=== PATIENT | female | born 1955 | race Caucasian/White ===

== ENCOUNTER → 2021-03-15 | Outpatient (CLI) | payer MEDICARE ==
--- NOTE | 2021-03-15 16:17 | US ---
EXAMINATION TYPE: US venous doppler duplex LE LT DATE OF EXAM: 03/15/2021 2:52 PM COMPARISON: NONE CLINICAL HISTORY: 65-year-old female [id number], [id number],. Left posterior to knee pain for the past day w ith prior foot surgery on 03/11/2021 SIDE PERFORMED: Left TECHNIQUE: The lower extremity deep venous system is examined utilizing real time linear array sonog les with graded compression, doppler sonography and color-flow sonography. FINDINGS: VESSELS IMAGED: Common Femoral Vein Deep Femoral Vein Greater Saphenous Vein * Femoral Vein Popliteal Vein Small Saphenous Vein * Proximal Calf Veins (* superficial vessels) Left Leg: Negative for DVT Complex area medial/posterior to left knee measuring 4.6 x 3.6 x 1.3 cm. Fluid collections seen ante rior/superior to left knee measuring 6.1 x 4.5 x 1.5cm IMPRESSION: 1. No evidence for DVT within the left lower extremity. 2. Suspect a moderate-sized, 4.6 cm Mccauley's cyst. 3. Additional 6.1 cm fluid collection along the anterior suprapatellar region. On the sagittal stitch ed image, this may represent knee joint effusion distending the suprapatellar pouch. Recommend knee r adiograph to further evaluate and/or MRI.
== END | disposition home or self-care (01) ==
LOC: RADUSWWP 13:51
PROVIDERS: ATTEND Podiatrist
DX: S92.355D Nondisplaced fracture of fifth metatarsal bone, left foot, subsequent encounter for fracture with routine healing (principal); X58.XXXD Exposure to other specified factors, subsequent encounter

== ENCOUNTER → 2021-05-20 | Outpatient (CLI) | payer MEDICARE ==
--- NOTE | 2021-05-20 12:59 | XR ---
EXAMINATION TYPE: XR abdomen 2V DATE OF EXAM: 05/20/2021 COMPARISON: NONE HISTORY: Pain TECHNIQUE: Two view abdominal series FINDINGS: The osseous structures are intact. The bowel gas pattern is nonspecific. Lung bases are clear. Scol iosis with multilevel severe degenerative and hypertrophic change. Retained fecal debris throughout t he colon. Calcifications pelvis likely vascular IMPRESSION: 1. Nonspecific abdomen. Correlate for constipation.
== END | disposition home or self-care (01) ==
LOC: RADXRMAIN 12:33
PROVIDERS: ATTEND Nurse Practitioner Family
DX: K59.09 Other constipation (principal)
CPT/HCPCS: 74019

== ENCOUNTER → 2021-09-15 | Outpatient (CLI) | payer MEDICARE, OTHER ==
--- NOTE | 2021-09-16 08:11 | CT ---
EXAMINATION TYPE: CT abdomen pelvis w con CT DLP: 944.9 mGycm, Automated exposure control for dose reduction was used. DATE OF EXAM: 09/15/2021 6:45 PM COMPARISON: None. CLINICAL INDICATION:Female, 65 years old with history of K57.32 DVTRCLI OF LG INT W/O PERFORATION; bl oating and dry heaving, pain x 7 months TECHNIQUE: Standard CT of the abdomen and pelvis following the administration of 100 cc of Isovue 3 00 IV contrast material and oral contrast. Coronal and sagittal reformats were performed. FINDINGS: LOWER CHEST: Left fat containing Bochdalek hernia. ABDOMEN LIVER: Diffusely hypoattenuating parenchyma. Small to characterize probable left hepatic cyst. Fatty infiltration of segment 4A. GALLBLADDER AND BILE DUCTS: Unremarkable. PANCREAS: Unremarkable. SPLEEN: Unremarkable. ADRENAL GLANDS: Unremarkable. KIDNEYS AND URETERS: No evidence of hydronephrosis or renal calculus. Right renal cyst, probable subc entimeter left renal cyst. PELVIS BLADDER: Unremarkable REPRODUCTIVE: Unremarkable. ABDOMEN & PELVIS STOMACH AND BOWEL: Stomach and duodenum are unremarkable. Scattered diverticula are noted throughout the colon. No evidence of bowel obstruction. Appendix is normal. PERITONEUM: No evidence of pneumoperitoneum or free fluid. VASCULATURE: Mild atherosclerotic calcifications are present throughout the abdominal aorta and its b ranches. No evidence of aortic aneurysm. MUSCULOSKELETAL: No acute osseous abnormalities. Mild disc degeneration changes are present throughou t the thoracolumbar spine. Levoscoliosis apex L3/L4. There is degeneration changes of the bilateral h ips LYMPH NODES: No gross evidence for lymphadenopathy. SOFT TISSUE/ABDOMINAL WALL: Unremarkable IMPRESSION: 1. No evidence for colonic diverticulitis or acute abdominal process. 2. Colonic diverticulosis. 3. Hepatic steatosis.
== END | disposition home or self-care (01) ==
LOC: RADCTMAIN 16:41
PROVIDERS: ATTEND Surgery Plastic and Reconstructive Surgery
DX: K76.0 Fatty (change of) liver, not elsewhere classified (principal); K57.30 Diverticulosis of large intestine without perforation or abscess without bleeding
CPT/HCPCS: 82565; 84520; 74177; 36415; Q9967

== ENCOUNTER → 2021-09-26 | Outpatient (CLI) | payer MEDICARE, OTHER ==
--- NOTE | 2021-09-26 11:45 | US ---
EXAMINATION TYPE: US thyroid st tissue head/neck DATE OF EXAM: 09/26/2021 COMPARISON: NONE CLINICAL HISTORY: R13.10 DYSPHAGIA,. GLAND SIZE: Right Lobe: 3.3 x 1.6 x 1.9 cm Overall Parenchyma: homogenous Left Lobe: 2.9 x 1.4 x 1.9 cm Overall Parenchyma: homogeneous Isthmus Thickness: 0.3 cm NODULES RIGHT: # of nodules measured on right: 1 1. 0.6 X 0.5 x 0.6 cm, upper mid, mixed cystic and solid, isoechoic nodule, which is taller than wi de, with ill-defined margins, without echogenic foci. TR4 Prior size: no prior LEFT: # of nodules measured on left: 0 ISTHMUS: # of nodules measured in the isthmus: 0 Bilateral neck scanned, no evidence of lymphadenopathy. IMPRESSION: 1. Moderately suspicious nodule within the right lobe thyroid. Consider follow-up exam in one year 2017 ACR TI-RADS LEVEL: *Highest TI-RADS level nodule reported
--- NOTE | 2021-09-26 16:14 | FL ---
EXAMINATION TYPE: FL barium swallow DATE OF EXAM: 09/26/2021 COMPARISON: None HISTORY: Dysphagia diverticulitis TECHNIQUE: A double air contrast esophagram study is performed. FINDINGS: Fluoroscopy time: 17 seconds. Images: 106 Esophagus dilates to a normal caliber and has normal contour to the gastroesophageal junction. Gastro esophageal junction opens to normal caliber. Tertiary contractions are evident within the distal half of the esophagus during the exam. In the horizontal drinking position there is incomplete stripping of the esophageal bolus. A secondary contraction was evident. This spontaneously resolved with additi onal swallowing. Gastroesophageal junction opens to normal caliber. No suspicious intraluminal or ext ramural defects are evident. IMPRESSIONS: 1. Presbyesophagus.
== END | disposition home or self-care (01) ==
LOC: RADUSWWP 07:44
PROVIDERS: ATTEND Surgery Plastic and Reconstructive Surgery
DX: R13.10 Dysphagia, unspecified (principal); E04.1 Nontoxic single thyroid nodule; K22.9 Disease of esophagus, unspecified
CPT/HCPCS: 74220; 76536

== ENCOUNTER 2021-11-23 08:49 | Day surgery (SDC) | payer MEDICARE, OTHER ==
[2021-11-21 13:31] VITALS: BMI 25.8
[~2021-11-23 08:49] MED LIST: LACTATED RINGERS 1,000 ML IV SCH
--- NOTE | 2021-11-23 08:51 | P.GSHP ---
History of Present Illness H&P Date: 11/23/21 CHIEF COMPLAINT: GERD HISTORY OF PRESENT ILLNESS: The patient is a 65-year-old female who presents reports gastroesophageal reflux disease. Upper endoscopy was offered for further evaluation and management. PAST MEDICAL HISTORY: Please see list. PAST SURGICAL HISTORY: Please see list. MEDICATIONS: Please see list. ALLERGIES: Please see list. SOCIAL HISTORY: No illicit drug use FAMILY HISTORY: No reports of Crohn disease or ulcerative colitis. REVIEW OF ORGAN SYSTEMS: CONSTITUTIONAL: No reports of fevers or chills. GI: Denies any blood in stools or constipation. PHYSICAL EXAM: VITAL SIGNS: Stable GENERAL: Well-developed and pleasant in no acute distress. HEENT: No scleral icterus. Extraocular movements grossly intact. Moist buccal mucosa. NECK: Supple without lymphadenopathy. CHEST: Unlabored respirations. Equal bilateral excursions. CARDIOVASCULAR: Regular rate and rhythm. Distal 2+ pulses. ABDOMEN: Soft, nondistended. MUSCULOSKELETAL: No clubbing, cyanosis, or edema. ASSESSMENT: 1. Gastroesophageal reflux disease PLAN: 1. Recommend proceeding with an upper endoscopy Past Medical History Past Medical History: Eye Disorder, Hyperlipidemia, Hypertension, Osteoarthritis (OA) Additional Past Medical History / Comment(s): Cataracts, Glaucoma and Macular Degeneration. History of Any Multi-Drug Resistant Organisms: None Reported Past Surgical History: Back Surgery, Section, Hernia Repair, Orthopedic Surgery Additional Past Surgical History / Comment(s): Surgery for scoliosis, left foot surgery with pin placed. Past Anesthesia/Blood Transfusion Reactions: Postoperative Nausea & Vomiting (PONV) Additional Past Anesthesia/Blood Transfusion Reaction / Comment(s): Hx Migraines post-op yrs ago. Past Psychological History: No Psychological Hx Reported Smoking Status: Never smoker Past Alcohol Use History: Occasional Past Drug Use History: None Reported - Past Family History Mother Family Medical History: Cancer, CVA/TIA Father Family Medical History: CVA/TIA Medications and Allergies Home Medications Medication Instructions Recorded Confirmed Type Alendronate Sodium 70 mg PO WEEKLY 03/08/21 11/21/21 History Simvastatin [Zocor] 20 mg PO DAILY 03/08/21 11/21/21 History Dorzolamide-Timol 2.23%/0.68% 1 drop BOTH EYES DAILY 03/11/21 11/21/21 History [Cosopt] Latanoprost/Pf [Latanoprost 0.005% 1 drop BOTH EYES BID 03/11/21 11/21/21 History Eye Drop] Multivitamins, Thera [Multivitamin 1 tab PO DAILY 03/11/21 11/21/21 History (formulary)] amLODIPine BESYLATE/BENAZEPRIL 1 cap PO QAM 03/11/21 11/21/21 History [Lotrel 5-10 MG] Allergies Allergy/AdvReac Type Severity Reaction Status Date / Time codeine Allergy Rash/Hives Verified 11/21/21 13:17 Penicillins Allergy Rash/Hives Verified 11/21/21 13:17
[2021-11-23 09:10] VITALS: TEMP 97.1
[2021-11-23] MEDS ORDERED: PROPOFOL 10 MG/ML 20 ML VIAL IV ONE (10:01)
[2021-11-23 10:24] VITALS: RESP 16
--- NOTE | 2021-11-23 10:29 | P.PCN ---
Date of Procedure: 11/23/21 Description of Procedure: PREOPERATIVE DIAGNOSIS: Gastroesophageal reflux disease Epigastric abdominal pain Dysphagia POSTOPERATIVE DIAGNOSIS: Gastroesophageal reflux disease Epigastric abdominal pain Dysphagia Presbyesophagus Diaphragmatic hiatal hernia OPERATION: Esophagogastroduodenoscopy with rigid dilator over the guidewire 54 Fr with dilation Esophagogastroduodenoscopy with cold forceps biopsies stomach/antrum and duodenum SURGEON: Yarely Bernal MD ANESTHESIA: MAC. INDICATIONS: The patient is a 65-year-old female who presents with a history of gastroesophageal reflux disease with abdominal pain. Benefits and risks of the procedure were described. Informed consent was obtained. DESCRIPTION: The patient was brought into the endoscopy suite and laid in the left lateral decubitus position. After a timeout was confirmed, the procedure was initiated. An Olympus gastroscope was passed into the posterior oropharynx. The scope was passed down to the distal esophagus into the stomach and duodenum. To address the upper esophageal stenosis and presbyesophagus, rigid dilator over guidewire was selected. Next using an Gabonese rigid dilator, a guidewire was placed through the gastroscope. Next the scope was withdrawn. A 54-Gibraltarian rigid Gabonese dilator was passed carefully along the posterior oropharynx to 45 cm and left in place for 2 minutes stretch. The dilator was withdrawn including the guidewire. The scope was reentered along the posterior oropharynx with no findings of full- thickness tear of the upper esophageal sphincter. Additional findings below. Within the stomach, cold forceps biopsies obtained. The large esophageal valve was evaluated with Hill grade 4 lower esophageal valve. LA grade A erosive esophagitis was identified. The squamocolumnar junction was at 35 cm and diaphragmatic hiatus at 40 cm. No full-thickness injury was encountered. The GI tract was desufflated. The patient tolerated the procedure well. FINDINGS: Upper esophageal stenosis dilated 54-Gibraltarian rigid dilator Diaphragmatic hiatus at 40 cm from the incisors Squamocolumnar junction 35 cm from the incisors. Diaphragmatic hiatal hernia, 5 cm Chronic gastritis with cold forceps biopsies obtained Duodenum with cold biopsies obtained for celiac disease LA grade A erosive esophagitis Hill grade 4 lower esophageal valve. RECOMMENDATIONS: May benefit from hiatal hernia repair due to symptomatic reflux Plan - Discharge Summary Discharge Rx Participant: No New Discharge Prescriptions: Continue Alendronate Sodium 70 mg PO WEEKLY Simvastatin [Zocor] 20 mg PO DAILY amLODIPine BESYLATE/BENAZEPRIL [Lotrel 5-10 MG] 1 cap PO QAM Dorzolamide-Timol 2.23%/0.68% [Cosopt] 1 drop BOTH EYES DAILY Omeprazole 20 mg PO BID Latanoprost/Pf [Latanoprost 0.005% Eye Drop] 1 drop BOTH EYES BID Multivitamins, Thera [Multivitamin (formulary)] 1 tab PO DAILY Discharge Medication List Alendronate Sodium 70 mg PO WEEKLY 03/08/21 [History] Simvastatin [Zocor] 20 mg PO DAILY 03/08/21 [History] Dorzolamide-Timol 2.23%/0.68% [Cosopt] 1 drop BOTH EYES DAILY 03/11/21 [History] Latanoprost/Pf [Latanoprost 0.005% Eye Drop] 1 drop BOTH EYES BID 03/11/21 [History] Multivitamins, Thera [Multivitamin (formulary)] 1 tab PO DAILY 03/11/21 [History] amLODIPine BESYLATE/BENAZEPRIL [Lotrel 5-10 MG] 1 cap PO QAM 03/11/21 [History] Omeprazole 20 mg PO BID 11/23/21 [History] Follow up Appointment(s)/Referral(s): Yarely Bernal MD [STAFF PHYSICIAN] - 12/06/21 Patient Instructions/Handouts: Hiatal Hernia (DC), Esophageal Dilation (GEN) Discharge Disposition: HOME SELF-CARE
[2021-11-23 10:57] VITALS: BP 142/72; PULSE 66
[2021-11-23 11:20] LABS: Basophils % (A) 0 %; Eosinophils # (A) 0.1 k/uL (0-0.7); Eosinophils % (A) 1 %; HGB 11.8 gm/dL (11.4-16.0); Lymphocytes # (A) 0.7 k/uL (1.0-4.8); Lymphocytes % (A) 16 %; MCH 32.4 pg (25.0-35.0); MCHC 31.1 g/dL (31.0-37.0); MCV 104.4 fL (80.0-100.0); Macrocytosis Slight; Monocytes # (A) 0.4 k/uL (0-1.0); Monocytes % (A) 9 %; Neutrophils % (A) 72 %; Platelet Count 215 k/uL (150-450); RBC 3.64 m/uL (3.80-5.40); RDW 12.9 % (11.5-15.5); WBC 4.2 k/uL (3.8-10.6)
== END 2021-11-23 11:40 | disposition home or self-care (01) ==
LOC: ORWHC2ENDO 08:49
PROVIDERS: ATTEND Surgery Plastic and Reconstructive Surgery
DX: K29.50 Unspecified chronic gastritis without bleeding (principal); K22.89 Other specified disease of esophagus; K44.9 Diaphragmatic hernia without obstruction or gangrene; K21.00 Gastro-esophageal reflux disease with esophagitis, without bleeding; E78.5 Hyperlipidemia, unspecified; I10 Essential (primary) hypertension; M19.90 Unspecified osteoarthritis, unspecified site; K91.0 Vomiting following gastrointestinal surgery; H26.9 Unspecified cataract; H40.9 Unspecified glaucoma; F10.99 Alcohol use, unspecified with unspecified alcohol-induced disorder; H35.30 Unspecified macular degeneration; Z98.891 History of uterine scar from previous surgery; Z98.890 Other specified postprocedural states; Z86.69 Personal history of other diseases of the nervous system and sense organs; Z80.9 Family history of malignant neoplasm, unspecified; Z82.3 Family history of stroke; Z88.5 Allergy status to narcotic agent; Z88.0 Allergy status to penicillin; Z79.899 Other long term (current) drug therapy
CPT/HCPCS: 88305; 85025; 43239; 43249; J2704

== ENCOUNTER → 2021-12-07 | Outpatient (CLI) | payer MEDICARE, OTHER | END | disposition home or self-care (01) | LOC: LABWHC1 11:26 | PROVIDERS: ATTEND Surgery Plastic and Reconstructive Surgery | DX: I11.9 Hypertensive heart disease without heart failure (principal) | CPT/HCPCS: 93005 ==

== ENCOUNTER 2021-12-23 12:49 | Day surgery (SDC) | payer MEDICARE, OTHER ==
--- NOTE | 2021-12-23 11:03 | P.GSHP ---
History of Present Illness H&P Date: 12/23/21 CHIEF COMPLAINT: Paraesophageal hiatal hernia with gastroesophageal reflux disease. HISTORY OF PRESENT ILLNESS: The patient is a 66-year-old female who presents with paraesophageal hiatal hernia. She has completed an upper endoscopy workup. Now she presents for surgical intervention. PAST MEDICAL HISTORY: Please see list. PAST SURGICAL HISTORY: Please see list. MEDICATIONS: Please see list. ALLERGIES: Please see list. SOCIAL HISTORY: No illicit drug use FAMILY HISTORY: No reports of Crohn disease or ulcerative colitis. REVIEW OF ORGAN SYSTEMS: CONSTITUTIONAL: No reports of fevers or chills. GI: Denies any blood in stools or constipation. PHYSICAL EXAM: VITAL SIGNS: Stable GENERAL: Well-developed pleasant and in no acute distress. HEENT: No scleral icterus. Extraocular movements grossly intact. Moist buccal mucosa. NECK: Supple without lymphadenopathy. CHEST: Unlabored respirations. Equal bilateral excursions. CARDIOVASCULAR: Regular rate and rhythm. Distal 2+ pulses. ABDOMEN: Soft, nondistended. No peritoneal signs. MUSCULOSKELETAL: No clubbing, cyanosis, or edema. SKIN: Well-perfused. Good skin turgor. ASSESSMENT: 1. Diaphragmatic paraesophageal hiatal hernia with severe gastroesophageal reflux disease. PLAN: 1. Recommend proceeding with a robotic paraesophageal hiatal hernia with possible mesh. 2. Benefits and risks of surgical intervention was discussed including possibility of open technique. 3. Inpatient hospitalization recommended of 2 nights 4. DVT prophylaxis. 5. Antibiotic prophylaxis. 6. She has also completed a very low caloric high-protein diet to address underlying hepatomegaly. 7. Non narcotic pain management including abdominal wall block described 8. Blood sugar glucose described. 9. Weight loss management described. Past Medical History Past Medical History: Eye Disorder, GERD/Reflux, Hyperlipidemia, Hypertension, Osteoarthritis (OA) Additional Past Medical History / Comment(s): Cataracts, Glaucoma and Macular Degeneration., scoliosis with surgery, pt states spot of fungus on her foot. , lumps on her thyroid., hx of left foot fx with surgery feb 2021 & some difficulty walking at times and uses motor w/c at store., hiatal hernia History of Any Multi-Drug Resistant Organisms: None Reported Past Surgical History: Back Surgery, Section, Hernia Repair, Orthopedic Surgery Additional Past Surgical History / Comment(s): Surgery for scoliosis with rods that broke and were removed. , left foot surgery with pin placed (feb 2021), EGD WITH DILATION (11/23/21)., HYSTEROSCOPY Past Anesthesia/Blood Transfusion Reactions: Postoperative Nausea & Vomiting (PONV) Additional Past Anesthesia/Blood Transfusion Reaction / Comment(s): post-op headache Past Psychological History: No Psychological Hx Reported Smoking Status: Never smoker Past Alcohol Use History: Occasional Past Drug Use History: None Reported - Past Family History Mother Family Medical History: Cancer, CVA/TIA Father Family Medical History: CVA/TIA Medications and Allergies Home Medications Medication Instructions Recorded Confirmed Type Alendronate Sodium 70 mg PO WEEKLY 03/08/21 12/22/21 History Simvastatin [Zocor] 20 mg PO HS 03/08/21 12/22/21 History Dorzolamide-Timol 2.23%/0.68% 1 drop BOTH EYES BID 03/11/21 12/22/21 History [Cosopt] amLODIPine BESYLATE/BENAZEPRIL 1 cap PO QAM 03/11/21 12/22/21 History [Lotrel 5-10 MG] Omeprazole 20 mg PO BID 11/23/21 12/22/21 History Acetaminophen Tab [Tylenol] 650 mg PO DIRECTED PRN 12/22/21 12/22/21 History L.acidoph,Paracasei, B.lactis 1 each PO DAILY 12/22/21 12/22/21 History [Probiotic] Latanoprostene Bunod [Vyzulta] 1 drop BOTH EYES HS 12/22/21 12/22/21 History Multivit with Calcium,Iron,Min 1 each PO DAILY 12/22/21 12/22/21 History [Women's Multivitamin] Allergies Allergy/AdvReac Type Severity Reaction Status Date / Time codeine Allergy Rash/Hives/ Verified 12/22/21 13:27 Migraines Penicillins Allergy Rash/Hives Verified 12/22/21 13:02
[~2021-12-23 12:49] MED LIST changes: +CHLORHEXIDINE GLUCONATE 15 ML CUP MUCOUS MEM PRN; +DEXAMETHASONE SOD PHOSPHATE 4 MG/ML 1 ML VIAL IV ONE; +HEPARIN SODIUM,PORCINE/PF 5,000 UNIT/0.5 ML SYRINGE SQ PRN; -LACTATED RINGERS 1,000 ML IV SCH; +MIDAZOLAM 2 MG/2 ML VIAL IV PRN; +ONDANSETRON 4 MG/2 ML VIAL IVP ONE; +PANTOPRAZOLE 40 MG/10 ML VIAL IVP PRN; +SCOPOLAMINE 1 MG/72 HR PATCH TRANSDERM STA; +fentaNYL (PF) 50 MCG/ML 2 ML AMP IV PRN
[2021-12-23] MEDS: LACTATED RINGERS 1,000 ML IV SCH (13:46)
[2021-12-23 14:03] LABS: Basophils % (A) 1 %; Eosinophils % (A) 0 %; HCT 37.9 % (34.0-46.0); HGB 12.7 gm/dL (11.4-16.0); Lymphocytes % (A) 15 %; MCH 34.1 pg (25.0-35.0); MCHC 33.6 g/dL (31.0-37.0); MCV 101.5 fL (80.0-100.0); Mean Platelet Volume 7.6; Monocytes # (A) 0.5 k/uL (0-1.0); Monocytes % (A) 8 %; Neutrophils # (A) 4.4 k/uL (1.3-7.7); Neutrophils % (A) 72 %; Platelet Count 317 k/uL (150-450); RBC 3.73 m/uL (3.80-5.40); RDW 12.1 % (11.5-15.5); WBC 6.1 k/uL (3.8-10.6)
[2021-12-23 14:12] LABS: Albumin 4.7 g/dL (3.5-5.0); Calcium 9.7 mg/dL (8.4-10.2); Potassium 4.6 mmol/L (3.5-5.1); Total Bilirubin 0.5 mg/dL (0.2-1.3); Total Protein 7.2 g/dL (6.3-8.2)
[2021-12-23] MEDS ORDERED: SUCCINYLCHOLINE CHLORIDE 200 MG/10 ML VIAL IV ONE (14:55)
[2021-12-23] MEDS ORDERED: LIDOCAINE 2% INJ 20 MG/ML (2 ML VIAL) ONE (14:55)
[2021-12-23] MEDS ORDERED: MIDAZOLAM 2 MG/2 ML VIAL ONE (14:55)
[2021-12-23] MEDS ORDERED: PHENYLEPHRINE-0.9% NACL SYG 1,000 MCG/10 ML SYRINGE ONE (14:55)
[2021-12-23] MEDS ORDERED: GLYCOPYRROLATE 0.2 MG/ML 2 ML VIAL ONE (14:55)
[2021-12-23] MEDS ORDERED: ROCURONIUM 10 MG/ML (5 ML VIAL) IV ONE (14:55)
[2021-12-23] MEDS ORDERED: NEOSTIGMINE 1 MG/ML 10 ML VIAL ONE (14:55)
[2021-12-23] MEDS ORDERED: PROPOFOL 10 MG/ML 20 ML VIAL IV ONE (14:55)
[2021-12-23] MEDS ORDERED: fentaNYL (PF) 50 MCG/ML 2 ML AMP ONE (14:55)
[2021-12-23] MEDS ORDERED: LIDOCAINE 1%-EPI 1:100,000 20 ML VIAL SQ ONE (15:16)
[2021-12-23] MEDS ORDERED: LACTATED RINGERS 1,000 ML IV ONE (16:32)
[2021-12-23] MEDS ORDERED: ONDANSETRON 4 MG/2 ML VIAL IVP PRN (16:54)
--- NOTE | 2021-12-23 17:03 | P.OP ---
Date of Procedure: 12/23/21 Description of Procedure: SURGEON: NEISHA FRITZ MD PREOPERATIVE DIAGNOSES: 1. Symptomatic paraesophageal diaphragmatic hiatal hernia. 2. Gastroesophageal reflux disease. 3. Elevated liver enzymes 4. Hyperlipidemia 5. Hypertensive heart disease 6. Esophageal dysmotility 7. Glaucoma 8. Thyroid nodule 9. Scoliosis 10. Foot fungus POSTOPERATIVE DIAGNOSES: 1. Symptomatic paraesophageal diaphragmatic hiatal hernia. 2. Gastroesophageal reflux disease. 3. Elevated liver enzymes 4. Hyperlipidemia 5. Hypertensive heart disease 6. Esophageal dysmotility 7. Glaucoma 8. Thyroid nodule 9. Scoliosis 10. Foot fungus 11. Fatty liver OPERATION: 1. Robotic-assisted da Yoli Xi laparoscopic repair of incarcerated paraesophageal hiatal hernia, 4 x 3 cm, with [place] Biopatch A 8 x 8 cm. 2. Intraoperative esophagogastroduodenoscopy 3. Placement of 54-Tristanian bougie to address esophageal dysmotility ANESTHESIA: General with local anesthetic. ESTIMATED BLOOD LOSS: 5 mL SPECIMENS REMOVED: None COMPLICATIONS: None. Condition: stable Disposition: floor FINDINGS: 1. Midline incarcerated paraesophageal hiatal hernia 4 x 3 cm 2. Intraoperative upper endoscopy confirms complete closure of hiatal hernia from Hill grade 4 to Hill grade 1 3. Intraesophageal length over 2 cm 4. Fatty liver with thickened gallbladder wall suspicious for chronic cholecystitis INDICATIONS: The patient is a 66 year-old female who presents with gastroesophageal reflux disease poorly controlled despite medications, and a symptomatic diaphragmatic hiatal hernia. Preoperative workup including upper endoscopy demonstrated a sliding hiatal hernia. Given the severity of symptoms, the patient had elected for surgical intervention. Benefits and risks including bleeding, infection, recurrence, dysphagia, injury to the lung, need for further surgery was described at length. Informed consent was obtained. DESCRIPTION: The patient was brought into the operating room and placed in supine position. Preoperatively the patient had received heparin subcutaneously for DVT prophylaxis. After general induction, the abdomen was prepped and draped in standard sterile fashion. The patient had previously voided prior to coming to the operating room. Ioban draping was placed along the abdomen. A timeout protocol was confirmed with the surgical team, for which the patient's name, procedure to be performed including DVT prophylaxis with bilateral SCDs, and preoperative antibiotics were also confirmed. A robotic da Yoli Xi system was prepped and primed. At 12 cm from the xiphoid to just below the umbilicus, proposed port sites were marked with indelible marker along the left axillary line, left mid-clavicular line with each ports were marked 10 cm from each other. A 5 mm 0 degrees laparoscopic trocar entry was performed along the left upper quadrant. The abdomen was insufflated to 15 mmHg pressure was tolerated well. Diagnostic laparoscopy demonstrated no injury to bowel, viscera, or mesentery. No injury had occurred to the small bowel or viscera. The liver was then fatty liver disease with mild hepatomegaly. Next, one 8 mm robotic port was placed along the right upper abdomen. An 8-mm port was were placed along the right lateral lateral abdominal wall. The camera 8-mm port was maintained along the epigastrium. Another 12 mm port was placed along the left upper abdominal wall after exchanging the 5 mm port. Please note that the ports were placed at least 20 cm away from the target anatomy. Care was taken to check that each robotic arm were safely away from collision with the bed or the patient. At the epigastrium, a medium sized Nilesh liver retractor was placed under direct visualization with the Iron Wardrobe Supervisor placed under the right shoulder of the patient. All robotic arms were used. The patient was repositioned in reverse Trendelenburg position at 21-degrees after lowering the bed. The robot was docked above the right side of the patient. Using a grasper for arm 3, a grasper for arm 1, including vessel sealer for arm 2, the robotic system was docked and primed as described. Instruments were interchanged by the field assistant. I had sat at the console. The gastrohepatic ligament was cleaved using a vessel sealer. Next, the phrenoesophageal ligament was mobilized and the distal esophagus was mobilized circumferentially. The left and right crura was identified. Circumferentially, the hernia sac was excised and brought into the peritoneal cavity. Moderate dissection into the mediastinum was performed to release the esophagus into the abdominal cavity. The paraesophageal hiatal hernia sac was also incised and di vided from the esophagus. Care was taken to avoid any gastrotomy. The measured defect was consistent with 4 cm axial length and 3 cm in width. After dissection, the distal esophagus of 2+ cm was brought into the abdominal cavity. Once the hiatus and crura was dissected, 2-0 VLOC nonabsorbable suture was placed to reapproximate the diaphragmatic hiatus posteriorly. To buttress the repair, a [place] Biopatch A was prepared along the back table and cut in half of a moore-hole fashion as to reinforce the repair as an underlay. The mesh was placed along the crural repair and tagged using horizontal mattress sutures using 2-0 VLOC. I performed an intraoperative esophagogastroduodenoscopy and bougie placement. A 54-Tristanian bougie was placed to address esophageal dysmotility left for 2 minutes. The bougie was withdrawn. An Olympus gastroscope was passed through posterior oropharynx. Retroflexion of the scope confirmed a Hill grade 1 lower esophageal valve. The stomach had been desufflated. No evidence of leaks were found of the esophagus or stomach. The GI tract with desufflated This concluded the endoscopic portion of the case. The robot was undocked from the patient. I re-scrubbed into the case. All instruments and pneumoperitoneum and specimens were evacuated from the abdominal cavity. Incisions were reapproximated using 4-0 Monocryl in an interrupted subcuticular fashion. Liquid glue was applied to the skin. Local anesthetic was infiltrated in all wounds for postop analgesia. At the end of the procedure, needle, sponge, and instrument count was verified correct by the surgical rn. The patient had tolerated the procedure well and was taken to the postanesthesia unit in stable condition. Plan - Discharge Summary Discharge Rx Participant: No New Discharge Prescriptions: No Action Alendronate Sodium 70 mg PO WEEKLY Simvastatin [Zocor] 20 mg PO HS amLODIPine BESYLATE/BENAZEPRIL [Lotrel 5-10 MG] 1 cap PO QAM Dorzolamide-Timol 2.23%/0.68% [Cosopt] 1 drop BOTH EYES BID Omeprazole 20 mg PO BID Latanoprostene Bunod [Vyzulta] 1 drop BOTH EYES HS Acetaminophen Tab [Tylenol] 650 mg PO DIRECTED PRN PRN Reason: Pain Multivit with Calcium,Iron,Min [Women's Multivitamin] 1 each PO DAILY L.acidoph,Paracasei, B.lactis [Probiotic] 1 each PO DAILY Discharge Medication List Alendronate Sodium 70 mg PO WEEKLY 03/08/21 [History] Simvastatin [Zocor] 20 mg PO HS 03/08/21 [History] Dorzolamide-Timol 2.23%/0.68% [Cosopt] 1 drop BOTH EYES BID 03/11/21 [History] amLODIPine BESYLATE/BENAZEPRIL [Lotrel 5-10 MG] 1 cap PO QAM 03/11/21 [History] Omeprazole 20 mg PO BID 11/23/21 [History] Acetaminophen Tab [Tylenol] 650 mg PO DIRECTED PRN 12/22/21 [History] L.acidoph,Paracasei, B.lactis [Probiotic] 1 each PO DAILY 12/22/21 [History] Latanoprostene Bunod [Vyzulta] 1 drop BOTH EYES HS 12/22/21 [History] Multivit with Calcium,Iron,Min [Women's Multivitamin] 1 each PO DAILY 12/22/21 [History]
[2021-12-23] MEDS ORDERED: HYDROmorphone 0.5 MG/0.5 ML SYRINGE IVP ONE (17:11)
[2021-12-23] MEDS: METOCLOPRAMIDE 5 MG/ML 2 ML VIAL IVP SCH ×2 (18:12→23:39)
[2021-12-23] MEDS: DEXAMETHASONE SOD PHOSPHATE 4 MG/ML 1 ML VIAL IVP SCH ×2 (18:12→23:40)
[2021-12-23] MEDS: D5-0.45% NACL WITH KCL 20MEQ/L 1,000 ML IV SCH (20:55)
[2021-12-23] MEDS ORDERED: LATANOPROSTENE BUNOD BOTH EYES SCH (21:00)
[2021-12-23] MEDS: DORZOLAMIDE-TIMOLOL 2.23%/0.68 10ML BTL BOTH EYES SCH (21:12)
[2021-12-24] MEDS: D5-0.45% NACL WITH KCL 20MEQ/L 1,000 ML IV SCH ×2 (04:14→11:58)
[2021-12-24] MEDS: DEXAMETHASONE SOD PHOSPHATE 4 MG/ML 1 ML VIAL IVP SCH ×2 (05:30→11:54)
[2021-12-24] MEDS: METOCLOPRAMIDE 5 MG/ML 2 ML VIAL IVP SCH ×2 (05:30→11:54)
[2021-12-24] MEDS: LACTATED RINGERS 1,000 ML IV SCH (06:20)
--- NOTE | 2021-12-24 08:48 | US ---
EXAMINATION TYPE: US gallbladder DATE OF EXAM: 12/24/2021 COMPARISON: CT abdomen and pelvis September 15, 2021 CLINICAL HISTORY: Elevated liver enzymes. TECHNIQUE: Multiple sonographic images of the right upper quadrant are obtained. 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 Extensive overlying bowel gas, study very limited . Pancreas: wnl as seen, partially obscured by overlying bowel gas Liver: limited visualization, attenuating Gallbladder: very limited visualization, partially obscured, wnl as seen Evidence for sonographic Langley's sign: No CBD: wnl Right Kidney: wnl as seen, limited views Visualized portion of pancreas unremarkable. Visualized liver heterogeneously hyperechoic consistent with fatty infiltrative hepatocellular disease. No suspicious masses on images obtained. No right-peyton ed hydronephrosis. No shadowing mobile gallstones. No biliary dilatation. IMPRESSION: Suboptimal study. Fatty infiltrated hepatocellular disease demonstrated no new biliary di latation noted.
[2021-12-24] MEDS ORDERED: ENOXAPARIN 30 MG/0.3 ML SYRINGE SQ SCH (09:00)
[2021-12-24] MEDS ORDERED: amLODIPine 5 MG TAB PO SCH (09:00)
[2021-12-24] MEDS ORDERED: lisinopriL 10 MG TAB PO SCH (09:00)
[2021-12-24] MEDS ORDERED: NON FORMULARY DRUG (Amlodipine Besylate/Benazepril [Lotrel 5-10 Mg] 1 EACH Capsule) PO SCH (09:00)
[2021-12-24] MEDS: DORZOLAMIDE-TIMOLOL 2.23%/0.68 10ML BTL BOTH EYES SCH (09:08)
--- NOTE | 2021-12-24 09:24 | FL ---
EXAMINATION TYPE: FL esophagus cervic/pharynx DATE OF EXAM: 12/24/2021 LIMITED UGI-ESOPHAGRAM: CLINICAL HISTORY: GERD, Constantin Fundoplication surgery yesterday. TECHNIQUE: Limited esophagram is performed utilizing 20 oz of Omnipaque 350. A total of 16 seconds o f fluoroscopic time was utilized during procedure and 28 images obtained. Comparison: Prior esophagram September 26, 2021 FINDINGS: The patient swallowed contrast without difficulty or delay. Esophageal peristalsis and mo tility are within normal limits. There is good flow of contrast along the diaphragmatic hiatus into t he stomach, there is no evidence of contrast extravasation to suggest leak. No hiatal hernia is seen . Patient remains asymptomatic. IMPRESSION: No evidence of leak or significant obstruction status post Johnson fundoplication surgery yesterday.
[2021-12-24] MEDS ORDERED: ACETAMINOPHEN IV (For NPO) 1,000 MG in EMPTY BAG 1 BAG IVPB SCH (10:00)
[2021-12-24] MEDS: SIMETHICONE 40 MG/0.6 ML DROPS 2,000 MG/30 ML BOTTLE PO SCH ×2 (10:46→11:58)
[2021-12-24 11:26] VITALS: BP 152/64; PULSE 72; RESP 17; TEMP 98.4
[2021-12-24 12:38] VITALS: BMI 29.3
--- NOTE | 2021-12-24 14:03 | P.PN ---
Subjective Progress Note Date: 12/24/21 CHIEF COMPLAINT: Status post hiatal hernia repair HISTORY OF PRESENT ILLNESS: The patient is a 66-year-old female status post hiatal hernia repair. She is tolerating liquids. No dysphagia. No reports of reflux disease. She reports improvement since surgery. is at bedside. ROS: No reports of nausea and vomiting. No bowel movements. No fevers or chills. No new chest pain. No productive sputum PHYSICAL EXAM: VITAL SIGNS: Reviewed CONSTITUTIONAL: Well developed and in no acute distress. EYES: Conjuctivae without sclera icterus. Extraocular movements grossly intact. HEAD, EARS, NOSE, THROAT: Moist buccal mucosa. Head is atraumatic, normocephalic. Hears conversational speech. No nasal drainage. RESPIRATORY: Non-labored respirations and equal bilateral excursions. CARDIOVASCULAR: Palpable 2+ radial pulses. ABDOMEN: No peritonitis. Incisions intact. MUSCULOSKELETAL: No gross deformity of the lower extremities noted. No clubbing. No cyanosis. SKIN: Good skin turgor. Well perfused. NEUROLOGIC: Cranial nerves II through XII grossly intact. No focal or lateralizing signs. PSYCH: Appropriate affect. Alert and oriented to person, place and time. CLINICAL LABS: Reviewed. LFTs elevated. STUDIES: Ultrasound of gallbladder review demonstrates no gallstones. Presence of fatty liver disease. This is my independent interpretation. Barium swallow review demonstrates no obstruction. No leak. This is my independent interpretation. ASSESSMENT: 1. Hiatal hernia 2. Elevated liver enzymes with fatty liver disease PLAN: 1. Clinically doing well with discharge diet reviewed. 2. Stable for discharge. 3. Follow-up telehealth in 5 days. Objective - Vital Signs Vital signs: Vital Signs Temp 98.4 F 12/24/21 11:18 Pulse 72 12/24/21 11:18 Resp 17 12/24/21 11:18 BP 152/64 12/24/21 11:18 Pulse Ox 95 12/24/21 11:18 FiO2 Intake & Output 12/23/21 12/24/21 12/24/21 18:59 06:59 18:59 Intake Total 1450 Output Total 5 Balance 1445 Weight 80 kg 80 kg Intake: IV 1450 Output: Estimated Blood Loss 5 Other: Voiding Method Toilet Toilet # Voids 3 - Labs CBC & Chem 7: 12/23/21 13:46 12/23/21 13:46 Labs: Abnormal Lab Results - Last 24 Hours (Table) 12/23/21 12/23/21 Range/Units 13:46 13:46 RBC 3.73 L (3.80-5.40) m/uL MCV 101.5 H (80.0-100.0) fL Carbon Dioxide 21 L (22-30) mmol/L BUN 25 H (7-17) mg/dL AST 68 H (14-36) U/L ALT 57 H (4-34) U/L
--- NOTE | 2021-12-24 14:05 | P.DS ---
Providers Date of admission: 12/23/21 Expected date of discharge: 12/24/21 Attending physician: Yarely Bernal Primary care physician: Arvind [facility] Course: POSTOPERATIVE DIAGNOSES: 1. Symptomatic paraesophageal diaphragmatic hiatal hernia. 2. Gastroesophageal reflux disease. 3. Elevated liver enzymes 4. Hyperlipidemia 5. Hypertensive heart disease 6. Esophageal dysmotility 7. Glaucoma 8. Thyroid nodule 9. Scoliosis 10. Foot fungus 11. Fatty liver CHIEF COMPLAINT: Status post hiatal hernia repair HISTORY OF PRESENT ILLNESS: The patient is a 66-year-old female status post hiatal hernia repair. She is tolerating liquids. No dysphagia. No reports of reflux disease. She reports improvement since surgery. is at bedside. ROS: No reports of nausea and vomiting. No bowel movements. No fevers or chills. No new chest pain. No productive sputum PHYSICAL EXAM: VITAL SIGNS: Reviewed CONSTITUTIONAL: Well developed and in no acute distress. EYES: Conjuctivae without sclera icterus. Extraocular movements grossly intact. HEAD, EARS, NOSE, THROAT: Moist buccal mucosa. Head is atraumatic, normocephalic. Hears conversational speech. No nasal drainage. RESPIRATORY: Non-labored respirations and equal bilateral excursions. CARDIOVASCULAR: Palpable 2+ radial pulses. ABDOMEN: No peritonitis. Incisions intact. MUSCULOSKELETAL: No gross deformity of the lower extremities noted. No clubb ing. No cyanosis. SKIN: Good skin turgor. Well perfused. NEUROLOGIC: Cranial nerves II through XII grossly intact. No focal or lateralizing signs. PSYCH: Appropriate affect. Alert and oriented to person, place and time. CLINICAL LABS: Reviewed. LFTs elevated. STUDIES: Ultrasound of gallbladder review demonstrates no gallstones. Presence of fatty liver disease. This is my independent interpretation. Barium swallow review demonstrates no obstruction. No leak. This is my independent interpretation. ASSESSMENT: 1. Hiatal hernia 2. Elevated liver enzymes with fatty liver disease PLAN: 1. Clinically doing well with discharge diet reviewed. 2. Stable for discharge. 3. Follow-up telehealth in 5 days. Procedures: OPERATION: 1. Robotic-assisted da Yoli Xi laparoscopic repair of incarcerated paraesophageal hiatal hernia, 4 x 3 cm, with [place] Biopatch A 8 x 8 cm. 2. Intraoperative esophagogastroduodenoscopy 3. Placement of 54-[place] bougie to address esophageal dysmotility ANESTHESIA: General with local anesthetic. ESTIMATED BLOOD LOSS: 5 mL SPECIMENS REMOVED: None COMPLICATIONS: None. Condition: stable Disposition: floor FINDINGS: 1. Midline incarcerated paraesophageal hiatal hernia 4 x 3 cm 2. Intraoperative upper endoscopy confirms complete closure of hiatal hernia from Hill grade 4 to Hill grade 1 3. Intraesophageal length over 2 cm 4. Fatty liver with thickened gallbladder wall suspicious for chronic cholecystitis Patient Condition at Discharge: Good Plan - Discharge Summary Discharge Rx Participant: No New Discharge Prescriptions: New Simethicone 40 mg/0.6 ml Drops [Mylicon Drops] 80 mg PO Q6HR PRN #30 ml PRN Reason: Abdominal Distention Ibuprofen [Motrin] 600 mg PO Q8HR PRN #30 tab PRN Reason: Pain Acetaminophen Tab [Tylenol Tab] 1,000 mg PO Q6HR PRN #30 tablet PRN Reason: Pain Continue Alendronate Sodium 70 mg PO WEEKLY Simvastatin [Zocor] 20 mg PO HS amLODIPine BESYLATE/BENAZEPRIL [Lotrel 5-10 MG] 1 cap PO QAM Dorzolamide-Timol 2.23%/0.68% [Cosopt] 1 drop BOTH EYES BID Latanoprostene Bunod [Vyzulta] 1 drop BOTH EYES HS Multivit with Calcium,Iron,Min [Women's Multivitamin] 1 each PO DAILY L.acidoph,Paracasei, B.lactis [Probiotic] 1 each PO DAILY Discontinued Omeprazole 20 mg PO BID Acetaminophen Tab [Tylenol] 650 mg PO DIRECTED PRN PRN Reason: Pain Discharge Medication List Alendronate Sodium 70 mg PO WEEKLY 03/08/21 [History] Simvastatin [Zocor] 20 mg PO HS 03/08/21 [History] Dorzolamide-Timol 2.23%/0.68% [Cosopt] 1 drop BOTH EYES BID 03/11/21 [History] amLODIPine BESYLATE/BENAZEPRIL [Lotrel 5-10 MG] 1 cap PO QAM 03/11/21 [History] L.acidoph,Paracasei, B.lactis [Probiotic] 1 each PO DAILY 12/22/21 [History] Latanoprostene Bunod [Vyzulta] 1 drop BOTH EYES HS 12/22/21 [History] Multivit with Calcium,Iron,Min [Women's Multivitamin] 1 each PO DAILY 12/22/21 [History] Acetaminophen Tab [Tylenol Tab] 1,000 mg PO Q6HR PRN #30 tablet 12/24/21 [Rx] Ibuprofen [Motrin] 600 mg PO Q8HR PRN #30 tab 12/24/21 [Rx] Simethicone 40 mg/0.6 ml Drops [Mylicon Drops] 80 mg PO Q6HR PRN #30 ml 12/24/21 [Rx] Follow up Appointment(s)/Referral(s): Yarely Bernal MD [STAFF PHYSICIAN] - 12/27/21 (TELEHEALTH - DR WILL CALL YOU AT HOME) Patient Instructions/Handouts: *Surgery [facility] - Managing Your Pain After Surgery Without Opioids, Hiatal Hernia (DC), Laparoscopic Hiatal Hernia Repair (DC) Activity/Diet/Wound Care/Special Instructions: Liquid diet only for 2 weeks until January 06 No lifting over 4 pounds in 4 weeks, January 14July shower No soaking in bath tubs for 2 weeks, January 06 Please notify your surgeon if you develop nausea and vomiting including new onset of abdominal pain. Please ambulate at all times. Use Simethicone, Gas-X, Tylenol and ibuprofen or Aleve scheduled for the next 24-48 hours for best pain relief. Use ice along incisions for the today to prevent swelling. Please open, cut, crush pills larger than the size of a tic tack No carbonated beverages. No straws. Do not remove scopolamine patch for 3 days, if present Avoiding Gas Avoid drinking through a straw. Do not chew gum or tobacco. These actions cause you to swallow air, which produces excess gas in your stomach. Chew with your mouth closed. Avoid any foods that cause stomach gas and distention. These foods include corn, dried beans, peas, lentils, onions, broccoli, cauliflower and any food from the cabbage family. Avoid carbonated drinks, alcohol, citrus and tomato products. Carbonated drinks (sodas) are not allowed for the first six to eight weeks after surgery. After this time you can try them again in small amounts Clear Liquid Diet The first diet after surgery is the clear liquid diet. It includes the following liquids: Apple juice Cranberry juice Grape juice Chicken broth Beef broth Flavored gelatin (Jell-O) Decaf tea and coffee Caffeinated beverages are permitted based on tolerance Popsicles [place] ice Full Liquid Diet The full liquid diet contains anything on the clear liquid diet, plus: Milk, soy, rice and almond (no chocolate) Cream of wheat, cream of rice, grits Strained creamed soups (no tomato or broccoli) Vanilla and strawberry-flavored ice cream Sherbet Blended, custard styled or whipped yogurt (plain or vanilla only) Vanilla and butterscotch pudding (no chocolate or coconut) Nutritional drinks including Ensure, Boost, [place] Instant Breakfast (no chocolate-flavored) Note: Dairy products, such as milk, ice cream and pudding, may cause diarrhea in some people just after surgery. You may need to avoid milk products. If so, substitute them with lactose-free beverages, such as soy, rice, Lactaid or almond milks. Discharge Disposition: HOME SELF-CARE
== END 2021-12-24 15:30 | disposition home or self-care (01) ==
LOC: OR 12:49 → 5NMEDONC 16:37 → OR 12-24 15:30
PROVIDERS: ATTEND Surgery Plastic and Reconstructive Surgery
DX: K44.9 Diaphragmatic hernia without obstruction or gangrene (principal); K76.0 Fatty (change of) liver, not elsewhere classified; K21.9 Gastro-esophageal reflux disease without esophagitis; E78.5 Hyperlipidemia, unspecified; I11.9 Hypertensive heart disease without heart failure; K22.4 Dyskinesia of esophagus; H40.9 Unspecified glaucoma; E04.1 Nontoxic single thyroid nodule; M41.9 Scoliosis, unspecified; B35.3 Tinea pedis; K91.0 Vomiting following gastrointestinal surgery; H35.30 Unspecified macular degeneration; Z98.890 Other specified postprocedural states; Z98.891 History of uterine scar from previous surgery; Z90.89 Acquired absence of other organs; F10.10 Alcohol abuse, uncomplicated; Z82.3 Family history of stroke; Z80.9 Family history of malignant neoplasm, unspecified; Z79.899 Other long term (current) drug therapy; Z79.1 Long term (current) use of non-steroidal anti-inflammatories (NSAID); Z88.5 Allergy status to narcotic agent; Z88.0 Allergy status to penicillin
CPT/HCPCS: 43282; 80053; 85025; 74210; 76705; C1781; J2250; J0330; J1100 ×2; J2710; J2765 ×2; J0690 ×2; J2405; J3010; J0131; J2370; J2704; J1170; Q9967; J1644; J2001; 43235

== ENCOUNTER 2022-04-01 23:09 | Emergency (ER) | payer MEDICARE, OTHER ==
[2022-04-01 23:42] VITALS: BP 123/64; PULSE 78; RESP 16; TEMP 98.7
[2022-04-02] MEDS ORDERED: BACITRACIN OINT 1 EACH PACKET TOPICAL ONE (00:39)
[2022-04-02] MEDS ORDERED: DIPH,PERTUS(ACELL)TETVAC-LF 0.5 ML VIAL IM ONE (00:39)
--- NOTE | 2022-04-02 00:51 | ED ---
Upper Extremity HPI - General Chief Complaint: Extremity Injury, Upper Stated Complaint: Fall, arm laceration Time Seen by Provider: 04/02/22 00:14 Source: patient, family Mode of arrival: ambulatory Limitations: no limitations - History of Present Illness Initial Comments: This is a pleasant 66-year-old female presents ambulatory with her . Kim stephens was trying to help her get to the hospital and tripped and fell landing on her right arm hitting a container. She sustained an abrasion. Full range of motion of the elbow wrist and hand. Tetanus shot is not up-to-date. No other injuries. MD Complaint: Injury to:: right, forearm -: hour(s) (2) Severity scale (1-10): 4 Associated Symptoms: denies other symptoms Treatments Prior to Arrival: other (bandage) - Related Data Home Medications Medication Instructions Recorded Confirmed Alendronate Sodium 70 mg PO WEEKLY 03/08/21 12/23/21 Simvastatin [Zocor] 20 mg PO HS 03/08/21 12/23/21 Dorzolamide-Timol 2.23%/0.68% 1 drop BOTH EYES BID 03/11/21 12/23/21 [Cosopt] amLODIPine BESYLATE/BENAZEPRIL 1 cap PO QAM 03/11/21 12/23/21 [Lotrel 5-10 MG] L.acidoph,Paracasei, B.lactis 1 each PO DAILY 12/22/21 12/23/21 [Probiotic] Latanoprostene Bunod [Vyzulta] 1 drop BOTH EYES HS 12/22/21 12/23/21 Multivit with Calcium,Iron,Min 1 each PO DAILY 12/22/21 12/23/21 [Women's Multivitamin] Previous Rx's Medication Instructions Recorded Acetaminophen Tab [Tylenol Tab] 1,000 mg PO Q6HR PRN #30 tablet 12/24/21 Ibuprofen [Motrin] 600 mg PO Q8HR PRN #30 tab 12/24/21 Simethicone 40 mg/0.6 ml Drops 80 mg PO Q6HR PRN #30 ml 12/24/21 [Mylicon Drops] Allergies Allergy/AdvReac Type Severity Reaction Status Date / Time codeine Allergy Rash/Hives/ Verified 04/01/22 23:42 Migraines latanoprost [From [facility]] Allergy Swelling Verified 04/01/22 23:42 [email or web address] [From [facility]] Allergy Swelling Verified 04/01/22 23:42 Penicillins Allergy Rash/Hives Verified 04/01/22 23:42 Review of Systems ROS Statement: Those systems with pertinent positive or pertinent negative responses have been documented in the HPI. ROS Other: All systems not noted in ROS Statement are negative. Past Medical History Past Medical History: Eye Disorder, GERD/Reflux, Hyperlipidemia, Hypertension, Osteoarthritis (OA) Additional Past Medical History / Comment(s): Cataracts, Glaucoma and Macular Degeneration., scoliosis with surgery, pt states spot of fungus on her foot. , lumps on her thyroid., hx of left foot fx with surgery feb 2021 & some difficulty walking at times and uses motor w/c at store., hiatal hernia History of Any Multi-Drug Resistant Organisms: None Reported Past Surgical History: Back Surgery, Section, Hernia Repair, Orthopedic Surgery Additional Past Surgical History / Comment(s): Surgery for scoliosis with rods that broke and were removed. , left foot surgery with pin placed (feb 2021), EGD WITH DILATION (11/23/21)., HYSTEROSCOPY, tubal ligation with c section Past Anesthesia/Blood Transfusion Reactions: Postoperative Nausea & Vomiting (PONV) Additional Past Anesthesia/Blood Transfusion Reaction / Comment(s): post-op headache Past Psychological History: No Psychological Hx Reported Smoking Status: Never smoker Past Alcohol Use History: Occasional Past Drug Use History: None Reported - Past Family History Mother Family Medical History: Cancer, CVA/TIA Father Family Medical History: CVA/TIA General Exam Limitations: no limitations General appearance: alert, in no apparent distress Respiratory exam: Absent: respiratory distress, accessory muscle use Cardiovascular Exam: Present: regular rate Right Elbow exam: Present: full ROM. Absent: tenderness Forearm Wrist exam: Present: full ROM, tenderness, swelling, abrasion (7cm abrasion), ecchymosis. Absent: laceration, deformity, crepitus, dislocation, erythema, tenderness over anatomical snuff box, pain with axial thumb loading Hand Wrist exam: Present: full ROM. Absent: tenderness, swelling Vascular: Present: normal capillary refill. Absent: vascular compromise Neurological exam: Present: alert, oriented X3, normal gait Psychiatric exam: Present: normal affect, normal mood Skin exam: Present: warm, dry, normal color. Absent: cyanosis, diaphoretic, petechiae, pallor Course Vital Signs 04/01/22 23:37 Temperature 98.7 F Pulse Rate 78 Respiratory 16 Rate Blood Pressure 123/64 O2 Sat by Pulse 96 Oximetry Medical Decision Making - Medical Decision Making Patient has full range of motion of the right forearm and elbow. No wrist or hand pain. The wound was cleansed and dressed with bacitracin dressing. Tetanus shot was updated at this visit. She was offered an x-ray and declined. She was offered Tylenol and/or Motrin and declined. She was provided an ice pack for pain and swelling. Directed to follow up with her primary care doctor as needed and return to the emergency room with a new or concerning symptoms. Attending Dr. Harry Was pt. sent in by a medical professional or institution? @ -no Did you speak to anyone other than the patient for history? @ -family Did you review nursing and triage notes? @ -yes i agree Were old charts reviewed? @ -no Differential Diagnosis? @ -Fracture, laceration, abrasion, contusion, hematoma What testing was considered but not performed? (CT, X-rays, U/S, labs)? Why? @ xr offered and patient declined What meds were considered but not given? Why? @ -Tylenol Motrin offered and patient declined Did you discuss the management of the patient with other professionals? @ -no Did you reconcile home meds? @ -no Was smoking cessation discussed for >3mins.? @ -[none] Was critical care preformed (if so, how long)? @ -no Were there social determinants of health that impacted care today? How? (Homelessness, low income, unemployed, alcoholism, drug addiction, transportation, low edu. Level, literacy, decrease access to med. care, fpc, rehab)? @ -none Was there de-escalation of care discussed even if they declined? (Discuss DNR or withdrawal of care, Hospice)? @ -no What co-morbidities impacted this encounter? (DM, HTN, Smoking, COPD, CAD, Cancer, CVA, Hep., AIDS, mental health diagnosis, sleep apnea, morbid obesity)? @ -GERD, hyperlipidemia, hypertension, osteoarthritis Was patient admitted / discharged? @ -Discharged Undiagnosed new problem with uncertain prognosis? @ -no Drug Therapy requiring intensive monitoring for toxicity (Heparin, Nitro, Insulin, Cardizem)? @ -no Were any procedures done? @ -no Diagnosis/symptom? @ -Right arm contusion with abrasion Acute, or Chronic, or Acute on Chronic? @ -acute Uncomplicated (without systemic symptoms) or Complicated (systemic symptoms)? @ -uncomplicated Side effects of treatment? @ -[none] Exacerbation, Progression, or Severe Exacerbation] @ -[no] Poses a threat to life or bodily function? @ -[no] Disposition Clinical Impression: Abrasion forearm, Hematoma of arm Disposition: HOME SELF-CARE Condition: Good Instructions (If sedation given, give patient instructions): Abrasion (ED), Arm Pain (ED) Additional Instructions: Rest, ice and elevate arm to decrease swelling. Tylenol and Motrin as needed for any pain or discomfort. Bacitracin or Neosporin dressings once a day. W atch for signs of infection and return to the emergency room with any new or concerning symptoms. Is patient prescribed a controlled substance at d/c from ED?: No Referrals: Arvind Hughes DO [Primary Care Provider] - 1-2 days Time of Disposition: 00:44
== END 2022-04-02 01:36 | disposition home or self-care (01) ==
LOC: EC 23:09
DX: S50.11XA Contusion of right forearm, initial encounter (principal); I10 Essential (primary) hypertension; E78.5 Hyperlipidemia, unspecified; K21.9 Gastro-esophageal reflux disease without esophagitis; M19.90 Unspecified osteoarthritis, unspecified site; Z79.1 Long term (current) use of non-steroidal anti-inflammatories (NSAID); Z79.899 Other long term (current) drug therapy; Z88.0 Allergy status to penicillin; Z88.8 Allergy status to other drugs, medicaments and biological substances; Z23 Encounter for immunization; W01.0XXA Fall on same level from slipping, tripping and stumbling without subsequent striking against object, initial encounter
CPT/HCPCS: 90471; 90715; 99283

== ENCOUNTER 2022-07-14 16:20 | Emergency (ER) | payer MEDICARE, OTHER ==
[2022-07-14 16:57] VITALS: TEMP 98.4
[2022-07-14] MEDS ORDERED: KETOROLAC 15 MG/ML 1 ML VIAL IM STA (18:39)
[2022-07-14 18:54] VITALS: RESP 18
[2022-07-14 18:58] LABS: Appearance,Urine Clear (Clear); Bilirubin,Urine Negative (Negative); Blood,Urine Negative (Negative); Color,Urine Yellow; Glucose,Urine (UA) Negative (Negative); Hyaline Casts,Urine 23 /lpf (0-2); Ketones,Urine Negative (Negative); Leukocyte Esterase,Urine Trace (Negative); Mucus,Urine Rare /hpf; Nitrite,Urine Negative (Negative); PH, Urine 6.5 (5.0-8.0); Protein,Urine Trace (Negative); Specific Gravity,Urine 1.021 (1.001-1.035); Squamous Epithelial Cell,Urine 2 /hpf (0-4); Urobilinogen,Urine <2.0 mg/dL (<2.0); WBC,Urine 5 /hpf (0-5)
--- NOTE | 2022-07-14 19:49 | XR ---
EXAMINATION TYPE: XR pelvis AP view DATE OF EXAM: 07/14/2022 7:09 PM INDICATION: Patient age:Female; 66 years old; Reason for study: pain; COMPARISON: None TECHNIQUE: The pelvis was examined in a single projection. FINDINGS: There is no evidence of fracture or dislocation. There is no soft tissue abnormality. No a bnormal calcifications are present. Multilevel degenerative changes of the lower spine. Osteophyte formation acetabulum bilaterally. IMPRESSION: 1. No acute osseous pathology. 2. Moderate bilateral hip osteoarthrosis. 3. Disc degeneration changes.
--- NOTE | 2022-07-14 19:50 | XR ---
EXAMINATION TYPE: XR lumbosacral spine min 4V DATE OF EXAM: 07/14/2022 7:09 PM INDICATION: Patient age:Female; 66 years old; Reason for study: pain; [facility]. COMPARISON: None TECHNIQUE: Frontal, lateral , bilateral oblique and coned in L5-S1 lateral views of the spine. FINDINGS: No evidence of any acute osseous pathology. No evidence of loss of vertebral body height i s seen. There is scoliosis alignment of the lumbar vertebral bodies. Mild scattered disc space narrow ing. Multilevel marginal osteophyte formation throughout the visualized spine. There is facet joint a rthropathy throughout the spine. Scattered at least mild neural foraminal stenosis. IMPRESSION: 1. No acute fracture. 2. Moderate multilevel disc degeneration.
--- NOTE | 2022-07-14 20:19 | ED ---
Abdominal Pain HPI - General Chief Complaint: Abdominal Pain Stated Complaint: back pain Time Seen by Provider: 07/14/22 17:30 Source: patient Mode of arrival: ambulatory Limitations: no limitations - History of Present Illness Initial Comments: 66-year-old female with past medical history of scoliosis surgery who presents to the emergency department reporting left flank pain. States that the pain started yesterday afternoon. Denies any provocative factors. States that the pain is worse with movement and better with rest. She took some Tylenol without any improvement in her symptoms. She did attempt to call her primary care doctor however they had no appointments and therefore she is coming in today for evaluation. She denies any changes in her urination to include dysuria, hematuria or difficulty voiding. No black or bloody stools. No vaginal bleeding or discharge. No report of any previous similar symptoms. She denies any fevers. Does have a history of scoliosis surgery with removal of her rods. No other alleviating, precipitating or modifying factors - Related Data Home Medications Medication Instructions Recorded Confirmed Alendronate Sodium 70 mg PO WEEKLY 03/08/21 12/23/21 Simvastatin [Zocor] 20 mg PO HS 03/08/21 12/23/21 Dorzolamide-Timol 2.23%/0.68% 1 drop BOTH EYES BID 03/11/21 12/23/21 [Cosopt] amLODIPine BESYLATE/BENAZEPRIL 1 cap PO QAM 03/11/21 12/23/21 [Lotrel 5-10 MG] L.acidoph,Paracasei, B.lactis 1 each PO DAILY 12/22/21 12/23/21 [Probiotic] Latanoprostene Bunod [Vyzulta] 1 drop BOTH EYES HS 12/22/21 12/23/21 Multivit with Calcium,Iron,Min 1 each PO DAILY 12/22/21 12/23/21 [Women's Multivitamin] Previous Rx's Medication Instructions Recorded Acetaminophen Tab [Tylenol Tab] 1,000 mg PO Q6HR PRN #30 tablet 12/24/21 Ibuprofen [Motrin] 600 mg PO Q8HR PRN #30 tab 12/24/21 Simethicone 40 mg/0.6 ml Drops 80 mg PO Q6HR PRN #30 ml 12/24/21 [Mylicon Drops] Ketorolac [Toradol] 10 mg PO Q8HR #15 tab 07/14/22 methocarbamoL [Robaxin-750] 750 mg PO QID PRN #20 tab 07/14/22 Cyclobenzaprine [Flexeril] 10 mg PO TID PRN #15 tab 07/16/22 methylPREDNISolone Dose Pack 4 mg PO DIRECTED #1 packet 07/16/22 [Medrol Dose Pack] Allergies Allergy/AdvReac Type Severity Reaction Status Date / Time codeine Allergy Rash/Hives/ Verified 07/14/22 16:54 Migraines latanoprost [From Rocklatan] Allergy Swelling Verified 07/14/22 16:54 [email or web address] [From Rocklatan] Allergy Swelling Verified 07/14/22 16:54 Penicillins Allergy Rash/Hives Verified 07/14/22 16:54 Review of Systems ROS Statement: Those systems with pertinent positive or pertinent negative responses have been documented in the HPI. ROS Other: All systems not noted in ROS Statement are negative. Past Medical History Past Medical History: Eye Disorder, GERD/Reflux, Hyperlipidemia, Hypertension, Osteoarthritis (OA) Additional Past Medical History / Comment(s): Cataracts, Glaucoma and Macular Degeneration., scoliosis with surgery, pt states spot of fungus on her foot. , lumps on her thyroid., hx of left foot fx with surgery feb 2021 & some difficulty walking at times and uses motor w/c at store., hiatal hernia History of Any Multi-Drug Resistant Organisms: None Reported Past Surgical History: Back Surgery, Section, Hernia Repair, Orthopedic Surgery Additional Past Surgical History / Comment(s): Surgery for scoliosis with rods that broke and were removed. , left foot surgery with pin placed (feb 2021), EGD WITH DILATION (11/23/21)., HYSTEROSCOPY, tubal ligation with c section Past Anesthesia/Blood Transfusion Reactions: Postoperative Nausea & Vomiting (PONV) Additional Past Anesthesia/Blood Transfusion Reaction / Comment(s): post-op headache Past Psychological History: No Psychological Hx Reported Smoking Status: Never smoker Past Alcohol Use History: Occasional Past Drug Use History: None Reported - Past Family History Mother Family Medical History: Cancer, CVA/TIA Father Family Medical History: CVA/TIA General Exam Limitations: no limitations General appearance: alert, in no apparent distress Head exam: Present: atraumatic, normocephalic, normal inspection Eye exam: Present: normal appearance, PERRL, EOMI. Absent: scleral icterus, conjunctival injection, periorbital swelling ENT exam: Present: normal exam, mucous membranes moist Neck exam: Present: normal inspection. Absent: tenderness, meningismus, lymphadenopathy Respiratory exam: Present: normal lung sounds bilaterally. Absent: respiratory distress, wheezes, rales, rhonchi, stridor Cardiovascular Exam: Present: regular rate, normal rhythm, normal heart sounds. Absent: systolic murmur, diastolic murmur, rubs, gallop, clicks GI/Abdominal exam: Present: soft, normal bowel sounds. Absent: distended, ten derness, guarding, rebound, rigid Extremities exam: Present: normal inspection, full ROM, normal capillary refill. Absent: tenderness, pedal edema, joint swelling, calf tenderness Back exam: Present: paraspinal tenderness (right. tender to the touch) Neurological exam: Present: alert, oriented X3, CN II-XII intact Psychiatric exam: Present: normal affect, normal mood Skin exam: Present: warm, dry, intact, normal color. Absent: rash Course Vital Signs 07/14/22 07/14/22 07/14/22 16:54 18:50 20:30 Temperature 98.4 F Pulse Rate 70 61 69 Respiratory 16 18 18 Rate Blood Pressure 131/64 141/78 149/67 O2 Sat by Pulse 97 98 98 Oximetry Medical Decision Making - Medical Decision Making Was pt. sent in by a medical professional or institution (, PA, AGENCY SERVICE REPRESENTATIVE, urgent care, hospital, or intermediate...) When possible be specific @ -No Did you speak to anyone other than the patient for history (EMS, parent, family, police, friend...)? What history was obtained from this source @ -No Did you review nursing and triage notes (agree or disagree)? Why? @ -I reviewed and agree with nursing and triage notes Were old charts reviewed (outside hosp., previous admission, EMS record, old EKG, old radiological studies, urgent care reports/EKG's, intermediate records)? Report findings @ -No old charts were reviewed Differential Diagnosis (chest pain, altered mental status, abdominal pain women, abdominal pain men, vaginal bleeding, weakness, fever, dyspnea, syncope, headache, dizziness, GI bleed, back pain, seizure, CVA, palpatations, mental health, musculoskeletal)? @ -kidney stone, pyelonephritis, hydronephrosis, renal ca, EKG interpreted by me (3pts min.). @ -not done X-rays interpreted by me (1pt min.). @ -yes - interpreted by me CT interpreted by me (1pt min.). @ -not done U/S interpreted by me (1pt. min.). @ -None done What testing was considered but not performed or refused? (CT, X-rays, U/S, labs)? Why? @ -None What meds were considered but not given or refused? Why? @ -None Did you discuss the management of the patient with other professionals (professionals i.e. , PA, AGENCY SERVICE REPRESENTATIVE, lab, RT, psych nurse, social work faculty member, line installer trolley, teacher, chief risk officer, insurance case manager)? Give summary @ - No Was smoking cessation discussed for >3mins.? @ -No Was critical care preformed (if so, how long)? @ -No Were there social determinants of health that impacted care today? How? (Homelessness, low income, unemployed, alcoholism, drug addiction, transportation, low edu. Level, literacy, decrease access to med. care, prison, rehab)? @ -No Was there de-escalation of care discussed even if they declined (Discuss DNR or withdrawal of care, Hospice)? DNR status @ -No What co-morbidities impacted this encounter? (DM, HTN, Smoking, COPD, CAD, Cancer, CVA, ARF, Chemo, Hep., AIDS, mental health diagnosis, sleep apnea, morbid obesity)? @ -None Was patient admitted / discharged? Hospital course, mention meds given and route, prescriptions, significant lab abnormalities, going to OR and other pertinent info. @ -Upon arrival patient is placed into room 23. A thorough history and physical exam was performed. Patient does provide a urine sample. X-rays performed of the patient's lumbar spine and pelvis due to her previous significant back surgery. Patient was given a dose of Toradol. She is reevaluated and reports that she has had improvement in her pain. I did discuss the results of the urinalysis and x-ray. Patient feels comfortable being discharged home at this time. She will be given a prescription for Toradol and a muscle relaxer. She is to take these medications as directed. Rest and place warm compresses to the site. Follow-up with her doctor for repeat evaluation and return for any new or worsening symptoms. If her pain persists she may need further workup. Patient understood this. She was given written and verbal discharge instructions and discharged home in stable condition Undiagnosed new problem with uncertain prognosis? @ -Yes Drug Therapy requiring intensive monitoring for toxicity (Heparin, Nitro, Insulin, Cardizem)? @ -No Were any procedures done? @ -No Diagnosis/symptom? @ -acute left flank pain, suspected msk strain Acute, or Chronic, or Acute on Chronic? @ -acute Uncomplicated (without systemic symptoms) or Complicated (systemic symptoms)? @ -uncomplicated Side effects of treatment? @ -No Exacerbation, Progression, or Severe Exacerbation? @ -No Poses a threat to life or bodily function? How? (Chest pain, [place], [place], pneumonia, PE, COPD, DKA, ARF, appy, cholecystitis, CVA, Diverticulitis, Homicidal, Suicidal, threat to staff... and all critical care pts) @ -no - Lab Data Lab Results 07/14/22 Range/Units 18:09 Urine Color Yellow Urine Appearance Clear (Clear) Urine pH 6.5 (5.0-8.0) Ur Specific [place] 1.021 (1.001-1.035) Urine Protein Trace H (Negative) Urine Glucose (UA) Negative (Negative) Urine Ketones Negative (Negative) Urine Blood Negative (Negative) Urine Nitrite Negative (Negative) Urine Bilirubin Negative (Negative) Urine Urobilinogen <2.0 (<2.0) mg/dL Ur Leukocyte Esterase Trace H (Negative) Urine WBC 5 (0-5) /hpf Ur Squamous Epith Cells 2 (0-4) /hpf Hyaline Casts 23 H (0-2) /lpf Urine Mucus Rare H (None) /hpf Disposition Clinical Impression: Left flank pain Disposition: HOME SELF-CARE Condition: Stable Instructions (If sedation given, give patient instructions): Flank Pain (ED) Additional Instructions: Take the muscle relaxer and anti-inflammatories as directed. No heavy lifting or bending. Follow-up with your doctor. You may need repeat imaging of her pain persists Prescriptions: methocarbamoL [Robaxin-750] 750 mg PO QID PRN #20 tab PRN Reason: Muscle Pain Ketorolac [Toradol] 10 mg PO Q8HR #15 tab Is patient prescribed a controlled substance at d/c from ED?: No Referrals: Arvind Hughes DO [Primary Care Provider] - 1-2 days Time of Disposition: 20:19
[2022-07-14 20:31] VITALS: BP 149/67; PULSE 69
== END 2022-07-14 20:31 | disposition home or self-care (01) ==
LOC: EC 16:20
DX: R10.9 Unspecified abdominal pain (principal); I10 Essential (primary) hypertension; E78.5 Hyperlipidemia, unspecified; Z79.899 Other long term (current) drug therapy; Z88.0 Allergy status to penicillin; Z88.8 Allergy status to other drugs, medicaments and biological substances
CPT/HCPCS: 81001; 72110; 72170; 99284; 96372; J1885

== ENCOUNTER 2022-07-16 14:57 | Emergency (ER) | payer MEDICARE, OTHER ==
[2022-07-16 15:03] VITALS: TEMP 97.8
[2022-07-16] MEDS ORDERED: ORPHENADRINE 30 MG/ML 2 ML VIAL IM STA (15:45)
[2022-07-16] MEDS ORDERED: DEXAMETHASONE SOD PHOSPHATE 10 MG/ML 1 ML VIAL IM STA (15:45)
--- NOTE | 2022-07-16 16:03 | ED ---
General Adult HPI - General Chief complaint: Extremity Injury, Lower Stated complaint: LT HIP PAIN Time Seen by Provider: 07/16/22 15:28 Source: patient Mode of arrival: wheelchair Limitations: no limitations - History of Present Illness Initial comments: Patient is a 66-year-old female presenting with chief complaint of left-sided flank pain. Patient was here 2 days ago with the same complaints, negative x- rays and urine. She was sent home with Toradol and a muscle relaxer. She states that it feels as though her back is spasming when she tries to walk. No new injury or trauma. No loss of bowel or bladder control or saddle paresthesia. No abdominal pain, chest pain, difficulty breathing. No dysuria or hematuria. No fevers or chills. No nausea or vomiting. - Related Data Home Medications Medication Instructions Recorded Confirmed Alendronate Sodium 70 mg PO WEEKLY 03/08/21 12/23/21 Simvastatin [Zocor] 20 mg PO HS 03/08/21 12/23/21 Dorzolamide-Timol 2.23%/0.68% 1 drop BOTH EYES BID 03/11/21 12/23/21 [Cosopt] amLODIPine BESYLATE/BENAZEPRIL 1 cap PO QAM 03/11/21 12/23/21 [Lotrel 5-10 MG] L.acidoph,Paracasei, B.lactis 1 each PO DAILY 12/22/21 12/23/21 [Probiotic] Latanoprostene Bunod [Vyzulta] 1 drop BOTH EYES HS 12/22/21 12/23/21 Multivit with Calcium,Iron,Min 1 each PO DAILY 12/22/21 12/23/21 [Women's Multivitamin] Previous Rx's Medication Instructions Recorded Acetaminophen Tab [Tylenol Tab] 1,000 mg PO Q6HR PRN #30 tablet 12/24/21 Ibuprofen [Motrin] 600 mg PO Q8HR PRN #30 tab 12/24/21 Simethicone 40 mg/0.6 ml Drops 80 mg PO Q6HR PRN #30 ml 12/24/21 [Mylicon Drops] Ketorolac [Toradol] 10 mg PO Q8HR #15 tab 07/14/22 methocarbamoL [Robaxin-750] 750 mg PO QID PRN #20 tab 07/14/22 Cyclobenzaprine [Flexeril] 10 mg PO TID PRN #15 tab 07/16/22 methylPREDNISolone Dose Pack 4 mg PO DIRECTED #1 packet 07/16/22 [Medrol Dose Pack] Allergies Allergy/AdvReac Type Severity Reaction Status Date / Time codeine Allergy Rash/Hives/ Verified 07/14/22 16:54 Migraines latanoprost [From Rocklatan] Allergy Swelling Verified 07/14/22 16:54 [email or web address] [From Rocklatan] Allergy Swelling Verified 07/14/22 16:54 Penicillins Allergy Rash/Hives Verified 07/14/22 16:54 Review of Systems ROS Statement: Those systems with pertinent positive or pertinent negative responses have been documented in the HPI. ROS Other: All systems not noted in ROS Statement are negative. Past Medical History Past Medical History: Eye Disorder, GERD/Reflux, Hyperlipidemia, Hypertension, Osteoarthritis (OA) Additional Past Medical History / Comment(s): Cataracts, Glaucoma and Macular Degeneration., scoliosis with surgery, pt states spot of fungus on her foot. , lumps on her thyroid., hx of left foot fx with surgery feb 2021 & some difficulty walking at times and uses motor w/c at store., hiatal hernia History of Any Multi-Drug Resistant Organisms: None Reported Past Surgical History: Back Surgery, Section, Hernia Repair, Orthopedic Surgery Additional Past Surgical History / Comment(s): Surgery for scoliosis with rods that broke and were removed. , left foot surgery with pin placed (feb 2021), EGD WITH DILATION (11/23/21)., HYSTEROSCOPY, tubal ligation with c section Past Anesthesia/Blood Transfusion Reactions: Postoperative Nausea & Vomiting (PONV) Additional Past Anesthesia/Blood Transfusion Reaction / Comment(s): post-op headache Past Psychological History: No Psychological Hx Reported Smoking Status: Never smoker Past Alcohol Use History: Occasional Past Drug Use History: None Reported - Past Family History Mother Family Medical History: Cancer, CVA/TIA Father Family Medical History: CVA/TIA General Exam Limitations: no limitations General appearance: alert, in no apparent distress Head exam: Present: atraumatic, normocephalic, normal inspection Eye exam: Present: normal appearance, EOMI. Absent: scleral icterus, periorbital swelling Neck exam: Present: normal inspection, full ROM Respiratory exam: Present: normal lung sounds bilaterally. Absent: respiratory distress, wheezes, rales, rhonchi, stridor Cardiovascular Exam: Present: regular rate, normal rhythm, normal heart sounds. Absent: systolic murmur, diastolic murmur, rubs, gallop, clicks Back exam: Present: normal inspection Neurological exam: Present: alert, oriented X3, CN II-XII intact Psychiatric exam: Present: normal affect, normal mood Skin exam: Present: warm, dry, intact, normal color. Absent: rash Course Vital Signs 07/16/22 07/16/22 15:00 17:00 Temperature 97.8 F Pulse Rate 66 78 Respiratory 16 18 Rate Blood Pressure 163/90 130/74 O2 Sat by Pulse 100 99 Oximetry Medical Decision Making - Medical Decision Making Was pt. sent in by a medical professional or institution (JULIA Tamayo, PROPERTY COORDINATOR, urgent care, hospital, or detention...) When possible be specific @ -No Did you speak to anyone other than the patient for history (EMS, parent, family, police, friend...)? What history was obtained from this source @ -No Did you review nursing and triage notes (agree or disagree)? Why? @ -I reviewed and agree with nursing and triage notes Were old charts reviewed (outside hosp., previous admission, EMS record, old EKG, old radiological studies, urgent care reports/EKG's, detention records)? Report findings @ -Most recent x-rays were reviewed, showed no acute process Differential Diagnosis (chest pain, altered mental status, abdominal pain women, abdominal pain men, vaginal bleeding, weakness, fever, dyspnea, syncope, headache, dizziness, GI bleed, back pain, seizure, CVA, palpatations, mental health, musculoskeletal)? MDM Differential Back Pain: Strain, zoster, cauda equina syndrome, epidural abscess, vertebral osteomyelitis, discitis, fracture, subluxation, disc herniation, DJD, spinal stenosis, dissection, AAA, pancreatitis, peptic ulcer disease, pyelonephritis, kidney stone this is not meant to be an all-inclusive list. EKG interpreted by me (3pts min.). @ -As above X-rays interpreted by me (1pt min.). @ -None done CT interpreted by me (1pt min.). @ -None done U/S interpreted by me (1pt. min.). @ -None done What testing was considered but not performed or refused? (CT, X-rays, U/S, labs)? Why? @ -None What meds were considered but not given or refused? Why? @ -None Did you discuss the management of the patient with other professionals (professionals i.e. , PA, PROPERTY COORDINATOR, lab, RT, psych nurse, social service director, orthotics assistant, teacher, agricultural loan officer, classification case manager)? Give summary @ -No Was smoking cessation discussed for >3mins.? @ -No Was critical care preformed (if so, how long)? @ -No Were there social determinants of health that impacted care today? How? (Homelessness, low income, unemployed, alcoholism, drug addiction, transportation, low edu. Level, literacy, decrease access to med. care, residential, rehab)? @ -No Was there de-escalation of care discussed even if they declined (Discuss DNR or withdrawal of care, Hospice)? DNR status @ -No What co-morbidities impacted this encounter? (DM, HTN, Smoking, COPD, CAD, Cancer, CVA, ARF, Chemo, Hep., AIDS, mental health diagnosis, sleep apnea, morbid obesity)? @ -None Was patient admitted / discharged? Hospital course, mention meds given and route, prescriptions, significant lab abnormalities, going to OR and other pertinent info. @ -Patient is a 66-year-old female presenting with chief complaint of left- sided flank pain. She was seen here 2 days ago for same complaints, negative x- rays and urine, she was sent home with Toradol and muscle relaxer. She reports today that when she tries to walk she feels spasming in her back. No new injury or trauma. Given patient's recent x-rays with no new injury repeat x-rays are unnecessary today. Urine shows no infectious process or bleeding. She reports improvement after Norflex and Decadron. Patient also relaxer will switch to cyclobenzaprine and Medrol Dosepak that her pharmacy. Educated on supportive management at home. Follow-up with PCP. Report back to ER with any new or worsening symptoms. Discussed return parameters and answered all questions. Patient conveyed verbal understanding and agreed to the plan. I discussed this case in detail with my attending Dr. Araiza Undiagnosed new problem with uncertain prognosis? @ -No Drug Therapy requiring intensive monitoring for toxicity (Heparin, Nitro, Insulin, Cardizem)? @ -No Were any procedures done? @ -No Diagnosis/symptom? @ -Flank pain Acute, or Chronic, or Acute on Chronic? @ -Acute Uncomplicated (without systemic symptoms) or Complicated (systemic symptoms)? @ -Uncomplicated Side effects of treatment? @ -No Exacerbation, Progression, or Severe Exacerbation? @ -No Poses a threat to life or bodily function? How? (Chest pain, [place], [place], pneumonia, PE, COPD, DKA, ARF, appy, cholecystitis, CVA, Diverticulitis, Homicidal, Suicidal, threat to staff... and all critical care pts) @ -No - Lab Data Lab Results 07/16/22 Range/Units 16:06 Urine Color Yellow Urine Appearance Clear (Clear) Urine pH 5.0 (5.0-8.0) Ur Specific [place] 1.022 (1.001-1.035) Urine Protein Trace H (Negative) Urine Glucose (UA) Negative (Negative) Urine Ketones 1+ H (Negative) Urine Blood Negative (Negative) Urine Nitrite Negative (Negative) Urine Bilirubin Negative (Negative) Urine Urobilinogen <2.0 (<2.0) mg/dL Ur Leukocyte Esterase Negative (Negative) Disposition Clinical Impression: Left flank pain Disposition: HOME SELF-CARE Condition: Good Instructions (If sedation given, give patient instructions): Flank Pain (ED) Additional Instructions: Follow-up with PCP. Report back to ER with any new or worsening symptoms. Take medications as prescribed. If needed, switch methocarbamol for cyclobenzaprine, do NOT combine these medications. Prescriptions: Cyclobenzaprine [Flexeril] 10 mg PO TID PRN #15 tab PRN Reason: Spasms methylPREDNISolone Dose Pack [Medrol Dose Pack] 4 mg PO DIRECTED #1 packet Is patient prescribed a controlled substance at d/c from ED?: No Referrals: Arvind Hughes DO [Primary Care Provider] - 1-2 days Time of Disposition: 17:26
[2022-07-16 17:00] LABS: Appearance,Urine Clear (Clear); Bilirubin,Urine Negative (Negative); Blood,Urine Negative (Negative); Color,Urine Yellow; Glucose,Urine (UA) Negative (Negative); Ketones,Urine 1+ (Negative); Leukocyte Esterase,Urine Negative (Negative); Nitrite,Urine Negative (Negative); Protein,Urine Trace (Negative); Specific Gravity,Urine 1.022 (1.001-1.035); Urobilinogen,Urine <2.0 mg/dL (<2.0)
[2022-07-16] MEDS ORDERED: LIDOCAINE 5% PATCH TOPICAL SCH (17:30)
[2022-07-16 18:16] VITALS: BP 130/74; PULSE 78; RESP 18
== END 2022-07-16 17:45 | disposition home or self-care (01) ==
LOC: EC 14:57
DX: M25.552 Pain in left hip (principal); E78.5 Hyperlipidemia, unspecified; I10 Essential (primary) hypertension; M19.90 Unspecified osteoarthritis, unspecified site; Z88.0 Allergy status to penicillin; Z88.5 Allergy status to narcotic agent; Z88.8 Allergy status to other drugs, medicaments and biological substances; Z79.899 Other long term (current) drug therapy
CPT/HCPCS: 81003; 99284; 96372 ×2; J1100; J2360

== ENCOUNTER → 2022-07-17 | Outpatient (CLI) | payer MEDICARE, OTHER ==
--- NOTE | 2022-07-17 16:12 | FL ---
EXAMINATION TYPE: FL barium swallow DATE OF EXAM: 07/17/2022 COMPARISON: 09/26/2021 HISTORY: Postop hiatal hernia surgery pain TECHNIQUE: Double air contrast technique was utilized to evaluate the esophagus. FINDINGS: Esophagus dilates to normal caliber has normal contour of the gastroesophageal junction. Ga stroesophageal junction opens to normal caliber. No intraluminal or extraluminal defects are evident. Hiatal hernia is not identified at this time. Postsurgical changes are clearly evident gastroesophag eal junction. Schatzki's ring is identified on overhead radiograph. There is complete stripping esoph ageal bolus in the horizontal drinking position. Fluoroscopy time: 37 seconds. DAP: 855.41 IMPRESSION: 1. No suspicious acute esophageal abnormality.
== END | disposition home or self-care (01) ==
LOC: RADUSWWP 09:51
PROVIDERS: ATTEND Surgery Plastic and Reconstructive Surgery
DX: R10.11 Right upper quadrant pain (principal); R13.10 Dysphagia, unspecified
CPT/HCPCS: 74220

== ENCOUNTER 2022-08-06 02:11 | Emergency (ER) | payer MEDICARE, OTHER ==
[2022-08-06 02:16] VITALS: TEMP 97.9
[2022-08-06] MEDS ORDERED: KETOROLAC 15 MG/ML 1 ML VIAL IVP STA (02:55)
[2022-08-06] MEDS ORDERED: SODIUM CHLORIDE 0.9% 1,000 ML IV STA (02:58)
[2022-08-06 02:59] LABS: Albumin 4.7 g/dL (3.5-5.0); Calcium 9.3 mg/dL (8.4-10.2); Potassium 4.3 mmol/L (3.5-5.1); Total Protein 7.8 g/dL (6.3-8.2)
[2022-08-06 03:10] LABS: Basophils % (A) 0 %; Eosinophils # (A) 0.1 k/uL (0-0.7); Eosinophils % (A) 1 %; HCT 40.5 % (34.0-46.0); HGB 13.2 gm/dL (11.4-16.0); Lymphocytes % (A) 21 %; MCH 33.6 pg (25.0-35.0); MCHC 32.7 g/dL (31.0-37.0); MCV 102.6 fL (80.0-100.0); Macrocytosis Slight; Mean Platelet Volume 7.1; Monocytes # (A) 0.4 k/uL (0-1.0); Monocytes % (A) 9 %; Neutrophils % (A) 65 %; Platelet Count 210 k/uL (150-450); RBC 3.94 m/uL (3.80-5.40); RDW 12.6 % (11.5-15.5); WBC 4.6 k/uL (3.8-10.6)
--- NOTE | 2022-08-06 03:29 | ED ---
Allergic Reaction HPI - General Chief complaint: Allergic Reaction Stated complaint: Face Swollen Time Seen by Provider: 08/06/22 02:40 Source: patient Mode of arrival: ambulatory Limitations: no limitations - History of Present Illness Initial Comments: Patient is a 66-year-old female presents to the emergency department for facial swelling. She woke up with the swelling this morning. She has swelling to her left cheek and left upper lip. She reports minimal pain. She denies fever. Patient has had nausea, vomiting, and diarrhea however this is a chronic issue that is being evaluated by Dr. Ugarte status post hiatal hernia repair. She has not had any vomiting today. She denies any blood in stool. Denies chest pain and shortness of breath. - Related Data Home Medications Medication Instructions Recorded Confirmed Alendronate Sodium 70 mg PO WEEKLY 03/08/21 12/23/21 Simvastatin [Zocor] 20 mg PO HS 03/08/21 12/23/21 Dorzolamide-Timol 2.23%/0.68% 1 drop BOTH EYES BID 03/11/21 12/23/21 [Cosopt] amLODIPine BESYLATE/BENAZEPRIL 1 cap PO QAM 03/11/21 12/23/21 [Lotrel 5-10 MG] L.acidoph,Paracasei, B.lactis 1 each PO DAILY 12/22/21 12/23/21 [Probiotic] Latanoprostene Bunod [Vyzulta] 1 drop BOTH EYES HS 12/22/21 12/23/21 Multivit with Calcium,Iron,Min 1 each PO DAILY 12/22/21 12/23/21 [Women's Multivitamin] Previous Rx's Medication Instructions Recorded Acetaminophen Tab [Tylenol Tab] 1,000 mg PO Q6HR PRN #30 tablet 12/24/21 Ibuprofen [Motrin] 600 mg PO Q8HR PRN #30 tab 12/24/21 Simethicone 40 mg/0.6 ml Drops 80 mg PO Q6HR PRN #30 ml 12/24/21 [Mylicon Drops] Ketorolac [Toradol] 10 mg PO Q8HR #15 tab 07/14/22 methocarbamoL [Robaxin-750] 750 mg PO QID PRN #20 tab 07/14/22 Cyclobenzaprine [Flexeril] 10 mg PO TID PRN #15 tab 07/16/22 methylPREDNISolone Dose Pack 4 mg PO DIRECTED #1 packet 07/16/22 [Medrol Dose Pack] amLODIPine [Norvasc] 5 mg PO DAILY #14 tab 08/06/22 Allergies Allergy/AdvReac Type Severity Reaction Status Date / Time codeine Allergy Rash/Hives/ Verified 08/06/22 02:16 Migraines latanoprost [From Rocklatan] Allergy Swelling Verified 08/06/22 02:16 [email or web address] [From Rocklatan] Allergy Swelling Verified 08/06/22 02:16 Penicillins Allergy Rash/Hives Verified 08/06/22 02:16 Review of Systems ROS Statement: Those systems with pertinent positive or pertinent negative responses have been documented in the HPI. ROS Other: All systems not noted in ROS Statement are negative. Past Medical History Past Medical History: Eye Disorder, GERD/Reflux, Hyperlipidemia, Hypertension, Osteoarthritis (OA) Additional Past Medical History / Comment(s): Cataracts, Glaucoma and Macular Degeneration., scoliosis with surgery, pt states spot of fungus on her foot. , lumps on her thyroid., hx of left foot fx with surgery feb 2021 & some difficulty walking at times and uses motor w/c at store., hiatal hernia History of Any Multi-Drug Resistant Organisms: None Reported Past Surgical History: Back Surgery, Section, Hernia Repair, Orthopedic Surgery Additional Past Surgical History / Comment(s): Surgery for scoliosis with rods that broke and were removed. , left foot surgery with pin placed (feb 2021), EGD WITH DILATION (11/23/21)., HYSTEROSCOPY, tubal ligation with c section Past Anesthesia/Blood Transfusion Reactions: Postoperative Nausea & Vomiting (PONV) Additional Past Anesthesia/Blood Transfusion Reaction / Comment(s): post-op headache Past Psychological History: No Psychological Hx Reported Smoking Status: Never smoker Past Alcohol Use History: Occasional Past Drug Use History: None Reported - Past Family History Mother Family Medical History: Cancer, CVA/TIA Father Family Medical History: CVA/TIA General Exam Limitations: no limitations General appearance: alert Head exam: Present: atraumatic, normocephalic, normal inspection Eye exam: Present: other (moderate swelling of left cheek with mild swelling of of left upper lip. No erythema, warmth, tenderness, fluctuance. No tongue or throat swelling. ) ENT exam: Present: normal oropharynx, TM's normal bilaterally Neck exam: Present: normal inspection, full ROM. Absent: lymphadenopathy Respiratory exam: Present: normal lung sounds bilaterally. Absent: respiratory distress, wheezes, rales, rhonchi, stridor Cardiovascular Exam: Present: regular rate, normal rhythm, normal heart sounds. Absent: systolic murmur, diastolic murmur, rubs, gallop, clicks Neurological exam: Present: alert, oriented X3, CN II-XII intact Psychiatric exam: Present: normal affect, normal mood Skin exam: Present: warm, dry, intact, normal color. Absent: rash Course Vital Signs 08/06/22 08/06/22 02:12 04:15 Temperature 97.9 F Pulse Rate 67 72 Respiratory 20 16 Rate Blood Pressure 183/81 145/68 O2 Sat by Pulse 98 99 Oximetry Medical Decision Making - Medical Decision Making Was pt. sent in by a medical professional or institution (, PA, DIRECTOR RADIO NEWS, urgent care, hospital, or longterm...) When possible be specific @ -No Did you speak to anyone other than the patient for history (EMS, parent, family, police, friend...)? What history was obtained from this source @ -No Did you review nursing and triage notes (agree or disagree)? Why? @ -I reviewed and agree with nursing and triage notes Were old charts reviewed (outside hosp., previous admission, EMS record, old EKG, old radiological studies, urgent care reports/EKG's, longterm records)? Report findings @ -No old charts were reviewed Differential Diagnosis (chest pain, altered mental status, abdominal pain women, abdominal pain men, vaginal bleeding, weakness, fever, dyspnea, syncope, headache, dizziness, GI bleed, back pain, seizure, CVA, palpatations, mental health)? @ -Dental infection, dental abscess, cellulitis, angioedema. This list is not meant to be all-inclusive EKG interpreted by me (3pts min.). @ -As above X-rays interpreted by me (1pt min.). @ -None done CT interpreted by me (1pt min.). @ -None done U/S interpreted by me (1pt. min.). @ -None done What testing was considered but not performed or refused? (CT, X-rays, U/S, labs)? Why? @ -None What meds were considered but not given or refused? Why? @ -None Did you discuss the management of the patient with other professionals (professionals i.e. , PA, DIRECTOR RADIO NEWS, lab, RT, psych nurse, adoption social worker, plastic surgery technician, teacher, chief digital media officer, case picker)? Give summary @ -No Was smoking cessation discussed for >3mins.? @ -No Was critical care preformed (if so, how long)? @ -No Were there social determinants of health that impacted care today? How? (Homelessness, low income, unemployed, alcoholism, drug addiction, transportation, low edu. Level, literacy, decrease access to med. care, fdc, rehab)? @ -No Was there de-escalation of care discussed even if they declined (Discuss DNR or withdrawal of care, Hospice)? DNR status @ -No What co-morbidities impacted this encounter? (DM, HTN, Smoking, COPD, CAD, Cancer, CVA, ARF, Chemo, Hep., AIDS, mental health diagnosis, sleep apnea, morbid obesity)? @ -None Was patient admitted / discharged? Hospital course, mention meds given and route, prescriptions, significant lab abnormalities, going to OR and other pertinent info. she presented for facial swelling. osed new problem with uncertain prognosis? @ -Patient presenting for facial swelling. There is moderate swelling of left cheek with mild swelling of the left upper lip. No erythema, warmth, tenderness, fluctuance. No tongue or throat swelling. Patient is nontoxic-appearing with minimal pain she does take Lotrel I suspect swelling is related to angioedema. She was observed closely in the emergency department she did not have any further swelling there is no evidence of respiratory distress. Patient instructed to stop taking Lotrel she is prescribed amlodipine until she can follow up with her primary care provider for further management of her blood pressure. Therapy requiring intensive monitoring for toxicity (Heparin, Nitro, Insulin, Cardizem)? @ -No Were any procedures done? @ -No Diagnosis/symptom? @ -angioedema Acute, or Chronic, or Acute on Chronic? @ -acute Uncomplicated (without systemic symptoms) or Complicated (systemic symptoms)? @ -uncomplicated Side effects of treatment? @ -No Exacerbation, Progression, or Severe Exacerbation? @ -[No] Poses a threat to life or bodily function? How? (Chest pain, USA, [place], pneumonia, PE, COPD, DKA, ARF, appy, cholecystitis, CVA, Diverticulitis, Homicidal, Suicidal, threat to staff... and all critical care pts) @ -[No] Dr. Allen is my attending - Lab Data Result diagrams: 08/06/22 02:35 08/06/22 02:35 Lab Results 08/06/22 08/06/22 08/06/22 Range/Units 02:35 02:35 02:35 WBC 4.6 (3.8-10.6) k/uL RBC 3.94 (3.80-5.40) m/uL Hgb 13.2 (11.4-16.0) gm/dL Hct 40.5 (34.0-46.0) % MCV 102.6 H (80.0-100.0) fL MCH 33.6 (25.0-35.0) pg MCHC 32.7 (31.0-37.0) g/dL RDW 12.6 (11.5-15.5) % Plt Count 210 (150-450) k/uL MPV 7.1 Neutrophils % 65 % Lymphocytes % 21 % Monocytes % 9 % Eosinophils % 1 % Basophils % 0 % Neutrophils # 3.0 (1.3-7.7) k/uL Lymphocytes # 1.0 (1.0-4.8) k/uL Monocytes # 0.4 (0-1.0) k/uL Eosinophils # 0.1 (0-0.7) k/uL Basophils # 0.0 (0-0.2) k/uL Macrocytosis Slight Sodium 140 (137-145) mmol/L Potassium 4.3 (3.5-5.1) mmol/L Chloride 100 (98-107) mmol/L Carbon Dioxide 28 (22-30) mmol/L Anion Gap 12 mmol/L BUN 20 H (7-17) mg/dL Creatinine 0.87 (0.52-1.04) mg/dL Est GFR (CKD-EPI)AfAm 80 (>60 ml/min/1.73 sqM) Est GFR (CKD-EPI)NonAf 69 (>60 ml/min/1.73 sqM) Glucose 125 H (74-99) mg/dL Plasma Lactic Acid Perez 0.8 (0.7-2.0) mmol/L Calcium 9.3 (8.4-10.2) mg/dL Total Bilirubin 1.0 (0.2-1.3) mg/dL AST 60 H (14-36) U/L ALT 41 H (4-34) U/L Alkaline Phosphatase 103 (38-126) U/L Total Protein 7.8 (6.3-8.2) g/dL Albumin 4.7 (3.5-5.0) g/dL Disposition Clinical Impression: Angioedema Disposition: HOME SELF-CARE Condition: Good Instructions (If sedation given, give patient instructions): Angioedema (ED) Additional Instructions: Stop taking Lotrel. Instead take medication provided. Follow up primary care provider on Sunday for further evaluation and management of blood pressure. Return to the emergency department if you experience new, concerning, or worsening symptoms Prescriptions: amLODIPine [Norvasc] 5 mg PO DAILY #14 tab Is patient prescribed a controlled substance at d/c from ED?: No Referrals: Arvind Hughes DO [Primary Care Provider] - 1-2 days
[2022-08-06] MEDS ORDERED: diphenhydrAMINE 50 MG/ML 1 ML VIAL IVP STA (04:01)
[2022-08-06] MEDS ORDERED: methylPREDNISolone SOD SUCCI 125 MG/2 ML VIAL IV STA (04:01)
[2022-08-06] MEDS ORDERED: FAMOTIDINE 20 MG/2 ML VIAL IV STA (04:01)
[2022-08-06 04:50] VITALS: BP 145/68; PULSE 72; RESP 16
== END 2022-08-06 04:15 | disposition home or self-care (01) ==
LOC: EC 02:11
DX: T78.3XXA Angioneurotic edema, initial encounter (principal); E78.5 Hyperlipidemia, unspecified; I10 Essential (primary) hypertension; M19.90 Unspecified osteoarthritis, unspecified site; Z79.899 Other long term (current) drug therapy; Z79.1 Long term (current) use of non-steroidal anti-inflammatories (NSAID); Z88.5 Allergy status to narcotic agent; Z88.0 Allergy status to penicillin; Z88.8 Allergy status to other drugs, medicaments and biological substances
CPT/HCPCS: 36415; 80053; 83605; 85025; 99283; 96374; 96375 ×3; J1200; J2930; J1885

== ENCOUNTER → 2022-08-10 | Outpatient (CLI) | payer MEDICARE, OTHER ==
--- NOTE | 2022-08-10 12:16 | US ---
EXAMINATION TYPE: US gallbladder DATE OF EXAM: 08/10/2022 COMPARISON: NONE CLINICAL INDICATION: Female, 66 years old with history of R10.11 RIGHT UPPER QUADRANT PAIN; pain ongo ing since hernia surgery TECHNIQUE: Multiple sonographic images of the right upper quadrant are obtained. FINDINGS: EXAM MEASUREMENTS: Liver Length: 15.3 cm Gallbladder Wall: 0.2 cm CBD: 0.7 cm Right Kidney: 10.9 x 4.9 x 5.4 cm Pancreas: wnl Liver: Mildly increased echogenicity. No focal lesion. Gallbladder: wnl Evidence for sonographic Langley's sign: no CBD: Mildly dilated. Right Kidney: wnl IMPRESSION: 1. Slight echogenic hepatic parenchyma may be seen with mild fatty infiltration. 2. Mildly dilated bile duct at 7 mm, acceptable given patient's age. Correlate with alkaline phosphat ase and bilirubin levels. 3. No gallstones.
== END | disposition home or self-care (01) ==
LOC: RADUSWWP 08:26
PROVIDERS: ATTEND Surgery Plastic and Reconstructive Surgery
DX: K83.8 Other specified diseases of biliary tract (principal); R10.11 Right upper quadrant pain
CPT/HCPCS: 76705

== ENCOUNTER 2022-10-02 08:54 | Emergency (ER) | payer MEDICARE, OTHER ==
[2022-10-02] MEDS ORDERED: KETOROLAC 15 MG/ML 1 ML VIAL IVP STA (09:01)
[2022-10-02 09:07] VITALS: TEMP 97.4
--- NOTE | 2022-10-02 09:12 | ED ---
General Adult HPI - General Chief complaint: Back Pain/Injury Stated complaint: Fall, Back Pain Time Seen by Provider: 10/02/22 08:57 Source: patient, EMS, RN notes reviewed, old records reviewed Mode of arrival: EMS Limitations: no limitations - History of Present Illness Initial comments: 66-year-old female presenting with back pain. Patient had been transported by paramedics after falling in her bathroom. She states she had one leg up on the sink and had fallen backward striking the wall. There is no head or neck trauma. No loss consciousness. Patient complains of low back pain. She has previous history of scoliosis status post straightening. Patient denies any chest pain or abdominal pain. - Related Data Home Medications Medication Instructions Recorded Confirmed Alendronate Sodium 70 mg PO MO 03/08/21 10/02/22 Simvastatin [Zocor] 20 mg PO HS 03/08/21 10/02/22 L.acidoph,Paracasei, B.lactis 1 cap PO DAILY 12/22/21 10/02/22 [Probiotic] Artificial Tears-Hypromellose 1 drops BOTH EYES TID PRN 10/02/22 10/02/22 [Artificial Tear Drops] Aspirin EC [Ecotrin Low Dose] 81 mg PO MOWEFR 10/02/22 10/02/22 Lutein 10 mg PO DAILY 10/02/22 10/02/22 Propranolol [Inderal] 20 mg PO DAILY PRN 10/02/22 10/02/22 Previous Rx's Medication Instructions Recorded amLODIPine [Norvasc] 5 mg PO DAILY #14 tab 08/06/22 Cyclobenzaprine [Flexeril] 5 mg PO HS PRN #6 tab 10/02/22 Ibuprofen [Motrin] 600 mg PO Q8HR PRN #24 tab 10/02/22 Allergies Allergy/AdvReac Type Severity Reaction Status Date / Time codeine Allergy Rash/Hives/ Verified 10/02/22 09:10 Migraines latanoprost [From Rocklatan] Allergy Swelling Verified 10/02/22 09:10 [email or web address] [From Rocklatan] Allergy Swelling Verified 10/02/22 09:10 Penicillins Allergy Rash/Hives Verified 10/02/22 09:10 Review of Systems ROS Statement: Those systems with pertinent positive or pertinent negative responses have been documented in the HPI. ROS Other: All systems not noted in ROS Statement are negative. Past Medical History Past Medical History: Eye Disorder, GERD/Reflux, Hyperlipidemia, Hypertension, Osteoarthritis (OA) Additional Past Medical History / Comment(s): Cataracts, Glaucoma and Macular Degeneration., scoliosis with surgery, pt states spot of fungus on her foot. , lumps on her thyroid., hx of left foot fx with surgery feb 2021 & some difficulty walking at times and uses motor w/c at store., hiatal hernia History of Any Multi-Drug Resistant Organisms: None Reported Past Surgical History: Back Surgery, Section, Hernia Repair, Orthopedic Surgery Additional Past Surgical History / Comment(s): Surgery for scoliosis with rods that broke and were removed. , left foot surgery with pin placed (feb 2021), EGD WITH DILATION (11/23/21)., HYSTEROSCOPY, tubal ligation with c section Past Anesthesia/Blood Transfusion Reactions: Postoperative Nausea & Vomiting (PONV) Additional Past Anesthesia/Blood Transfusion Reaction / Comment(s): post-op headache Past Psychological History: No Psychological Hx Reported Smoking Status: Never smoker Past Alcohol Use History: Occasional Past Drug Use History: None Reported - Past Family History Mother Family Medical History: Cancer, CVA/TIA Father Family Medical History: CVA/TIA General Exam Limitations: no limitations General appearance: alert, in no apparent distress Head exam: Present: atraumatic, normocephalic Eye exam: Present: normal appearance, PERRL ENT exam: Present: normal exam Neck exam: Present: normal inspection. Absent: tenderness, meningismus Respiratory exam: Present: normal lung sounds bilaterally. Absent: respiratory distress, wheezes Cardiovascular Exam: Present: regular rate, normal rhythm GI/Abdominal exam: Present: soft. Absent: distended, tenderness Extremities exam: Present: normal inspection, normal capillary refill. Absent: pedal edema Back exam: Present: paraspinal tenderness (Lumbar), vertebral tenderness (Lumba r) Neurological exam: Present: alert, oriented X3, CN II-XII intact. Absent: motor sensory deficit Psychiatric exam: Present: normal affect, normal mood Skin exam: Present: warm, dry, intact. Absent: cyanosis, diaphoretic Course Vital Signs 10/02/22 10/02/22 10/02/22 08:57 10:00 11:00 Temperature 97.4 F L Pulse Rate 82 84 86 Respiratory 18 Rate Blood Pressure 104/61 104/61 125/78 O2 Sat by Pulse 97 92 L 94 L Oximetry Medical Decision Making - Medical Decision Making Was pt. sent in by a medical professional or institution (, JULIA, PAPER BAG MACHINE OPERATOR, urgent care, hospital, or care home...) When possible be specific @ -No Did you speak to anyone other than the patient for history (EMS, parent, family, police, friend...)? What history was obtained from this source @ -[Paramedics transported the patient Did you review nursing and triage notes (agree or disagree)? Why? @ -I reviewed and agree with nursing and triage notes Were old charts reviewed (outside hosp., previous admission, EMS record, old EKG, old radiological studies, urgent care reports/EKG's, care home records)? Report findings @ -No old charts were reviewed Differential Diagnosis (chest pain, altered mental status, abdominal pain women, abdominal pain men, vaginal bleeding, weakness, fever, dyspnea, syncope, headache, dizziness, GI bleed, back pain, seizure, CVA, palpatations, mental health, musculoskeletal)? @ -[Differential Musculoskeletal Muscular strain, contusion, ligament sprain, fracture, arthritis, septic arthritis, bursitis, cellulitis, muscle spasm, nerve compression, DVT, arterial occlusion, herpes zoster, electrolyte abnormality, tumor.... This is not meant to be in all inclusive list EKG interpreted by me (3pts min.). @ -As above X-rays interpreted by me (1pt min.). @ -X-ray of the lumbar sacral spine negative for fracture, shows degenerative changes with scoliosis. CT interpreted by me (1pt min.). @ -None done U/S interpreted by me (1pt. min.). @ -None done What testing was considered but not performed or refused? (CT, X-rays, U/S, labs)? Why? @ -None What meds were considered but not given or refused? Why? @ -None Did you discuss the management of the patient with other professionals (professionals i.e. JULIA Tamayo, PAPER BAG MACHINE OPERATOR, lab, RT, psych nurse, social media assistant, carpet winder, teacher, armored vehicle officer, embedded case manager)? Give summary @ -No Was smoking cessation discussed for >3mins.? @ -No Was critical care preformed (if so, how long)? @ -No Were there social determinants of health that impacted care today? How? (Homelessness, low income, unemployed, alcoholism, drug addiction, transportation, low edu. Level, literacy, decrease access to med. care, group home, rehab)? @ -No Was there de-escalation of care discussed even if they declined (Discuss DNR or withdrawal of care, Hospice)? DNR status @ -No What co-morbidities impacted this encounter? (DM, HTN, Smoking, COPD, CAD, Cancer, CVA, ARF, Chemo, Hep., AIDS, mental health diagnosis, sleep apnea, morbid obesity)? @ -[Scoliosis Was patient admitted / discharged? Hospital course, mention meds given and route, prescriptions, significant lab abnormalities, going to OR and other pertinent info. @ -[66-year-old female status post mechanical fall with low back injury. No external signs of trauma. Patient given morphine by paramedics and Toradol in the emergency department. X-rays are negative for displaced fracture. Undiagnosed new problem with uncertain prognosis? @ -No Drug Therapy requiring intensive monitoring for toxicity (Heparin, Nitro, Insulin, Cardizem)? @ -No Were any procedures done? @ -No Diagnosis/symptom? @Lumbar contusion, lumbar strain Acute, or Chronic, or Acute on Chronic? @ -Acute Uncomplicated (without systemic symptoms) or Complicated (systemic symptoms)? @ -[Uncomplicated Side effects of treatment? @ -No Exacerbation, Progression, or Severe Exacerbation? @ -No Poses a threat to life or bodily function? How? (Chest pain, [place], [place], pneumonia, PE, COPD, DKA, ARF, appy, cholecystitis, CVA, Diverticulitis, Homicidal, Suicidal, threat to staff... and all critical care pts) @ -No Disposition Clinical Impression: Strain of lumbar region Disposition: HOME SELF-CARE Condition: Fair Instructions (If sedation given, give patient instructions): Acute Low Back Pain (ED) Prescriptions: Cyclobenzaprine [Flexeril] 5 mg PO HS PRN #6 tab PRN Reason: Muscle Pain Ibuprofen [Motrin] 600 mg PO Q8HR PRN #24 tab PRN Reason: Pain Is patient prescribed a controlled substance at d/c from ED?: No Referrals: Arvind Hughes DO [Primary Care Provider] - 1-2 days Time of Disposition: 12:47
--- NOTE | 2022-10-02 09:41 | XR ---
EXAM TYPE: LUMBAR SPINE X RAY SERIES COMPARISON: 07/14/2022 HISTORY: Pain TECHNIQUE: 4 views are submitted. FINDINGS: Alignment is anatomic. The pedicles are intact. The transverse processes are intact. There is scol iotic curvature of the spine with multilevel hypertrophic and degenerative changes. Multilevel facet arthropathy. Minimal anterior listhesis of L5 relative to S1. Radiopaque density overlying the left a bdomen\pelvis may be contained within the bowel IMPRESSION: 1. Scoliosis with moderate multilevel hypertrophic degenerative disc disease. Suspect multilevel fora charo encroachment. 2. No evidence of compression deformities.
[2022-10-02] MEDS ORDERED: HYDROcodone/APAP 5-325MG 1 EACH TAB PO STA (10:05)
[2022-10-02] MEDS ORDERED: CYCLOBENZAPRINE 10 MG TAB PO STA (11:13)
[2022-10-02] MEDS ORDERED: HYDROmorphone 0.5 MG/0.5 ML SYRINGE IVP STA (11:52)
[2022-10-02 13:52] VITALS: BP 125/73; PULSE 75; RESP 20
== END 2022-10-02 13:52 | disposition home or self-care (01) ==
LOC: EC 08:54
DX: S39.012A Strain of muscle, fascia and tendon of lower back, initial encounter (principal); K21.9 Gastro-esophageal reflux disease without esophagitis; E78.5 Hyperlipidemia, unspecified; I10 Essential (primary) hypertension; M19.90 Unspecified osteoarthritis, unspecified site; Z88.0 Allergy status to penicillin; Z88.5 Allergy status to narcotic agent; Z88.8 Allergy status to other drugs, medicaments and biological substances; Z79.82 Long term (current) use of aspirin; Z79.899 Other long term (current) drug therapy; W01.198A Fall on same level from slipping, tripping and stumbling with subsequent striking against other object, initial encounter; Y92.002 Bathroom of unspecified non-institutional (private) residence as the place of occurrence of the external cause
CPT/HCPCS: 72110; 99284; 96374; J1885

== ENCOUNTER 2022-10-02 19:25 | Emergency (ER) | payer MEDICARE, OTHER ==
[2022-10-02 19:32] VITALS: TEMP 98.1
[2022-10-02] MEDS ORDERED: HYDROmorphone 0.5 MG/0.5 ML SYRINGE IM STA (20:58)
[2022-10-02] MEDS ORDERED: LIDOCAINE 5% PATCH TOPICAL STA (20:59)
--- NOTE | 2022-10-02 22:45 | ED ---
Fall HPI - General Chief Complaint: Fall Stated Complaint: back pain Time Seen by Provider: 10/02/22 20:53 Source: patient Mode of arrival: wheelchair - History of Present Illness Initial Comments: Patient is a 66-year-old female who presents to the emergency department for back pain. This patient's second visit today for back pain. Patient fell recently striking her back. She did not hit her head or lose consciousness. She has pain in her lower back. There is no radiation. Denies numbness and tingling. No loss of bowel or bladder function. No weakness. Patient states her pain has been uncontrolled. States she has been in too much pain to eat therefore has not taken her pain medication because she has not wanted to take the medication on an empty stomach. - Related Data Home Medications Medication Instructions Recorded Confirmed Alendronate Sodium 70 mg PO MO 03/08/21 10/02/22 Simvastatin [Zocor] 20 mg PO HS 03/08/21 10/02/22 L.acidoph,Paracasei, B.lactis 1 cap PO DAILY 12/22/21 10/02/22 [Probiotic] Artificial Tears-Hypromellose 1 drops BOTH EYES TID PRN 10/02/22 10/02/22 [Artificial Tear Drops] Aspirin EC [Ecotrin Low Dose] 81 mg PO MOWEFR 10/02/22 10/02/22 Lutein 10 mg PO DAILY 10/02/22 10/02/22 Propranolol [Inderal] 20 mg PO DAILY PRN 10/02/22 10/02/22 Previous Rx's Medication Instructions Recorded amLODIPine [Norvasc] 5 mg PO DAILY #14 tab 08/06/22 Cyclobenzaprine [Flexeril] 5 mg PO HS PRN #6 tab 10/02/22 Ibuprofen [Motrin] 600 mg PO Q8HR PRN #24 tab 10/02/22 Lidocaine 5% Patch [Lidoderm 5% 1 patch TOPICAL DAILY PRN #7 patch 10/02/22 Patch] Allergies Allergy/AdvReac Type Severity Reaction Status Date / Time codeine Allergy Rash/Hives/ Verified 10/02/22 09:10 Migraines latanoprost [From [place]] Allergy Swelling Verified 10/02/22 09:10 [email or web address] [From [place]atan] Allergy Swelling Verified 10/02/22 09:10 Penicillins Allergy Rash/Hives Verified 10/02/22 09:10 Review of Systems ROS Statement: Those systems with pertinent positive or pertinent negative responses have been documented in the HPI. ROS Other: All systems not noted in ROS Statement are negative. Past Medical History Past Medical History: Eye Disorder, GERD/Reflux, Hyperlipidemia, Hypertension, Osteoarthritis (OA) Additional Past Medical History / Comment(s): Cataracts, Glaucoma and Macular Degeneration., scoliosis with surgery, pt states spot of fungus on her foot. , lumps on her thyroid., hx of left foot fx with surgery feb 2021 & some difficulty walking at times and uses motor w/c at store., hiatal hernia History of Any Multi-Drug Resistant Organisms: None Reported Past Surgical History: Back Surgery, Section, Hernia Repair, Orthopedic Surgery Additional Past Surgical History / Comment(s): Surgery for scoliosis with rods that broke and were removed. , left foot surgery with pin placed (feb 2021), EGD WITH DILATION (11/23/21)., HYSTEROSCOPY, tubal ligation with c section Past Anesthesia/Blood Transfusion Reactions: Postoperative Nausea & Vomiting (PONV) Additional Past Anesthesia/Blood Transfusion Reaction / Comment(s): post-op headache Past Psychological History: No Psychological Hx Reported Smoking Status: Never smoker Past Alcohol Use History: Occasional Past Drug Use History: None Reported - Past Family History Mother Family Medical History: Cancer, CVA/TIA Father Family Medical History: CVA/TIA General Exam Limitations: no limitations General appearance: alert, anxious Eye exam: Present: normal appearance, PERRL, EOMI. Absent: scleral icterus, conjunctival injection, periorbital swelling Respiratory exam: Present: normal lung sounds bilaterally. Absent: respiratory distress, wheezes, rales, rhonchi, stridor Cardiovascular Exam: Present: regular rate, normal rhythm, normal heart sounds. Absent: systolic murmur, diastolic murmur, rubs, gallop, clicks Extremities exam: Present: normal inspection, full ROM, normal capillary refill Back exam: Present: paraspinal tenderness (lumbar bilateral) Neurological exam: Present: alert Expanded Sensory exam: Upper Extremity Light Touch: Normal, Lower Extremity Light Touch: Normal Motor strength exam: RUE: 5, LUE: 5, RLE: 5, LLE: 5 Course Vital Signs 10/02/22 10/02/22 19:27 23:14 Temperature 98.1 F Pulse Rate 79 71 Respiratory 20 18 Rate Blood Pressure 157/76 155/81 O2 Sat by Pulse 98 94 L Oximetry Medical Decision Making - Medical Decision Making Was pt. sent in by a medical professional or institution (JULIA Tamayo, DYE RANGE OPERATOR, urgent care, hospital, or senior living...) When possible be specific @ -No Did you speak to anyone other than the patient for history (EMS, parent, family, police, friend...)? What history was obtained from this source @ -No Did you review nursing and triage notes (agree or disagree)? Why? @ -I reviewed and agree with nursing and triage notes Were old charts reviewed (outside hosp., previous admission, EMS record, old EKG, old radiological studies, urgent care reports/EKG's, senior living records)? Report findings @ -reviewed xray today no acute fracture or dislocation of the lumbar spine Differential Diagnosis (chest pain, altered mental status, abdominal pain women, abdominal pain men, vaginal bleeding, weakness, fever, dyspnea, syncope, headache, dizziness, GI bleed, back pain, seizure, CVA, palpatations, mental health)? @ -Differential Back Pain: Strain, zoster, cauda equina syndrome, epidural abscess, vertebral osteomyelitis, discitis, fracture, subluxation, disc herniation, DJD, spinal stenosis, dissection, AAA, pancreatitis, peptic ulcer disease, pyelonephritis, kidney stone, this is not meant to be an all-inclusive list. EKG interpreted by me (3pts min.). @ -As above X-rays interpreted by me (1pt min.). @ -None done CT interpreted by me (1pt min.). @ -None done U/S interpreted by me (1pt. min.). @ -None done What testing was considered but not performed or refused? (CT, X-rays, U/S, labs)? Why? @ -Consider x-ray imaging however patient does not midline tenderness. She had a negative x-ray today already. What meds were considered but not given or refused? Why? @ -None Did you discuss the management of the patient with other professionals (professionals i.e. JULIA Tamayo, DYE RANGE OPERATOR, lab, RT, psych nurse, social media community manager, supervisor feed mill, teacher, escrow officer, case management rn)? Give summary @ -No Was smoking cessation discussed for >3mins.? @ -No Was critical care preformed (if so, how long)? @ -No Were there social determinants of health that impacted care today? How? (Homelessness, low income, unemployed, alcoholism, drug addiction, transportation, low edu. Level, literacy, decrease access to med. care, long term, rehab)? @ -No Was there de-escalation of care discussed even if they declined (Discuss DNR or withdrawal of care, Hospice)? DNR status @ -No What co-morbidities impacted this encounter? (DM, HTN, Smoking, COPD, CAD, Cancer, CVA, ARF, Chemo, Hep., AIDS, mental health diagnosis, sleep apnea, morbid obesity)? @ -None Was patient admitted / discharged? Hospital course, mention meds given and route, prescriptions, significant lab abnormalities, going to OR and other pertinent info. @ -Discharged pain is controlled. No neurological deficits on exam. Patient highly encouraged to take pain medication and apply heat to injury home. Undiagnosed new problem with uncertain prognosis? @ -No Drug Therapy requiring intensive monitoring for toxicity (Heparin, Nitro, Insulin, Cardizem)? @ -No Were any procedures done? @ -No Diagnosis/symptom? @ -Lumbar strain Acute, or Chronic, or Acute on Chronic? @ - acute Uncomplicated (without systemic symptoms) or Complicated (systemic symptoms)? @Uncomplicated Side effects of treatment? @ -No Exacerbation, Progression, or Severe Exacerbation? @ -No Poses a threat to life or bodily function? How? (Chest pain, [place], [place], pneumonia, PE, COPD, DKA, ARF, appy, cholecystitis, CVA, Diverticulitis, Homicidal, Suicidal, threat to staff... and all critical care pts) @ -No Dr. Harry is my attending Disposition Clinical Impression: Strain of lumbar region Disposition: HOME SELF-CARE Condition: Good Instructions (If sedation given, give patient instructions): Low Back Strain (ED) Additional Instructions: Be sure to take her medications for pain. Apply heat to injury. Follow-up with primary care provider in one to 2 days. Return to the emergency department if you experience new, concerning, or worsening symptoms. Prescriptions: Lidocaine 5% Patch [Lidoderm 5% Patch] 1 patch TOPICAL DAILY PRN #7 patch PRN Reason: Pain Is patient prescribed a controlled substance at d/c from ED?: No Referrals: Arvind Hughes DO [Primary Care Provider] - 1-2 days
[2022-10-02 23:15] VITALS: BP 155/81; PULSE 71; RESP 18
== END 2022-10-02 23:23 | disposition home or self-care (01) ==
LOC: EC 19:25
DX: S39.012A Strain of muscle, fascia and tendon of lower back, initial encounter (principal); E78.5 Hyperlipidemia, unspecified; I10 Essential (primary) hypertension; M19.90 Unspecified osteoarthritis, unspecified site; Z79.1 Long term (current) use of non-steroidal anti-inflammatories (NSAID); Z79.899 Other long term (current) drug therapy; Z88.5 Allergy status to narcotic agent; Z88.0 Allergy status to penicillin; Z88.8 Allergy status to other drugs, medicaments and biological substances; W18.30XA Fall on same level, unspecified, initial encounter
CPT/HCPCS: 99284 ×3; 96372 ×2; 96374; 72110; J1885; J1170

== ENCOUNTER 2022-10-04 10:02 | Inpatient (IN) | payer MEDICARE, OTHER ==
--- NOTE | 2022-10-04 11:13 | XR ---
EXAM TYPE: LUMBAR SPINE X RAY SERIES COMPARISON: NONE HISTORY: Pain TECHNIQUE: 4 views are submitted. FINDINGS: Alignment is anatomic. The pedicles are intact. The transverse processes are intact. There is no s pondylolysis or spondylolisthesis. Multilevel hypertrophic and degenerative changes of the spine wit h facet arthropathy. Slight curvature of the spine. There is interval mild loss of vertebral body hei ght of L1. Radiopaque density seen in the pelvis likely contained within bowel. Possibly related to prior contra st. There is slight cortical irregularity at the sacrococcygeal junction. Recommend CT of the lumbar spine to include sacrococcygeal junction to assess L1 as well as the sacrococcygeal junction. IMPRESSION: 1. Interval mild loss of vertebral body height of L1. Mild compression fracture in the differential d iagnosis. Recommend CT scan with inclusion of the sacrococcygeal junction as discussed above.
[2022-10-04] MEDS ORDERED: HYDROmorphone 1 MG/ML 1 ML SYRINGE IVP STA (11:29)
--- NOTE | 2022-10-04 11:36 | ED ---
Back Pain HPI - General Chief Complaint: Back Pain/Injury Stated Complaint: Back Pain Time Seen by Provider: 10/04/22 10:44 Source: patient, EMS Limitations: no limitations - History of Present Illness Initial Comments: 66-year-old female presents to ED with a chief complaint of back pain. Patient previously here on 10/02/22 with the same chief complaint. Patient states at that time was trying to shave her legs and fell backwards landing on her back/buttocks on the tile. Denies head injury or any other injury at this time. Since then notes back pain. Lumbar x-ray that time showed no evidence of fracture however x-ray today concern for possible compression fracture. Since her time here, followed up with , who performed x-rays. States was scheduled for a "body scan" and was provided pain control. He is new injury however notes pain has been not improved with tramadol 50 mg. No other complaints. - Related Data Home Medications Medication Instructions Recorded Confirmed Alendronate Sodium 70 mg PO MO 03/08/21 10/04/22 Simvastatin [Zocor] 20 mg PO HS 03/08/21 10/04/22 L.acidoph,Paracasei, B.lactis 1 cap PO DAILY 12/22/21 10/04/22 [Probiotic] Artificial Tears-Hypromellose 1 drop BOTH EYES TID PRN 10/02/22 10/04/22 [Artificial Tear Drops] Aspirin EC [Ecotrin Low Dose] 81 mg PO MOWEFR 10/02/22 10/04/22 Lutein 10 mg PO DAILY 10/02/22 10/04/22 Propranolol [Inderal] 20 mg PO DAILY PRN 10/02/22 10/04/22 Lidocaine 5% Patch [Lidoderm 5% 1 patch TRANSDERM DAILY PRN 10/04/22 10/04/22 Patch] traMADol HCL 50 mg PO TID PRN 10/04/22 10/04/22 Previous Rx's Medication Instructions Recorded amLODIPine [Norvasc] 5 mg PO DAILY #14 tab 08/06/22 Cyclobenzaprine [Flexeril] 5 mg PO HS PRN #6 tab 10/02/22 Ibuprofen [Motrin] 600 mg PO Q8HR PRN #24 tab 10/02/22 Allergies Allergy/AdvReac Type Severity Reaction Status Date / Time codeine Allergy Rash/Hives/ Verified 10/04/22 12:50 Migraines latanoprost [From [place]] Allergy Swelling Verified 10/04/22 12:50 [email or web address] [From [place]] Allergy Swelling Verified 10/04/22 12:50 Penicillins Allergy Rash/Hives Verified 10/04/22 12:50 KAYLEIGH Inhibitors AdvReac Abdominal Verified 10/04/22 12:50 Pain Review of Systems ROS Statement: Those systems with pertinent positive or pertinent negative responses have been documented in the HPI. ROS Other: All systems not noted in ROS Statement are negative. Past Medical History Past Medical History: Eye Disorder, GERD/Reflux, Hyperlipidemia, Hypertension, Osteoarthritis (OA) Additional Past Medical History / Comment(s): Cataracts, Glaucoma and Macular Degeneration., scoliosis with surgery, pt states spot of fungus on her foot. , lumps on her thyroid., hx of left foot fx with surgery feb 2021 & some difficulty walking at times and uses motor w/c at store., hiatal hernia History of Any Multi-Drug Resistant Organisms: None Reported Past Surgical History: Back Surgery, Section, Hernia Repair, Orthopedic Surgery Additional Past Surgical History / Comment(s): Surgery for scoliosis with rods that broke and were removed. , left foot surgery with pin placed (feb 2021), EGD WITH DILATION (11/23/21)., HYSTEROSCOPY, tubal ligation with c section Past Anesthesia/Blood Transfusion Reactions: Postoperative Nausea & Vomiting (PONV) Additional Past Anesthesia/Blood Transfusion Reaction / Comment(s): post-op headache Past Psychological History: No Psychological Hx Reported Smoking Status: Never smoker Past Alcohol Use History: Occasional Past Drug Use History: None Reported - Past Family History Mother Family Medical History: Cancer, CVA/TIA Father Family Medical History: CVA/TIA General Exam Limitations: physical limitation (Lying flat, unable to turn to her side or sit up secondary to pain.) General appearance: alert, in distress (Appears to be in pain) Head exam: Present: atraumatic, normocephalic Neck exam: Present: normal inspection Respiratory exam: Present: normal lung sounds bilaterally Cardiovascular Exam: Present: regular rate, normal rhythm GI/Abdominal exam: Present: soft (Nontender to palpation. No rebound guarding or rigidity.) Extremities exam: Present: other (Strength and sensation of bilateral upper and lower extremities intact.) Neurological exam: Present: alert, oriented X3 Skin exam: Present: warm, dry Course Vital Signs 10/04/22 10/04/22 10/04/22 10:13 11:46 13:33 Temperature 99.2 F 98.8 F Pulse Rate 69 73 65 Respiratory 20 16 18 Rate Blood Pressure 154/87 165/90 166/91 O2 Sat by Pulse 98 100 95 Oximetry Medical Decision Making - Medical Decision Making Was pt. sent in by a medical professional or institution (, [place], MASCARA MOLDER, urgent care, hospital, or [facility]...) When possible be specific @ -No Did you speak to anyone other than the patient for history (EMS, parent, family, police, friend...)? What history was obtained from this source @ -No Did you review nursing and triage notes (agree or disagree)? Why? @ -I reviewed and agree with nursing and triage notes Were old charts reviewed (outside hosp., previous admission, EMS record, old EKG, old radiological studies, urgent care reports/EKG's, [facility] records)? Report findings @ -Charts reviewed showing a visit on 10/02/22. At that time notes that she fell backwards and landed on her buttock/back denies head injury at this time. X-ray at that time unremarkable for acute fracture. Differential Diagnosis (chest pain, altered mental status, abdominal pain women, abdominal pain men, vaginal bleeding, weakness, fever, dyspnea, syncope, headache, dizziness, GI bleed, back pain, seizure, CVA, palpatations, mental health, musculoskeletal)? @ -Differential Back Pain: Strain, zoster, cauda equina syndrome, epidural abscess, vertebral osteomyelitis, discitis, fracture, subluxation, disc herniation, DJD, spinal stenosis, dissection, AAA, pancreatitis, peptic ulcer disease, pyelonephritis, kidney stone, this is not meant to be an all-inclusive list. EKG interpreted by me (3pts min.). @ -None X-rays interpreted by me (1pt min.). @ -Lumbar x-ray show no acute findings. CT interpreted by me (1pt min.). @ -CT lumbar/sacral spine showed no acute findings. U/S interpreted by me (1pt. min.). @ -None done What testing was considered but not performed or refused? (CT, X-rays, U/S, labs)? Why? @ -None What meds were considered but not given or refused? Why? @ -None Did you discuss the management of the patient with other professionals (professionals i.e. , JULIA, MASCARA MOLDER, lab, RT, psych nurse, hospital social worker, patients transporter, teacher, correction officer, telephonic nurse case manager)? Give summary @ -Spoke with Dr. Ornelas, who would like the patient started on steroids and admitted for pain control. Was smoking cessation discussed for >3mins.? @ -No Was critical care preformed (if so, how long)? @ -No Were there social determinants of health that impacted care today? How? (Homelessness, low income, unemployed, alcoholism, drug addiction, transportation, low edu. Level, literacy, decrease access to med. care, [facility], rehab)? @ -No Was there de-escalation of care discussed even if they declined (Discuss DNR or withdrawal of care, Hospice)? DNR status @ -No What co-morbidities impacted this encounter? (DM, HTN, Smoking, COPD, CAD, Cancer, CVA, ARF, Chemo, Hep., AIDS, mental health diagnosis, sleep apnea, morbid obesity)? @ -None Was patient admitted / discharged? Hospital course, mention meds given and route, prescriptions, significant lab abnormalities, going to OR and other pertinent info. @ -Admission. X-ray and CT showed no acute findings. Patient will be admitted to pain control to orthopedics with consult to medicine. Plan of care discussed with patient who is in agreement. Undiagnosed new problem with uncertain prognosis? @ -No Drug Therapy requiring intensive monitoring for toxicity (Heparin, Nitro, Insulin, Cardizem)? @ -No Were any procedures done? @ -No Diagnosis/symptom? @ -Back pain Acute, or Chronic, or Acute on Chronic? @ -Acute Uncomplicated (without systemic symptoms) or Complicated (systemic symptoms)? @ -Uncomplicated Side effects of treatment? @ -No Exacerbation, Progression, or Severe Exacerbation? @ -No Poses a threat to life or bodily function? How? (Chest pain, [place], [place], pneumonia, PE, COPD, DKA, ARF, appy, cholecystitis, CVA, Diverticulitis, Homicidal, Suicidal, threat to staff... and all critical care pts) @ -No Disposition Clinical Impression: Back pain Disposition: ADMITTED IP TO THIS [facility] Condition: Good Referrals: Arvind Hughes DO [Primary Care Provider] - 1-2 days Time of Disposition: 14:00
--- NOTE | 2022-10-04 12:31 | CT ---
EXAMINATION TYPE: CT lumbar spine wo con DATE OF EXAM: 10/04/2022 COMPARISON: None HISTORY: pain, r/o compression fx, no priors CT DLP: 1616.7 mGycm CONTRAST: None TECHNIQUE: CT of the lumbar spine is performed on a spiral scan at 3 mm thick sections. Reconstructed images are performed in the coronal and sagittal planes. FINDINGS: T10-11, T11-12: No focal disc herniation or significant disc bulge is evident. No spinal canal stenos is or neural foraminal stenosis present. T12-L1: No focal disc herniation or significant disc bulge is evident. No spinal canal stenosis or neural foraminal stenosis is present. L1: There is a smooth bordered lobular hypodense area crossing through the mid L1 vertebral body. Thi s could be an old fracture with nonunion. A benign appearing lytic area could be considered. This stephens s appear somewhat more lytic in the axial plane. L1-L2: No focal disc herniation or significant disc bulge is evident. No spinal canal stenosis or n eural foraminal stenosis is present L2-L3: No focal disc herniation or significant disc bulge is evident. No spinal canal stenosis or n eural foraminal stenosis is present L3-L4: Disc bulging at L3-4 appears to be present with mild anterior thecal sac flattening. No AP spi nal canal stenosis is present. Mild left and severe right foraminal stenosis is present. L4-L5: Broad-based disc bulge has mild anterior thecal sac flattening. No AP spinal canal stenosis pr esent. Some facet hypertrophy is present. Mild foraminal narrowing is present on the left and moderat e to severe right foraminal stenosis is noted. L5-S1: Broad-based disc bulge has minimal anterior thecal sac contact. No AP spinal canal stenosis is present. Moderate left and right foraminal narrowing is present. There is a scoliosis within the lumbar spine. IMPRESSION: 1. Lucency through the L1 vertebral body appears to have sclerotic margins. A more benign process is favored differential. Prior fracture could be considered. No vertebral body height loss is evident ho wever. 2. Foraminal stenosis discussed above. This appears more severe on the right lower lumbar spine. 3. No acute changes identified.
--- NOTE | 2022-10-04 12:35 | CT ---
EXAMINATION TYPE: CT sacrum wo con DATE OF EXAM: 10/04/2022 COMPARISON: None HISTORY: pain, r/o compression fx, no priors CT DLP: 1616.7 mGycm Automated exposure control for dose reduction was used. Contrast: None Technique: Axial images 3 mm thick sections. Reconstructed images in the sagittal and coronal planes. FINDINGS: Sacroiliac joints are patent. The sacrum appears intact. Facet hypertrophy is present L5-S1. Mild diffuse disc uncovering is present with anterior thecal sac contact. No AP spinal canal stenosis is present. Inferior sacral canal is unremarkable. Presacral spa ce is unremarkable. No acute osseous abnormality is evident. IMPRESSION: 1. NO ACUTE OSSEOUS ABNORMALITY OF THE SACRUM
[2022-10-04] MEDS ORDERED: KETOROLAC 15 MG/ML 1 ML VIAL IVP STA (13:02)
[2022-10-04] MEDS ORDERED: ACETAMINOPHEN TAB 325 MG TAB PO PRN (14:12)
[2022-10-04] MEDS ORDERED: NALOXONE 0.4 MG/ML 1 ML VIAL IV PRN (14:12)
[2022-10-04] MEDS ORDERED: HYDROmorphone 0.5 MG/0.5 ML SYRINGE IVP PRN (14:12)
[2022-10-04] MEDS ORDERED: ONDANSETRON 4 MG/2 ML VIAL IVP PRN (14:12)
[2022-10-04] MEDS ORDERED: methylPREDNISolone SOD SUCCI 125 MG/2 ML VIAL IV STA (14:14)
[2022-10-04] MEDS ORDERED: PROPRANOLOL 20 MG TAB PO PRN (14:58)
[2022-10-04] MEDS ORDERED: traMADol 50 MG TAB PO PRN (14:58)
[2022-10-04] MEDS ORDERED: ARTIFICIAL TEARS-HYPROMELLOSE DROPS 15 ML BTL BOTH EYES PRN (14:58)
--- NOTE | 2022-10-04 15:15 | P.HPOR ---
History of Present Illness H&P Date: 10/04/22 Chief Complaint: Low back pain, intractable inability to ambulate The patient is seen and examined in the emergency room. She'll plan 66-year-old female who has been having seen him back pain over the past 3 weeks. Her pain has significant worsened over the past 3 days. The patient has had thoracolumbar spine surgery for scoliosis about 40 years ago in the 80s. She subsequently had her hardware removed more than 20 years ago. This was all done and trial. She had been doing well with terms of her back until about 3 weeks ago when she is walking her dog and her dog pulled her unexpectedly and she fell to the ground. Since then she is having pain at her drastic and lumbar spine. The pain is gradually worsening. A couple of days ago she fell again and had worsening pain and back where she was essentially unable to ambulate. She presented to the emergency room on Sunday twice and was sent home for her back pain. She presented to the office and saw Dr. Regalado who ordered further imaging as an outpatient. The patient however and heat have significant pain today and presented back to the emergency room. She says she is unable ambulate due to the pain in her back. She is okay when she is lying still but whenever she tries to move she has significant pain at her lower back particular toward the right side. She is not having specific numbness tingling in her legs. She denies any change in bowel bladder function. She denies any weakness in her lower extremities. She says she has pain when she coughs and sneezes. She denies any fevers chills or night sweats. She says she has not had pain like this in the past. She denies any neck pain. Denies any upper extremity pain. She says she was scheduled for a bone scan tomorrow as ordered by Dr. Regalado. Review of Systems As stated per HPI. Denies any chest pain or shortness of breath. Denies any changes about what function. Denies any weakness in her lower extremity. Denies any new changes in her neurologic function. Her main complaint is that of back pain. Past Medical History Past Medical History: Eye Disorder, GERD/Reflux, Hyperlipidemia, Hypertension, Osteoarthritis (OA) Additional Past Medical History / Comment(s): Cataracts, Glaucoma and Macular Degeneration., scoliosis with surgery, pt states spot of fungus on her foot. , lumps on her thyroid., hx of left foot fx with surgery feb 2021 & some difficulty walking at times and uses motor w/c at store., hiatal hernia. Scoliosis thoracolumbar surgery in with subsequent removal of hardware in [place] History of Any Multi-Drug Resistant Organisms: None Reported Past Surgical History: Back Surgery, Section, Hernia Repair, Orthopedic Surgery Additional Past Surgical History / Comment(s): Surgery for scoliosis with rods that broke and were removed. , left foot surgery with pin placed (feb 2021), EGD WITH DILATION (11/23/21)., HYSTEROSCOPY, tubal ligation with c section Past Anesthesia/Blood Transfusion Reactions: Postoperative Nausea & Vomiting (PONV) Additional Past Anesthesia/Blood Transfusion Reaction / Comment(s): post-op headache Past Psychological History: No Psychological Hx Reported Smoking Status: Never smoker Past Alcohol Use History: Occasional Past Drug Use History: None Reported - Past Family History Mother Family Medical History: Cancer, CVA/TIA Father Family Medical History: CVA/TIA Medications and Allergies Home Medications Medication Instructions Recorded Confirmed Type Alendronate Sodium 70 mg PO MO 03/08/21 10/04/22 History Simvastatin [Zocor] 20 mg PO HS 03/08/21 10/04/22 History L.acidoph,Paracasei, B.lactis 1 cap PO DAILY 12/22/21 10/04/22 History [Probiotic] amLODIPine [Norvasc] 5 mg PO DAILY #14 tab 08/06/22 10/04/22 Rx Artificial Tears-Hypromellose 1 drop BOTH EYES TID PRN 10/02/22 10/04/22 History [Artificial Tear Drops] Aspirin EC [Ecotrin Low Dose] 81 mg PO MOWEFR 10/02/22 10/04/22 History Cyclobenzaprine [Flexeril] 5 mg PO HS PRN #6 tab 10/02/22 10/04/22 Rx Ibuprofen [Motrin] 600 mg PO Q8HR PRN #24 tab 10/02/22 10/04/22 Rx Lutein 10 mg PO DAILY 10/02/22 10/04/22 History Propranolol [Inderal] 20 mg PO DAILY PRN 10/02/22 10/04/22 History Lidocaine 5% Patch [Lidoderm 5% 1 patch TRANSDERM DAILY PRN 10/04/22 10/04/22 History Patch] traMADol HCL 50 mg PO TID PRN 10/04/22 10/04/22 History Allergies Allergy/AdvReac Type Severity Reaction Status Date / Time codeine Allergy Rash/Hives/ Verified 10/04/22 12:50 Migraines latanoprost [From [place]] Allergy Swelling Verified 10/04/22 12:50 netarsudil [From [place]] Allergy Swelling Verified 10/04/22 12:50 Penicillins Allergy Rash/Hives Verified 10/04/22 12:50 KAYLEIGH Inhibitors AdvReac Abdominal Verified 10/04/22 12:50 Pain Physical Examination Osteopathic Statement: *. No significant issues noted on an osteopathic structural exam other than those noted in the History and Physical/Consult. - L Spine: dermatomal strength & reflexes bilateral Strength: hip flexion: 5/5 (Her back does not have point tenderness over the midline. She has some paravertebral spasm at the right lumbar and thoracic lumbar junction. Lower extremities she is pain at her back with movement but she seems to have 5 out of 5 strength with hip flexion and knee extension dorsal flexion plantar) Strength: hip extension: 5/5 (5 out of 5 strength with hip flexion and knee extension dorsal flexion plantarflexion and EHL. She had recent left foot s urgery and the stitches are intact. Her thighs soft nontender. No pain with internal or external rotation of her hips) Strength: knee flexion: 5/5 (Upper extremities have 55 strength. Neck is nontender to palpation range motion. Abdomen soft nontender. Chest is good excursion deep inspiration and expiration. HEENT normocephalic nontraumatic) Results - Diagnostic results Lumbar AP/lateral x-ray: report reviewed, image reviewed CT Scan - lumbar: report reviewed (At the level of L1, there is lucency at the [place] posterior fusion mass there is also lucency at the L1 vertebral body. It appears to be fracture line extending to the anterior aspect however the area is somewhat opened and may be erosive in nature. The lower lumbar spine has degenerative larson), image reviewed (Images are reviewed with x-rays and computed tomography scan lumbar spine. There is evidence of prior thoracic to lumbar fusion from her scoliosis surgery. The hardware has been removed. There appears to be posterolateral bone mass. At the level LI there is a lucency in the posterior fusion mass) Assessment and Plan Assessment: Acute thoracolumbar back pain status post fall 3 weeks ago and 3 days ago Inability to ambulate due to threat lumbar back pain L1 lucency at the posterior fusion mass as well as the vertebral body of uncertain etiology with possible unstable fracture History of threat lumbar fusion for scoliosis from the thoracic spine to appears to be L2 in the 80s with subsequent removal of hardware No evidence of neurologic compromise and lower extremities Status post fall 3 weeks ago and 3 days ago Left foot recent surgery appears to be healing appropriately Plan: Acute thoracolumbar back pain status post fall 3 weeks ago and 3 days ago Inability to ambulate due to threat lumbar back pain L1 lucency at the posterior fusion mass as well as the vertebral body of uncertain etiology with possible unstable fracture History of threat lumbar fusion for scoliosis from the thoracic spine to appears to be L2 in the 80s with subsequent removal of hardware No evidence of neurologic compromise and lower extremities Status post fall 3 weeks ago and 3 days ago Left foot recent surgery appears to be healing appropriately The patient has been having significant back pain over the past several days which has been building over the past few weeks. She had a fall 3 days ago and 3 weeks ago. She has had prior fusion from her thoracic spine down to L2 and has apparently lucency at L1 vertebral body and at the posterior fusion mass. This is very concerning for the possibility of instability at L1. There is no evidence of displacement currently. She does not have neurologic, a minus currently. With the patient's history and the possibility of new fracture along her prior fusion mass I think that further imaging is necessary. The CT wheezes possible lucency at the area versus the possibility of fracture and I think we need to delineate this more closely as the area in question is difficult to fully characterize on computed tomography scan. I have ordered an MRI with and without contrast of lumbar spine to better delineate this issue. When she was seen at her physician's office yesterday they ordered a bone scan to try to delineate the changes at L1, I think that the MRI will give better characterization and further information and I think we can discontinue the bone scan for now. With the possibility of instability of think she needs to be on bedrest. She is having great difficulty with any sort of mobilization and will have a Grace placed as well given her bedrest status. I will go ahead and make her nothing by mouth after midnight tonight if the MRI shows evidence of gross instability she could require surgical intervention for fusion fixation above and below the fracture. We will discuss this further based on her imaging findings. I discussed this at length with the patient and she understands the nature of her issues. We will try to keep her comfortable with pain control bedrest as well as Grace. We will await further imaging studies with MRI to better delineate the status of her lumbar spine and to plan for potential intervention if necessary. We will have her nothing by mouth after midnight. Time with Patient: Greater than 30
[2022-10-04] MEDS: SODIUM CHLORIDE 0.9% 1,000 ML IV SCH (15:26)
[2022-10-04 15:38] LABS: Basophils % (A) 0 %; Eosinophils % (A) 0 %; HCT 37.9 % (34.0-46.0); HGB 12.5 gm/dL (11.4-16.0); Lymphocytes # (A) 0.7 k/uL (1.0-4.8); Lymphocytes % (A) 7 %; MCH 34.3 pg (25.0-35.0); MCHC 32.9 g/dL (31.0-37.0); MCV 104.3 fL (80.0-100.0); Macrocytosis Slight; Mean Platelet Volume 7.3; Monocytes # (A) 0.5 k/uL (0-1.0); Monocytes % (A) 5 %; Neutrophils % (A) 87 %; Platelet Count 264 k/uL (150-450); RBC 3.63 m/uL (3.80-5.40); RDW 12.6 % (11.5-15.5); WBC 10.3 k/uL (3.8-10.6)
[2022-10-04 15:53] LABS: INR 0.9 (<1.2); Prothrombin Time 9.3 sec (9.0-12.0)
[2022-10-04 16:08] LABS: African American GFR (CKD) >90 (>60 ml/min/1.73 sqM); Anion Gap 6 mmol/L; Blood Urea Nitrogen 12 mg/dL (7-17); Calcium 8.5 mg/dL (8.4-10.2); Carbon Dioxide 29 mmol/L (22-30); Chloride 100 mmol/L (98-107); Glucose 112 mg/dL (74-99); Non-African American GFR(CKD) >90 (>60 ml/min/1.73 sqM); Potassium 3.6 mmol/L (3.5-5.1); Sodium 135 mmol/L (137-145)
[2022-10-04 19:09] LABS: Appearance,Urine Clear (Clear); Bilirubin,Urine Negative (Negative); Blood,Urine Negative (Negative); Color,Urine Yellow; Glucose,Urine (UA) 1+ (Negative); Ketones,Urine 1+ (Negative); Leukocyte Esterase,Urine Negative (Negative); Nitrite,Urine Negative (Negative); Protein,Urine 1+ (Negative); RBC,Urine 1 /hpf (0-5); Specific Gravity,Urine 1.014 (1.001-1.035); Urobilinogen,Urine <2.0 mg/dL (<2.0); WBC,Urine 1 /hpf (0-5)
[2022-10-04] MEDS: HYDROmorphone 1 MG/ML 1 ML SYRINGE IVP PRN ×2 (19:53→22:20)
[2022-10-04] MEDS: ATORVASTATIN 10 MG TAB PO SCH (22:21)
[2022-10-04] MEDS: CYCLOBENZAPRINE 5 MG TAB PO PRN (22:21)
[2022-10-05] MEDS: SODIUM CHLORIDE 0.9% 1,000 ML IV SCH ×3 (02:33→23:03)
[2022-10-05] MEDS: HYDROmorphone 1 MG/ML 1 ML SYRINGE IVP PRN ×4 (06:41→20:55)
[2022-10-05] MEDS: NON FORMULARY DRUG (Lutein [Lutein] 10 MG Tablet) PO SCH (08:26)
[2022-10-05] MEDS: amLODIPine 5 MG TAB PO SCH (09:01)
--- NOTE | 2022-10-05 09:50 | P.PN ---
Progress Note - Text Progress Note Date: 10/05/22 The patient is seen and examined at bedside. She has noted complaints. She feels fine and she is lying in bed but has been pain in her she tries to move. She is not having any lower extremity numbness tingling or pain. She denies any weakness in her lower extremities. Denies any change in bowel bladder function. She denies any chest pain and denies any headaches. Her vitals are stable She is afebrile Her chest has good excursion deep inspiration and expiration Her back has some spasm and some tenderness around her lumbar area particular to the left. There is no point tenderness. Lower extremities have sustained dorsal flexion and EHL intact she is able to bend and lift her legs up off the bed though she has some soreness at her back with this Her calves and thighs are soft nontender Assessment and plan Thoracic lumbar back pain with inability to ambulate Status post fall with possible fracture lucency at L1 along prior fusion mass History of cervical lumbar fusion for scoliosis 40 years ago No evidence of neurologic decline The patient has been having back pain over the past few weeks which increase the past several days at her thoracic lumbar spine. There is lucent lines on the computed tomography scan at L1 along her fusion mass. If there is acute fracture along the fusion mass this would represent an unstable segment given the long lever arms above and below the area. If the MRI confirms new fracture at that space at L1 and I think that she would need to undergo surgical stabilization for fixation. I discussed this with her and she is interested in pursuing further treatment as needed. If the MRI does not show acute fracture we could consider conservative treatment with bracing and mobilization. We will order a brace for her as she will need it whether we continue conservative care or surgical intervention. I have put an order in the chart. The MRI scheduled later today and it is not likely that we would be able to repair and arrange for surgical intervention today, so I think it is okay for her to eat today with nothing by mouth status after midnight for possible intervention tomorrow if necessary. I discussed this with her and she understands. We will order the TLSO for her She can have regular diet today and nothing by mouth after midnight She should remain on bedrest We will follow closely with the MRI findings, with further recommendations based on the results
[2022-10-05] MEDS: PANTOPRAZOLE 40 MG/10 ML VIAL IVP SCH (10:09)
--- NOTE | 2022-10-05 16:10 | MR ---
EXAMINATION TYPE: MR lumbar spine wo/w con DATE OF EXAM: 10/05/2022 3:55 PM COMPARISON: 10/04/2022 CT. CLINICAL INDICATION: Female, 66 years old with history of L1 fracture vs lucency, ankylosis; PHH, L1 fx vs lucency, ankylosis, fall TECHNIQUE: Multi planar, multi sequence imaging was performed utilizing: T1-weighted, T2-weighted, a nd turbo inversion recovery imaging of the lumbar spine. IV Contrast: 7 cc Gadavist. None. FINDINGS: Alignment: The lumbar vertebral bodies have preserved heights and alignment. Cord: The conus medullaris and the distal spinal cord appear unremarkable with regards to their signa l intensity and morphology. Bones/Discs: Multilevel degeneration changes of the spine with scoliosis apex left at L3-L4. There is some inversion recovery signal within the L1 vertebral body with curvilinear low T1 low T2 signal as sociated low T1 high T2 signal. Edema extends to the posterior elements. On CT imaging there is a fra cture line extending through the spinous process. T12-L1: No evidence of significant spinal canal stenosis or neural foraminal stenosis. L1-L2: Disc bulge and facet joint arthropathy result in mild spinal canal and mild bilateral neural f oraminal stenosis. L2-L3: No evidence of significant spinal canal stenosis or neural foraminal stenosis. L3-L4: Disc bulge and facet joint arthropathy result in mild spinal canal and mild bilateral neural f oraminal stenosis. L4-L5: Disc bulge and facet joint arthropathy result in mild spinal canal and moderate mild left neur al foraminal stenosis. L5-S1: The disc is rounded posterior morphology without significant spinal canal stenosis. Facet join t arthropathy with mild neural foraminal stenosis. No significant spinal canal or neural foraminal stenosis in the remainder of the visualized levels. Other findings: High T2 low T1 signal right renal cyst. IMPRESSION: 1. There is a fracture through the L1 vertebral body extending anterior to posterior, likely represe nting a chalkstick fracture given history of ankylosing spondylitis. Fracture line better appreciated on CT. Correlate with history of trauma. No evidence for significant spinal canal stenosis at this l evel. No evidence for significant spinal canal or neural foraminal stenosis. 1. A [place] level critical message alert has been initiated for Frank Ornelas DO via the [employer] Critical Results System on 10/05/2022 4:07 PM. This message alert has been sent to Frank Ornelas DO via the preferences provided by the clinician for the receipt of Radiology Critical Findings. [facility] – [place] [id number].
--- NOTE | 2022-10-05 16:32 | P.PN ---
Progress Note - Text Progress Note Date: 10/05/22 MRI of L spine is completed today. Positive findings of fracture at L1 acute traumatic. given history of prior t/l fusion and new fx within the fusion mass, we have significant spinal instability which correlates with the patients fall history and symptoms. I feel that the patient requires urgent spinal stabilization with ORIF of L1 and stabilization fusion T11 to L3. I discussed this wiht the patien at length and discussed the risks, complications, alternatives and benefits of the surgery as it relates to her injury and she wishes to proceed wiht surgery. we will plan for surgery tomorrow. continue bedrest. NPO after midnight medicine for clearance.
--- NOTE | 2022-10-05 17:04 | XR ---
EXAMINATION TYPE: XR chest 1V portable DATE OF EXAM: 10/05/2022 Comparison: Correlation CT 09/15/2021 Clinical History: 66-year-old female Pre operative evaluation Findings: There is a dextroconvex scoliosis centered at the thoracic lumbar junction. Heart upper limits of nor mal in size. There is some eventration of the posterior right hemidiaphragm. Focal opacity at the ape x of the heart likely prominent epicardial fat pad. Visualized upper to mid lungs appear clear. Mild hyperinflation. Impression: Dextroconvex scoliosis. Possible underlying COPD. Eventration posterior right hemidiaphragm and suspe cted prominent epicardial fat pad corresponding to the opacity at the cardiac apex. Correlate with sy mptoms to exclude the possibility of pneumonia here.
--- NOTE | 2022-10-05 17:54 | P.CONS ---
History of Present Illness - Reason for Consult Consult date: 10/05/22 Medical management gastroesophageal reflux disease, hypertension, macular d - Chief Complaint Back pain status post fall - History of Present Illness This is 66-year-old female with history of scoliosis, Hester rods with removal/fusion, gastroesophageal reflux disease, hypertension, hyperlipidemia, macular degeneration,PONV and multiple other medical issues, admitted with ongoing back pain status post fall. Patient had been shaving her legs and fell backwards landing on her back on the bathroom tile on Sunday. Denies head trauma. 3 weeks prior sustained a reported left wrist fracture/nose fracture, wearing left wrist brace-her dog, while on a leash, took off after a squirrel, causing the fall. Returned to the ER with uncontrollable pain. Radiology studies now currently suggestive of mild compression fracture around L1, lumbar spine CT reported lucency through the L1 vertebral body, foraminal stenosis, more severe on the right lower lumbar spine, MRI pending. Radiology studies reviewed by orthopedic spine, suspicious for L1 fracture. Reports comfortable at rest, significant pain with minimal movement. Denies chest pain, palpitations or shortness of breath. Maintaining O2 sats in the mid 90s on room air. Afebrile, normal WBC. Hemoglobin 12.5, platelets 264, INR 0.9. Sodium 135, potassium 3.6, bicarb 29, BUN 12, creatinine 0.63, glucose 112, UA negative. Review of Systems ROS Statement: Those systems with pertinent positive or pertinent negative responses have been documented in the HPI. ROS Other: All systems not noted in ROS Statement are negative. Past Medical History Past Medical History: Eye Disorder, GERD/Reflux, Hyperlipidemia, Hypertension, Osteoarthritis (OA) Additional Past Medical History / Comment(s): Cataracts, Glaucoma and Macular Degeneration., scoliosis with surgery, pt states spot of fungus on her foot. , lumps on her thyroid., hx of left foot fx with surgery feb 2021 & some difficulty walking at times and uses motor w/c at store., hiatal hernia. Scoliosis thoracolumbar surgery in with subsequent removal of hardware in [place] History of Any Multi-Drug Resistant Organisms: None Reported Past Surgical History: Back Surgery, Section, Hernia Repair, Orthopedic Surgery Additional Past Surgical History / Comment(s): Surgery for scoliosis with rods that broke and were removed. , left foot surgery with pin placed (feb 2021), EGD WITH DILATION (11/23/21)., HYSTEROSCOPY, tubal ligation with c section Past Anesthesia/Blood Transfusion Reactions: Postoperative Nausea & Vomiting (PONV) Additional Past Anesthesia/Blood Transfusion Reaction / Comm: post-op headache Past Psychological History: No Psychological Hx Reported Smoking Status: Never smoker Past Alcohol Use History: None Reported, Occasional Past Drug Use History: None Reported - Past Family History Mother Family Medical History: Cancer, CVA/TIA Father Family Medical History: CVA/TIA Medications and Allergies Home Medications Medication Instructions Recorded Confirmed Type Alendronate Sodium 70 mg PO MO 03/08/21 10/04/22 History Simvastatin [Zocor] 20 mg PO HS 03/08/21 10/04/22 History L.acidoph,[place], B.lactis 1 cap PO DAILY 12/22/21 10/04/22 History [Probiotic] amLODIPine [Norvasc] 5 mg PO DAILY #14 tab 08/06/22 10/04/22 Rx Artificial Tears-Hypromellose 1 drop BOTH EYES TID PRN 10/02/22 10/04/22 History [Artificial Tear Drops] Aspirin EC [Ecotrin Low Dose] 81 mg PO MOWEFR 10/02/22 10/04/22 History Cyclobenzaprine [Flexeril] 5 mg PO HS PRN #6 tab 10/02/22 10/04/22 Rx Ibuprofen [Motrin] 600 mg PO Q8HR PRN #24 tab 10/02/22 10/04/22 Rx Lutein 10 mg PO DAILY 10/02/22 10/04/22 History Propranolol [Inderal] 20 mg PO DAILY PRN 10/02/22 10/04/22 History Lidocaine 5% Patch [Lidoderm 5% 1 patch TRANSDERM DAILY PRN 10/04/22 10/04/22 History Patch] traMADol HCL 50 mg PO TID PRN 10/04/22 10/04/22 History Allergies Allergy/AdvReac Type Severity Reaction Status Date / Time codeine Allergy Rash/Hives/ Verified 10/04/22 12:50 Migraines latanoprost [From [place]] Allergy Swelling Verified 10/04/22 12:50 netarsudil [From [place]] Allergy Swelling Verified 10/04/22 12:50 Penicillins Allergy Rash/Hives Verified 10/04/22 12:50 KAYLEIGH Inhibitors AdvReac Abdominal Verified 10/04/22 12:50 Pain Physical Exam Vitals: Vital Signs Temp Pulse Pulse Pulse Resp BP BP 10/05/22 13:49 98.2 F 76 17 157/83 10/05/22 10:17 10/05/22 07:05 98.3 F 64 18 151/71 10/05/22 01:43 98.2 F 82 16 142/84 10/04/22 20:25 157/70 10/04/22 19:53 98.8 F 81 18 179/96 10/04/22 19:28 98.1 F 82 16 150/78 Pulse Ox 10/05/22 13:49 92 L 10/05/22 10:17 94 L 10/05/22 07:05 95 10/05/22 01:43 94 L 10/04/22 20:25 10/04/22 19:53 97 10/04/22 19:28 93 L Intake and Output 10/05/22 10/05/22 10/05/22 06:59 14:59 22:59 Intake Total 1440 Output Total 400 Balance 1040 Intake: Intake, IV Titration 1200 Amount Sodium Chloride 0.9% 1, 1200 000 ml @ 100 mls/hr IV . Q10H [facility] Rx#:[id number] Oral 240 Output: Urine 400 Other: Voiding Method Indwelling Catheter PHYSICAL EXAM: VITAL SIGNS: As above GENERAL: Lying flat in bed, no acute distress at rest HEENT: Normocephalic Conjunctivae normal. eyes normal. NECK: Supple, No JVD. No thyroid enlargement. No LNs CARDIOVASCULAR: S1, S2 regular.. No murmur RESPIRATION: Breath sounds diminished in the bases. No rhonchi or crackles. No bronchial breathing. ABDOMEN: Soft, nondistended, nontender . No guarding. no masses palpable. No ascites, No hepatosplenomegaly.Bowel sounds heard. LEGS: No edema. no swelling PSYCHIATRY: Alert and oriented X3, mood and affect normal. NERVOUS SYSTEM: Cranial N 2-12 grossly normal. Moves all 4 limbs. No focal deficits. Strength and sensation grossly intact. Skin: Warm and dry, no rash Results CBC & Chem 7: 10/04/22 15:23 10/04/22 15:23 Labs: Abnormal Lab Results - Last 24 Hours (Table) 10/04/22 Range/Units 18:48 Urine Protein 1+ H (Negative) Urine Glucose (UA) 1+ H (Negative) Urine Ketones 1+ H (Negative) Assessment and Plan Assessment: Acute thoracolumbar back pain status post fall 3 weeks ago and 3 days ago, with significant pain, unable to ambulate. Fall with possible L1 fracture reported per radiology studies, MRI pending Scoliosis, History of Hester rods with removal, lumbar fusion PONV Osteoarthritis Glaucoma, macular degeneration Hypertension Hyperlipidemia Plan: Continue on current medication regime ,monitoring and symptomatic treatment. Pain management/DVT prophylaxis as per primary. MRI pending- possible L1 fracture as per orthopedic spine surgeon. PPI for GI prophylaxis. Prognosis guarded given multiple complex medical issues. Thank you for the consult Dr. Ornelas. The impression and plan of care has been dictated as directed. : I performed a history and examination of this patient, discussed the same with the dictator. I agree with the dictator's note ,documented as a scribe. Any additional findings or plans will be noted.
[2022-10-05] MEDS: ATORVASTATIN 10 MG TAB PO SCH (20:55)
[2022-10-06] MEDS: HYDROmorphone 1 MG/ML 1 ML SYRINGE IVP PRN ×4 (02:39→16:32)
[2022-10-06] MEDS: NON FORMULARY DRUG (Lutein [Lutein] 10 MG Tablet) PO SCH (07:57)
[2022-10-06] MEDS: amLODIPine 5 MG TAB PO SCH (08:01)
[2022-10-06] MEDS: PANTOPRAZOLE 40 MG/10 ML VIAL IVP SCH (08:01)
[2022-10-06] MEDS: SODIUM CHLORIDE 0.9% 1,000 ML IV SCH ×2 (08:01→16:32)
--- NOTE | 2022-10-06 08:55 | P.PN ---
Progress Note - Text Progress Note Date: 10/06/22 Orthopedic spine: History of present illness: Patient is a very pleasant 66-year-old female who was seen examined at bedside with her family present for further evaluation of her thoracolumbar spine. She is known to have sustained an acute traumatic L1 fracture. She is currently scheduled to undergo a T11-L3 stabilization and fusion with ORIF of L1 today. She has a history of previous thoracolumbar fusion and her L1 fracture is within the fusion mass resulting in spinal instability. Patient feels she is ready to proceed for surgical intervention as scheduled later today. She denies any lower extremity weakness or radiculopathy bilaterally. She has good range of motion of her lower extremities. She continues significant low back pain but states it is controlled arrest. She is currently lying flat in bed. Grace catheter is intact. She has not been out of bed. She is nothing by mouth in anticipation for surgical intervention. She does admit to some constipation since Sunday following the fall but states she also has not been eating much food following her injury. She continues to be seen by medicine for her medical diagnoses. We did discuss she will need clearance by medicine today prior to surgical intervention. Patient will remain on bed rest. TLSO brace has been ordered. Physical exam: Patient is awake, alert, and oriented 3 Vital signs stable Good chest excursion with deep inspiration and expiration Abdomen soft nontender; no significant abdominal distention Patient is currently resting comfortably in bed lying flat on her back Dorsiflexion and plantarflexion positive sustained bilaterally Lower extremity strength 5/5 bilaterally Patient is able to perform good active range of motion of lower extremities independently without significant difficulty. No signs or symptoms of DVT; no calf pain Grace catheter intact Neurovascularly intact Pertinent studies: MRI of the lumbar spine taken on 10/05/2022: L1 vertebral body fracture anteriorly extending posteriorly without evidence of spinal stenosis; Scoliosis with the apex at L3-4; L3-4, L4-5, and L5-S1 facet spondylosis Assessment: Acute traumatic L1 fracture status post fall with spinal instability Acute traumatic thoracolumbar pain History thoracolumbar fusion Degenerative scoliosis L3-4, L4-5, and L5-S1 facet spondylosis Hypertension Hyperlipidemia Plan: 1. Patient has been seen and examined by Dr. Stanley Ornelas. CT and MRI imaging has been reviewed with the patient and her family. Patient has evidence of acute traumatic L1 fracture at the anterior vertebral body extending posteriorly with significant spinal instability as the fracture is within her fusion mass of her known previous thoracolumbar fusion. Due to her instability, patient requires stabilization of her fracture. Patient is currently scheduled to undergo ORIF of L1 with T11-L3 stabilization fusion. Currently patient is on bedrest and is nothing by mouth. She will remain on bedrest and nothing by mouth status. Patient would like to proceed forward with surgical intervention as scheduled as she feels surgical intervention does give her the best opportunity have some improvement of her symptoms. Her Grace catheter will remain intact. We will currently planned to proceed for surgical intervention as scheduled later today. 2. Patient will continue to be seen by medicine for her other medical diagnoses. Patient will need clearance prior to surgical intervention
[2022-10-06] MEDS ORDERED: ASPIRIN 81 MG PO SCH (09:00)
[2022-10-06 09:16] LABS: ALT 20 U/L (8-44); AST 20 U/L (13-35); Albumin 3.6 d/dL (3.8-4.9); Alkaline Phosphatase 60 U/L (41-126); Blood Urea Nitrogen 14.7 mg/dL (9.0-27.0); Calcium 8.6 mg/dL (8.7-10.3); Carbon Dioxide 25.8 mmol/L (21.6-31.8); Chloride 102 mmol/L (96-109); Globulin 2.4 d/dL (1.6-3.3); Glucose 92 mg/dL (70-110); Potassium 3.7 mmol/L (3.5-5.5); Sodium 138 mmol/L (135-145); Total Bilirubin 0.3 mg/dL (0.3-1.2)
[2022-10-06] MEDS ORDERED: amLODIPine 5 MG TAB PO STA (10:24)
[2022-10-06] MEDS ORDERED: polyethylene glycoL 3350 17 GM POWD.PACK PO STA (10:30)
--- NOTE | 2022-10-06 10:51 | P.PN ---
Subjective Progress Note Date: 10/06/22 - History of Present Illness This is 66-year-old female with history of scoliosis, Hester rods with removal/fusion, gastroesophageal reflux disease, hypertension, hyperlipidemia, macular degeneration,PONV and multiple other medical issues, admitted with ongoing back pain status post fall. Patient had been shaving her legs and fell backwards landing on her back on the bathroom tile on Sunday. Denies head trauma. 3 weeks prior sustained a reported left wrist fracture/nose fracture, wearing left wrist brace-her dog, while on a leash, took off after a squirrel, causing the fall. Returned to the ER with uncontrollable pain. Radiology studies now currently suggestive of mild compression fracture around L1, lumbar spine CT reported lucency through the L1 vertebral body, foraminal stenosis, more severe on the right lower lumbar spine, MRI pending. Radiology studies reviewed by orthopedic spine, suspicious for L1 fracture. Reports comfortable at rest, significant pain with minimal movement. Denies chest pain, palpitations or shortness of breath. Maintaining O2 sats in the mid 90s on room air. Afebrile, normal WBC. Hemoglobin 12.5, platelets 264, INR 0.9. Sodium 135, potassium 3.6, bicarb 29, BUN 12, creatinine 0.63, glucose 112, UA negative. 10/06/2022 lumbar spine MRI completed, reporting fracture at L1 acute traumatic. Patient is scheduled for OR today. Moves all extremities, denies bilateral lower extremity weakness, numbness or tingling.Pain controlled at rest. Maintained on IV fluids. Denies chest pain, palpitations or shortness of breath. Denies cough, congestion or sinus drainage. Afebrile. Reporting no bowel movement since Sunday, MiraLAX ordered. Denies chest pain, palpitations or shortness of breath. Maintaining O2 sats in the 90s on room air. Objective - Vital Signs Vital signs: Vital Signs Temp 98.2 F 10/06/22 07:21 Pulse 75 10/06/22 07:21 Resp 18 10/06/22 07:21 BP 168/80 10/06/22 07:21 Pulse Ox 93 L 10/06/22 07:21 FiO2 Intake & Output 10/05/22 10/06/22 10/06/22 18:59 06:59 18:59 Output Total 920 1950 Balance -920 -1950 Output: Urine 920 1950 Other: Voiding Method Indwelling Catheter Indwelling Catheter Indwelling Catheter - Exam PHYSICAL EXAM: VITAL SIGNS: As above GENERAL: Alert and oriented 3, Lying flat in bed, no acute distress at rest HEENT: Normocephalic Conjunctivae normal. eyes normal. NECK: Supple, No JVD. No thyroid enlargement. No LNs CARDIOVASCULAR: S1, S2 regular. No murmur RESPIRATION: Unlabored, Equal air entry. Breath sounds diminished in the bases. ABDOMEN: Soft, nondistended, nontender . No guarding. No rigidity .Bowel s ounds heard. LEGS: No edema. no swelling, no clubbing, no cyanosis, no calf pain. NERVOUS SYSTEM: Cranial N 2-12 grossly normal. Moves all 4 limbs. No focal deficits. Strength and sensation grossly intact. Skin: Warm and dry, no rash - Labs CBC & Chem 7: 10/04/22 15:23 10/06/22 05:55 Labs: Abnormal Lab Results - Last 24 Hours (Table) 10/06/22 Range/Units 05:55 BUN/Creatinine Ratio 24.50 H (12.00-20.00) Ratio Calcium 8.6 L (8.7-10.3) mg/dL Total Protein 6.0 L (6.2-8.2) d/dL Albumin 3.6 L (3.8-4.9) d/dL Albumin/Globulin Ratio 1.50 L (1.60-3.17) Ratio Assessment and Plan Assessment: Acute traumatic L1 fracture, status post fall. Scoliosis, History of Hester rods with removal, lumbar fusion PONV Osteoarthritis Glaucoma, macular degeneration Hypertension Hyperlipidemia Plan: Continue on current medication regime ,monitoring and symptomatic treatment. Patient has been medically cleared for necessary orthopedic spine surgery by PCP, Dr. Hughes. Pain management/DVT prophylaxis as per primary. Constipation, MiraLAX ordered .aggressive pulmonary toileting with incentive spirometer ordered .Prognosis guarded given multiple complex medical issues. The impression and plan of care has been dictated as directed. : I performed a history and examination of this patient, discussed the same with the dictator. I agree with the dictator's note ,documented as a scribe. Any additional findings or plans will be noted.
[2022-10-06] MEDS ORDERED: SODIUM CHLORIDE 0.9% 1,000 ML IV ONE (18:01)
[2022-10-06] MEDS ORDERED: ONDANSETRON 4 MG/2 ML VIAL IVP ONE (18:13)
[2022-10-06] MEDS ORDERED: MIDAZOLAM 2 MG/2 ML VIAL IVP ONE (18:36)
[2022-10-06] MEDS ORDERED: fentaNYL (PF) 50 MCG/ML 2 ML AMP ONE (19:38)
[2022-10-06] MEDS ORDERED: LIDOCAINE 2% INJ 20 MG/ML (2 ML VIAL) ONE (19:38)
[2022-10-06] MEDS ORDERED: ONDANSETRON 4 MG/2 ML VIAL ONE (19:38)
[2022-10-06] MEDS ORDERED: DEXAMETHASONE SOD PHOSPHATE 4 MG/ML 1 ML VIAL ONE (19:38)
[2022-10-06] MEDS ORDERED: PROPOFOL 10 MG/ML 20 ML VIAL IV ONE (19:38)
[2022-10-06] MEDS ORDERED: MIDAZOLAM 2 MG/2 ML VIAL ONE (19:38)
[2022-10-06] MEDS ORDERED: SUCCINYLCHOLINE CHLORIDE 200 MG/10 ML VIAL IV ONE (19:38)
[2022-10-06] MEDS ORDERED: HYDROmorphone (PF) 1 MG/ML ONE (19:38)
[2022-10-06] MEDS ORDERED: SODIUM CHLORIDE 0.9% 50 ML with ceFAZolin 2,000 MG IV ONE ×2 (19:41)
[2022-10-06] MEDS ORDERED: LACTATED RINGERS 1,000 ML IV ONE ×2 (20:10→22:00)
[2022-10-06] MEDS ORDERED: LIDOCAINE 1%-EPI 1:100,000 50 ML VIAL SQ ONE ×2 (20:15→20:45)
[2022-10-06] MEDS ORDERED: THROMBIN (BOVINE) 5,000 UNIT VIAL TOPICAL ONE (20:45)
[2022-10-06] MEDS ORDERED: GELATIN SPONGE,ABSORB (LARGE) 1 EACH SPONGE TOPICAL ONE (20:45)
[2022-10-06] MEDS ORDERED: ceFAZolin 1,000 MG in SODIUM CHLORIDE 0.9% 1,000 ML IRRIGATION ONE (20:47)
[2022-10-07] MEDS ORDERED: BENZOCAINE/MENTHOL LOZENG 1 EACH LOZENGE MUCOUS MEM PRN (00:14)
[2022-10-07] MEDS ORDERED: HYDROmorphone 1 MG/ML 1 ML SYRINGE IVP PRN (00:14)
[2022-10-07] MEDS ORDERED: diazePAM 5 MG TAB PO PRN (00:14)
[2022-10-07] MEDS ORDERED: bisacodyL 10 MG SUPP RECTAL PRN (00:15)
--- NOTE | 2022-10-07 00:31 | P.OP ---
Date of Procedure: 10/07/22 Preoperative Diagnosis: Unstable 3 column L1 traumatic fracture, history of prior fusion thoracolumbar spine to L2, degenerative scoliosis, scoliosis, thoracic or lumbar back pain, status post fall Postoperative Diagnosis: Same Anesthesia: GETA Pathology: none sent Condition: stable Disposition: PACU Description of Procedure: DESCRIPTION OF PROCEDURE(S): BRIEF OPERATIVE NOTE Preoperative Diagnosis: Unstable 3 column L1 traumatic fracture, history of prior fusion thoracolumbar spine to L2, degenerative scoliosis, scoliosis, thoracic or lumbar back pain, status post fall Postoperative Diagnosis: Unstable 3 column L1 traumatic fracture, history of prior fusion thoracolumbar spine to L2, degenerative scoliosis, scoliosis, thoracic or lumbar back pain, status post fall Procedure: Open reduction internal fixation of L1 unstable fracture with fusion T11 through L4 Computer CT navigation aided Minimally invasive Posterior l ateral fusion T11 12 T12-L1 L1-L2 L2-L3 L3-L4 Minimally invasive posterior lateral fusion fusion T11 through L4 Use of computer navigation for fusion Local autogenous bone grafting Use of bone graft extenders Surgeon: Dr. Ornelas Production Team Member: kindergarten assistant who is present throughout the entire the case persistence during positioning, dissection, exposure, visualization, and all crucial elements of the case as well as closure. Anesthesia: General anesthesia per Dr. Linder Estimated blood loss: Approximately 2150 mL Complications: None apparent Components implanted: K2M minimally invasive [place] pedicle screw system withscrews measuring 5.5 and 6.5 mm in diameter to rods and synthetic allograft bone graft substitute bone fibers to supplement the local autogenous bone graft Disposition: To recovery room in good stable condition. OPERATIVE INDICATIONS The patient has had severe issues at their and was having worsening pain at her thoracic lumbar spine. Should history of thoracic and lumbar spinal fusion for scoliosis about 40 years ago and did well with that. She subsequently had her hardware removed. She had a prior fusion extending down to L2. She had been having significant worsening issues and for the past 3 weeks after sustaining a fall onto her back. She was struggling and then had another fall a few days ago and had significant worsening of her symptoms. She presented to the emergency room on Sunday 2 and then again on Sunday. At that point she was found to have a fracture at L1 along her fusion mass. The fracture extended through the posterior fusion mass and through the vertebral body and chalk stick type pattern with significant instability due to the long lever arms above and below the fracture. The patient also had scoliotic curvature at her lumbar spine with the apex at L3 and severe disc degeneration at L2-3 and L3 4. She is not having neurologic decline. With the long lever arms of above and below the fracture at L1. That she was significantly unstable throughout her spine due to her injury and the acute fracture. She was not having neurologic compromise but we did not feel that she would be safer conservative treatment given the fracture pattern and the lever arms of fusion mass. I felt that her best course of treatment would be stabilization with surgical intervention above and below the fracture. With the significant degeneration and scoliosis below her fusion I felt that her best point for stopping the fixation would be at the L4 vertebral body and extending up to the T11 vertebral body. I felt this would give good stability above and below the fracture site. I discussed this at length patient We discussed various treatment options including surgery, and the patient wishes to proceed with surgery We discussed the risk, patient's alternatives and benefits of surgery including but not limited to, risk of bleeding risk of infection, risk of need for further surgery, risk of decreased, loss of motion, muscle function, malunion nonunion, hardware failure, nerve damage, paralysis, heart attack, blindness and . They understood issues with the current pandemic and the possibility of exposure. OPERATIVE SUMMARY After discussing all the risks, patient alternatives and benefits at length, the patient elected to proceed with surgical intervention, signed informed consent, and presented for their procedure. The patient was seen and examined in the preoperative holding area and the surgical site was marked. The patient was given antibiotics and brought to the operating room. The patient was sedated and intubated by anesthesia in standard fashion. The patient was positioned on to the operating room table in a prone position on the appropriate frame which was well-padded and well molded. We were careful to maintain neutral position at her spine and log roll are appropriately. We were careful to pad any bony prominences and pressure points. We were careful to maintain the patient's cervical spine and good neutral alignment and position throughout. The patient was prepped and draped in a normal standard fashion. An appropriate timeout and keystone protocol performed. We were able to proceed with the surgery. The local wound area was infiltrated with local anesthetic. I first exposed the L3 spinous process and extended to T12 at the midline. I was able to expose the fracture site at L1 posterior mass and maintain it in good alignment good position throughout. I was able to then place a clamp for bony fixation of the CT guidance navigation system at the spines process of L3. I was able to secure this appropriately. Once this was done I was unable to prepare for CT guidance been for the placement of the screws above and below the fracture site. I was able get good excellent reduction of the fracture at L1 and maintain the position throughout. We did the appropriate spin above and below to get excellent visualization and live real-time imaging for placement of the screws at T11-T12 L2-L3 and L4. This was done with CT guidance. Through small separate stab incisions I was able place screws 2 at T11, T12, L2, unilaterally on the left at L3, and bilaterally at L4. The screw fixation at L3 on the right did not feel to be solid and I decided to remove that screw and erika ve that right L3 pedicle open. At T11-T12 L2,L3 on the left and L4 I was able place the guidewire into the trocar and into the vertebral body appropriately under C-arm guidance. Dissection was taken down over the wire to the appropriate starting position for the screw placed. The appropriate length screw was chosen, threaded over the guidewire and screwed appropriately into the pedicle and vertebral body under C-arm guidance in excellent alignment and position with good bony purchase. This is done at each of the screw sites at the appropriate levels. The position of the screws was checked out of excellent alignment and excellent position throughout. The screws were checked and found to have no evidence of stimulation at 20 mA. The L3 and L4 screws on the left had no stimulation up to 17 mA. I felt that we had excellent position of the screws intact. With the screws intact was then able to place rods appropriately. The rods were measured contoured and bent appropriately. I was unable to extend the incision at T11 bilaterally and passed the rods submuscularly into the screw heads appropriately. With him intact I was unable to place Screws at each of the screw heads to secure the rods in place. This gave excellent fixation. There is excellent alignment and position of the fracture. The Screws were seated down and torqued appropriately for excellent alignment position and stability. The construct was checked and found to be stable. The fracture had excellent alignment and position. The wound was copiously irrigated and suctioned dry. There is no evidence of any dural tear or leak. Good hemostasis maintained. There is no evidence of any dural tear or leak. The wound was irrigated and suctioned dry. I revised again at the posterior fusion mass from T12 to L2 and I decorticated the area substantially I also decorticated the facet joints at L3 and L4 area I was unable to place bone graft over the decorticated area to help facilitate fusion across site. With the bone graft intact, a stable construct, we were able to proceed with closure. Good hemostasis was maintained. There is no evidence of dural tear or leak. The fascia was closed for a watertight closure. he subcuticular tissue was closed with absorbable suture. The wound was cleaned and dried and dressed with the appropriate dressing. The drapes were broken down. The patient was gently rolled back onto their hospital bed being careful to maintain their cervical spine and good neutral alignment and position. They were woken up by anesthesia, extubated, and brought to the recovery room in good stable condition. The patient will be admitted to the hospital for appropriate postoperative care, medical management and monitoring. We will continue to follow them closely about the postoperative course.
[2022-10-07] MEDS: ATORVASTATIN 10 MG TAB PO SCH ×2 (00:38→20:30)
[2022-10-07] MEDS: SENNOSIDES-DOCUSATE SODIUM 1 EACH TAB PO SCH ×4 (00:39→20:30)
[2022-10-07] MEDS: SODIUM CHLORIDE 0.9% 1,000 ML IV SCH ×5 (03:56→22:41)
[2022-10-07] MEDS: amLODIPine 5 MG TAB PO SCH (08:20)
[2022-10-07] MEDS: NON FORMULARY DRUG (Lutein [Lutein] 10 MG Tablet) PO SCH (08:20)
[2022-10-07] MEDS: PANTOPRAZOLE 40 MG/10 ML VIAL IVP SCH (08:25)
[2022-10-07] MEDS: HYDROcodone/APAP 5-325MG 1 EACH TAB PO PRN ×3 (08:25→18:43)
--- NOTE | 2022-10-07 12:39 | P.PN ---
Subjective Progress Note Date: 10/07/22 This patient is a 66- year old female who is status-post open reduction internal fixation of L1 unstable fracture with fusion T11 through L4 on 10/06/22. Today is post-operative day #1. Patient is examined bedside this morning. She states her pain is well-controlled, she states her pain has improved from ad mission. Patient tolerated her breakfast well. No complaints this morning. Vital signs stable. Objective - Vital Signs Vital signs: Vital Signs Temp 98.3 F 10/07/22 07:05 Pulse 90 10/07/22 07:05 Resp 14 10/07/22 07:05 BP 153/83 10/07/22 07:05 Pulse Ox 99 10/07/22 07:05 FiO2 Intake & Output 10/06/22 10/07/22 10/07/22 18:59 06:59 18:59 Intake Total 2050 Output Total 1999 1300 Balance -1999 751 Weight 73.482 kg Intake: IV 2050 Output: Urine 1999 1100 Estimated Blood Loss 200 Other: Voiding Method Indwelling Catheter Indwelling Catheter - Exam On examination, patient is resting in bed in no apparent distress. She is alert and orientated x3. She appears comfortable. Dorsiflexion and plantarflexion intact of of the bilateral ankles. Lower extremity strength 5/5. No difficultly with active ROM of the lower extremities. Bilateral calves are soft and nontender. Lower extremities are neurovascularly intact. - Labs CBC & Chem 7: 10/04/22 15:23 10/06/22 05:55 Assessment and Plan Assessment: Status-post open reduction internal fixation of L1 unstable fracture with fusion T11 through L4 on 10/06/22. Post-op day #1. Plan: - Continue routine post-op management including pain management, DVT prophylaxis, dressing care. Patient may begin to mobilize out of bed as tolera hero while wearing TLSO brace. - Physical therapy has been consulted to increase mobilization. - Medical management per internal medicine team. - Case management consulted for discharge planning. - We will follow patient closely. I reviewed the patient's case and agree with the above. She'll continue mobilize with her brace intact.
[2022-10-07] MEDS: HYDROmorphone 1 MG/ML 1 ML SYRINGE IVP PRN ×2 (13:47→20:30)
--- NOTE | 2022-10-07 14:28 | P.PN ---
Subjective Progress Note Date: 10/07/22 * 66-year-old female with history of scoliosis, Hester rods with removal/fusion, gastroesophageal reflux disease, hypertension, hyperlipidemia, macular degeneration,PONV and multiple other medical issues, admitted with ongoing back pain status post fall. Patient had been shaving her legs and fell backwards landing on her back on the bathroom tile on Sunday. Denies head trauma. 3 weeks prior sustained a reported left wrist fracture/nose fracture, wearing left wrist brace-her dog, while on a leash, took off after a squirrel, causing the fall. Returned to the ER with uncontrollable pain. Radiology studies now currently suggestive of mild compression fracture around L1, lumbar spine CT reported lucency through the L1 vertebral body, foraminal stenosis, more severe on the right lower lumbar spine, MRI pending. Radiology studies reviewed by orthopedic spine, suspicious for L1 fracture. Reports comfortable at rest, significant pain with minimal movement. Denies chest pain, palpitations or shortness of breath. Maintaining O2 sats in the mid 90s on room air. Afebrile, normal WBC. Hemoglobin 12.5, platelets 264, INR 0.9. Sodium 135, potassium 3.6, bicarb 29, BUN 12, creatinine 0.63, glucose 112, UA negative. * 10/06/2022 lumbar spine MRI completed, reporting fracture at L1 acute trau matic. Patient is scheduled for OR today. Moves all extremities, denies bilateral lower extremity weakness, numbness or tingling.Pain controlled at rest. Maintained on IV fluids. Denies chest pain, palpitations or shortness of breath. Denies cough, congestion or sinus drainage. Afebrile. Reporting no bowel movement since Sunday, MiraLAX ordered. Denies chest pain, palpitations or shortness of breath. Maintaining O2 sats in the 90s on room air. * 10/07/2022: Patient seen and evaluated at bedside, postoperative day 1, patient worked with physical therapy, does complain of back pain Objective - Vital Signs Vital signs: Vital Signs Temp 98.3 F 10/07/22 07:05 Pulse 90 10/07/22 07:05 Resp 14 10/07/22 07:05 BP 153/83 10/07/22 07:05 Pulse Ox 99 10/07/22 07:05 FiO2 Intake & Output 08/06/2510/07/22 10/07/22 18:59 06:59 18:59 Intake Total 2050 Output Total 1999 1300 Balance -1999 751 Weight 73.482 kg Intake: IV 2050 Output: Urine 1999 1100 Estimated Blood Loss 200 Other: Voiding Method Indwelling Catheter Indwelling Catheter - Exam PHYSICAL EXAMINATION: GENERAL: The patient is alert and oriented x3, not in any acute distress. Well developed, well nourished. HEENT: Pupils are round and equally reacting to light. EOMI. No scleral icterus. No conjunctival pallor. Normocephalic, atraumatic. No pharyngeal erythema. No thyromegaly. CARDIOVASCULAR: S1 and S2 present. No murmurs, rubs, or gallops. PULMONARY: Chest is clear to auscultation, no wheezing or crackles. ABDOMEN: Soft, nontender, nondistended, normoactive bowel sounds. No palpable organomegaly. NEUROLOGICAL: Gross neurological examination did not reveal any focal deficits. Motor strength is 4/5 bilateral lower extremities, 5 x 5 bilateral upper extremities no focal deficit SKIN: No rashes. - Labs CBC & Chem 7: 10/04/22 15:23 10/06/22 05:55 Assessment and Plan Assessment: Assessment and plan * Acute traumatic L1 fracture, status post fall POD 1 Open reduction internal fixation of L1 unstable fracture with fusion T11 through L4 * Scoliosis, History of Hester rods with removal, lumbar fusion * Osteoarthritis * Glaucoma, macular degeneration * Hypertension Hyperlipidemia * Continue with postoperative management with spine surgery, continue pain control with Tylenol, [place], Dilaudid, patient to work with physical therapy * Recommended initiation of DVT prophylaxis as soon as deemed safe by spine surgery team * In regards to history of hypertension continue patient on amlodipine * Continue patient on bowel regimen * SCDs bilateral follow extremity DVT prophylaxis
[2022-10-07] MEDS: CYCLOBENZAPRINE 5 MG TAB PO PRN (20:30)
--- NOTE | 2022-10-07 21:01 | XR ---
EXAMINATION TYPE: XR lumbar spine 2 or 3V, FL guidance operating room DATE OF EXAM: 10/06/2022 Comparison: 10/04/2022 Clinical History: 66-year-old female BACK PAIN, LUMBAR FUSION Findings: FLUOROSCOPY Fluoroscopy time of 1 minute 38 seconds was used during lumbar fusion. 9 image/s document/s the proc lorena. DAP 4400.09 [id number] Impression: Intraoperative fluoroscopy as above.
[2022-10-08] MEDS: HYDROmorphone 1 MG/ML 1 ML SYRINGE IVP PRN ×3 (01:09→18:51)
[2022-10-08] MEDS: HYDROcodone/APAP 5-325MG 1 EACH TAB PO PRN ×5 (03:47→22:33)
[2022-10-08] MEDS: SODIUM CHLORIDE 0.9% 1,000 ML IV SCH ×4 (03:49→21:54)
[2022-10-08] MEDS: amLODIPine 5 MG TAB PO SCH (08:08)
[2022-10-08] MEDS: PANTOPRAZOLE 40 MG/10 ML VIAL IVP SCH (08:08)
[2022-10-08] MEDS: SENNOSIDES-DOCUSATE SODIUM 1 EACH TAB PO SCH ×3 (08:10→22:33)
[2022-10-08] MEDS: NON FORMULARY DRUG (Lutein [Lutein] 10 MG Tablet) PO SCH (08:12)
[2022-10-08 09:00] LABS: Basophils # (A) 0.02 X 10*3/uL (0.00-0.10); Basophils % (A) 0.2 %; Eosinophils # (A) 0.08 X 10*3/uL (0.04-0.35); Eosinophils % (A) 0.8 %; HCT 28.3 % (37.2-46.3); HGB 9.4 d/dL (12.0-15.0); Lymphocytes # (A) 0.85 X 10*3/uL (0.90-5.00); Lymphocytes % (A) 8.8 %; MCH 33.8 pg (27.0-32.0); MCHC 33.2 d/dL (32.0-37.0); MCV 101.8 FL (80.0-97.0); Mean Platelet Volume 9.9 FL (9.5-12.2); Monocytes # (A) 1.01 X 10*3/uL (0.20-1.00); Monocytes % (A) 10.5 %; NRBC Per 100 WBC 0 X 10*3/uL (0.00-0.01); Neutrophils # (A) 7.62 X 10*3/uL (1.80-7.70); Neutrophils % (A) 79.2 %; Platelet Count 218 X 10*3/uL (140-440); RBC 2.78 X 10*6/uL (4.10-5.20); RDW 11.9 % (11.5-14.5); WBC 9.63 X 10*3/uL (4.50-10.00)
--- NOTE | 2022-10-08 09:09 | P.PN ---
Progress Note - Text Progress Note Date: 10/08/22 Postoperative day #1 Patient is seen and examined today at bedside. The patient has some pain around the surgical site as expected. Pain is being controlled with medication. Physical Exam Afebrile with stable vital signs Abdomen is soft nontender. Chest has good excursion deep and space expiration The incision site is clean dry and intact. There is some drainage on the dressing but is intact. Extremities have not had neurologic change from prior to surgery. She is able to lift her legs up off the bed. neurologic status is intact Calves and thighs were soft nontender without evidence of DVT. She still has her Grace catheter intact. Assessment/Plan Postoperative day #1 status post minimally invasive open reduction internal fixation of L1 fracture with fusion from T11 to L4 Patient is progressing as expected from the surgery. We will continue to increase the patient's mobilization with therapy. She sat up yesterday but was not able to ambulate. Hopefully we'll get her on her feet today. We'll discontinue her Grace catheter. She should wear her TLSO brace when she is doing her therapy and getting out of bed. She does not need to use the brace in bed. She may have the head of her bed elevated to comfort. She may position in bed to her comfort. We will continue pain control with oral or IV medications. We'll continue to follow patient closely.
[2022-10-08 09:15] LABS: BUN/Creat Ratio 19.83 Ratio (12.00-20.00); Blood Urea Nitrogen 11.9 mg/dL (9.0-27.0); Calcium 8.3 mg/dL (8.7-10.3); Carbon Dioxide 26.4 mmol/L (21.6-31.8); Chloride 104 mmol/L (96-109); Glucose 103 mg/dL (70-110); Potassium 3.5 mmol/L (3.5-5.5); Sodium 139 mmol/L (135-145)
--- NOTE | 2022-10-08 13:31 | P.PN ---
Subjective Progress Note Date: 10/08/22 * 66-year-old female with history of scoliosis, Hester rods with removal/fusion, gastroesophageal reflux disease, hypertension, hyperlipidemia, macular degeneration,PONV and multiple other medical issues, admitted with ongoing back pain status post fall. Patient had been shaving her legs and fell backwards landing on her back on the bathroom tile on Sunday. Denies head trauma. 3 weeks prior sustained a reported left wrist fracture/nose fracture, wearing left wrist brace-her dog, while on a leash, took off after a squirrel, causing the fall. Returned to the ER with uncontrollable pain. Radiology studies now currently suggestive of mild compression fracture around L1, lumbar spine CT reported lucency through the L1 vertebral body, foraminal stenosis, more severe on the right lower lumbar spine, MRI pending. Radiology studies reviewed by orthopedic spine, suspicious for L1 fracture. Reports comfortable at rest, significant pain with minimal movement. Denies chest pain, palpitations or shortness of breath. Maintaining O2 sats in the mid 90s on room air. Afebrile, normal WBC. Hemoglobin 12.5, platelets 264, INR 0.9. Sodium 135, potassium 3.6, bicarb 29, BUN 12, creatinine 0.63, glucose 112, UA negative. * 10/06/2022 lumbar spine MRI completed, reporting fracture at L1 acute trau matic. Patient is scheduled for OR today. Moves all extremities, denies bilateral lower extremity weakness, numbness or tingling.Pain controlled at rest. Maintained on IV fluids. Denies chest pain, palpitations or shortness of breath. Denies cough, congestion or sinus drainage. Afebrile. Reporting no bowel movement since Sunday, MiraLAX ordered. Denies chest pain, palpitations or shortness of breath. Maintaining O2 sats in the 90s on room air. * 10/07/2022: Patient seen and evaluated at bedside, postoperative day 1, patient worked with physical therapy, does complain of back pain * 10/08/2022: Patient seen and evaluated bedside, postoperative day 2. Patient does complain of hip pain and back pain. Patient did not want to move for me to evaluate her incision site. Blood work discussed including anemia. Ordered Gas-X or abdominal distention continue on bowel regimen Objective - Vital Signs Vital signs: Vital Signs Temp 98.5 F 10/08/22 08:01 Pulse 75 10/08/22 08:01 Resp 16 10/08/22 08:01 BP 164/82 10/08/22 08:01 Pulse Ox 97 10/08/22 08:16 FiO2 Intake & Output 10/07/22 10/08/22 10/08/22 18:59 06:59 18:59 Intake Total 1080 900 Output Total 875 1900 800 Balance 205 -1000 -800 Intake: Intake, IV Titration 900 Amount Sodium Chloride 0.9% 1, 900 000 ml @ 75 mls/hr IV . [id number] [facility] Rx#:[id number] Oral 1080 Output: Urine 875 1900 800 Other: Voiding Method Indwelling Catheter Indwelling Catheter Indwelling Catheter # Voids 1 - Exam PHYSICAL EXAMINATION: GENERAL: The patient is alert and oriented x3, not in any acute distress. Well developed, well nourished. HEENT: Pupils are round and equally reacting to light. EOMI. No scleral icterus. No conjunctival pallor. Normocephalic, atraumatic. No pharyngeal erythema. No thyromegaly. CARDIOVASCULAR: S1 and S2 present. No murmurs, rubs, or gallops. PULMONARY: Chest is clear to auscultation, no wheezing or crackles. ABDOMEN: Soft, nontender, distended, normoactive bowel sounds. No palpable organomegaly. NEUROLOGICAL: Gross neurological examination did not reveal any focal deficits. Motor strength is 4/5 bilateral lower extremities, 5 x 5 bilateral upper extremities no focal deficit SKIN: No rashes. - Labs CBC & Chem 7: 10/08/22 05:31 10/08/22 05:31 Labs: Abnormal Lab Results - Last 24 Hours (Table) 10/08/22 10/08/22 Range/Units 05:31 05:31 RBC 2.78 L (4.10-5.20) X 10*6/uL Hgb 9.4 L (12.0-15.0) d/dL Hct 28.3 L (37.2-46.3) % MCV 101.8 H (80.0-97.0) FL MCH 33.8 H (27.0-32.0) pg Lymphocytes # 0.85 L (0.90-5.00) X 10*3/uL Monocytes # 1.01 H (0.20-1.00) X 10*3/uL Calcium 8.3 L (8.7-10.3) mg/dL Assessment and Plan Assessment: Assessment and plan * Acute traumatic L1 fracture, status post fall POD 2 Open reduction internal fixation of L1 unstable fracture with fusion T11 through L4 * Scoliosis, History of Hester rods with removal, lumbar fusion * Postoperative anemia * Osteoarthritis * Glaucoma, macular degeneration * Hypertension Hyperlipidemia * Continue with postoperative management with spine surgery, continue pain control with Tylenol, [place], Dilaudid, patient to work with physical therapy * Recommended initiation of DVT prophylaxis as soon as deemed safe by spine surgery team, use SCDs while in bed * In regards to history of hypertension continue patient on amlodipine * In regards to anemia continue to monitor H&H, will hold aspirin at this time * Continue patient on bowel regimen * SCDs bilateral follow extremity DVT prophylaxis
[2022-10-08] MEDS: SIMETHICONE 40 MG/0.6 ML DROPS 2,000 MG/30 ML BOTTLE PO SCH ×3 (14:56→22:34)
[2022-10-08] MEDS: ATORVASTATIN 10 MG TAB PO SCH (22:33)
[2022-10-09] MEDS: CYCLOBENZAPRINE 5 MG TAB PO PRN (00:51)
[2022-10-09] MEDS: HYDROmorphone 1 MG/ML 1 ML SYRINGE IVP PRN ×3 (00:51→11:47)
[2022-10-09] MEDS: HYDROcodone/APAP 5-325MG 1 EACH TAB PO PRN ×5 (03:35→22:52)
[2022-10-09] MEDS: SODIUM CHLORIDE 0.9% 1,000 ML IV SCH ×4 (05:24→20:22)
--- NOTE | 2022-10-09 09:09 | P.PN ---
Progress Note - Text Progress Note Date: 10/09/22 Orthopedic Spine History of present illness: Patient is a very pleasant 66-year-old female who was seen examined at bedside with her family present for further evaluation of her thoracolumbar spine. She is known to have sustained an acute traumatic L1 fracture. She status post T11- L4 stabilization and fusion with ORIF of L1 performed on 10/06/2022. She has a history of previous thoracolumbar fusion and her L1 fracture is within the fusion mass resulting in spinal instability. Postoperatively, she does continue to have some pain at the surgical site at her lumbar spine and also some pain radiating towards her left lateral hip. Her pain is currently being controlled with oral and IV pain medications. She has had some progress over the weekend. Her Grace catheter has been discontinued and she has been able to pivot today bedside commode. She continues denies any lower extremity weakness bilaterally. She has good range of motion of her bilateral lower extremities. She denies any right lower extremity radiculopathy. There left lower extremity pain radiates only towards the left hip. She denies any groin pain bilaterally. She does have some improvement of her pain with applying pressure over her left lateral hip. She has good range of motion of her left lateral hip. She has made some progress but does have difficulty sitting upright with pressure towards her left buttock and hip. She does not feel she could manage this at home. She would be willing to discharge to a rehabilitation facility. We did discuss we'll plan for consult with case management for discharge planning. She does have TLSO bracing with her in the room. She has not been wearing this brace at rest. She has not used this race when pivoting to a bedside commode. Physical Exam Lumbar Fusion: Status post surgical day number 3 Patient is awake, alert, and oriented 3 Vital signs stable Good chest excursion with deep inspiration and expiration Dorsiflexion, plantarflexion, and extensor hallucis longus positive sustained bilaterally No signs or symptoms of DVT; no calf pain; pneumatic cuffs currently intact bilateral lower extremities Optifoam dressings are dry and intact with some dried blood over the radical lumbar spine; no erythema, purulence, or signs of infection Neurovascularly intact bilaterally lower extremities Pertinent studies: MRI of the lumbar spine taken on 10/05/2022: L1 vertebral body fracture anteriorly extending posteriorly without evidence of spinal stenosis; Scoliosis with the apex at L3-4; L3-4, L4-5, and L5-S1 facet spondylosis Assessment: Status post ORIF L1 unstable fracture with fusion T11-L4 Acute traumatic L1 fracture status post fall with spinal instability Acute traumatic thoracolumbar pain Left lateral hip pain History thoracolumbar fusion Degenerative scoliosis L3-4, L4-5, and L5-S1 facet spondylosis Hypertension Hyperlipidemia Plan: 1. Ambulate as tolerated; work with Physical Therapy to increase mobilization 2. Continue pain control with IV and oral medications; will plan to begin weaning the patient off of IV narcotic medication in anticipation for discharge to a rehabilitation facility in the next 1-2 days 3. Dressings to remain intact with Optifoam; patient may shower with dressings intact 4. Patient should continue to utilize TLSO brace during ambulation, increased activities, when sitting upright in bed, and while working with physical therapy. Brace does not have to be worn when transferring to bedside commode. 5. Medical management can continue to manage patient for patient's other medical diagnoses 6. We will continue to follow the patient closely; depending on the patient's progress, we may plan for discharge is a rehabilitation facility as early as to mireya, 10/10/2022. 7. Patient can follow-up with Merrill Ayala PA-C or Dr. Stanley Ornelas at [facility] in 2-3 weeks following discharge
[2022-10-09] MEDS: NON FORMULARY DRUG (Lutein [Lutein] 10 MG Tablet) PO SCH (10:07)
[2022-10-09] MEDS: SIMETHICONE 40 MG/0.6 ML DROPS 2,000 MG/30 ML BOTTLE PO SCH ×3 (10:09→17:31)
[2022-10-09] MEDS: SENNOSIDES-DOCUSATE SODIUM 1 EACH TAB PO SCH ×3 (10:09→20:20)
[2022-10-09] MEDS: amLODIPine 5 MG TAB PO SCH (10:09)
[2022-10-09 11:02] LABS: HCT 31.5 % (37.2-46.3); HGB 10.5 d/dL (12.0-15.0); MCH 33.7 pg (27.0-32.0); MCHC 33.3 d/dL (32.0-37.0); NRBC Per 100 WBC 0 X 10*3/uL (0.00-0.01); Platelet Count 250 X 10*3/uL (140-440); RBC 3.12 X 10*6/uL (4.10-5.20); RDW 12.2 % (11.5-14.5)
[2022-10-09 11:21] LABS: BUN/Creat Ratio 13.83 Ratio (12.00-20.00); Blood Urea Nitrogen 8.3 mg/dL (9.0-27.0); Calcium 8.8 mg/dL (8.7-10.3); Carbon Dioxide 27.7 mmol/L (21.6-31.8); Chloride 99 mmol/L (96-109); Glucose 103 mg/dL (70-110); Potassium 3.5 mmol/L (3.5-5.5); Sodium 138 mmol/L (135-145)
[2022-10-09] MEDS: PANTOPRAZOLE 40 MG/10 ML VIAL IVP SCH (11:57)
[2022-10-09] MEDS ORDERED: NON FORMULARY DRUG (Alendronate Sodium [Alendronate Sodium] 70 MG Tablet) PO SCH (14:58)
[2022-10-09] MEDS: ATORVASTATIN 10 MG TAB PO SCH (20:20)
[2022-10-10] MEDS: SIMETHICONE 40 MG/0.6 ML DROPS 2,000 MG/30 ML BOTTLE PO SCH ×4 (01:02→16:33)
[2022-10-10] MEDS: HYDROmorphone 1 MG/ML 1 ML SYRINGE IVP PRN (01:03)
[2022-10-10] MEDS: HYDROcodone/APAP 5-325MG 1 EACH TAB PO PRN ×3 (02:31→16:33)
[2022-10-10] MEDS: SODIUM CHLORIDE 0.9% 1,000 ML IV SCH ×2 (05:00→09:07)
--- NOTE | 2022-10-10 08:51 | P.PN ---
Progress Note - Text Progress Note Date: 10/10/22 Orthopedic Spine History of present illness: Patient is a very pleasant 66-year-old female who was seen examined at bedside with her family present for further evaluation of her thoracolumbar spine. She is known to have sustained an acute traumatic L1 fracture. She status post T11- L4 stabilization and fusion with ORIF of L1 performed on 10/06/2022. She has a history of previous thoracolumbar fusion and her L1 fracture is within the fusion mass resulting in spinal instability. She has not had significant change as compared to yesterday. Postoperatively, she does continue to have some pain at the surgical site at her lumbar spine and also some pain radiating towards her left lateral hip. Her pain is currently being controlled with oral and IV pain medications. She still requires IV pain medicine for pain control. Her Grace catheter has been discontinued and she has been able to pivot today bedside commode. She continues denies any lower extremity weakness bilaterally. She has good range of motion of her bilateral lower extremities. She denies any right lower extremity radiculopathy. There left lower extremity pain radiates only towards the left hip. She denies any groin pain bilaterally. She does have some improvement of her pain with applying pressure over her left lateral hip. She has good range of motion of her left lateral hip. She has made some progress but does have difficulty sitting upright with pressure towards her left buttock and hip. She does not feel she could manage this at home. She would be willing to discharge to a rehabilitation facility. We did discuss we'll plan for consult with case management for discharge planning. She does have TLSO bracing with her in the room. She states she has not been utilizing this brace. We discussed the importance of this brace. She has been able to ambulate to the restroom but has not been performing much other activities. We did discuss the brace could provide significant support for her thoracolumbar spine and that she should be wearing this brace when upright at greater than 45, during ambulation, and while working with physical therapy. We did discuss she does not need to use this brace when pivoting to a bedside commode but she should wear this brace when ambulating to the restroom. She continues to be seen by medicine for her other medical diagnoses. They're currently treating her constipation. Physical Exam Lumbar Fusion: Status post surgical day number 4 Patient is awake, alert, and oriented 3 Vital signs stable Good chest excursion with deep inspiration and expiration Dorsiflexion, plantarflexion, and extensor hallucis longus positive sustained bilaterally No signs or symptoms of DVT; no calf pain; pneumatic cuffs currently intact bilateral lower extremities Optifoam dressings are dry and intact with some dried blood over the radical lumbar spine; no erythema, purulence, or signs of infection Neurovascularly intact bilaterally lower extremities Pertinent studies: MRI of the lumbar spine taken on 10/05/2022: L1 vertebral body fracture anteriorly extending posteriorly without evidence of spinal stenosis; Scoliosis with the apex at L3-4; L3-4, L4-5, and L5-S1 facet spondylosis Assessment: Status post ORIF L1 unstable fracture with fusion T11-L4 Acute traumatic L1 fracture status post fall with spinal instability Acute traumatic thoracolumbar pain Left lateral hip pain History thoracolumbar fusion Degenerative scoliosis L3-4, L4-5, and L5-S1 facet spondylosis Hypertension Hyperlipidemia Constipation Plan: 1. Ambulate as tolerated; work with Physical Therapy to increase mobilization; patient should utilize Steele TLSO brace while working with physical therapy 2. Continue pain control with IV and oral medications; will plan to begin weaning the patient off of IV narcotic medication in anticipation for discharge to a rehabilitation facility in the next 1-2 days 3. Dressings to remain intact with Optifoam; patient may shower with dressings intact 4. Patient should continue to utilize TLSO brace during ambulation, increased activities, when sitting upright in bed, and while working with physical therapy. Brace does not have to be worn when transferring to bedside commode. She should wear the brace when ambulating to the restroom. We did discuss the importance of utilizing her TLSO brace and that the support of this brace could also help control her pain. 5. Medical management can continue to manage patient for patient's other medical diagnoses including constipate 6. We will continue to follow the patient closely; depending on the patient's progress, we may plan for discharge is a rehabilitation facility as early as tomorrow, 10/11/2022. 7. Patient can follow-up with Merrill Ayala PA-C or Dr. Stanley Ornelas at [facility] in 2-3 weeks following discharge
[2022-10-10] MEDS: NON FORMULARY DRUG (Lutein [Lutein] 10 MG Tablet) PO SCH (09:02)
[2022-10-10] MEDS: SENNOSIDES-DOCUSATE SODIUM 1 EACH TAB PO SCH ×2 (09:04→09:17)
[2022-10-10] MEDS: PANTOPRAZOLE 40 MG/10 ML VIAL IVP SCH (09:05)
[2022-10-10] MEDS ORDERED: bisacodyL 5 MG TABLET.DR PO PRN (09:08)
[2022-10-10] MEDS: amLODIPine 5 MG TAB PO SCH (09:17)
--- NOTE | 2022-10-10 10:52 | P.PN ---
Subjective Progress Note Date: 10/10/22 - History of Present Illness This is 66-year-old female with history of scoliosis, Hester rods with removal/fusion, gastroesophageal reflux disease, hypertension, hyperlipidemia, macular degeneration,PONV and multiple other medical issues, admitted with ongoing back pain status post fall. Patient had been shaving her legs and fell backwards landing on her back on the bathroom tile on Sunday. Denies head trauma. 3 weeks prior sustained a reported left wrist fracture/nose fracture, wearing left wrist brace-her dog, while on a leash, took off after a squirrel, causing the fall. Returned to the ER with uncontrollable pain. Radiology studies now currently suggestive of mild compression fracture around L1, lumbar spine CT reported lucency through the L1 vertebral body, foraminal stenosis, more severe on the right lower lumbar spine, MRI pending. Radiology studies reviewed by orthopedic spine, suspicious for L1 fracture. Reports comfortable at rest, significant pain with minimal movement. Denies chest pain, palpitations or shortness of breath. Maintaining O2 sats in the mid 90s on room air. Afebrile, normal WBC. Hemoglobin 12.5, platelets 264, INR 0.9. Sodium 135, potassium 3.6, bicarb 29, BUN 12, creatinine 0.63, glucose 112, UA negative. 10/06/2022 lumbar spine MRI completed, reporting fracture at L1 acute traumatic. Patient is scheduled for OR today. Moves all extremities, denies bilateral lower extremity weakness, numbness or tingling.Pain controlled at rest. Maintained on IV fluids. Denies chest pain, palpitations or shortness of breath. Denies cough, congestion or sinus drainage. Afebrile. Reporting no bowel movement since Sunday, MiraLAX ordered. Denies chest pain, palpitations or shortness of breath. Maintaining O2 sats in the 90s on room air. 10/10/2022 Status post ORIF L1 unstable fracture with fusion T11-L4,significant clinical improvement pain management improving, complains of diffuse pain across bilateral hips currently. TLSO Brace at bedside. Denies chest pain, palpitations or shortness of breath. Denies lightheadedness, dizziness or focal deficits. Complains of constipation. Afebrile. Objective - Vital Signs Vital signs: Vital Signs Temp 98.3 F 10/10/22 08:22 Pulse 91 10/10/22 08:22 Resp 16 10/10/22 08:22 BP 157/80 10/10/22 08:22 Pulse Ox 95 10/10/22 08:41 FiO2 Intake & Output 10/09/22 10/10/22 10/10/22 18:59 06:59 18:59 Other: Voiding Method Bedside Commode Bedside Commode # Voids 8 - Exam PHYSICAL EXAM: VITAL SIGNS: As above GENERAL: Alert and oriented 3, sitting up in bed, no acute distress at rest. HEENT: Normocephalic Conjunctivae normal. eyes normal. NECK: Supple, No JVD. CARDIOVASCULAR: S1, S2 regular. No murmur RESPIRATION: Unlabored, Equal air entry. Breath sounds diminished in the bases. ABDOMEN: Soft, nondistended, nontender . No guarding. No rigidity .Bowel sounds heard. LEGS: No edema. no swelling, no clubbing, no cyanosis, no calf pain. NERVOUS SYSTEM: Cranial N 2-12 grossly normal. Moves all 4 limbs. No focal deficits. Strength and sensation grossly intact. Skin: Warm and dry, no rash - Labs CBC & Chem 7: 10/09/22 07:58 10/09/22 07:58 Labs: Abnormal Lab Results - Last 24 Hours (Table) 10/09/22 10/09/22 Range/Units 07:58 07:58 RBC 3.12 L (4.10-5.20) X 10*6/uL Hgb 10.5 L (12.0-15.0) d/dL Hct 31.5 L (37.2-46.3) % MCV 101.0 H (80.0-97.0) FL MCH 33.7 H (27.0-32.0) pg BUN 8.3 L (9.0-27.0) mg/dL Assessment and Plan Assessment: Acute traumatic L1 fracture, status post fall. Status post ORIF L1 unstable fracture with fusion T11-L4 Scoliosis, History of Hester rods with removal, lumbar fusion PONV Osteoarthritis Glaucoma, macular degeneration Hypertension Hyperlipidemia Constipation Plan: Continue on current medication regime ,monitoring and symptomatic treatment. Pain management/DVT prophylaxis as per primary. Constipation, Kaley LAX ordered .aggressive pulmonary toileting with incentive spirometer ordered .discharge planning in progress for subacute rehab. as per primary. The impression and plan of care has been dictated as directed. : I performed a history and examination of this patient, discussed the same with the dictator. I agree with the dictator's note ,documented as a scribe. Any additional findings or plans will be noted.
[2022-10-10] MEDS: polyethylene glycoL 3350 17 GM POWD.PACK PO SCH (11:19)
[2022-10-11] MEDS: HYDROcodone/APAP 5-325MG 1 EACH TAB PO PRN ×3 (00:07→13:33)
[2022-10-11] MEDS: SENNOSIDES-DOCUSATE SODIUM 1 EACH TAB PO SCH ×3 (00:07→09:37)
[2022-10-11] MEDS: SIMETHICONE 40 MG/0.6 ML DROPS 2,000 MG/30 ML BOTTLE PO SCH ×3 (00:08→12:40)
[2022-10-11] MEDS: SODIUM CHLORIDE 0.9% 1,000 ML IV SCH ×2 (07:00→11:16)
[2022-10-11] MEDS: NON FORMULARY DRUG (Lutein [Lutein] 10 MG Tablet) PO SCH (07:01)
[2022-10-11 07:26] VITALS: BP 149/78; PULSE 75; RESP 16; TEMP 98.3
[2022-10-11] MEDS: PANTOPRAZOLE 40 MG/10 ML VIAL IVP SCH (09:36)
[2022-10-11] MEDS: amLODIPine 5 MG TAB PO SCH (09:36)
[2022-10-11] MEDS: polyethylene glycoL 3350 17 GM POWD.PACK PO SCH (09:37)
--- NOTE | 2022-10-11 12:08 | P.DS ---
Providers Date of admission: 10/04/22 12:24 Expected date of discharge: 10/11/22 Attending physician: Frank Ornelas Consults: 10/04/22 14:12 Consult Physician Urgent Consulting Provider: Arvind Hughes Consult Reason/Comments: intractable back pain Do you want consulting provider notified?: Yes Primary care physician: Arvind Hughes - Discharge Diagnosis(es) (1) Traumatic compression fracture of L1 vertebra Current Visit: Yes Status: Acute (2) Acute lumbar back pain Current Visit: Yes Status: Acute (3) Status post lumbar spinal fusion Current Visit: Yes Status: Acute (4) Hypertension Current Visit: Yes Status: Acute (5) Hyperlipidemia Current Visit: Yes Status: Acute (6) Scoliosis Current Visit: Yes Status: Acute (7) History of lumbar fusion Current Visit: Yes Status: Acute Hospital Course: This is a pleasant 66-year-old female who presented with acute traumatic L1 fr acture status post fall with spinal instability. She was admitted for further treatment and evaluation. She underwent surgical intervention in her thoracolumbar spine. She is status post ORIF L1 unstable fracture with fusion from T11-L4. She had been progressing slowly initially postoperatively but has had some improvement. She has not been able to ambulate with the assistance of a walker. She is voiding and eating without difficulty. She does not feel she could manage at home. She is 90 for discharge to a rehabilitation facility today. She has been approved for discharge to [facility]. She has been clear for discharge by medicine. Patient does feel she is ready for discharge. Condition on day of discharge stable. Patient was cleared preoperatively for surgery by medicine. Patient currently denies any nausea, vomiting, fever, or chills. Optifoam dressings have been removed over the thoracolumbar spine. I do not see active drainage. Patient can shower without dressing is intact over her surgical sites at the thoracic and lumbar spines. If she does have some drainage, nonstick Telfa and Tegaderm may be reapplied over the surgical incision sites. Patient should avoid excessive bending, lifting, and twisting; no lifting greater than 10 pounds. She is encouraged to continue using a walker to aid in ambulation. Patient should continue to utilize TLSO brace during ambulation, increased activities, when sitting upright in bed, and while working with physical therapy. Brace does not have to be worn when transferring to bedside commode. MAPS has been reviewed today, 10/11/2022, with an Overall Overdose Risk Score of . An "Opiod Start Talking" Form has been signed and placed in the patient's chart. A prescription has been written for hydrocodone 5 mg/325 mg, 1 tablet every or hours as needed for acute pain, dispense #42. She has been taking hydrocodone during her admission to the hospital without difficulty. She is also given a prescription for baclofen 10 mg, 1 tab 3 times a day, as needed for muscle spasm, dispensed #60. Patient's other medical diagnoses include hypertension and hyperlipidemia. Physical Exam on day of discharge: Status post surgical day number 4 Patient is awake, alert, and oriented 3 Vital signs stable Good chest excursion with deep inspiration and expiration Dorsiflexion, plantarflexion, and extensor hallucis longus positive sustained bilaterally No signs or symptoms of DVT; no calf pain; pneumatic cuffs currently intact bilateral lower extremities Optifoam dressings are dry and intact with some dried blood over the radical lumbar spine; no erythema, purulence, or signs of infection Optifoam dressings are removed; I do not see active drainage from her thoracic and lumbar surgical sites Evidence of significant bruising over the thoracic and lumbar spine around her surgical incisions Neurovascularly intact bilaterally lower extremities Procedures: ORIF L1 unstable fracture with fusion from T11-L4 Patient Condition at Discharge: Stable Plan - Discharge Summary Discharge Rx Participant: No New Discharge Prescriptions: New Baclofen 10 mg PO TID PRN #60 tab PRN Reason: Spasms HYDROcodone/APAP 5-325MG [[place] 5] 1 each PO Q4HR PRN #42 tab PRN Reason: Pain Sennosides-Docusate Sodium [Senokot-S] 2 each PO BID tab polyethylene glycoL 3350 [Miralax] 17 gm PO DAILY packet Continue Simvastatin [Zocor] 20 mg PO HS L.acidoph,Paracasei, B.lactis [Probiotic] 1 cap PO DAILY amLODIPine [Norvasc] 5 mg PO DAILY #14 tab Artificial Tears-Hypromellose [Artificial Tear Drops] 1 drop BOTH EYES TID PRN PRN Reason: Dry Eye(S) Lutein 10 mg PO DAILY Propranolol [Inderal] 20 mg PO DAILY PRN PRN Reason: Anxiety Discontinued Cyclobenzaprine [Flexeril] 5 mg PO HS PRN #6 tab PRN Reason: Muscle Pain traMADol HCL 50 mg PO TID PRN PRN Reason: Pain No Action Alendronate Sodium 70 mg PO MO Lidocaine 5% Patch [Lidoderm 5% Patch] 1 patch TRANSDERM DAILY PRN PRN Reason: Pain Aspirin EC [Ecotrin Low Dose] 81 mg PO MOWEFR Ibuprofen [Motrin] 600 mg PO Q8HR PRN #24 tab PRN Reason: Pain Discharge Medication List Alendronate Sodium 70 mg PO MO 03/08/21 [History] Simvastatin [Zocor] 20 mg PO HS 03/08/21 [History] L.acidoph,Paracasei, B.lactis [Probiotic] 1 cap PO DAILY 12/22/21 [History] amLODIPine [Norvasc] 5 mg PO DAILY #14 tab 08/06/22 [Rx] Artificial Tears-Hypromellose [Artificial Tear Drops] 1 drop BOTH EYES TID PRN 10/02/22 [History] Aspirin EC [Ecotrin Low Dose] 81 mg PO MOWEFR 10/02/22 [History] Ibuprofen [Motrin] 600 mg PO Q8HR PRN #24 tab 10/02/22 [Rx] Lutein 10 mg PO DAILY 10/02/22 [History] Propranolol [Inderal] 20 mg PO DAILY PRN 10/02/22 [History] Lidocaine 5% Patch [Lidoderm 5% Patch] 1 patch TRANSDERM DAILY PRN 10/04/22 [History] Sennosides-Docusate Sodium [Senokot-S] 2 each PO BID tab 10/10/22 [Rx] polyethylene glycoL 3350 [Miralax] 17 gm PO DAILY packet 10/10/22 [Rx] Baclofen 10 mg PO TID PRN #60 tab 10/11/22 [Rx] HYDROcodone/APAP 5-325MG [[place] 5] 1 each PO Q4HR PRN #42 tab 10/11/22 [Rx] Follow up Appointment(s)/Referral(s): Arvind Hughes DO [Primary Care Provider] - 1 Week (After DC from subacute rehab) Merrill Ayala PAC [PHYSICIAN SERVICE TECHNICIAN COPIER] - 2 Weeks (Patient may follow-up with Merrill Ayala PA-C or Dr. Stanley Ornelas at [facility] in 2-3 weeks following discharge. ) [facility], [NON-STAFF] - As Needed Rob Ma [NON-STAFF] - As Needed ([place] TLSO brace) Patient Instructions/Handouts: *Surgery [facility] - ([facility]) Lumbar Surgery Discharge Instructions Activity/Diet/Wound Care/Special Instructions: 1. Patient may shower without Optifoam dressings intact. 2. If the patient does have some drainage from her surgical sites at the thoracic and lumbar spines, dressings may be reapplied with nonstick Telfa and Tegaderm as needed 3. Patient should refrain from driving until at least after their first follow- up appointment in the office. 4. Patient should continue to utilize TLSO brace during ambulation, increased activities, when sitting upright in bed, and while working with physical therapy. Brace does not have to be worn when transferring to bedside commode. 5. Patient should avoid excessive bending, twisting, lifting; avoid overhead lifting; no lifting greater than 10 pounds 6. Take medications as prescribed 7. Patient should avoid anti-inflammatory medications over the next 6 weeks postoperatively 8. Do not soak in tub CBC, BMP in 3 days IS every hour while awake 10 Discharge Disposition: TRANSFER TO SNF/ECF
[2022-10-11 13:57] VITALS: BMI 26.1
[2022-10-16] MEDS ORDERED: NON FORMULARY DRUG (Alendronate Sodium [Alendronate Sodium] 70 MG Tablet) PO SCH (09:00)
== END 2022-10-11 14:11 | DRG 454 ==
LOC: EC 10:02 → 4SSUR 12:24
PROVIDERS: ADMIT Orthopaedic Surgery Orthopaedic Surgery of the Spine; ATTEND Orthopaedic Surgery Orthopaedic Surgery of the Spine
PROC: 0RG60AJ Fusion of Thoracic Vertebral Joint with Interbody Fusion Device, Posterior Approach, Anterior Column, Open Approach (ICD-10-PCS; principal; 2022-10-07)
PROC: 0SG1071 Fusion of 2 or more Lumbar Vertebral Joints with Autologous Tissue Substitute, Posterior Approach, Posterior Column, Open Approach (ICD-10-PCS; 2022-10-07)
PROC: 0RGA0AJ Fusion of Thoracolumbar Vertebral Joint with Interbody Fusion Device, Posterior Approach, Anterior Column, Open Approach (ICD-10-PCS; 2022-10-07)
PROC: XRGC0R7 Fusion of 2 or more Lumbar Vertebral Joints using Custom-Made Anatomically Designed Interbody Fusion Device, Open Approach, New Technology Group 7 (ICD-10-PCS; 2022-10-07)
PROC: 0QS004Z Reposition Lumbar Vertebra with Internal Fixation Device, Open Approach (ICD-10-PCS; 2022-10-07)
PROC: 8E0WXBG Computer Assisted Procedure of Trunk Region, With Computerized Tomography (ICD-10-PCS; 2022-10-07)
DX: S32.019A Unspecified fracture of first lumbar vertebra, initial encounter for closed fracture (principal); D62 Acute posthemorrhagic anemia; M41.56 Other secondary scoliosis, lumbar region; I10 Essential (primary) hypertension; M51.36 Other intervertebral disc degeneration, lumbar region; K21.9 Gastro-esophageal reflux disease without esophagitis; E78.5 Hyperlipidemia, unspecified; H35.30 Unspecified macular degeneration; H40.9 Unspecified glaucoma; M48.061 Spinal stenosis, lumbar region without neurogenic claudication; M19.90 Unspecified osteoarthritis, unspecified site; K59.00 Constipation, unspecified; M53.2X6 Spinal instabilities, lumbar region; R26.2 Difficulty in walking, not elsewhere classified; W01.0XXA Fall on same level from slipping, tripping and stumbling without subsequent striking against object, initial encounter; Y92.002 Bathroom of unspecified non-institutional (private) residence as the place of occurrence of the external cause; S02.2XXD Fracture of nasal bones, subsequent encounter for fracture with routine healing; W18.39XD Other fall on same level, subsequent encounter; S62.102D Fracture of unspecified carpal bone, left wrist, subsequent encounter for fracture with routine healing; Z98.1 Arthrodesis status; Z79.82 Long term (current) use of aspirin; Z88.5 Allergy status to narcotic agent; Z88.0 Allergy status to penicillin; Z88.8 Allergy status to other drugs, medicaments and biological substances; Z79.899 Other long term (current) drug therapy
CPT/HCPCS: 71045; 72100; 72131; 72158; 72192; 80048; 80053; 81001; 85025; 85027; 85610; 85730; 86850; 86900; 86901; 93005; 94760; 96361; 96374; 96375; 99285

== ENCOUNTER 2023-01-13 17:12 | Emergency (ER) | payer MEDICARE, OTHER ==
[2023-01-13] MEDS ORDERED: diphenhydrAMINE 50 MG/ML 1 ML VIAL IVP STA (17:50)
[2023-01-13] MEDS ORDERED: SODIUM CHLORIDE 0.9% 1,000 ML IV STA (17:50)
[2023-01-13] MEDS ORDERED: ONDANSETRON 4 MG/2 ML VIAL IVP STA (17:50)
[2023-01-13] MEDS ORDERED: KETOROLAC 15 MG/ML 1 ML VIAL IVP STA (17:50)
[2023-01-13 18:16] LABS: Basophils % (A) 0 %; Eosinophils % (A) 1 %; HCT 38.2 % (34.0-46.0); HGB 12.9 gm/dL (11.4-16.0); Lymphocytes # (A) 1.3 k/uL (1.0-4.8); Lymphocytes % (A) 21 %; MCH 33.2 pg (25.0-35.0); MCHC 33.7 g/dL (31.0-37.0); MCV 98.7 fL (80.0-100.0); Mean Platelet Volume 6.9; Monocytes # (A) 0.3 k/uL (0-1.0); Monocytes % (A) 5 %; Neutrophils # (A) 4.6 k/uL (1.3-7.7); Neutrophils % (A) 72 %; Platelet Count 287 k/uL (150-450); RBC 3.87 m/uL (3.80-5.40); WBC 6.3 k/uL (3.8-10.6)
[2023-01-13 18:24] LABS: ALT 24 U/L (4-34); AST 53 U/L (14-36); African American GFR (CKD) 63 (>60 ml/min/1.73 sqM); Albumin 4.6 g/dL (3.5-5.0); Alkaline Phosphatase 112 U/L (38-126); Anion Gap 16 mmol/L; Blood Urea Nitrogen 25 mg/dL (7-17); Calcium 9.1 mg/dL (8.4-10.2); Carbon Dioxide 23 mmol/L (22-30); Chloride 98 mmol/L (98-107); Glucose 101 mg/dL (74-99); Lipase 159 U/L (23-300); Magnesium 1.9 mg/dL (1.6-2.3); Non-African American GFR(CKD) 55 (>60 ml/min/1.73 sqM); Potassium 3.9 mmol/L (3.5-5.1); Sodium 137 mmol/L (137-145); Total Bilirubin 0.4 mg/dL (0.2-1.3); Total Protein 7.6 g/dL (6.3-8.2)
[2023-01-13 18:33] LABS: INR 0.9 (<1.2); Partial Thromboplastin Time 23.7 sec (22.0-30.0); Prothrombin Time 9.8 sec (10.0-12.5)
[2023-01-13] MEDS ORDERED: HYDROcodone/APAP 5-325MG 1 EACH TAB PO STA (18:42)
--- NOTE | 2023-01-13 18:57 | ED ---
General Adult HPI - General Chief complaint: Arrhythmia/Palpitations Stated complaint: elevated bp; nauseous, shaky Time Seen by Provider: 01/13/23 17:20 Source: patient Mode of arrival: ambulatory Limitations: no limitations - History of Present Illness Initial comments: Dictation was produced using [employer] dictation software. please excuse any gra mmatical, word or spelling errors. Chief Complaint: 67-year-old female presents emergency department for headache, generalized weakness and feeling unwell History of Present Illness: Patient is a 67-year-old female she presents to the emergency department for headache, generalized weakness and feeling unwell. States that it started acutely today around late morning, early afternoon. She thought that it was secondary to her feeling hungry so she tried to eat and take a nap like she normally does on a daily basis. She states that didn't really help propping her to come to the emergency department. Patient states she has a headache that surrounding in nature. Denies any numbness and paresthesias to the arms or legs. Patient denies any chest pain. She did have few minutes of right upper quadrant abdominal pain that resolved on its own. Has a history abdominal surgery she has history of chronic pain secondary to traumatic back injury dating to back surgery.Patient reports that her headache started at 1:00 PM. The ROS documented in this emergency department record has been reviewed and confirmed by me. Those systems with pertinent positive or negative responses have been documented in the HPI. All other systems are other negative and/or noncontributory. - Related Data Home Medications Medication Instructions Recorded Confirmed Alendronate Sodium 70 mg PO TH 03/08/21 01/13/23 Simvastatin [Zocor] 20 mg PO HS 03/08/21 01/13/23 Clotrimazole/Betameth Cream 1 applic TOPICAL BID PRN 01/13/23 01/13/23 [Lotrisone] Ferrous Sulfate [Feosol] 325 mg PO DAILY 01/13/23 01/13/23 Fortify Probiotic 1 cap PO DAILY 01/13/23 01/13/23 Lutein 20 mg PO DAILY 01/13/23 01/13/23 hydroCHLOROthiazide 12.5 mg PO DAILY 01/13/23 01/13/23 Previous Rx's Medication Instructions Recorded amLODIPine [Norvasc] 5 mg PO DAILY #14 tab 08/06/22 Allergies Allergy/AdvReac Type Severity Reaction Status Date / Time KAYLEIGH Inhibitors Allergy Anaphylaxis Verified 01/13/23 20:12 codeine Allergy Rash/Hives/ Verified 01/13/23 20:12 Migraines latanoprost [From Rocklatan] Allergy Swelling Verified 01/13/23 20:12 eye netarsudil [From Rocklatan] Allergy Swelling Verified 01/13/23 20:12 eye Penicillins Allergy Rash/Hives Verified 01/13/23 20:12 Review of Systems ROS Statement: Those systems with pertinent positive or pertinent negative responses have been documented in the HPI. ROS Other: All systems not noted in ROS Statement are negative. Past Medical History Past Medical History: Eye Disorder, GERD/Reflux, Hyperlipidemia, Hypertension, Osteoarthritis (OA) Additional Past Medical History / Comment(s): Cataracts, Glaucoma and Macular Degeneration., scoliosis with surgery, pt states spot of fungus on her foot. , lumps on her thyroid., hx of left foot fx with surgery feb 2021 & some d ifficulty walking at times and uses motor w/c at store., hiatal hernia. Scoliosis thoracolumbar surgery in with subsequent removal of hardware in [place] History of Any Multi-Drug Resistant Organisms: None Reported Past Surgical History: Back Surgery, Section, Hernia Repair, Orthopedic Surgery Additional Past Surgical History / Comment(s): Surgery for scoliosis with rods that broke and were removed. , left foot surgery with pin placed (feb 2021), EGD WITH DILATION (11/23/21)., HYSTEROSCOPY, tubal ligation with c section Past Anesthesia/Blood Transfusion Reactions: Postoperative Nausea & Vomiting (PONV) Additional Past Anesthesia/Blood Transfusion Reaction / Comment(s): post-op headache Past Psychological History: No Psychological Hx Reported Smoking Status: Never smoker Past Alcohol Use History: None Reported, Occasional Past Drug Use History: None Reported - Past Family History Mother Family Medical History: Cancer, CVA/TIA Father Family Medical History: CVA/TIA General Exam - General Exam Comments Initial Comments: PHYSICAL EXAM: General Impression: Alert and oriented x3, not in acute distress HEENT: Normocephalic atraumatic, extra-ocular movements intact, pupils equal and reactive to light bilaterally, mucous membranes moist. Cardiovascular: Heart regular rate and rhythm Chest: Able to complete full sentences, no retractions, no tachypnea Abdomen: abdomen soft, non-tender, non-distended, no organomegaly Musculoskeletal: Pulses present and equal in all extremities, no peripheral edema Motor: no focal deficits noted Neurological: CN II-XII grossly intact, no focal motor or sensory deficits noted Skin: Intact with no visualized rashes Psych: Normal affect and mood Limitations: no limitations Course Vital Signs 01/13/23 01/13/23 01/13/23 17:17 17:40 18:05 Temperature 98.4 F 98.7 F Pulse Rate 131 H 114 H 117 H Respiratory 18 18 16 Rate Blood Pressure 177/82 165/93 158/87 O2 Sat by Pulse 99 98 96 Oximetry 01/13/23 20:34 Temperature Pulse Rate 117 H Respiratory 16 Rate Blood Pressure 158/87 O2 Sat by Pulse 96 Oximetry EKG Findings - EKG Comments: EKG Findings:: My EKG interpretation: Ventricular rate 112, sinus tachycardia,. 175, QRS 90, QTC 394. No CO prolongation, no QTC prolongation, no ST or T-wave changes noted. Overall, this EKG is unremarkable Medical Decision Making - Medical Decision Making Was pt. sent in by a medical professional or institution (, PA, [employer], urgent care, hospital, or half-way...) When possible be specific @ -No Did you speak to anyone other than the patient for history (EMS, parent, family, police, friend...)? What history was obtained from this source @ -No Did you review nursing and triage notes (agree or disagree)? Why? @ -I reviewed and agree with nursing and triage notes. However at the bedside patient did not have any complaints of chest pain or shortness of breath. She states that she felt unwell and had headache. Were old charts reviewed (outside hosp., previous admission, EMS record, old EKG, old radiological studies, urgent care reports/EKG's, half-way records)? Report findings @ -No old charts were reviewed Differential Diagnosis (chest pain, altered mental status, abdominal pain women, abdominal pain men, vaginal bleeding, musculoskeletal, weakness, fever, dyspnea, syncope, headache, dizziness, GI bleed, back pain, seizure, CVA, palpatations, mental health)? @ -Differential Headache: Migraine, tension, cluster, carbon monoxide, central venous thrombosis, pension karma temporal arteritis, acute closure glaucoma, intercranial hemorrhage, mastoiditis, sinusitis, head injury, this is not meant to be an all-inclusive list. EKG interpreted by me (3pts min.). @ -See above X-rays interpreted by me (1pt min.). @ -Chest x-ray shows no acute processes CT interpreted by me (1pt min.). @ -None done U/S interpreted by me (1pt. min.). @ -None done What testing was considered but not performed or refused? (CT, X-rays, U/S, labs)? Why? @ -None What meds were considered but not given or refused? Why? @ -None Did you discuss the management of the patient with other professionals (professionals i.e. , PA, [employer], lab, RT, psych nurse, social director, java user interface developer, teacher, driver license reviewing officer, social work case manager)? Give summary @ -No Was smoking cessation discussed for >3mins.? @ -No Was critical care preformed (if so, how long)? @ -No Were there social determinants of health that impacted care today? How? (Homelessness, low income, unemployed, alcoholism, drug addiction, transportation, low edu. Level, literacy, decrease access to med. care, half-way, rehab)? @ -No Was there de-escalation of care discussed even if they declined (Discuss DNR or withdrawal of care, Hospice)? DNR status @ -No What co-morbidities impacted this encounter? (DM, HTN, Smoking, COPD, CAD, Cancer, CVA, ARF, Chemo, Hep., AIDS, mental health diagnosis, sleep apnea, morbid obesity)? @ -None Was patient admitted / discharged? Hospital course, mention meds given and route, prescriptions, significant lab abnormalities, going to OR and other pertinent info. @ -67-year-old female presents to the emergency department for headache and feeling unwell. Patient denies any history of headaches. She does not state that this headache is thunderclap or worse headache of her life. She did however receive a computed tomography scan within 6 hours of the onset of headache and computed tomography scan was unremarkable. Labs unremarkable. Her was perhaps maybe some evidence of dehydration. Patient given IV fluids and headache cocktail with improvement of symptoms. Patient is agreeable to dis charge and advised follow-up with primary care doctor. Undiagnosed new problem with uncertain prognosis? @ -No Drug Therapy requiring intensive monitoring for toxicity (Heparin, Nitro, Insulin, Cardizem)? @ -No Were any procedures done? @ -No Diagnosis/symptom? Acute, or Chronic, or Acute on Chronic? Uncomplicated (without systemic symptoms) or Complicated (systemic symptoms)? @ -headache Side effects of treatment? @ -No Exacerbation, Progression, or Severe Exacerbation? @ -No Poses a threat to life or bodily function? How? (Chest pain, [place], [place], pneumonia, PE, COPD, DKA, ARF, appy, cholecystitis, CVA, Diverticulitis, Homicidal, Suicidal, threat to staff... and all critical care pts) @ -No - Lab Data Result diagrams: 01/13/23 17:58 01/13/23 17:58 Lab Results 01/13/23 01/13/23 01/13/23 Range/Units 17:58 17:58 17:58 WBC 6.3 (3.8-10.6) k/uL RBC 3.87 (3.80-5.40) m/uL Hgb 12.9 (11.4-16.0) gm/dL Hct 38.2 (34.0-46.0) % MCV 98.7 (80.0-100.0) fL MCH 33.2 (25.0-35.0) pg MCHC 33.7 (31.0-37.0) g/dL RDW 14.0 (11.5-15.5) % Plt Count 287 (150-450) k/uL MPV 6.9 Neutrophils % 72 % Lymphocytes % 21 % Monocytes % 5 % Eosinophils % 1 % Basophils % 0 % Neutrophils # 4.6 (1.3-7.7) k/uL Lymphocytes # 1.3 (1.0-4.8) k/uL Monocytes # 0.3 (0-1.0) k/uL Eosinophils # 0.0 (0-0.7) k/uL Basophils # 0.0 (0-0.2) k/uL PT 9.8 L (10.0-12.5) sec INR 0.9 (<1.2) APTT 23.7 (22.0-30.0) sec Sodium 137 (137-145) mmol/L Potassium 3.9 (3.5-5.1) mmol/L Chloride 98 (98-107) mmol/L Carbon Dioxide 23 (22-30) mmol/L Anion Gap 16 mmol/L BUN 25 H (7-17) mg/dL Creatinine 1.05 H (0.52-1.04) mg/dL Est GFR (CKD-EPI)AfAm 63 (>60 ml/min/1.73 sqM) Est GFR (CKD-EPI)NonAf 55 (>60 ml/min/1.73 sqM) Glucose 101 H (74-99) mg/dL Calcium 9.1 (8.4-10.2) mg/dL Magnesium 1.9 (1.6-2.3) mg/dL Total Bilirubin 0.4 (0.2-1.3) mg/dL AST 53 H (14-36) U/L ALT 24 (4-34) U/L Alkaline Phosphatase 112 (38-126) U/L Troponin I (0.000-0.034) ng/mL Total Protein 7.6 (6.3-8.2) g/dL Albumin 4.6 (3.5-5.0) g/dL Lipase 159 (23-300) U/L Influenza Type A (PCR) (Not Detectd) Influenza Type B (PCR) (Not Detectd) RSV (PCR) (Not Detectd) SARS-CoV-2 (PCR) (Not Detectd) 01/13/23 01/13/23 Range/Units 17:58 17:58 WBC (3.8-10.6) k/uL RBC (3.80-5.40) m/uL Hgb (11.4-16.0) gm/dL Hct (34.0-46.0) % MCV (80.0-100.0) fL MCH (25.0-35.0) pg MCHC (31.0-37.0) g/dL RDW (11.5-15.5) % Plt Count (150-450) k/uL MPV Neutrophils % % Lymphocytes % % Monocytes % % Eosinophils % % Basophils % % Neutrophils # (1.3-7.7) k/uL Lymphocytes # (1.0-4.8) k/uL Monocytes # (0-1.0) k/uL Eosinophils # (0-0.7) k/uL Basophils # (0-0.2) k/uL PT (10.0-12.5) sec INR (<1.2) APTT (22.0-30.0) sec Sodium (137-145) mmol/L Potassium (3.5-5.1) mmol/L Chloride (98-107) mmol/L Carbon Dioxide (22-30) mmol/L Anion Gap mmol/L BUN (7-17) mg/dL Creatinine (0.52-1.04) mg/dL Est GFR (CKD-EPI)AfAm (>60 ml/min/1.73 sqM) Est GFR (CKD-EPI)NonAf (>60 ml/min/1.73 sqM) Glucose (74-99) mg/dL Calcium (8.4-10.2) mg/dL Magnesium (1.6-2.3) mg/dL Total Bilirubin (0.2-1.3) mg/dL AST (14-36) U/L ALT (4-34) U/L Alkaline Phosphatase (38-126) U/L Troponin I <0.012 (0.000-0.034) ng/mL Total Protein (6.3-8.2) g/dL Albumin (3.5-5.0) g/dL Lipase (23-300) U/L Influenza Type A (PCR) Not Detected (Not Detectd) Influenza Type B (PCR) Not Detected (Not Detectd) RSV (PCR) Not Detected (Not Detectd) SARS-CoV-2 (PCR) Not Detected (Not Detectd) Disposition Clinical Impression: Headache Disposition: HOME SELF-CARE Condition: Good Instructions (If sedation given, give patient instructions): Acute Headache (DC) Is patient prescribed a controlled substance at d/c from ED?: No Referrals: Arvind Hughes DO [Primary Care Provider] - 1-2 days Time of Disposition: 22:16
--- NOTE | 2023-01-13 19:04 | XR ---
EXAMINATION TYPE: XR chest 2V DATE OF EXAM: 01/13/2023 6:30 PM CLINICAL INDICATION:Female, 67 years old with history of headache; [facility] COMPARISON: 10/05/2022 TECHNIQUE: XR chest 2V Frontal and lateral views of the chest. FINDINGS: Lines/Tubes: No indwelling lines are seen. Lungs/Pleura: Mildly hyperinflated lungs with scarring/senescent changes, possible COPD. Mild apical pleural thickening. There is no evidence of pleural effusion, focal consolidation, or pneumothorax. Pulmonary vascularity: Unremarkable. Heart/mediastinum: Heart size is within normal limits. Atherosclerotic calcifications of the aorta. Musculoskeletal: No clearly acute osseous abnormality. Bones appear somewhat demineralized, there is moderate multilevel degenerative disc disease throughout the spine with an apex right scoliosis in th e lower thoracic region, as well as posterior fixation hardware extending from the lower thoracic to the lumbar spine. Other findings: None IMPRESSION: No acute cardiopulmonary disease/process. Probable COPD.
--- NOTE | 2023-01-13 19:07 | CT ---
EXAMINATION TYPE: CT brain wo con CT DLP: 1189.4 mGycm, Automated exposure control for dose reduction was used. DATE OF EXAM: 01/13/2023 6:34 PM COMPARISON: None. CLINICAL INDICATION:Female, 67 years old with history of headache, headache TECHNIQUE: Brain: Axial CT images of the brain were obtained with coronal and sagittal reformats created and rev iewed. Contrast used: None. Oral contrast used: None. FINDINGS: Brain: Extra-axial spaces: No abnormal extra-axial fluid collections. Ventricular system: Appear dilated in proportion to cerebral atrophy. Cerebral parenchyma: No acute intraparenchymal hemorrhage or mass effect. The rangel-white matter int erface appears maintained. Mild/moderate generalized brain atrophy. Mild scattered hypoattenuating a reas are seen within the cerebral white matter, nonspecific but most often seen with chronic microvas cular ischemic change. Cerebellum: No acute abnormality. Mass effect: No evidence of midline shift. Intracranial vasculature: Atherosclerotic calcifications of the larger arteries near the skull base. Soft tissues: Normal. Calvarium/osseous structures: No depressed skull fracture. Paranasal sinuses and mastoid air cells: Clear Visualized orbits: Orbital contents appear grossly unremarkable. Radiodensities along the anterior gl obes bilaterally likely related to prior ophthalmologic surgery. MRI is more sensitive for detecting acute processes such as infarct, and may be considered if clinica lly warranted. IMPRESSION: Mild to moderate generalized brain atrophy and chronic microvascular ischemic changes. No acute intracranial CT abnormality.
[2023-01-13] MEDS ORDERED: DEXAMETHASONE SOD PHOSPHATE 10 MG/ML 1 ML VIAL IV STA (22:13)
[2023-01-13 23:26] VITALS: BP 132/73; PULSE 68; RESP 18; TEMP 98.6
== END 2023-01-13 23:16 | disposition home or self-care (01) ==
LOC: EC 17:12
DX: R51.9 Headache, unspecified (principal); R00.0 Tachycardia, unspecified; I67.82 Cerebral ischemia; E78.5 Hyperlipidemia, unspecified; I10 Essential (primary) hypertension; Z88.5 Allergy status to narcotic agent; Z88.0 Allergy status to penicillin; Z88.8 Allergy status to other drugs, medicaments and biological substances; Z20.822 Contact with and (suspected) exposure to COVID-19; Z79.899 Other long term (current) drug therapy
CPT/HCPCS: 36415; 93005; 80053; 83690; 83735; 84484; 85025; 85610; 85730; 87636; 71046; 70450; 99285; 96374; 96375 ×3; 96361 ×2; J1200; J1100; J2405; J1885

== ENCOUNTER → 2023-05-25 | Outpatient (CLI) | payer MEDICARE, OTHER ==
[2023-05-25 17:41] LABS: ALT 61 U/L (8-44); AST 42 U/L (13-35); Albumin 4.7 g/dL (3.8-4.9); Albumin/Globulin Ratio 1.57 Ratio (1.60-3.17); Alkaline Phosphatase 83 U/L (41-126); Calcium 10.2 mg/dL (8.7-10.3); Carbon Dioxide 26.5 mmol/L (21.6-31.8); Chloride 100 mmol/L (96-109); Glucose 87 mg/dL (70-110); Potassium 4.7 mmol/L (3.5-5.5); Sodium 144 mmol/L (135-145); Total Bilirubin 0.4 mg/dL (0.3-1.2); Total Protein 7.7 g/dL (6.2-8.2)
== END | disposition home or self-care (01) ==
LOC: LABWHC1 10:45
PROVIDERS: ATTEND Internal Medicine Interventional Cardiology
DX: R00.2 Palpitations (principal)
CPT/HCPCS: 36415; 80053; 84443

== ENCOUNTER 2023-05-30 14:11 | Emergency (ER) | payer MEDICARE, OTHER ==
[2023-05-30 14:24] LABS: Glucose,Whole Blood 114 mg/dL (70-110)
--- NOTE | 2023-05-30 14:42 | ED ---
General Adult HPI - General Chief complaint: Neuro Symptoms/Deficit Stated complaint: Shaky Time Seen by Provider: 05/30/23 14:24 Source: patient, family, RN notes reviewed Mode of arrival: ambulatory Limitations: no limitations - History of Present Illness Initial comments: Patient is a pleasant 67-year-old female presenting to the emergency department with concerns for shaking. Onset of symptoms was when she came to the hospital this morning with her family member. Patient states this was around 9 AM. Patient states that he has been waxing and waning since that time. No weakness. No confusion. Patient has had similar symptoms previously however unclear why. Patient is able to ambulate - Related Data Home Medications Medication Instructions Recorded Confirmed Alendronate Sodium 70 mg PO TH 03/08/21 01/13/23 Simvastatin [Zocor] 20 mg PO HS 03/08/21 01/13/23 Clotrimazole/Betameth Cream 1 applic TOPICAL BID PRN 01/13/23 01/13/23 [Lotrisone] Ferrous Sulfate [Feosol] 325 mg PO DAILY 01/13/23 01/13/23 Fortify Probiotic 1 cap PO DAILY 01/13/23 01/13/23 Lutein 20 mg PO DAILY 01/13/23 01/13/23 hydroCHLOROthiazide 12.5 mg PO DAILY 01/13/23 01/13/23 Previous Rx's Medication Instructions Recorded amLODIPine [Norvasc] 5 mg PO DAILY #14 tab 08/06/22 Allergies Allergy/AdvReac Type Severity Reaction Status Date / Time KAYLEIGH Inhibitors Allergy Anaphylaxis Verified 05/30/23 14:20 codeine Allergy Rash/Hives/ Verified 05/30/23 14:20 Migraines latanoprost [From [facility]] Allergy Swelling Verified 05/30/23 14:20 eye netarsudil [From [facility]] Allergy Swelling Verified 05/30/23 14:20 eye Penicillins Allergy Rash/Hives Verified 05/30/23 14:20 Review of Systems ROS Statement: Those systems with pertinent positive or pertinent negative responses have been documented in the HPI. ROS Other: All systems not noted in ROS Statement are negative. Constitutional: Denies: fever Eyes: Denies: eye pain ENT: Denies: ear pain Respiratory: Denies: cough, dyspnea Cardiovascular: Denies: chest pain Endocrine: Denies: fatigue Gastrointestinal: Denies: abdominal pain Genitourinary: Denies: dysuria Psychiatric: Reports: anxiety Past Medical History Past Medical History: Eye Disorder, GERD/Reflux, Hyperlipidemia, Hypertension, Osteoarthritis (OA) Additional Past Medical History / Comment(s): Cataracts, Glaucoma and Macular Degeneration., scoliosis with surgery, pt states spot of fungus on her foot. , lumps on her thyroid., hx of left foot fx with surgery feb 2021 & some difficulty walking at times and uses motor w/c at store., hiatal hernia. Scoliosis thoracolumbar surgery in with subsequent removal of hardware in [place] History of Any Multi-Drug Resistant Organisms: None Reported Past Surgical History: Back Surgery, Section, Hernia Repair, Orthopedic Surgery Additional Past Surgical History / Comment(s): Surgery for scoliosis with rods that broke and were removed. , left foot surgery with pin placed (feb 2021), EGD WITH DILATION (11/23/21)., HYSTEROSCOPY, tubal ligation with c section Past Anesthesia/Blood Transfusion Reactions: Postoperative Nausea & Vomiting (PONV) Additional Past Anesthesia/Blood Transfusion Reaction / Comment(s): post-op headache Past Psychological History: No Psychological Hx Reported Smoking Status: Never smoker Past Alcohol Use History: None Reported, Occasional Past Drug Use History: None Reported - Past Family History Mother Family Medical History: Cancer, CVA/TIA Father Family Medical History: CVA/TIA General Exam Limitations: no limitations General appearance: alert, in no apparent distress Head exam: Present: normocephalic Eye exam: Present: normal appearance, PERRL, EOMI ENT exam: Present: normal oropharynx Neck exam: Present: normal inspection Respiratory exam: Present: normal lung sounds bilaterally Cardiovascular Exam: Present: regular rate, normal rhythm GI/Abdominal exam: Present: soft. Absent: tenderness Extremities exam: Present: normal inspection. Absent: pedal edema, calf tenderness Neurological exam: Present: alert, oriented X3, CN II-XII intact. Absent: motor sensory deficit Expanded Neurological exam: Present: tremor (Sting tremor that patient is able to overcome), protecting the airway Speech: Present: fluid speech Cranial nerves: EOM's Intact: Normal Sensory exam: Upper Extremity Light Touch: Normal, Lower Extremity Light Touch: Normal Motor strength exam: RUE: 5, LUE: 5, RLE: 5, LLE: 5 Eye Response: (4) open spontaneously Motor Response: (6) obeys commands Verbal Response: (5) oriented Psychiatric exam: Present: normal affect, normal mood Skin exam: Present: normal color Course Vital Signs 05/30/23 14:16 Temperature 98.0 F Pulse Rate 85 Respiratory 20 Rate Blood Pressure 166/86 O2 Sat by Pulse 97 Oximetry EKG Findings - EKG Results: EKG: interpreted by ERMD (Right axis. Septal Q waves.), sinus rhythm, normal ST/T Medical Decision Making - Medical Decision Making Was pt. sent in by a medical professional or institution (, PA, TECHNICAL SYSTEM ANALYST, urgent care, hospital, or assisted...) When possible be specific @ -No Did you speak to anyone other than the patient for history (EMS, parent, family, police, friend...)? What history was obtained from this source @ - is present and helps provide additional history including that onset of symptoms Did you review nursing and triage notes (agree or disagree)? Why? @ -I reviewed and agree with nursing and triage notes Were old charts reviewed (outside hosp., previous admission, EMS record, old EKG, old radiological studies, urgent care reports/EKG's, assisted records)? Report findings @ -Previous labs reviewed Differential Diagnosis (chest pain, altered mental status, abdominal pain women, abdominal pain men, vaginal bleeding, weakness, fever, dyspnea, syncope, headache, dizziness, GI bleed, back pain, seizure, CVA, palpatations, mental health, musculoskeletal)? @ -Differential Dizziness: Benign paroxysmal positional Vertigo, Menieres disease, otitis media, acoustic neuroma, vertebrobasilar insufficiency, cerebellar stroke, encephalitis, hypovolemic, arrhythmia, coronary artery syndrome, anemia, this is not meant to be an all-inclusive list EKG interpreted by me (3pts min.). @ -As above X-rays interpreted by me (1pt min.). @ -None done CT interpreted by me (1pt min.). @ -None done U/S interpreted by me (1pt. min.). @ -None done What testing was considered but not performed or refused? (CT, X-rays, U/S, labs)? Why? @ -None What meds were considered but not given or refused? Why? @ -None Did you discuss the management of the patient with other professionals (professionals i.e. , PA, TECHNICAL SYSTEM ANALYST, lab, RT, psych nurse, social professionals, fruit loader, teacher, safety and security officer, case picker)? Give summary @ -No Was smoking cessation discussed for >3mins.? @ -No Was critical care preformed (if so, how long)? @ -No Were there social determinants of health that impacted care today? How? (Homelessness, low income, unemployed, alcoholism, drug addiction, transportation, low edu. Level, literacy, decrease access to med. care, custodial, rehab)? @ -No Was there de-escalation of care discussed even if they declined (Discuss DNR or withdrawal of care, Hospice)? DNR status @ -No What co-morbidities impacted this encounter? (DM, HTN, Smoking, COPD, CAD, Cancer, CVA, ARF, Chemo, Hep., AIDS, mental health diagnosis, sleep apnea, morbid obesity)? @ -None Was patient admitted / discharged? Hospital course, mention meds given and route, prescriptions, significant lab abnormalities, going to OR and other p ertinent info. @ -Patient reevaluated and feels much better following Ativan. Patient is comfortable with discharge home. Patient is updated on results and need for follow-up, specifically follow-up with liver enzyme Undiagnosed new problem with uncertain prognosis? @ -No Drug Therapy requiring intensive monitoring for toxicity (Heparin, Nitro, Insulin, Cardizem)? @ -No Were any procedures done? @ -No Diagnosis/symptom? @ -Tremor Acute, or Chronic, or Acute on Chronic? @ -Acute Uncomplicated (without systemic symptoms) or Complicated (systemic symptoms)? @ -Default Side effects of treatment? @ -No Exacerbation, Progression, or Severe Exacerbation? @ -No Poses a threat to life or bodily function? How? (Chest pain, USA, NM, pneumonia, PE, COPD, DKA, ARF, appy, cholecystitis, CVA, Diverticulitis, Homicidal, Suicidal, threat to staff... and all critical care pts) @ -No - Lab Data Result diagrams: 05/30/23 15:06 05/30/23 15:06 Lab Results 05/30/23 05/30/23 05/30/23 Range/Units 14:22 15:06 15:06 WBC 4.4 (3.8-10.6) k/uL RBC 4.17 (3.80-5.40) m/uL Hgb 13.4 (11.4-16.0) gm/dL Hct 41.9 (34.0-46.0) % MCV 100.5 H (80.0-100.0) fL MCH 32.1 (25.0-35.0) pg MCHC 31.9 (31.0-37.0) g/dL RDW 13.6 (11.5-15.5) % Plt Count 177 (150-450) k/uL MPV 7.3 Neutrophils % 72 % Lymphocytes % 18 % Monocytes % 5 % Eosinophils % 1 % Basophils % 1 % Neutrophils # 3.1 (1.3-7.7) k/uL Lymphocytes # 0.8 L (1.0-4.8) k/uL Monocytes # 0.2 (0-1.0) k/uL Eosinophils # 0.1 (0-0.7) k/uL Basophils # 0.0 (0-0.2) k/uL Sodium 137 (137-145) mmol/L Potassium 4.9 (3.5-5.1) mmol/L Chloride 100 (98-107) mmol/L Carbon Dioxide 22 (22-30) mmol/L Anion Gap 15 mmol/L BUN 24 H (7-17) mg/dL Creatinine 0.86 (0.52-1.04) mg/dL Est GFR (CKD-EPI)AfAm 81 (>60 ml/min/1.73 sqM) Est GFR (CKD-EPI)NonAf 70 (>60 ml/min/1.73 sqM) Glucose 107 H (74-99) mg/dL POC Glucose (mg/dL) 114 H (70-110) mg/dL POC Glu Eligibility Examiner ID Alice Angelo Calcium 9.2 (8.4-10.2) mg/dL Magnesium 1.9 (1.6-2.3) mg/dL Total Bilirubin 1.1 (0.2-1.3) mg/dL AST 238 H (14-36) U/L ALT 168 H (4-34) U/L Alkaline Phosphatase 76 (38-126) U/L Total Protein 7.4 (6.3-8.2) g/dL Albumin 4.5 (3.5-5.0) g/dL Disposition Clinical Impression: Tremor Disposition: HOME SELF-CARE Condition: Stable Instructions (If sedation given, give patient instructions): Tremors (ED) Additional Instructions: Please do follow-up with your primary care physician in the next couple of days for recheck. Have primary care physician review labs from today and consider further testing for liver function. Return for increased shaking, vomiting, abdominal pain, weakness, worsening symptoms or other concerns. Is patient prescribed a controlled substance at d/c from ED?: No Referrals: Arvind Hughes DO [Primary Care Provider] - 1-2 days Time of Disposition: 17:28
[2023-05-30] MEDS: LORazepam 2 MG/ML INJ IV STA (15:07)
[2023-05-30 16:51] LABS: Basophils % (A) 1 %; Eosinophils # (A) 0.1 k/uL (0-0.7); Eosinophils % (A) 1 %; HCT 41.9 % (34.0-46.0); HGB 13.4 gm/dL (11.4-16.0); Lymphocytes # (A) 0.8 k/uL (1.0-4.8); Lymphocytes % (A) 18 %; MCH 32.1 pg (25.0-35.0); MCHC 31.9 g/dL (31.0-37.0); MCV 100.5 fL (80.0-100.0); Mean Platelet Volume 7.3; Monocytes # (A) 0.2 k/uL (0-1.0); Monocytes % (A) 5 %; Neutrophils # (A) 3.1 k/uL (1.3-7.7); Neutrophils % (A) 72 %; Platelet Count 177 k/uL (150-450); RBC 4.17 m/uL (3.80-5.40); RDW 13.6 % (11.5-15.5); WBC 4.4 k/uL (3.8-10.6)
[2023-05-30 17:09] LABS: ALT 168 U/L (4-34); AST 238 U/L (14-36); African American GFR (CKD) 81 (>60 ml/min/1.73 sqM); Albumin 4.5 g/dL (3.5-5.0); Alkaline Phosphatase 76 U/L (38-126); Anion Gap 15 mmol/L; Blood Urea Nitrogen 24 mg/dL (7-17); Calcium 9.2 mg/dL (8.4-10.2); Carbon Dioxide 22 mmol/L (22-30); Chloride 100 mmol/L (98-107); Glucose 107 mg/dL (74-99); Magnesium 1.9 mg/dL (1.6-2.3); Non-African American GFR(CKD) 70 (>60 ml/min/1.73 sqM); Potassium 4.9 mmol/L (3.5-5.1); Sodium 137 mmol/L (137-145); Total Bilirubin 1.1 mg/dL (0.2-1.3); Total Protein 7.4 g/dL (6.3-8.2)
[2023-05-30 17:35] VITALS: BP 149/88; PULSE 75; RESP 16; TEMP 98.5
== END 2023-05-30 17:57 | disposition home or self-care (01) ==
LOC: EC 14:11
DX: R25.1 Tremor, unspecified (principal); Z88.0 Allergy status to penicillin; Z88.5 Allergy status to narcotic agent; Z88.8 Allergy status to other drugs, medicaments and biological substances
CPT/HCPCS: 36415; 93005; 80053; 83735; 85025; 99284; 96374; J2060

== ENCOUNTER → 2023-07-04 | Outpatient (CLI) | payer MEDICARE, OTHER ==
[2023-07-04 14:17] VITALS: BP 172/87; PULSE 58; RESP 12; TEMP 98.4
--- NOTE | 2023-07-04 14:31 | P.SLEEP ---
History of Present Illness DATE: 07/04/2023 CONSULTATION/NEW PATIENT EVALUATION HISTORY OF PRESENT ILLNESS/SLEEP-WAKE EVALUATION: 67-year-old lady had been ev aluated in the sleep center for possible obstructive sleep apnea hypopnea syndrome. SLEEP SCHEDULE: Usually sleep schedule from 1011 PM to 67 AM. FALLING ASLEEP: No problems with falling asleep. DURING SLEEP: Patient snores and wakes up from sleep several times with episodes of nocturia. Positive history of episodes of palpitations and sweating during the sleep. No history of hypnogogical hallucinations, sleep paralysis, or cataplexy. DURING THE DAY/WAKE STATE: Patient feels sleepiness during the day. [place] sleepiness scale is increased to 13. Patient may take 2 naps during the day. PAST MEDICAL HISTORY: Hypertension, possible coronary artery disease, back problems, heart murmur, hyperlipidemia, acid reflux. PAST SURGICAL HISTORY: Back fracture and back surgery in 2022. MEDICATIONS: Please see below. SOCIAL HISTORY: Please see below. FAMILY HISTORY: Snoring. REVIEW OF SYSTEMS: Snoring, multiple awakenings from sleep, sleepiness during the day. No fevers. No double vision. No recent chest pain. No shortness of breath. No abdominal pain. No bleeding episodes. No blood in urine. No seizure episodes. PHYSICAL EXAMINATION: GENERAL: A pleasant patient without any distress. VITAL SIGNS: Please see below. BMI 29.6, weight 170.2 pounds HEENT: PERRLA, EOMI. Evaluation of oropharynx showed tongue protrudes midline, low position of soft palate Mallampati 4. NECK: Supple. No JVD. Thyroid is not palpable. 15 inches in circumference. LUNGS: Clear to percussion and to auscultation. Good air exchange. No wheezing or rhonchi. HEART: S1, S2 regular. No murmurs, gallops or rubs. ABDOMEN: Soft and nontender. Bowel sounds are present. No organomegaly appreciated. EXTREMITIES: No clubbing or cyanosis. HAND RUG BRAIDER: Awake, alert, and oriented x3. Cranial nerves 2 to 7 intact. There is no fasciculation or atrophy noted. No focal deficits observed. ASSESSMENT: 1. Snoring, multiple awakenings from sleep, extremely low position of soft palate Mallampati 4, sleepiness during the day for sleepiness scale increased to 13. Obstructive sleep apnea hypopnea syndrome. 2. Hypertension. 3. History of possible coronary artery disease. 4. Status post back fracture and back surgery in 2022. 5 hyperlipidemia. 6 . Acid reflux. PLAN: 1. Polysomnography for evaluation of patient's breathing during sleep. 2. Following plan after reading sleep study. 3. Preferable position during sleep on the side. 4. No driving if patient feels any sleepiness. Patient is aware of civil and criminal liability for unsafe driving. 5. Sleep hygiene with regular sleep time for at least 7.5-8 hours. 6. Watching weight. Thank you very much for referring this patient for consultation. Sincerely, Wellington Shetty MD, PhD, FAASM. Diplomat of [place] [employer], Sleep Medicine Board by [place] Brush Worker of [facility] [place] Past Medical History Past Medical History: Eye Disorder, GERD/Reflux, Hyperlipidemia, Hypertension, Osteoarthritis (OA) Additional Past Medical History / Comment(s): Cataracts, Glaucoma and Macular Degeneration., scoliosis with surgery, pt states spot of fungus on her foot. , lumps on her thyroid., hx of left foot fx with surgery feb 2021 & some difficu lty walking at times and uses motor w/c at store., hiatal hernia. Scoliosis thoracolumbar surgery in with subsequent removal of hardware in [place] History of Any Multi-Drug Resistant Organisms: None Reported Past Surgical History: Back Surgery, Section, Hernia Repair, Orthopedic Surgery Additional Past Surgical History / Comment(s): Surgery for scoliosis with rods that broke and were removed. , left foot surgery with pin placed (feb 2021), EGD WITH DILATION (11/23/21)., HYSTEROSCOPY, tubal ligation with c section Past Anesthesia/Blood Transfusion Reactions: Postoperative Nausea & Vomiting (PONV) Additional Past Anesthesia/Blood Transfusion Reaction / Comment(s): post-op headache Past Psychological History: No Psychological Hx Reported Smoking Status: Never smoker Past Alcohol Use History: None Reported, Occasional Past Drug Use History: None Reported - Past Family History Mother Family Medical History: Cancer, CVA/TIA Father Family Medical History: CVA/TIA Medications and Allergies Home Medications Medication Instructions Recorded Confirmed Type Alendronate Sodium 70 mg PO TH 03/08/21 07/04/23 History Simvastatin [Zocor] 20 mg PO HS 03/08/21 07/04/23 History amLODIPine [Norvasc] 5 mg PO DAILY #14 tab 08/06/22 07/04/23 Rx Clotrimazole/Betameth Cream 1 applic TOPICAL BID PRN 01/13/23 01/13/23 History [Lotrisone] Ferrous Sulfate [Feosol] 325 mg PO DAILY 01/13/23 01/13/23 History Fortify Probiotic 1 cap PO DAILY 01/13/23 01/13/23 History Lutein 20 mg PO DAILY 01/13/23 01/13/23 History hydroCHLOROthiazide 12.5 mg PO DAILY 01/13/23 07/04/23 History Omeprazole 40 mg PO 07/04/23 History Propranolol [Inderal] 20 mg PO DAILY 07/04/23 07/04/23 History Allergies Allergy/AdvReac Type Severity Reaction Status Date / Time KAYLEIGH Inhibitors Allergy Anaphylaxis Verified 05/30/23 14:20 codeine Allergy Rash/Hives/ Verified 05/30/23 14:20 Migraines latanoprost [From [facility]] Allergy Swelling Verified 05/30/23 14:20 eye netarsudil [From [facility]] Allergy Swelling Verified 05/30/23 14:20 eye Penicillins Allergy Rash/Hives Verified 05/30/23 14:20 Physical Exam Vitals: Vital Signs Temp Pulse Resp BP Pulse Ox 07/04/23 14:12 98.4 F 58 L 12 172/87 97 Intake and Output 07/03/23 07/04/23 07/04/23 22:59 06:59 14:59 Other: Weight 77.111 kg Sleep Note - Sleep Data ESS Total: 13 - Sleep Note Sleep Note: Temperature: 98.4 F Pulse Rate: 58 Respiratory Rate: 12 Blood Pressure: 172/87 SpO2: 97 Height: 5 ft 3.5 in Weight: 77.111 kg BMI: Neck Circumference: 15
== END ==
LOC: 3 N SLEEP 13:29
PROVIDERS: ATTEND Internal Medicine
DX: G47.33 Obstructive sleep apnea (adult) (pediatric) (principal); G47.10 Hypersomnia, unspecified; I10 Essential (primary) hypertension; E78.5 Hyperlipidemia, unspecified; K21.9 Gastro-esophageal reflux disease without esophagitis; Z98.890 Other specified postprocedural states; Z88.8 Allergy status to other drugs, medicaments and biological substances; Z88.0 Allergy status to penicillin; Z88.5 Allergy status to narcotic agent; Z79.899 Other long term (current) drug therapy
CPT/HCPCS: 99211

== ENCOUNTER 2023-08-01 19:28 | Outpatient (CLI) | payer MEDICARE, OTHER ==
--- NOTE | 2023-08-02 15:00 | P.PCN ---
Description of Procedure: POLYSOMNOGRAPHY REPORT PROCEDURE(S)/DATE(S): Polysomnography 08/01/2023 CLINICAL: Patient has been seen in the sleep center for evaluation of obstructive sleep apnea-hypopnea syndrome. Please see my consultation. Sleep study has been done for evaluation of patient breathing during the sleep. PROCEDURE: The standard montage for clinical polysomnography included the electroencephalogram, the electrooculogram, the mentalis surface electromyography and Lead II cardiography. The respiratory battery consisted of measurements of nasal/buccal air flow, pressure transducer measurements from nose, thoracic and/or abdominal effort and intercostal surface electromyography. Video monitoring has been done to check for any parasomnia events. Nocturnal oxyhemoglobin saturations were obtained by finger oximetry. Step-myrick titration with positive airway pressure was utilized to control the respiratory events, if necessary. RESULTS: During the diagnostic sleep study sleep efficiency was decreased to 77.5%. Latency to sleep onset was significantly prolonged to 40.0 min. Sleep architecture showed stage NI was significantly increased to 17.1%, Delta sleep was absent 0%, REM sleep was decreased to 16.8%. Respiratory channel showed 5 obstructive apneas, 1 mixed apneas, 0 central apneas, 60 hypopneas with lowest oxygen level 70%. Total apnea hypopnea index was 11.7. Heart rate was in the range between 70 and 79, average 74. EMG showed 9.6 periodic limb movements per hour with 2.7 micro-arousals per hour. IMPRESSIONS: 1. Obstructive sleep apnea hypopnea syndrome. 2. Periodic limb movements have been documented mostly at the beginning of sleep study. Please see other impressions from consultation PLAN: 1. The patient will be started on AutoPap and should use equipment every night for the whole night. 2. Watching weight. 3. Sleep hygiene with regular time in bed for at least 7-1/2 hours. 4. No driving if feeling sleepiness. 5. Please check iron profile including ferritin level. Low level of iron may increase the risk for periodic limb movements. 6. I will see patient for follow-up visit to evaluate clinical response on treatment, compliance with treatment and [place] adjustments related to mask fitting pressure and humidification. Thank you very much for allowing me to participate in the management of your patient. Sincerely, Wellington Shetty MD, PhD, FAASM. Diplomat of [employer], Sleep Medicine Board by [employer] Sterilization Technician of [facility] [place]
== END 2023-08-02 06:00 | disposition home or self-care (01) ==
LOC: 3 N SLEEP 19:28
PROVIDERS: ATTEND Internal Medicine
DX: G47.33 Obstructive sleep apnea (adult) (pediatric) (principal); G47.61 Periodic limb movement disorder; Z88.8 Allergy status to other drugs, medicaments and biological substances; Z88.0 Allergy status to penicillin; Z88.5 Allergy status to narcotic agent
CPT/HCPCS: 95810

== ENCOUNTER 2023-08-26 06:18 | Emergency (ER) | payer MEDICARE, OTHER ==
--- NOTE | 2023-08-26 06:50 | ED ---
General Adult HPI - General Chief complaint: Recheck/Abnormal Lab/Rx Stated complaint: anxiety Time Seen by Provider: 08/26/23 06:31 Source: patient, RN notes reviewed Mode of arrival: ambulatory Limitations: no limitations - History of Present Illness Initial comments: 67-year-old female presents emergency department with multiple complaints. Patient states she has headache she states she is shaky, anxious feeling states that she wakes up every morning with foreign body sensation in her throat. Patient states that she has seen her PCP told her everything looked fine, has had esophageal dilation by Dr. Bernal in the past. Patient states that she wakes up and feels a sensation states that she forces self to vomit. Patient states she is shaky and cannot control her shakes today. Patient states that she has no focal deficits. She does complain of diffuse headache she states she did try some medications earlier but no relief. - Related Data Home Medications Medication Instructions Recorded Confirmed Alendronate Sodium 70 mg PO TH 03/08/21 07/04/23 Simvastatin [Zocor] 20 mg PO HS 03/08/21 07/04/23 Clotrimazole/Betameth Cream 1 applic TOPICAL BID PRN 01/13/23 01/13/23 [Lotrisone] Ferrous Sulfate [Feosol] 325 mg PO DAILY 01/13/23 01/13/23 Fortify Probiotic 1 cap PO DAILY 01/13/23 01/13/23 Lutein 20 mg PO DAILY 01/13/23 01/13/23 hydroCHLOROthiazide 12.5 mg PO DAILY 01/13/23 07/04/23 Omeprazole 40 mg PO 07/04/23 Propranolol [Inderal] 20 mg PO DAILY 07/04/23 07/04/23 Previous Rx's Medication Instructions Recorded amLODIPine [Norvasc] 5 mg PO DAILY #14 tab 08/06/22 Allergies Allergy/AdvReac Type Severity Reaction Status Date / Time KAYLEIGH Inhibitors Allergy Anaphylaxis Verified 08/26/23 06:28 codeine Allergy Rash/Hives/ Verified 08/26/23 06:28 Migraines latanoprost [From Rocklatan] Allergy Swelling Verified 08/26/23 06:28 eye netarsudil [From Rocklatan] Allergy Swelling Verified 08/26/23 06:28 eye Penicillins Allergy Rash/Hives Verified 08/26/23 06:28 Review of Systems ROS Statement: Those systems with pertinent positive or pertinent negative responses have been documented in the HPI. ROS Other: All systems not noted in ROS Statement are negative. Past Medical History Past Medical History: Eye Disorder, GERD/Reflux, Hyperlipidemia, Hypertension, Osteoarthritis (OA) Additional Past Medical History / Comment(s): Cataracts, Glaucoma and Macular Degeneration., scoliosis with surgery, pt states spot of fungus on her foot. , lumps on her thyroid., hx of left foot fx with surgery feb 2021 & some difficulty walking at times and uses motor w/c at store., hiatal hernia. Scoliosis thoracolumbar surgery in with subsequent removal of hardware in [place] History of Any Multi-Drug Resistant Organisms: None Reported Past Surgical History: Back Surgery, Section, Hernia Repair, Orthopedic Surgery Additional Past Surgical History / Comment(s): Surgery for scoliosis with rods that broke and were removed. , left foot surgery with pin placed (feb 2021), EGD WITH DILATION (11/23/21)., HYSTEROSCOPY, tubal ligation with c section Past Anesthesia/Blood Transfusion Reactions: Postoperative Nausea & Vomiting (PONV) Additional Past Anesthesia/Blood Transfusion Reaction / Comment(s): post-op head ache Past Psychological History: No Psychological Hx Reported Smoking Status: Never smoker Past Alcohol Use History: None Reported, Occasional Past Drug Use History: None Reported - Past Family History Mother Family Medical History: Cancer, CVA/TIA Father Family Medical History: CVA/TIA General Exam Limitations: no limitations General appearance: alert, in no apparent distress, anxious Head exam: Present: atraumatic, normocephalic, normal inspection Eye exam: Present: normal appearance, PERRL, EOMI. Absent: scleral icterus, conjunctival injection, periorbital swelling ENT exam: Present: normal exam, normal oropharynx, mucous membranes moist Neck exam: Present: normal inspection, full ROM. Absent: tenderness, meningismus, lymphadenopathy Respiratory exam: Present: normal lung sounds bilaterally. Absent: respiratory distress, wheezes, rales, rhonchi, stridor Cardiovascular Exam: Present: normal rhythm, tachycardia, normal heart sounds. Absent: systolic murmur, diastolic murmur, rubs, gallop, clicks GI/Abdominal exam: Present: soft, normal bowel sounds. Absent: distended, tenderness, guarding, rebound, rigid Neurological exam: Present: alert, oriented X3, CN II-XII intact, reflexes normal. Absent: motor sensory deficit Skin exam: Present: warm, dry, intact, normal color. Absent: rash Course Vital Signs 08/26/23 08/26/23 08/26/23 06:26 07:51 09:51 Temperature 97.9 F 97.8 F Pulse Rate 108 H 82 90 Respiratory 20 18 18 Rate Blood Pressure 164/89 140/75 140/75 O2 Sat by Pulse 97 96 95 Oximetry EKG Findings - EKG Comments: EKG Findings:: EKG performed at 7: 00 sinus rhythm rate of 82 DC 157 QRS 89 QT/QTc 338/376 - EKG Results: EKG: interpreted by JUANA Medical Decision Making - Medical Decision Making Was pt. sent in by a medical professional or institution (, JULIA, CREOSOTING ENGINEER, urgent care, hospital, or long-term...) When possible be specific @ -No Did you speak to anyone other than the patient for history (EMS, parent, family, police, friend...)? What history was obtained from this source @ -No Did you review nursing and triage notes (agree or disagree)? Why? @ -I reviewed and agree with nursing and triage notes Were old charts reviewed (outside hosp., previous admission, EMS record, old EKG, old radiological studies, urgent care reports/EKG's, long-term records)? Report findings @ -No old charts were reviewed Differential Diagnosis (chest pain, altered mental status, abdominal pain women, abdominal pain men, vaginal bleeding, weakness, fever, dyspnea, syncope, headache, dizziness, GI bleed, back pain, seizure, CVA, palpatations, mental health, musculoskeletal)? @ -Differential Palpitations Ventricular arrhythmias, atrial arrhythmias, myocardial infarction, anemia, thyrotoxicosis, electrolyte imbalance, hypokalemia, pulmonary embolism, pulmona ry disease, drugs, alcohol, anxiety, stress.... This is not meant to be an all-inclusive list. EKG interpreted by me (3pts min.). @ -As above X-rays interpreted by me (1pt min.). @ -none CT interpreted by me (1pt min.). @ -None done U/S interpreted by me (1pt. min.). @ -None done What testing was considered but not performed or refused? (CT, X-rays, U/S, labs)? Why? @ -None What meds were considered but not given or refused? Why? @ -None Did you discuss the management of the patient with other professionals (professionals i.e. , PA, CREOSOTING ENGINEER, lab, RT, psych nurse, high school social science teacher, plugger, teacher, dairy quality assurance officer, binder caser)? Give summary @ -No Was smoking cessation discussed for >3mins.? @ -No Was critical care preformed (if so, how long)? @ -No Were there social determinants of health that impacted care today? How? (Homelessness, low income, unemployed, alcoholism, drug addiction, transp ortation, low edu. Level, literacy, decrease access to med. care, longterm, rehab)? @ -No Was there de-escalation of care discussed even if they declined (Discuss DNR or withdrawal of care, Hospice)? DNR status @ -No What co-morbidities impacted this encounter? (DM, HTN, Smoking, COPD, CAD, Cancer, CVA, ARF, Chemo, Hep., AIDS, mental health diagnosis, sleep apnea, morbid obesity)? @ -None Was patient admitted / discharged? Hospital course, mention meds given and route, prescriptions, significant lab abnormalities, going to OR and other pertinent info. @ -Patient feels great improved IV fluids and magnesium she is found to have mild hypomagnesemia. She is advised to take daily supplement. She is increased her fluid intake she is complaining of increasing throat issues in which she has had prior dilation she is able to tolerate oral intake she will follow-up with her prior surgeon or Dr. Medrano GI Undiagnosed new problem with uncertain prognosis? @ -No Drug Therapy requiring intensive monitoring for toxicity (Heparin, Nitro, Insulin, Cardizem)? @ -No Were any procedures done? @ -No Diagnosis/symptom? @ -Dehydration, hypomagnesemia, palpitations Acute, or Chronic, or Acute on Chronic? @ -Acute Uncomplicated (wit comp hout systemic symptoms) or Complicated (systemic symptoms)? @ -Comp Side effects of treatment? @ -No Exacerbation, Progression, or Severe Exacerbation? @ -No Poses a threat to life or bodily function? How? (Chest pain, USA, CT, pneumonia, PE, COPD, DKA, ARF, appy, cholecystitis, CVA, Diverticulitis, Homicidal, Suicidal, threat to staff... and all critical care pts) @ -No - Lab Data Result diagrams: 08/26/23 07:00 08/26/23 07:00 Lab Results 08/26/23 08/26/23 08/26/23 Range/Units 07:00 07:00 07:00 WBC 7.5 (3.8-10.6) k/uL RBC 4.22 (3.80-5.40) m/uL Hgb 14.0 (11.4-16.0) gm/dL Hct 44.1 (34.0-46.0) % MCV 104.4 H (80.0-100.0) fL MCH 33.1 (25.0-35.0) pg MCHC 31.7 (31.0-37.0) g/dL RDW 13.1 (11.5-15.5) % Plt Count 176 (150-450) k/uL MPV 7.4 Neutrophils % 81 % Lymphocytes % 12 % Monocytes % 5 % Eosinophils % 1 % Basophils % 0 % Neutrophils # 6.0 (1.3-7.7) k/uL Lymphocytes # 0.9 L (1.0-4.8) k/uL Monocytes # 0.4 (0-1.0) k/uL Eosinophils # 0.1 (0-0.7) k/uL Basophils # 0.0 (0-0.2) k/uL Macrocytosis Slight Sodium 139 (137-145) mmol/L Potassium 4.2 (3.5-5.1) mmol/L Chloride 102 (98-107) mmol/L Carbon Dioxide 26 (22-30) mmol/L Anion Gap 11 mmol/L BUN 22 H (7-17) mg/dL Creatinine 1.09 H (0.52-1.04) mg/dL Est GFR (CKD-EPI)AfAm 61 (>60 ml/min/1.73 sqM) Est GFR (CKD-EPI)NonAf 53 (>60 ml/min/1.73 sqM) Glucose 126 H (74-99) mg/dL Plasma Lactic Acid Perez 1.9 (0.7-2.0) mmol/L Calcium 9.8 (8.4-10.2) mg/dL Magnesium 1.3 L (1.6-2.3) mg/dL Total Bilirubin 1.1 (0.2-1.3) mg/dL AST 83 H (14-36) U/L ALT 62 H (4-34) U/L Alkaline Phosphatase 108 (38-126) U/L Troponin I (0.000-0.034) ng/mL Total Protein 7.8 (6.3-8.2) g/dL Albumin 4.8 (3.5-5.0) g/dL Amylase 87 (30-110) U/L Lipase 262 (23-300) U/L TSH 1.370 (0.465-4.680) mIU/L Urine Color Urine Appearance (Clear) Urine pH (5.0-8.0) Ur Specific [place] (1.001-1.035) Urine Protein (Negative) Urine Glucose (UA) (Negative) Urine Ketones (Negative) Urine Blood (Negative) Urine Nitrite (Negative) Urine Bilirubin (Negative) Urine Urobilinogen (<2.0) mg/dL Ur Leukocyte Esterase (Negative) 08/26/23 08/26/23 Range/Units 07:00 09:00 WBC (3.8-10.6) k/uL RBC (3.80-5.40) m/uL Hgb (11.4-16.0) gm/dL Hct (34.0-46.0) % MCV (80.0-100.0) fL MCH (25.0-35.0) pg MCHC (31.0-37.0) g/dL RDW (11.5-15.5) % Plt Count (150-450) k/uL MPV Neutrophils % % Lymphocytes % % Monocytes % % Eosinophils % % Basophils % % Neutrophils # (1.3-7.7) k/uL Lymphocytes # (1.0-4.8) k/uL Monocytes # (0-1.0) k/uL Eosinophils # (0-0.7) k/uL Basophils # (0-0.2) k/uL Macrocytosis Sodium (137-145) mmol/L Potassium (3.5-5.1) mmol/L Chloride (98-107) mmol/L Carbon Dioxide (22-30) mmol/L Anion Gap mmol/L BUN (7-17) mg/dL Creatinine (0.52-1.04) mg/dL Est GFR (CKD-EPI)AfAm (>60 ml/min/1.73 sqM) Est GFR (CKD-EPI)NonAf (>60 ml/min/1.73 sqM) Glucose (74-99) mg/dL Plasma Lactic Acid Perez (0.7-2.0) mmol/L Calcium (8.4-10.2) mg/dL Magnesium (1.6-2.3) mg/dL Total Bilirubin (0.2-1.3) mg/dL AST (14-36) U/L ALT (4-34) U/L Alkaline Phosphatase (38-126) U/L Troponin I <0.012 (0.000-0.034) ng/mL Total Protein (6.3-8.2) g/dL Albumin (3.5-5.0) g/dL Amylase (30-110) U/L Lipase (23-300) U/L TSH (0.465-4.680) mIU/L Urine Color Colorless Urine Appearance Clear (Clear) Urine pH 7.5 (5.0-8.0) Ur Specific [place] 1.008 (1.001-1.035) Urine Protein Negative (Negative) Urine Glucose (UA) Negative (Negative) Urine Ketones 1+ H (Negative) Urine Blood Negative (Negative) Urine Nitrite Negative (Negative) Urine Bilirubin Negative (Negative) Urine Urobilinogen <2.0 (<2.0) mg/dL Ur Leukocyte Esterase Negative (Negative) Disposition Clinical Impression: Hypomagnesemia, Dehydration, Esophagitis Disposition: HOME SELF-CARE Condition: Stable Instructions (If sedation given, give patient instructions): Hypomagnesemia (ED) Additional Instructions: Please return to the Emergency Department if symptoms worsen or any other concerns. Is patient prescribed a controlled substance at d/c from ED?: No Referrals: Arvind Hughes DO [Primary Care Provider] - 1-2 days Yarely Bernal MD [STAFF PHYSICIAN] - 1-2 days Debra Ugarte MD [STAFF PHYSICIAN] - 1-2 days Time of Disposition: 09:42
[2023-08-26 07:12] LABS: Basophils % (A) 0 %; Eosinophils # (A) 0.1 k/uL (0-0.7); Eosinophils % (A) 1 %; HCT 44.1 % (34.0-46.0); Lymphocytes # (A) 0.9 k/uL (1.0-4.8); Lymphocytes % (A) 12 %; MCH 33.1 pg (25.0-35.0); MCHC 31.7 g/dL (31.0-37.0); MCV 104.4 fL (80.0-100.0); Macrocytosis Slight; Mean Platelet Volume 7.4; Monocytes # (A) 0.4 k/uL (0-1.0); Monocytes % (A) 5 %; Neutrophils % (A) 81 %; Platelet Count 176 k/uL (150-450); RBC 4.22 m/uL (3.80-5.40); RDW 13.1 % (11.5-15.5); WBC 7.5 k/uL (3.8-10.6)
[2023-08-26 07:24] LABS: ALT 62 U/L (4-34); AST 83 U/L (14-36); African American GFR (CKD) 61 (>60 ml/min/1.73 sqM); Albumin 4.8 g/dL (3.5-5.0); Alkaline Phosphatase 108 U/L (38-126); Amylase 87 U/L (30-110); Anion Gap 11 mmol/L; Blood Urea Nitrogen 22 mg/dL (7-17); Calcium 9.8 mg/dL (8.4-10.2); Carbon Dioxide 26 mmol/L (22-30); Chloride 102 mmol/L (98-107); Glucose 126 mg/dL (74-99); Lipase 262 U/L (23-300); Magnesium 1.3 mg/dL (1.6-2.3); Non-African American GFR(CKD) 53 (>60 ml/min/1.73 sqM); Potassium 4.2 mmol/L (3.5-5.1); Sodium 139 mmol/L (137-145); Total Bilirubin 1.1 mg/dL (0.2-1.3); Total Protein 7.8 g/dL (6.3-8.2)
[2023-08-26] MEDS: SODIUM CHLORIDE 0.9% 500 ML 500 ML IV STA (07:39)
[2023-08-26] MEDS: SODIUM CHLORIDE 0.9% 1,000 ML IV STA (07:39)
[2023-08-26] MEDS: KETOROLAC 15 MG/ML 1 ML VIAL IVP STA (07:43)
[2023-08-26] MEDS: LORazepam 2 MG/ML INJ IV STA (07:45)
[2023-08-26] MEDS: MAGNESIUM SULFATE-D5W PMX 1 GM in DEXTROSE/WATER 1 100ML.BAG IVPB ONE (07:47)
[2023-08-26] MEDS: MAGNESIUM OXIDE 400 MG TAB PO STA (07:49)
[2023-08-26 07:52] VITALS: BP 140/75; RESP 18
[2023-08-26 09:23] LABS: Appearance,Urine Clear (Clear); Bilirubin,Urine Negative (Negative); Blood,Urine Negative (Negative); Color,Urine Colorless; Glucose,Urine (UA) Negative (Negative); Ketones,Urine 1+ (Negative); Leukocyte Esterase,Urine Negative (Negative); Nitrite,Urine Negative (Negative); PH, Urine 7.5 (5.0-8.0); Protein,Urine Negative (Negative); Specific Gravity,Urine 1.008 (1.001-1.035); Urobilinogen,Urine <2.0 mg/dL (<2.0)
[2023-08-26 09:52] VITALS: PULSE 90; TEMP 97.8
== END 2023-08-26 09:52 | disposition home or self-care (01) ==
LOC: EC 06:18
DX: E83.42 Hypomagnesemia (principal); E86.0 Dehydration; K20.90 Esophagitis, unspecified without bleeding; R00.2 Palpitations; Z88.0 Allergy status to penicillin; Z88.5 Allergy status to narcotic agent; Z91.048 Other nonmedicinal substance allergy status; Z88.8 Allergy status to other drugs, medicaments and biological substances
CPT/HCPCS: 36415; 93005; 80053; 84443; 82150; 83605; 83690; 83735; 84484; 85025; 81003; 99284; 96365; 96375 ×2; J2060; J3475; J1885

== ENCOUNTER → 2023-08-29 | Outpatient (CLI) | payer MEDICARE, OTHER ==
--- NOTE | 2023-08-29 13:17 | XR ---
EXAMINATION TYPE: XR chest 2V DATE OF EXAM: 08/29/2023 1:11 PM CLINICAL INDICATION:Female, 67 years old with history of R07.9 CHEST PAIN; [facility] COMPARISON: Chest radiographs from 01/13/2023 TECHNIQUE: XR chest 2V Frontal and lateral views of the chest. FINDINGS: Lungs/Pleura: There is no evidence of pleural effusion, focal consolidation, or pneumothorax. Pulmonary vascularity: Unremarkable. Heart/mediastinum: Cardiomediastinal silhouette is unremarkable. Musculoskeletal: No acute osseous pathology. There is lower spine fixation hardware is present. Other findings: None IMPRESSION: No acute cardiopulmonary disease/process.
== END | disposition home or self-care (01) ==
LOC: RADXRMAIN 12:58
PROVIDERS: ATTEND Family Medicine
DX: R07.9 Chest pain, unspecified (principal)
CPT/HCPCS: 71046

== ENCOUNTER 2023-11-18 14:01 | Emergency (ER) | payer MEDICARE, OTHER ==
--- NOTE | 2023-11-18 15:00 | ED ---
General Adult HPI - General Source: patient, family, RN notes reviewed Mode of arrival: wheelchair Limitations: no limitations <Mary Dalal - Last Filed: 11/18/23 14:59> - History of Present Illness -: minutes(s) Location: abdomen Radiation: non-radiation Quality: aching Consistency: intermittent Improves with: none Worsens with: none <Hermann Allen - Last Filed: 11/19/23 06:52> - General Chief complaint: Abdominal Pain Stated complaint: SALAZAR, Difficulty walking Time Seen by Provider: 11/18/23 14:18 - History of Present Illness Initial comments: Quick [id number] female presents emergency department chief complaint of worsening cough. Patient has a history of COPD and states that every few weeks she has episodes of coughing fits that resulted in a bout of emesis. Patient has been experiencing bodyaches and generalized fatigue that started this morning. Denies current steroid use. (Mary Dalal) This patient is a 67-year-old woman who presents to have evaluation for constellation of symptoms. She states that she woke up and she was having upper abdominal pain. She also feels very anxious and tremulous. She states that the symptoms often develop after she has been asleep. She states that she wakes up shaking and then it is difficult for her to get to the bathroom as she feels very dizzy and unsteady. She states that the symptoms usually resolve after she has been awake for a while. She does report that she has had some evaluation for this in the past. She states they tried a BiPAP for her but it made her feel worse. (Hermann Allen) - Related Data Home Medications Medication Instructions Recorded Confirmed Alendronate Sodium 70 mg PO FRANCO 03/08/21 11/18/23 Simvastatin [Zocor] 20 mg PO HS 03/08/21 11/18/23 Lutein 20 mg PO DAILY 01/13/23 11/18/23 hydroCHLOROthiazide 12.5 mg PO DAILY 01/13/23 11/18/23 Omeprazole 40 mg PO DAILY 07/04/23 11/18/23 Propranolol [Inderal] 20 mg PO DAILY 07/04/23 11/18/23 Aspirin EC [Ecotrin Low Dose] 81 mg PO MOWEFR 11/18/23 11/18/23 Cetirizine HCl [Zyrtec] 10 mg PO HS 11/18/23 11/18/23 Cholecalciferol (Vitamin D3) 50 mcg PO DAILY 11/18/23 11/18/23 [Vitamin D3 (50 Mcg = 2000 Iu)] L.acidoph,Paracasei, B.lactis 1 cap PO DAILY 11/18/23 11/18/23 [Probiotic] Magnesium Oxide [Mag-Ox] 400 mg PO DAILY 11/18/23 11/18/23 Multivitamins, Thera [Multivitamin 1 tab PO DAILY 11/18/23 11/18/23 (formulary)] Previous Rx's Medication Instructions Recorded amLODIPine [Norvasc] 5 mg PO DAILY #14 tab 08/06/22 Allergies Allergy/AdvReac Type Severity Reaction Status Date / Time KAYLEIGH Inhibitors Allergy Anaphylaxis Verified 11/18/23 19:34 codeine Allergy Rash/Hives/ Verified 11/18/23 19:34 Migraines latanoprost [From [facility]] Allergy Swelling Verified 11/18/23 19:34 eye netarsudil [From [facility]] Allergy Swelling Verified 11/18/23 19:34 eye Penicillins Allergy Rash/Hives Verified 11/18/23 19:34 Review of Systems ROS Other: All systems not noted in ROS Statement are negative. <Mary Dalal - Last Filed: 11/18/23 14:59> ROS Other: All systems not noted in ROS Statement are negative. Constitutional: Reports: weakness. Denies: fever, chills Respiratory: Denies: cough, dyspnea Cardiovascular: Denies: chest pain, palpitations, edema, syncope Gastrointestinal: Reports: abdominal pain. Denies: vomiting, diarrhea, constipation, hematemesis, melena, hematochezia Genitourinary: Denies: dysuria, hematuria Musculoskeletal: Denies: back pain Skin: Denies: rash Neurological: Denies: headache, weakness Psychiatric: Reports: anxiety <Hermann Allen - Last Filed: 11/19/23 06:52> ROS Statement: Those systems with pertinent positive or pertinent negative responses have been documented in the HPI. Past Medical History Past Medical History: Eye Disorder, GERD/Reflux, Hyperlipidemia, Hypertension, Osteoarthritis (OA) Additional Past Medical History / Comment(s): Cataracts, Glaucoma and Macular Degeneration., scoliosis with surgery, pt states spot of fungus on her foot. , lumps on her thyroid., hx of left foot fx with surgery feb 2021 & some difficulty walking at times and uses motor w/c at store., hiatal hernia. Scoliosis thoracolumbar surgery in with subsequent removal of hardware in [place] History of Any Multi-Drug Resistant Organisms: None Reported Past Surgical History: Back Surgery, Section, Hernia Repair, Orthopedic Surgery Additional Past Surgical History / Comment(s): Surgery for scoliosis with rods that broke and were removed. , left foot surgery with pin placed (feb 2021), EGD WITH DILATION (11/23/21)., HYSTEROSCOPY, tubal ligation with c section Past Anesthesia/Blood Transfusion Reactions: Postoperative Nausea & Vomiting (PONV) Additional Past Anesthesia/Blood Transfusion Reaction / Comment(s): post-op headache Past Psychological History: No Psychological Hx Reported Smoking Status: Never smoker Past Alcohol Use History: None Reported, Occasional Past Drug Use History: None Reported - Past Family History Mother Family Medical History: Cancer, CVA/TIA Father Family Medical History: CVA/TIA <Mary Dalal - Last Filed: 11/18/23 14:59> General Exam Limitations: no limitations <Mary Dalal - Last Filed: 11/18/23 14:59> General appearance: alert, in no apparent distress, anxious Head exam: Present: atraumatic, normocephalic Eye exam: Present: normal appearance. Absent: scleral icterus, conjunctival injection ENT exam: Present: normal oropharynx Neck exam: Present: normal inspection, full ROM Respiratory exam: Present: normal lung sounds bilaterally. Absent: respiratory distress, wheezes, rales, rhonchi, stridor, accessory muscle use Cardiovascular Exam: Present: regular rate, normal rhythm, normal heart sounds. Absent: systolic murmur, diastolic murmur, rubs, gallop GI/Abdominal exam: Present: soft, tenderness (Mild epigastric tenderness, no rebound or guarding). Absent: distended, guarding, rebound, rigid, mass, pulsatile mass, hernia Extremities exam: Present: normal inspection, normal capillary refill. Absent: pedal edema, calf tenderness Back exam: Present: normal inspection. Absent: CVA tenderness (R), CVA tenderness (L) Neurological exam: Present: alert Skin exam: Present: warm, dry, intact, normal color. Absent: rash <Hermann Allen - Last Filed: 11/19/23 06:52> - General Exam Comments Initial Comments: Visual Physical Exam Vital signs reviewed General: Well-appearing, nontoxic, no acute distress. Head: Normocephalic, atraumatic Eyes: PERRLA, EOMI ENT: Airway patent Chest: Nonlabored breathing Skin: No visual rash, normal skin tone Neuro: Alert and oriented 3 Musculoskeletal: No gross abnormalities (Mary Dalal) Course Vital Signs 11/18/23 11/18/23 11/18/23 14:08 17:51 21:52 Temperature 98.1 F 98 F 98.2 F Pulse Rate 84 73 80 Respiratory 16 18 18 Rate Blood Pressure 148/89 157/85 146/83 O2 Sat by Pulse 99 98 98 Oximetry Medical Decision Making <Mary Dalal - Last Filed: 11/18/23 14:59> - Lab Data Result diagrams: 11/18/23 17:00 11/18/23 17:00 <Hermann Allen - Last Filed: 11/19/23 06:52> - Medical Decision Making I completed the quick note portion of this chart signed Mary Dalal PA-C (Mary Dalal) The patient had chest x-ray that I interpreted as negative for acute infiltrate, pneumothorax, congestive heart failure The patient had CT scan of the abdomen and pelvis which I interpreted as negative for free air, bowel obstruction, or other acute surgical condition. This patient is 67-year-old woman who has had constellation of symptoms that she develops when she is sleeping. These have been going on for many months. The patient has had sleep study associated with this. The main complaint today seem to be related to upper abdominal pain. There was some epigastric tenderness send patient had CT scan which does not reveal acute cause. Patient to have follow-up with her surgeon, she has seen Dr. Bernal. Return parameters Was pt. sent in by a medical professional or institution ([facility], [place] [facility], urgent care, hospital, or halfway...) When possible be specific @ -[No] Did you speak to anyone other than the patient for history (EMS, parent, family, police, friend...)? What history was obtained from this source @ -[No] Did you review nursing and triage notes (agree or disagree)? Why? @ -[I reviewed and agree with nursing and triage notes] Were old charts reviewed (outside hosp., previous admission, EMS record, old EKG, old radiological studies, urgent care reports/EKG's, halfway records)? Report findings @ -[No old charts were reviewed] Differential Diagnosis (chest pain, altered mental status, abdominal pain women, abdominal pain men, vaginal bleeding, weakness, fever, dyspnea, syncope, headache, dizziness, GI bleed, back pain, seizure, CVA, palpatations, mental health, musculoskeletal)? @ -[Differential Abdominal Pain Women: Appendicitis, Cholecystitis, diverticulosis, ischemic bowel, pancreatitis, hepatitis, UTI, gastroenteritis, AAA, incarcerated hernia, bowel obstruction, constipation, inflammatory bowel, hepatitis, peptic ulcer disease, splenic infarction, perforated viscus, vulvitis, ovarian torsion, PID, kidney stone, placenta abruption, this is not meant to be an all-inclusive list EKG interpreted by me (3pts min.). @ -[I interpreted as above] X-rays interpreted by me (1pt min.). @ -[I interpreted as above CT interpreted by me (1pt min.). @ -[I interpreted as above U/S interpreted by me (1pt. min.). @ -[None done] What testing was considered but not performed or refused? (CT, X-rays, U/S, labs)? Why? @ -[None] What meds were considered but not given or refused? Why? @ -[None] Did you discuss the management of the patient with other professionals (professionals i.e. , PA, [place] [facility], lab, RT, psych nurse, social worker delinquency prevention, spragger, teacher, dog control officer, cyanide case hardener)? Give summary @ -[No] Was smoking cessation discussed for >3mins.? @ -[No] Was critical care preformed (if so, how long)? @ -[No] Were there social determinants of health that impacted care today? How? (Homelessness, low income, unemployed, alcoholism, drug addiction, transportation, low edu. Level, literacy, decrease access to med. care, [facility], rehab)? @ -[No] Was there de-escalation of care discussed even if they declined (Discuss DNR or withdrawal of care, Hospice)? DNR status @ -[No] What co-morbidities impacted this encounter? (DM, HTN, Smoking, COPD, CAD, Cancer, CVA, ARF, Chemo, Hep., AIDS, mental health diagnosis, sleep apnea, morbid obesity)? @ -[None] Was patient admitted / discharged? Hospital course, mention meds given and route, prescriptions, significant lab abnormalities, going to OR and other perti nent info. @ -[See above Undiagnosed new problem with uncertain prognosis? @ -[No] Drug Therapy requiring intensive monitoring for toxicity (Heparin, Nitro, Insulin, Cardizem)? @ -[No] Were any procedures done? @ -[No] Diagnosis/symptom? @ -[Acute abdominal pain Acute, or Chronic, or Acute on Chronic? @ -[Acute Uncomplicated (without systemic symptoms) or Complicated (systemic symptoms)? @ -[default] Side effects of treatment? @ -[No] Exacerbation, Progression, or Severe Exacerbation? @ -[No] Poses a threat to life or bodily function? How? (Chest pain, [place], [place], pneumonia, PE, COPD, DKA, ARF, appy, cholecystitis, CVA, Diverticulitis, Homicidal, Suicidal, threat to staff... and all critical care pts) @ -[No] (Hermann Allen) - Lab Data Lab Results 11/18/23 11/18/23 11/18/23 Range/Units 15:13 17:00 17:00 WBC 4.9 (3.8-10.6) k/uL RBC 3.83 (3.80-5.40) m/uL Hgb 12.9 (11.4-16.0) gm/dL Hct 39.6 (34.0-46.0) % MCV 103.3 H (80.0-100.0) fL MCH 33.7 (25.0-35.0) pg MCHC 32.6 (31.0-37.0) g/dL RDW 14.1 (11.5-15.5) % Plt Count 153 (150-450) k/uL MPV 7.2 Neutrophils % 72 % Lymphocytes % 15 % Monocytes % 10 % Eosinophils % 0 % Basophils % 0 % Neutrophils # 3.5 (1.3-7.7) k/uL Lymphocytes # 0.7 L (1.0-4.8) k/uL Monocytes # 0.5 (0-1.0) k/uL Eosinophils # 0.0 (0-0.7) k/uL Basophils # 0.0 (0-0.2) k/uL Macrocytosis Slight Sodium 136 L (137-145) mmol/L Potassium 3.8 (3.5-5.1) mmol/L Chloride 95 L (98-107) mmol/L Carbon Dioxide 28 (22-30) mmol/L Anion Gap 13 mmol/L BUN 19 H (7-17) mg/dL Creatinine 1.07 H (0.52-1.04) mg/dL Est GFR (CKD-EPI)AfAm 62 (>60 ml/min/1.73 sqM) Est GFR (CKD-EPI)NonAf 54 (>60 ml/min/1.73 sqM) Glucose 124 H (74-99) mg/dL Calcium 10.1 (8.4-10.2) mg/dL Magnesium (1.6-2.3) mg/dL Total Bilirubin 1.4 H (0.2-1.3) mg/dL AST 104 H (14-36) U/L ALT 81 H (4-34) U/L Alkaline Phosphatase 102 (38-126) U/L Troponin I (0.000-0.034) ng/mL Total Protein 7.7 (6.3-8.2) g/dL Albumin 4.8 (3.5-5.0) g/dL Urine Color Urine Appearance (Clear) Urine pH (5.0-8.0) Ur Specific [place] (1.001-1.035) Urine Protein (Negative) Urine Glucose (UA) (Negative) Urine Ketones (Negative) Urine Blood (Negative) Urine Nitrite (Negative) Urine Bilirubin (Negative) Urine Urobilinogen (<2.0) mg/dL Ur Leukocyte Esterase (Negative) Influenza Type A (PCR) Not Detected (Not Detectd) Influenza Type B (PCR) Not Detected (Not Detectd) RSV (PCR) Not Detected (Not Detectd) SARS-CoV-2 (PCR) Not Detected (Not Detectd) 11/18/23 11/18/23 11/18/23 Range/Units 17:52 17:52 18:30 WBC (3.8-10.6) k/uL RBC (3.80-5.40) m/uL Hgb (11.4-16.0) gm/dL Hct (34.0-46.0) % MCV (80.0-100.0) fL MCH (25.0-35.0) pg MCHC (31.0-37.0) g/dL RDW (11.5-15.5) % Plt Count (150-450) k/uL MPV Neutrophils % % Lymphocytes % % Monocytes % % Eosinophils % % Basophils % % Neutrophils # (1.3-7.7) k/uL Lymphocytes # (1.0-4.8) k/uL Monocytes # (0-1.0) k/uL Eosinophils # (0-0.7) k/uL Basophils # (0-0.2) k/uL Macrocytosis Sodium (137-145) mmol/L Potassium (3.5-5.1) mmol/L Chloride (98-107) mmol/L Carbon Dioxide (22-30) mmol/L Anion Gap mmol/L BUN (7-17) mg/dL Creatinine (0.52-1.04) mg/dL Est GFR (CKD-EPI)AfAm (>60 ml/min/1.73 sqM) Est GFR (CKD-EPI)NonAf (>60 ml/min/1.73 sqM) Glucose (74-99) mg/dL Calcium (8.4-10.2) mg/dL Magnesium 1.4 L (1.6-2.3) mg/dL Total Bilirubin (0.2-1.3) mg/dL AST (14-36) U/L ALT (4-34) U/L Alkaline Phosphatase (38-126) U/L Troponin I <0.012 (0.000-0.034) ng/mL Total Protein (6.3-8.2) g/dL Albumin (3.5-5.0) g/dL Urine Color Colorless Urine Appearance Clear (Clear) Urine pH 7.5 (5.0-8.0) Ur Specific [place] 1.009 (1.001-1.035) Urine Protein Trace H (Negative) Urine Glucose (UA) Negative (Negative) Urine Ketones Negative (Negative) Urine Blood Negative (Negative) Urine Nitrite Negative (Negative) Urine Bilirubin Negative (Negative) Urine Urobilinogen <2.0 (<2.0) mg/dL Ur Leukocyte Esterase Negative (Negative) Influenza Type A (PCR) (Not Detectd) Influenza Type B (PCR) (Not Detectd) RSV (PCR) (Not Detectd) SARS-CoV-2 (PCR) (Not Detectd) Disposition <Mary Dalal - Last Filed: 11/18/23 14:59> Is patient prescribed a controlled substance at d/c from ED?: No <Hermann Allen - Last Filed: 11/19/23 06:52> Clinical Impression: Abdominal pain Disposition: HOME SELF-CARE Condition: Good Instructions (If sedation given, give patient instructions): Abdominal Pain (ED) Referrals: Arvind Hughes DO [Primary Care Provider] - 1-2 days
--- NOTE | 2023-11-18 15:54 | XR ---
EXAMINATION TYPE: XR chest 2V DATE OF EXAM: 11/18/2023 COMPARISON: 08/29/2023 HISTORY: 67-year-old female worsening cough and history of COPD TECHNIQUE: PA and lateral views FINDINGS: Dextroconvex scoliosis lower thoracic spine. Heart normal size. Hyperinflation. No consolidation or p leural effusion. Lower thoracolumbar fusion hardware. IMPRESSION: COPD. Dextroconvex scoliosis. No definite acute process. [facility], , 11/18/2023 3:51 PM
[2023-11-18 17:08] LABS: Basophils % (A) 0 %; Eosinophils % (A) 0 %; HCT 39.6 % (34.0-46.0); HGB 12.9 gm/dL (11.4-16.0); Lymphocytes # (A) 0.7 k/uL (1.0-4.8); Lymphocytes % (A) 15 %; MCH 33.7 pg (25.0-35.0); MCHC 32.6 g/dL (31.0-37.0); MCV 103.3 fL (80.0-100.0); Macrocytosis Slight; Mean Platelet Volume 7.2; Monocytes # (A) 0.5 k/uL (0-1.0); Monocytes % (A) 10 %; Neutrophils # (A) 3.5 k/uL (1.3-7.7); Neutrophils % (A) 72 %; Platelet Count 153 k/uL (150-450); RBC 3.83 m/uL (3.80-5.40); RDW 14.1 % (11.5-15.5); WBC 4.9 k/uL (3.8-10.6)
[2023-11-18 17:18] LABS: ALT 81 U/L (4-34); AST 104 U/L (14-36); African American GFR (CKD) 62 (>60 ml/min/1.73 sqM); Albumin 4.8 g/dL (3.5-5.0); Alkaline Phosphatase 102 U/L (38-126); Anion Gap 13 mmol/L; Blood Urea Nitrogen 19 mg/dL (7-17); Calcium 10.1 mg/dL (8.4-10.2); Carbon Dioxide 28 mmol/L (22-30); Chloride 95 mmol/L (98-107); Glucose 124 mg/dL (74-99); Non-African American GFR(CKD) 54 (>60 ml/min/1.73 sqM); Potassium 3.8 mmol/L (3.5-5.1); Sodium 136 mmol/L (137-145); Total Bilirubin 1.4 mg/dL (0.2-1.3); Total Protein 7.7 g/dL (6.3-8.2)
[2023-11-18 17:52] VITALS: RESP 18
[2023-11-18 19:04] LABS: Appearance,Urine Clear (Clear); Bilirubin,Urine Negative (Negative); Blood,Urine Negative (Negative); Color,Urine Colorless; Glucose,Urine (UA) Negative (Negative); Ketones,Urine Negative (Negative); Leukocyte Esterase,Urine Negative (Negative); Nitrite,Urine Negative (Negative); PH, Urine 7.5 (5.0-8.0); Protein,Urine Trace (Negative); Specific Gravity,Urine 1.009 (1.001-1.035); Urobilinogen,Urine <2.0 mg/dL (<2.0)
[2023-11-18] MEDS: MORPHINE SULFATE 4 MG/ML SYRINGE IV STA (20:14)
--- NOTE | 2023-11-18 21:00 | CT ---
EXAMINATION TYPE: CT abdomen pelvis wo con CT DLP: 772.9 mGycm, Automated exposure control for dose reduction was used. DATE OF EXAM: 11/18/2023 8:40 PM COMPARISON: CT abdomen pelvis most recent from CLINICAL INDICATION: Female, 67 years old with history of abdominal pain; Abdominal pain, N/V/D. TECHNIQUE: Axial CT abdomen pelvis wo con;Sagittal and coronal reformats were created on a separate workstation. Contrast used: mL of , (none if empty) Oral contrast used: without Oral Contrast (none if empty) FINDINGS: LOWER CHEST: Posterior Bochdalek fat-containing hernia. ABDOMEN LIVER: Low-density area near the falciform ligament measuring 26 x 11 mm and in the right hepatic lob e near the periphery measuring 18 x 12 mm. GALLBLADDER AND BILE DUCTS: Unremarkable. PANCREAS: Unremarkable. SPLEEN: Unremarkable. ADRENAL GLANDS: Unremarkable. KIDNEYS AND URETERS: No evidence of hydronephrosis or renal calculus. The ureters are unremarkable. PELVIS BLADDER: Unremarkable REPRODUCTIVE: Unremarkable. ABDOMEN & PELVIS STOMACH AND BOWEL: No evidence of bowel obstruction. Clonic diverticulosis. PERITONEUM/RETROPERITONEUM: No evidence of pneumoperitoneum or free fluid. VASCULATURE: No evidence of aortic aneurysm. MUSCULOSKELETAL: No acute osseous abnormalities, postsurgical changes to the spine with hardware inta ct. Scoliosis changes with multilevel degeneration of the spine. Degeneration changes of the hips. LYMPH NODES: No gross evidence for lymphadenopathy. SOFT TISSUE/ABDOMINAL WALL: Unremarkable IMPRESSION: 1. No evidence for acute abdominal process. 2. Indeterminate lesions within the liver, these are seen dating back to 09/15/2021. These can be fur ther evaluated with MRI withIV contrast liver mass protocol. 3. Colonic diverticulosis. 4. Fixation changes to the spine with hardware intact. [facility], , 11/18/2023 8:58 PM
[2023-11-18 21:53] VITALS: BP 146/83; PULSE 80; TEMP 98.2
== END 2023-11-18 22:04 | disposition home or self-care (01) ==
LOC: EC 14:01
CPT/HCPCS: 36415; 71046; 74176; 80053; 81003; 83735; 84484; 85025; 87636; 96374; 99284

== ENCOUNTER → 2023-11-21 | Outpatient (CLI) | payer MEDICARE, OTHER ==
[2023-11-21 13:48] VITALS: BP 110/61; PULSE 74; RESP 16; TEMP 97.8
--- NOTE | 2023-11-21 14:38 | P.PROGSL ---
Subjective DATE: 11/21/2023 FOLLOW UP VISIT. Patient with obstructive sleep apnea hypopnea syndrome return to sleep center for follow-up visit. Recently patient had sleep study which documented obstructive sleep apnea hypopnea syndrome. I explained to the patient results of sleep study in details. Patient was initiated on PAP therapy and today is first visit after treatment was started. Patient was able to use PAP equipment every night for the whole night. The patient does not have significant problems with the mask, PAP pressure and humidification. [place] sleepiness scale is 8, which is normal. I checked information from PAP unit. PAP unit pressure 5-13, average 9.8 cm H2O. Usage is 97% for more then 4 hours, average 7 hours per night. Leak is 22.4 l/m, which is in acceptable range. Apnea Hypopnea Index is 0.3, which is perfect. MEDICATIONS: Please see below During physical exam: GENERAL: A pleasant patient without any distress. VITAL SIGNS: Please see below, weight 179 pounds. HEENT: PERRLA, EOMI.low position of soft palate, Mallapati 4 . NECK: Supple. No JVD. LUNGS: Clear to percussion and to auscultation. Good air exchange. No wheezing or rhonchi. HEART: S1, S2 regular. ABDOMEN: Soft and nontender.[] EXTREMITIES: No clubbing or cyanosis. GREENSKEEPER SUPERVISOR: Awake, alert, and oriented x3. No focal deficit. Impressions: 1. Obstructive sleep apnea-hypopnea syndrome. Patient demonstrated great compliance with treatment, benefiting from treatment. 2. Hypertension. 3. Hyperlipidemia. 4. Acid reflux. 5. History of possible coronary artery disease. 6. Status post back fracture and back surgery in 2022. Plan: 1. Continue using PAP equipment every night for the whole night. 2. To change air filter at least 1-2 times per month. 3. PAP unit should stay lower then position of the head. 4. Advised patient to remove all remaining water from humidifier canister daily and make it dry after each usage. Refill canister with fresh distilled water before each usage. 5. Sleep hygiene with regular time in bed for at least 8 hours. 6. Precautions related to driving. No driving if feel any sleepiness. 7. I will maintain prescription for PAP supplies including mask, tube, filters. 8. Follow up visit in 6 months or earlier if patient has any problems. 9. Watching weight. Thank you very much for allowing me to participate in the management of your patient. Wellington Shetty MD, PhD, FAASM. Diplomat of [place] [employer], Sleep Medicine Board by [place] [employer] [facility] Objective - Vital Signs Vital Signs: Vital Signs Temp 97.8 F 11/21/23 13:45 Pulse 74 11/21/23 13:45 Resp 16 11/21/23 13:45 BP 110/61 11/21/23 13:45 Pulse Ox 97 11/21/23 13:45 FiO2 Home Medications: Home Medications Medication Instructions Recorded Confirmed Type Alendronate Sodium 70 mg PO FRANCO 03/08/21 11/18/23 History Simvastatin [Zocor] 20 mg PO HS 03/08/21 11/18/23 History amLODIPine [Norvasc] 5 mg PO DAILY #14 tab 08/06/22 11/18/23 Rx Lutein 20 mg PO DAILY 01/13/23 11/18/23 History hydroCHLOROthiazide 12.5 mg PO DAILY 01/13/23 11/18/23 History Omeprazole 40 mg PO DAILY 07/04/23 11/18/23 History Propranolol [Inderal] 20 mg PO DAILY 07/04/23 11/18/23 History Aspirin EC [Ecotrin Low Dose] 81 mg PO MOWEFR 11/18/23 11/18/23 History Cetirizine HCl [Zyrtec] 10 mg PO HS 11/18/23 11/18/23 History Cholecalciferol (Vitamin D3) 50 mcg PO DAILY 11/18/23 11/18/23 History [Vitamin D3 (50 Mcg = 2000 Iu)] L.acidoph,Paracasei, B.lactis 1 cap PO DAILY 11/18/23 11/18/23 History [Probiotic] Magnesium Oxide [Mag-Ox] 400 mg PO DAILY 11/18/23 11/18/23 History Multivitamins, Thera [Multivitamin 1 tab PO DAILY 11/18/23 11/18/23 History (formulary)]
== END ==
LOC: 3 N SLEEP 13:33
PROVIDERS: ATTEND Internal Medicine
CPT/HCPCS: 99212

== ENCOUNTER → 2023-11-21 | Outpatient (CLI) | payer MEDICARE, OTHER ==
--- NOTE | 2023-11-21 16:18 | XR ---
EXAMINATION TYPE: XR cervical spine comp DATE OF EXAM: 11/21/2023 3:11 PM CLINICAL INDICATION: Female, 67 years old with history of M51.36 DDD; COMPARISON: None TECHNIQUE: The cervical spine was imaged in frontal, lateral, odontoid and bilateral oblique. FINDINGS: The osseous structures show normal alignment without evidence of an acute fracture. There are osteoph ytes noted throughout the cervical spine on the anterior and lateral aspects of the vertebral bodies. The intervertebral disk spaces are narrowed at multiple levels. Pedicles are intact. Soft tissues a re within normal limits. The odontoid appears intact. IMPRESSION: 1. No fracture or dislocation 2. Mild degenerative disc disease changes of the cervical spine. [facility], , 11/21/2023 4:15 PM
== END | disposition home or self-care (01) ==
LOC: RADXRMAIN 14:34
PROVIDERS: ATTEND Family Medicine
DX: M51.36 Other intervertebral disc degeneration, lumbar region
CPT/HCPCS: 72050

== ENCOUNTER → 2023-12-11 | Outpatient (CLI) | payer MEDICARE, OTHER ==
--- NOTE | 2023-12-11 09:47 | US ---
EXAMINATION TYPE: US liver DATE OF EXAM: 12/11/2023 COMPARISON: CT: 11/18/23, US: 08/10/22 CLINICAL INDICATION: Female, 68 years old with history of R10.11 RUQ PAIN R16.0 HEPATOMEGALY; hepatom egaly, liver mass TECHNIQUE: Grayscale and color Doppler imaging of the right upper quadrant was performed. FINDINGS: EXAM MEASUREMENTS: Liver Length: 10.9 cm Gallbladder Wall: 0.15 cm CBD: 0.46 cm Right Kidney: 11.7 x 4.4 x 5.0 cm PORTER HEAD NOTES: Pancreas: parts seen appear wnl Liver: heterogeneous. No mass seen on today's exam Gallbladder: wnl Evidence for sonographic Langley's sign: No CBD: wnl Right Kidney: wnl IMPRESSION: Heterogenous appearance of the liver without discrete mass identified corresponding to CT. May repres ent focal fatty infiltration. Consider further evaluation with MRI abdomen with IV contrast liver mas s protocol. [facility], , 12/11/2023 9:45 AM
== END | disposition home or self-care (01) ==
LOC: RADUSWWP 07:12
PROVIDERS: ATTEND Surgery Plastic and Reconstructive Surgery
DX: R10.11 Right upper quadrant pain (principal); R16.0 Hepatomegaly, not elsewhere classified
CPT/HCPCS: 76705

== ENCOUNTER 2024-01-03 07:10 | Day surgery (SDC) | payer MEDICARE, OTHER ==
[2024-01-03] MEDS: IV FLUID CONTINUATION 1,000 ML IV ONE (07:27)
[2024-01-03 07:46] VITALS: TEMP 97.4
[2024-01-03] MEDS: LACTATED RINGERS 1,000 ML IV SCH (07:48)
[2024-01-03] MEDS ORDERED: LIDOCAINE 1% INJ 10MG/ML (20 ML MDV) ONE (08:15)
[2024-01-03] MEDS ORDERED: PROPOFOL 10 MG/ML 20 ML VIAL IV ONE (08:15)
--- NOTE | 2024-01-03 08:20 | P.GSHP ---
History of Present Illness H&P Date: 01/03/24 CHIEF COMPLAINT: Esophageal stricture HISTORY OF PRESENT ILLNESS: The patient is a 68-year-old female who presents reports dysphagia. Upper endoscopy was offered for further evaluation and management. PAST MEDICAL HISTORY: Please see list. PAST SURGICAL HISTORY: Please see list. MEDICATIONS: Please see list. ALLERGIES: Please see list. SOCIAL HISTORY: No illicit drug use FAMILY HISTORY: No reports of Crohn disease or ulcerative colitis. REVIEW OF ORGAN SYSTEMS: CONSTITUTIONAL: No reports of fevers or chills. GI: Denies any blood in stools or constipation. PHYSICAL EXAM: VITAL SIGNS: Stable GENERAL: Well-developed and pleasant in no acute distress. HEENT: No scleral icterus. Extraocular movements grossly intact. Moist buccal mucosa. NECK: Supple without lymphadenopathy. CHEST: Unlabored respirations. Equal bilateral excursions. CARDIOVASCULAR: Regular rate and rhythm. Distal 2+ pulses. ABDOMEN: Soft, nondistended. MUSCULOSKELETAL: No clubbing, cyanosis, or edema. ASSESSMENT: 1. Esophageal stricture PLAN: 1. Recommend proceeding with an upper endoscopy with rigid dilators. Past Medical History Past Medical History: COPD, Eye Disorder, GERD/Reflux, Hyperlipidemia, Hypertension, Osteoarthritis (OA) Additional Past Medical History / Comment(s): Glaucoma and Macular Degeneration., scoliosis with surgery, , lumps on her thyroid no plan, hx of left foot fx with surgery feb 2021 & some difficulty walking at times and uses motor w/c at store., wears CPAP. Face is red and splotchy. Scoliosis thoracolumbar surgery in with subsequent removal of hardware in [place] History of Any Multi-Drug Resistant Organisms: None Reported Past Surgical History: Back Surgery, Section, Hernia Repair, Orthopedic Surgery Additional Past Surgical History / Comment(s): Surgery for scoliosis with rods, later removed , replaced rods when she broke her back. , left foot surgery with pin placed (feb 2021), EGD WITH DILATION (11/23/21)., HYSTEROSCOPY, tubal ligation with c section, cataracts removed Past Anesthesia/Blood Transfusion Reactions: Postoperative Nausea & Vomiting (PO NV) Additional Past Anesthesia/Blood Transfusion Reaction / Comment(s): post-op headache Smoking Status: Never smoker - Past Family History Mother Family Medical History: Cancer, CVA/TIA Father Family Medical History: CVA/TIA Medications and Allergies Home Medications Medication Instructions Recorded Confirmed Type Alendronate Sodium 70 mg PO FRANCO 03/08/21 01/03/24 History Simvastatin [Zocor] 20 mg PO HS 03/08/21 01/03/24 History amLODIPine [Norvasc] 5 mg PO DAILY #14 tab 08/06/22 01/03/24 Rx Lutein 20 mg PO DAILY 01/13/23 01/03/24 History hydroCHLOROthiazide 25 mg PO DAILY 01/13/23 01/03/24 History Omeprazole 40 mg PO DAILY 07/04/23 01/03/24 History Propranolol [Inderal] 20 mg PO DAILY 07/04/23 01/03/24 History Aspirin EC [Ecotrin Low Dose] 81 mg PO MOWEFR 11/18/23 01/03/24 History Cetirizine HCl [Zyrtec] 10 mg PO HS 11/18/23 01/03/24 History Cholecalciferol (Vitamin D3) 50 mcg PO DAILY 11/18/23 01/03/24 History [Vitamin D3 (50 Mcg = 2000 Iu)] L.acidoph,Paracasei, B.lactis 1 cap PO DAILY 11/18/23 01/03/24 History [Probiotic] Magnesium Oxide [Mag-Ox] 400 mg PO DAILY 11/18/23 01/03/24 History Multivitamins, Thera [Multivitamin 1 tab PO DAILY 11/18/23 01/03/24 History (formulary)] Ibuprofen [Motrin Ib] 200 mg PO DIRECTED PRN 01/02/24 01/03/24 History Loratadine [Claritin] 10 mg PO DAILY 01/02/24 01/03/24 History Unk Albuterol Inhaler 1 puff INHALATION DIRECTED 01/02/24 01/03/24 History Allergies Allergy/AdvReac Type Severity Reaction Status Date / Time KAYLEIGH Inhibitors Allergy Anaphylaxis Verified 01/03/24 07:32 codeine Allergy Rash/Hives/ Verified 01/03/24 07:32 Migraines latanoprost [From [facility]] Allergy Swelling Verified 01/03/24 07:32 [facility] Allergy Swelling Verified 01/03/24 07:32 eye Penicillins Allergy Rash/Hives Verified 01/03/24 07:32 Surgical - Exam Vital Signs Temp Pulse Resp BP Pulse Ox 97.4 F L 78 16 137/68 97 10/31/24 07:44 01/03/24 07:44 01/03/24 07:44 01/03/24 07:44 01/03/24 07:44
--- NOTE | 2024-01-03 08:34 | P.PCN ---
Date of Procedure: 01/03/24 Description of Procedure: PREOPERATIVE DIAGNOSIS: Dysphagia. Gastroesophageal reflux disease Esophageal stricture POSTOPERATIVE DIAGNOSIS: Dysphagia. Gastroesophageal reflux disease Esophageal stricture, upper Gastritis Diaphragmatic hiatal hernia OPERATION: Esophagogastroduodenoscopy with rigid dilator over the guidewire 51 Fr. SURGEON: Yarely Bernal MD ANESTHESIA: MAC. INDICATIONS: The patient is a 68-year-old female who presents with a history of dysphagia. Benefits and risks of the procedure were described. Informed consent was obtained. DESCRIPTION: The patient was brought into the endoscopy suite and laid in the left lateral decubitus position. After a timeout was confirmed, the procedure was initiated. An Olympus gastroscope was passed and the stomach was entered. Mild gastritis was identified. The scope was advanced to the duodenum which was unremarkable. Retroflexion the scope confirmed a Hill grade 2 lower esophageal valve. Next using an Mexican rigid dilator, a guidewire was placed through the pediatric gastroscope. Next the scope was withdrawn. A 51-Zimbabwean rigid Mexican dilator was passed carefully along the posterior oropharynx to 50 cm and left in place for 2-3 minutes stretch. The dilator was withdrawn including the guidewire. The scope was reentered along the posterior oropharynx with no findings of full-thickness tear of the upper esophageal sphincter. No full-thickness injury was encountered. The GI tract was desufflated. The patient tolerated the procedure well. FINDINGS: Squamocolumnar junction unremarkable at 35 cm. Upper esophageal stricture without ulceration Mexican rigid dilator 51-Zimbabwean completed. Diaphragmatic hiatus at 38 cm, 3 cm hiatal hernia Diffuse gastritis. Hill grade 2 lower esophageal valve. LA grade A esophagitis. RECOMMENDATIONS: Repeat upper endoscopy as needed with dilation Recommend warm beverages prior to eating Plan - Discharge Summary Discharge Rx Participant: No New Discharge Prescriptions: Continue Alendronate Sodium 70 mg PO FRANCO Simvastatin [Zocor] 20 mg PO HS amLODIPine [Norvasc] 5 mg PO DAILY #14 tab Multivitamins, Thera [Multivitamin (formulary)] 1 tab PO DAILY Cetirizine HCl [Zyrtec] 10 mg PO HS Aspirin EC [Ecotrin Low Dose] 81 mg PO MOWEFR Loratadine [Claritin] 10 mg PO DAILY Unk Albuterol Inhaler 1 puff INHALATION DIRECTED Ibuprofen [Motrin Ib] 200 mg PO DIRECTED PRN PRN Reason: Pain Lutein 20 mg PO DAILY hydroCHLOROthiazide 25 mg PO DAILY Propranolol [Inderal] 20 mg PO DAILY Omeprazole 40 mg PO DAILY Magnesium Oxide [Mag-Ox] 400 mg PO DAILY L.acidoph,Paracasei, B.lactis [Probiotic] 1 cap PO DAILY Cholecalciferol (Vitamin D3) [Vitamin D3 (50 Mcg = 2000 Iu)] 50 mcg PO DAILY Discharge Medication List Alendronate Sodium 70 mg PO FRANCO 03/08/21 [History] Simvastatin [Zocor] 20 mg PO HS 03/08/21 [History] amLODIPine [Norvasc] 5 mg PO DAILY #14 tab 08/06/22 [Rx] Lutein 20 mg PO DAILY 01/13/23 [History] hydroCHLOROthiazide 25 mg PO DAILY 01/13/23 [History] Omeprazole 40 mg PO DAILY 07/04/23 [History] Propranolol [Inderal] 20 mg PO DAILY 07/04/23 [History] Aspirin EC [Ecotrin Low Dose] 81 mg PO MOWEFR 11/18/23 [History] Cetirizine HCl [Zyrtec] 10 mg PO HS 11/18/23 [History] Cholecalciferol (Vitamin D3) [Vitamin D3 (50 Mcg = 2000 Iu)] 50 mcg PO DAILY 11/18/23 [History] L.acidoph,Paracasei, B.lactis [Probiotic] 1 cap PO DAILY 11/18/23 [History] Magnesium Oxide [Mag-Ox] 400 mg PO DAILY 11/18/23 [History] Multivitamins, Thera [Multivitamin (formulary)] 1 tab PO DAILY 11/18/23 [History] Ibuprofen [Motrin Ib] 200 mg PO DIRECTED PRN 01/02/24 [History] Loratadine [Claritin] 10 mg PO DAILY 01/02/24 [History] Unk Albuterol Inhaler 1 puff INHALATION DIRECTED 01/02/24 [History] Follow up Appointment(s)/Referral(s): Yarely Bernal MD [STAFF PHYSICIAN] - 01/15/24 2:45 pm Patient Instructions/Handouts: Esophageal Dilation (DC) Activity/Diet/Wound Care/Special Instructions: Warm beverages for 48 hrs Discharge Disposition: HOME SELF-CARE
[2024-01-03 08:58] VITALS: RESP 18
[2024-01-03 09:06] VITALS: BP 133/79; PULSE 72
== END 2024-01-03 09:13 | disposition home or self-care (01) ==
LOC: ORWHC2ENDO 07:10
PROVIDERS: ATTEND Surgery Plastic and Reconstructive Surgery
DX: R13.10 Dysphagia, unspecified (principal); K29.70 Gastritis, unspecified, without bleeding; K21.9 Gastro-esophageal reflux disease without esophagitis; F10.90 Alcohol use, unspecified, uncomplicated; Z88.5 Allergy status to narcotic agent; Z88.0 Allergy status to penicillin; Z88.8 Allergy status to other drugs, medicaments and biological substances
CPT/HCPCS: 43248; J2003; J2704

== ENCOUNTER 2024-01-18 07:50 | Day surgery (SDC) | payer MEDICARE, OTHER ==
[2024-01-17 09:16] VITALS: BMI 29.9
--- NOTE | 2024-01-18 05:33 | P.GSHP ---
History of Present Illness H&P Date: 01/18/24 CHIEF COMPLAINT: Cholecystitis HISTORY OF PRESENT ILLNESS: The patient is a 68-year-old female who presents with history of epigastric including right upper quadrant abdominal pain. She underwent diagnostic studies for her gallbladder. Separately her clinical picture was consistent with cholecystitis. Now she presents for surgical intervention. PAST MEDICAL HISTORY: Please see list PAST SURGICAL HISTORY: Please see list MEDICATIONS: Please see list ALLERGIES: Please see list SOCIAL HISTORY: Please see list FAMILY HISTORY: Please see list REVIEW OF ORGAN SYSTEMS: CONSTITUTIONAL: No reports of fevers or chills. HEENT: Denies any troubles with the vision or hearing. ENDOCRINE: No reports of hypothyroidism. No diabetes. RESPIRATORY: No recent pneumonias. CARDIOVASCULAR: Has hypertensive heart disease. GI: Has chronic epigastric and right upper quadrant pain with reflux. MUSCULOSKELETAL: Has occasional joint pain including back pain. NEURO: No seizure disorders or headaches. No recent stroke. PSYCH: No depression or suicidal ideation. GENITOURINARY: No active blood in urine. No urinary hesitancy. HEMATOLOGIC: No personal or family history of DVTs or pulmonary emboli. SKIN: No skin cancer. PHYSICAL EXAM: VITAL SIGNS: Afebrile vital signs stable GENERAL: Well-developed pleasant in no acute distress. HEENT: No scleral icterus. Extraocular movements grossly intact. Moist buccal mucosa. NECK: Supple without lymphadenopathy. CHEST: Unlabored respirations. Equal bilateral excursions. CARDIOVASCULAR: Regular rate regular rhythm rhythm. Distal 2+ pulses. ABDOMEN: Soft, nondistended. Tender along the epigastrium and right upper quadrant. MUSCULOSKELETAL: No clubbing, cyanosis, or edema. NEURO: Cranial nerves II to XII within normal limits. No focal or lateralizing signs. PSYCH: Alert and oriented to person, place and time. SKIN: Well-perfused good skin turgor. ASSESSMENT: 1. Epigastric and right upper quadrant abdominal pain 2. Chronic cholecystitis PLAN: 1. Will need a robotic cholecystectomy possible open. Benefits and risks were described. 2. Heparin for DVT prophylaxis 5000 units. 3. Antibiotic prophylaxis. 4. CBC and CMP on day of procedure 5. Non-narcotic pre and post op pain management reviewed. 6. Indocyanine green for biliary imaging. 7. She is elevated risk with her co-morbidities Past Medical History Past Medical History: COPD, Eye Disorder, GERD/Reflux, Hyperlipidemia, Hypertension, Osteoarthritis (OA) Additional Past Medical History / Comment(s): Glaucoma and Macular Degeneration., lumps on her thyroid., hx of left foot fx with surgery feb 2021 & some difficulty walking at times and uses motor w/c at store., hiatal hernia, Scoliosis thoracolumbar surgery in with subsequent removal of hardware in [place], GALLBLADDER ISSUES History of Any Multi-Drug Resistant Organisms: None Reported Past Surgical History: Back Surgery, Section, Hernia Repair, Orthopedic Surgery, Tubal Ligation Additional Past Surgical History / Comment(s): Surgery for scoliosis with rods that broke and were removed. , left foot surgery with pin placed (feb 2021), EGD WITH DILATION (11/23/21)., HYSTEROSCOPY, tubal ligation with c section, INGUINAL HERNIA REPAIR, BILAT CATARACTS REMOVED WITH LENS IMPLANTS. Past Anesthesia/Blood Transfusion Reactions: Postoperative Nausea & Vomiting (PONV) Additional Past Anesthesia/Blood Transfusion Reaction / Comment(s): post-op headache Smoking Status: Never smoker - Past Family History Mother Family Medical History: Cancer, CVA/TIA Father Family Medical History: CVA/TIA Medications and Allergies Home Medications Medication Instructions Recorded Confirmed Type Alendronate Sodium 70 mg PO FRANCO 03/08/21 01/17/24 History Simvastatin [Zocor] 20 mg PO HS 03/08/21 01/17/24 History amLODIPine [Norvasc] 5 mg PO DAILY #14 tab 08/06/22 01/17/24 Rx Lutein 20 mg PO DAILY 01/13/23 01/17/24 History hydroCHLOROthiazide 25 mg PO DAILY 01/13/23 01/17/24 History Omeprazole 40 mg PO DAILY 07/04/23 01/17/24 History Propranolol [Inderal] 20 mg PO DAILY 07/04/23 01/17/24 History Aspirin EC [Ecotrin Low Dose] 81 mg PO MOWEFR 11/18/23 01/17/24 History Cetirizine HCl [Zyrtec] 10 mg PO HS 11/18/23 01/17/24 History Cholecalciferol (Vitamin D3) 50 mcg PO DAILY 11/18/23 01/17/24 History [Vitamin D3 (50 Mcg = 2000 Iu)] L.acidoph,Paracasei, B.lactis 1 cap PO DAILY 11/18/23 01/17/24 History [Probiotic] Magnesium Oxide [Mag-Ox] 400 mg PO DAILY 11/18/23 01/17/24 History Multivitamins, Thera [Multivitamin 1 tab PO DAILY 11/18/23 01/17/24 History (formulary)] Ibuprofen [Motrin Ib] 200 mg PO DIRECTED PRN 01/02/24 01/17/24 History Loratadine [Claritin] 10 mg PO DAILY 01/02/24 01/17/24 History Albuterol Inhaler [Ventolin Hfa 1 puff INHALATION QID 01/17/24 01/17/24 History Inhaler] Cyanocobalamin (Vitamin B-12) 1,000 mcg PO DAILY 01/17/24 01/17/24 History [Vitamin B-12] Allergies Allergy/AdvReac Type Severity Reaction Status Date / Time KAYLEIGH Inhibitors Allergy Anaphylaxis Verified 01/17/24 08:51 codeine Allergy Rash/Hives/ Verified 01/17/24 08:51 Migraines latanoprost [From [facility]] Allergy Swelling Verified 01/17/24 08:51 eye netarsudil [From [facility]] Allergy Swelling Verified 01/17/24 08:51 eye Penicillins Allergy Rash/Hives Verified 01/17/24 08:51
[~2024-01-18 07:50] MED LIST changes: -CHLORHEXIDINE GLUCONATE 15 ML CUP MUCOUS MEM PRN; +DEXAMETHASONE SOD PHOSPHATE 4 MG/ML 1 ML VIAL IM STA; -DEXAMETHASONE SOD PHOSPHATE 4 MG/ML 1 ML VIAL IV ONE; -HEPARIN SODIUM,PORCINE/PF 5,000 UNIT/0.5 ML SYRINGE SQ PRN; +INDOCYANINE GREEN 25 MG VIAL IV STA; -MIDAZOLAM 2 MG/2 ML VIAL IV PRN; -ONDANSETRON 4 MG/2 ML VIAL IVP ONE; -PANTOPRAZOLE 40 MG/10 ML VIAL IVP PRN; -SCOPOLAMINE 1 MG/72 HR PATCH TRANSDERM STA; -fentaNYL (PF) 50 MCG/ML 2 ML AMP IV PRN
[2024-01-18] MEDS ORDERED: MIDAZOLAM 2 MG/2 ML VIAL IV PRN (07:52)
[2024-01-18] MEDS ORDERED: fentaNYL (PF) 50 MCG/ML 2 ML AMP IV PRN (07:52)
[2024-01-18] MEDS: IV FLUID CONTINUATION 1,000 ML IV ONE ×2 (08:36→12:49)
[2024-01-18] MEDS: ACETAMINOPHEN TAB 500 MG TAB PO PRN (08:46)
[2024-01-18] MEDS: ONDANSETRON 4 MG/2 ML VIAL IVP PRN (08:46)
[2024-01-18] MEDS: LACTATED RINGERS 1,000 ML IV SCH (08:46)
[2024-01-18] MEDS: HEPARIN SODIUM,PORCINE 5,000 UNIT/ML 1 ML VIAL SQ PRN (08:47)
[2024-01-18] MEDS: DEXAMETHASONE SOD PHOSPHATE 4 MG/ML 1 ML VIAL IVP STA (08:49)
[2024-01-18 08:56] LABS: Basophils % (A) 1 %; Eosinophils # (A) 0.1 k/uL (0-0.7); Eosinophils % (A) 1 %; HCT 39.7 % (34.0-46.0); HGB 13.1 gm/dL (11.4-16.0); Lymphocytes # (A) 0.9 k/uL (1.0-4.8); Lymphocytes % (A) 14 %; MCH 32.8 pg (25.0-35.0); MCV 99.4 fL (80.0-100.0); Mean Platelet Volume 7.2; Monocytes # (A) 0.3 k/uL (0-1.0); Monocytes % (A) 5 %; Neutrophils # (A) 4.8 k/uL (1.3-7.7); Neutrophils % (A) 77 %; Platelet Count 241 k/uL (150-450); RDW 12.4 % (11.5-15.5); WBC 6.2 k/uL (3.8-10.6)
[2024-01-18 09:26] LABS: ALT 115 U/L (4-34); AST 147 U/L (14-36); African American GFR (CKD) 60 (>60 ml/min/1.73 sqM); Albumin 4.8 g/dL (3.5-5.0); Alkaline Phosphatase 90 U/L (38-126); Anion Gap 15 mmol/L; Blood Urea Nitrogen 25 mg/dL (7-17); Calcium 8.8 mg/dL (8.4-10.2); Carbon Dioxide 24 mmol/L (22-30); Chloride 94 mmol/L (98-107); Glucose 83 mg/dL (74-99); Non-African American GFR(CKD) 52 (>60 ml/min/1.73 sqM); Potassium 4.5 mmol/L (3.5-5.1); Sodium 133 mmol/L (137-145); Total Bilirubin 0.7 mg/dL (0.2-1.3); Total Protein 7.7 g/dL (6.3-8.2)
[2024-01-18] MEDS ORDERED: NEOSTIGMINE 1 MG/ML 10 ML VIAL ONE (10:47)
[2024-01-18] MEDS ORDERED: MIDAZOLAM 2 MG/2 ML VIAL ONE (10:47)
[2024-01-18] MEDS ORDERED: LIDOCAINE 1% INJ 10MG/ML (20 ML MDV) ONE (10:47)
[2024-01-18] MEDS ORDERED: ALBUTEROL HFA INHALER INHALATION ONE (10:47)
[2024-01-18] MEDS ORDERED: PROPOFOL 10 MG/ML 20 ML VIAL IV ONE (10:47)
[2024-01-18] MEDS ORDERED: GLYCOPYRROLATE 0.2 MG/ML 2 ML VIAL ONE (10:47)
[2024-01-18] MEDS ORDERED: ROCURONIUM 10 MG/ML (5 ML VIAL) IV ONE (10:47)
[2024-01-18] MEDS ORDERED: fentaNYL (PF) 50 MCG/ML 2 ML AMP ONE (10:47)
[2024-01-18] MEDS ORDERED: SUCCINYLCHOLINE CHLORIDE 200 MG/10 ML VIAL IV ONE (10:47)
[2024-01-18] MEDS ORDERED: PHENYLEPHRINE-0.9% NACL SYG 1,000 MCG/10 ML SYRINGE ONE (10:47)
--- NOTE | 2024-01-18 11:11 | P.HPADDEND ---
H&P Addendum H&P Addendum Date: 01/18/24 Patient has fluctuating liver enzymes including lipase levels. Clinical picture highly suspicious for gallbladder induced pancreatitis. Cholecystectomy described. Repeat CBC and CMP obtained demonstrating elevated LFTs. Will monitor postoperatively.
[2024-01-18] MEDS: LIDOCAINE 1%-EPI 1:100,000 20 ML VIAL SQ ONE (11:19)
[2024-01-18 12:18] VITALS: TEMP 97.1
[2024-01-18 13:24] VITALS: RESP 16
[2024-01-18] MEDS: IBUPROFEN 600 MG TAB PO ONE (13:42)
[2024-01-18 13:53] VITALS: BP 117/71; PULSE 51
--- NOTE | 2024-01-21 20:57 | P.OP ---
Date of Procedure: 01/18/24 Description of Procedure: SURGEON: YARELY BERNAL MD PREOPERATIVE DIAGNOSES: 1. Chronic cholecystitis 2. Right upper quadrant abdominal pain 3. Obesity due to excess calories, BMI 30 4. Hypertensive heart disease 5. Hyperlipidemia 6. Gastroesophageal reflux disease 7. Osteoporosis 8. Chronic obstructive pulmnary disease 9. Glaucoma 10. Macular degeneration 11. Scoliosis 12. Post-op nausea and vomiting POSTOPERATIVE DIAGNOSES: 1. Symptomatic gallstone 2. Right upper quadrant abdominal pain 3. Chronic cholecystitis 4. Peritoneal adhesions, right upper quadrant 5. Hyperlipidemia 6. Gastroesophageal reflux disease 7. Osteoporosis 8. Chronic obstructive pulmnary disease 9. Glaucoma 10. Macular degeneration 11. Scoliosis 12. Post-op nausea and vomiting 13. Obesity due to excess calories, BMI 30 14. Hypertensive heart disease 15. Severe hepatomegaly with fatty liver disease OPERATION: Robotic-assisted da Yoli Xi laparoscopic cholecystectomy, multiport with FIREFLY ESTIMATED BLOOD LOSS: 5 mL. SPECIMENS REMOVED: Gallbladder. COMPLICATIONS: None. OPERATIVE FINDINGS: 1. Moderate scarring over entire gallbladder with peritoneal adhesions, pericholecystic with features of chronic cholecystitis 2. Multiple gallstones over 6 identified at least 8 mm in size 3. Findings of severe hepatomegaly with fatty liver disease found. 4. Patient confirms eating moderate carbohydrates including feeling gas bloating 5. Very flaccid gallbladder identified with adhesions with findings of chronic cholecystitis. 6. Three (3) clips placed along the cystic duct without sequela. 7. Cystic artery isolated. INDICATIONS: The patient is a 68-year-old female who presents with chronic cholecystitis. Robotic assisted laparoscopic approach was described. Benefits and risks of the procedure including but not limited to bleeding, infection, injury to the biliary tree was described. Informed consent was obtained. DESCRIPTION OF PROCEDURE: Patient was brought to the operating room, placed in supine position. After general induction, the abdomen had been prepped and draped in standard sterile fashion. The robotic da Yoli XI system was primed. After a timeout protocol was performed, the patient had been prepped and draped in standard sterile fashion. The patient was injected with indocyanine green. A 5 mm 0 degrees laparoscopic trocar entry was performed along the left upper quadrant. The abdomen insufflated to 15 mmHg pressure which was tolerated well. Diagnostic laparoscopy demonstrated no injury to bowel viscera or mesentery. The liver surface was unremarkable. Next, two 8 mm robotic ports were placed along the right upper abdomen. The camera 8-mm port was maintained along the epigastrium. Another 8 mm port was placed along the left upper abdominal wall after exchanging the 5 mm port. Please note that the ports were placed at least 10 to 15 cm away from the target anatomy of the gallbladder. The robot was docked along the left lateral abdomen. The patient was repositioned in reverse Trendelenburg position. Using a grasper for arm 3, a grasper for arm 4, including hook cautery for arm 1, the robotic system was docked and primed as described. Instruments were interchanged by the surgical assistant including hook cautery, Bovie cautery and clip appliers. I had sat at the console. The gallbladder was scarred with peritoneal adhesions. Lysis of adhesions was performed to free the gallbladder from the surrounding tissues. Next attention was brought to the infundibulum and cystic structures. The infundibulum and cystic duct were dissected free from surrounding tissues. The cystic duct was isolated. FIREFLY was used to identify the cystic artery and cystic structures. A critical view of safety was obtained. Large PLASTIC clips were used throughout the entire case. Using a clip junior paralegal, 3 clips were placed at the junction of the infundibulum and cystic duct. The cystic duct was divided between clips. Next, the cystic artery was similarly clipped and cauterized. Electro-Bovie cautery was used to remove the gallbladder from the hepatic fossa. Hemostasis was checked and found to be adequate. The robot was undocked. I re-scrubbed into the case. Using a 10 mm Endo Catch bag via the left upper quadrant incision, the specimen was removed from the abdominal cavity. All pneumoperitoneum instruments were evacuated from the abdominal cavity. The incisions were reapproximated using 4-0 Monocryl in an interrupted subcuticular fashion. Fascial defects were less than 8 mm in size. Please note along the trocar sites, local anesthetic was placed as a field block prior to insertion of all instruments. Liquid glue was applied to the skin. At the end of the procedure needle, sponge, and instrument count had been verified correct by the surgical services tech. The patient was transferred to postanesthesia care unit in stable condition. Intraoperative films were shared with the patient's family. Plan - Discharge Summary Discharge Rx Participant: No New Discharge Prescriptions: New Simethicone [Gas-X] 125 mg PO AC-TID PRN #20 capsule PRN Reason: Pain Ibuprofen [Motrin] 600 mg PO Q8HR PRN #30 tab PRN Reason: Pain Continue Alendronate Sodium 70 mg PO FRANCO Simvastatin [Zocor] 20 mg PO HS amLODIPine [Norvasc] 5 mg PO DAILY #14 tab Multivitamins, Thera [Multivitamin (formulary)] 1 tab PO DAILY Cetirizine HCl [Zyrtec] 10 mg PO HS Aspirin EC [Ecotrin Low Dose] 81 mg PO MOWEFR Loratadine [Claritin] 10 mg PO DAILY Cyanocobalamin (Vitamin B-12) [Vitamin B-12] 1,000 mcg PO DAILY Albuterol Inhaler [Ventolin Hfa Inhaler] 1 puff INHALATION QID Lutein 20 mg PO DAILY hydroCHLOROthiazide 25 mg PO DAILY Propranolol [Inderal] 20 mg PO DAILY Omeprazole 40 mg PO DAILY Magnesium Oxide [Mag-Ox] 400 mg PO DAILY L.acidoph,Paracasei, B.lactis [Probiotic] 1 cap PO DAILY Cholecalciferol (Vitamin D3) [Vitamin D3 (50 Mcg = 2000 Iu)] 50 mcg PO DAILY Discontinued Ibuprofen [Motrin Ib] 200 mg PO DIRECTED PRN PRN Reason: Pain Discharge Medication List Alendronate Sodium 70 mg PO FRANCO 03/08/21 [History] Simvastatin [Zocor] 20 mg PO HS 03/08/21 [History] amLODIPine [Norvasc] 5 mg PO DAILY #14 tab 08/06/22 [Rx] Lutein 20 mg PO DAILY 01/13/23 [History] hydroCHLOROthiazide 25 mg PO DAILY 01/13/23 [History] Omeprazole 40 mg PO DAILY 07/04/23 [History] Propranolol [Inderal] 20 mg PO DAILY 07/04/23 [History] Aspirin EC [Ecotrin Low Dose] 81 mg PO MOWEFR 11/18/23 [History] Cetirizine HCl [Zyrtec] 10 mg PO HS 11/18/23 [History] Cholecalciferol (Vitamin D3) [Vitamin D3 (50 Mcg = 2000 Iu)] 50 mcg PO DAILY 11/18/23 [History] L.acidoph,Paracasei, B.lactis [Probiotic] 1 cap PO DAILY 11/18/23 [History] Magnesium Oxide [Mag-Ox] 400 mg PO DAILY 11/18/23 [History] Multivitamins, Thera [Multivitamin (formulary)] 1 tab PO DAILY 11/18/23 [History] Loratadine [Claritin] 10 mg PO DAILY 01/02/24 [History] Albuterol Inhaler [Ventolin Hfa Inhaler] 1 puff INHALATION QID 01/17/24 [History] Cyanocobalamin (Vitamin B-12) [Vitamin B-12] 1,000 mcg PO DAILY 01/17/24 [History] Ibuprofen [Motrin] 600 mg PO Q8HR PRN #30 tab 01/18/24 [Rx] Simethicone [Gas-X] 125 mg PO AC-TID PRN #20 capsule 01/18/24 [Rx] Follow up Appointment(s)/Referral(s): Yarely Benral MD [STAFF PHYSICIAN] - 01/22/24 6:30 pm ( Calls you at home) Patient Instructions/Handouts: Low Fat Diet (ED), Non-Alcoholic Fatty Liver Disease (DC), Laparoscopic Cholecystectomy (DC) Activity/Diet/Wound Care/Special Instructions: TELEHEALTH - WILL CALL YOU BETWEEN 9 am to 8 pm NO LONG DRIVES OR AIRPLANE RIDES OVER 60 MINUTES FOR THE NEXT 2 WEEKS, 02/01/24, DUE TO HIGH RISK OF PULMONARY EMBOLISM/DVTs May drive in 72 hrs, 01/21/24 Recommend low-fat diet for the next 2 days. No lifting over 10 pounds in 2 weeks until 02/01/24, May shower. No bath tub soaks for two weeks until 02/01/24, Diet as tolerated. Use Tylenol, simethicone scheduled for the next 24-48 hours for best pain relief. Use ice along incisions for today to prevent swelling. Discharge Disposition: HOME SELF-CARE
== END 2024-01-18 14:21 | disposition home or self-care (01) ==
LOC: OR 07:50
PROVIDERS: ATTEND Surgery Plastic and Reconstructive Surgery
DX: K80.10 Calculus of gallbladder with chronic cholecystitis without obstruction (principal); I10 Essential (primary) hypertension; G47.33 Obstructive sleep apnea (adult) (pediatric); M19.90 Unspecified osteoarthritis, unspecified site; E78.5 Hyperlipidemia, unspecified; I11.9 Hypertensive heart disease without heart failure; K21.9 Gastro-esophageal reflux disease without esophagitis; M81.0 Age-related osteoporosis without current pathological fracture; H40.9 Unspecified glaucoma; H35.30 Unspecified macular degeneration; M41.9 Scoliosis, unspecified; K66.0 Peritoneal adhesions (postprocedural) (postinfection); K76.0 Fatty (change of) liver, not elsewhere classified; E66.811 Obesity, class 1; Z68.30 Body mass index [BMI] 30.0-30.9, adult; Z98.51 Tubal ligation status; Z98.890 Other specified postprocedural states; Z82.3 Family history of stroke; Z88.0 Allergy status to penicillin; Z88.5 Allergy status to narcotic agent; Z79.899 Other long term (current) drug therapy; Z79.82 Long term (current) use of aspirin
CPT/HCPCS: 47563; 88304; 80053; 85025; J2250; J0330; J1644; J1100; J2710; J0690; J2405; J2003; J3010; J2704; J2371; J1596

== ENCOUNTER 2024-02-23 11:06 | Emergency (ER) | payer MEDICARE, OTHER ==
[2024-02-23 11:13] VITALS: BP 116/60; PULSE 77; RESP 18; TEMP 97.8
--- NOTE | 2024-02-23 11:26 | ED ---
Fall HPI - General Chief Complaint: Fall Stated Complaint: fall/facial injury Time Seen by Provider: 02/23/24 11:24 Source: patient, family, RN notes reviewed Mode of arrival: wheelchair Limitations: no limitations - History of Present Illness Initial Comments: 68-year-old female presented to the ER for evaluation of a fall. Patient states she lost her balance this morning while turning around and face planted hitting a carpeted surface. She is reporting an abrasion to her nose. Tetanus status unknown. She denies loss of consciousness or blood thinner use. Denies any other injuries or complaints. - Related Data Home Medications Medication Instructions Recorded Confirmed Alendronate Sodium 70 mg PO FRANCO 03/08/21 01/18/24 Simvastatin [Zocor] 20 mg PO HS 03/08/21 01/18/24 Lutein 20 mg PO DAILY 01/13/23 01/18/24 hydroCHLOROthiazide 25 mg PO DAILY 01/13/23 01/18/24 Omeprazole 40 mg PO DAILY 07/04/23 01/18/24 Propranolol [Inderal] 20 mg PO DAILY 07/04/23 01/18/24 Aspirin EC [Ecotrin Low Dose] 81 mg PO MOWEFR 11/18/23 01/18/24 Cetirizine HCl [Zyrtec] 10 mg PO HS 11/18/23 01/18/24 Cholecalciferol (Vitamin D3) 50 mcg PO DAILY 11/18/23 01/18/24 [Vitamin D3 (50 Mcg = 2000 Iu)] L.acidoph,Paracasei, B.lactis 1 cap PO DAILY 11/18/23 01/18/24 [Probiotic] Magnesium Oxide [Mag-Ox] 400 mg PO DAILY 11/18/23 01/18/24 Multivitamins, Thera [Multivitamin 1 tab PO DAILY 11/18/23 01/18/24 (formulary)] Loratadine [Claritin] 10 mg PO DAILY 01/02/24 01/18/24 Albuterol Inhaler [Ventolin Hfa 1 puff INHALATION QID 01/17/24 01/18/24 Inhaler] Cyanocobalamin (Vitamin B-12) 1,000 mcg PO DAILY 01/17/24 01/18/24 [Vitamin B-12] Previous Rx's Medication Instructions Recorded amLODIPine [Norvasc] 5 mg PO DAILY #14 tab 08/06/22 Ibuprofen [Motrin] 600 mg PO Q8HR PRN #30 tab 01/18/24 Simethicone [Gas-X] 125 mg PO AC-TID PRN #20 capsule 01/18/24 Allergies Allergy/AdvReac Type Severity Reaction Status Date / Time KAYLEIGH Inhibitors Allergy Anaphylaxis Verified 02/23/24 11:08 adhesive Allergy Itching Verified 02/23/24 11:08 codeine Allergy Rash/Hives/ Verified 02/23/24 11:08 Migraines latanoprost [From Elklatan] Allergy Swelling Verified 02/23/24 11:08 eye netarsudil [From Rocklatan] Allergy Swelling Verified 02/23/24 11:08 eye Penicillins Allergy Rash/Hives Verified 02/23/24 11:08 Review of Systems ROS Statement: Those systems with pertinent positive or pertinent negative responses have been documented in the HPI. ROS Other: All systems not noted in ROS Statement are negative. Past Medical History Past Medical History: COPD, Eye Disorder, GERD/Reflux, Hyperlipidemia, Hypertension, Osteoarthritis (OA) Additional Past Medical History / Comment(s): Glaucoma and Macular Degeneration., lumps on her thyroid., hx of left foot fx with surgery feb 2021 & some difficulty walking at times and uses motor w/c at store., hiatal hernia, Scoliosis thoracolumbar surgery in with subsequent removal of hardware in [place], GALLBLADDER ISSUES History of Any Multi-Drug Resistant Organisms: None Reported Past Surgical History: Back Surgery, Section, Hernia Repair, Orthopedic Surgery, Tubal Ligation Additional Past Surgical History / Comment(s): Surgery for scoliosis with rods that broke and were removed. , left foot surgery with pin placed (feb 2021), EGD WITH DILATION (11/23/21)., HYSTEROSCOPY, tubal ligation with c section, INGUINAL HERNIA REPAIR, BILAT CATARACTS REMOVED WITH LENS IMPLANTS. Past Anesthesia/Blood Transfusion Reactions: Postoperative Nausea & Vomiting (PONV) Additional Past Anesthesia/Blood Transfusion Reaction / Comment(s): post-op headache Past Psychological History: No Psychological Hx Reported Smoking Status: Never smoker Past Alcohol Use History: Rare Past Drug Use History: None Reported - Past Family History Mother Family Medical History: Cancer, CVA/TIA Father Family Medical History: CVA/TIA General Exam Limitations: no limitations General appearance: alert, in no apparent distress Head exam: Present: atraumatic, normocephalic, normal inspection Eye exam: Present: normal appearance, PERRL, EOMI. Absent: scleral icterus, conjunctival injection, periorbital swelling Pupils: Present: normal accommodation ENT exam: Present: normal exam, normal oropharynx, mucous membranes moist, other (Abrasion to nasal bridge. No focal tenderness. No septal deviation or hematoma. Abrasion to forehead) Neck exam: Present: normal inspection. Absent: tenderness, meningismus, lymphadenopathy Respiratory exam: Present: normal lung sounds bilaterally. Absent: respiratory distress, wheezes, rales, rhonchi, stridor Cardiovascular Exam: Present: regular rate, normal rhythm, normal heart sounds. Absent: systolic murmur, diastolic murmur, rubs, gallop, clicks Extremities exam: Present: normal inspection, full ROM, normal capillary refill. Absent: tenderness, pedal edema, joint swelling, calf tenderness Neurological exam: Present: alert, oriented X3, CN II-XII intact Skin exam: Present: warm, dry, intact, normal color. Absent: rash Course Vital Signs 02/23/24 11:08 Temperature 97.8 F Pulse Rate 77 Respiratory 18 Rate Blood Pressure 116/60 O2 Sat by Pulse 99 Oximetry Medical Decision Making - Medical Decision Making Was pt. sent in by a medical professional or institution (JULIA Tamayo, BILLING REP, urgent care, hospital, or skilled nursing...) When possible be specific @ -No Did you speak to anyone other than the patient for history (EMS, parent, family, police, friend...)? What history was obtained from this source @ -No Did you review nursing and triage notes (agree or disagree)? Why? @ -I reviewed and agree with nursing and triage notes Were old charts reviewed (outside hosp., previous admission, EMS record, old EKG, old radiological studies, urgent care reports/EKG's, skilled nursing records)? Report findings @ -No old charts were reviewed Differential Diagnosis (chest pain, altered mental status, abdominal pain women, abdominal pain men, vaginal bleeding, weakness, fever, dyspnea, syncope, headache, dizziness, GI bleed, back pain, seizure, CVA, palpatations, mental health, musculoskeletal)? @ -Fracture, dislocation, contusion, hematoma, intracranial hemorrhage, concussion, abrasion, laceration this list does not like to be all-inclusive EKG interpreted by me (3pts min.). @ -None done X-rays interpreted by me (1pt min.). @ -None done CT interpreted by me (1pt min.). @ -CT brain negative for acute intracranial process. CT facial bones significant for slight leftward deviation of nasal bone. U/S interpreted by me (1pt. min.). @ -None done What testing was considered but not performed or refused? (CT, X-rays, U/S, labs)? Why? @ -None What meds were considered but not given or refused? Why? @ -None Did you discuss the management of the patient with other professionals (professionals i.e. , PA, BILLING REP, lab, RT, psych nurse, foster care social worker, lawyer criminal, teacher, ground defence officer, case work aide)? Give summary @ -No Was smoking cessation discussed for >3mins.? @ -No Was critical care preformed (if so, how long)? @ -No Were there social determinants of health that impacted care today? How? ( Homelessness, low income, unemployed, alcoholism, drug addiction, transportation, low edu. Level, literacy, decrease access to med. care, prison, rehab)? @ -No Was there de-escalation of care discussed even if they declined (Discuss DNR or withdrawal of care, Hospice)? DNR status @ -No What co-morbidities impacted this encounter? (DM, HTN, Smoking, COPD, CAD, Cancer, CVA, ARF, Chemo, Hep., AIDS, mental health diagnosis, sleep apnea, morbid obesity)? @ -None Was patient admitted / discharged? Hospital course, mention meds given and route, prescriptions, significant lab abnormalities, going to OR and other pertinent info. @ -Discharged. 68 year old female presenting to the ER for evaluation of fall. Upon examination, patient's vital signs stable. No signs of acute distress. No acute neurological findings on exam. GCS 15. Patient ANO x 3. Exam remarkable for an abrasion to forehead and a skin tear to nasal bridge. There is no focal bony tenderness or evidence of septal hematoma. Given patient's age and mechanism of injury, CT brain and facial bones will be obtained. CT brain negative for acute intracranial process. Facial bones showing slight leftward deviation of the nasal bone concerning of fracture. Given no focal tenderness, septal hematoma, or epistaxis I do not believe nasal bone to be fractured I believe this is anatomical variation. Nasal skin tear approximated with steri strips. Tetanus updated. Upon reevaluation, patient stable for discharge. Strict return parameters discussed. Patient discharged in stable condition with follow-up to PCP. Patient verbally expressed understanding and agreement with care plan. Case discussed with ED attending, Dr. Mcrae. Undiagnosed new problem with uncertain prognosis? @ -No Drug Therapy requiring intensive monitoring for toxicity (Heparin, Nitro, Insulin, Cardizem)? @ -No Were any procedures done? @ -No Diagnosis/symptom? @ -Fall/abrasion/skin tear Acute, or Chronic, or Acute on Chronic? @ -Acute Uncomplicated (without systemic symptoms) or Complicated (systemic symptoms)? @ -Uncomplicated Side effects of treatment? @ -No Exacerbation, Progression, or Severe Exacerbation? @ -No Poses a threat to life or bodily function? How? (Chest pain, USA, ID, pneumonia, PE, COPD, DKA, ARF, appy, cholecystitis, CVA, Diverticulitis, Homicidal, Suicidal, threat to staff... and all critical care pts) @ -No - Radiology Data Radiology results: report reviewed, image reviewed Disposition Clinical Impression: Fall, Abrasion, Skin tear Disposition: HOME SELF-CARE Condition: Stable Instructions (If sedation given, give patient instructions): Fall Prevention for Older Adults (ED), Abrasion (ED) Additional Instructions: Follow-up with PCP. Return to the ER for any new or worsening concerns. Is patient prescribed a controlled substance at d/c from ED?: No Referrals: Arvind Hughes DO [Primary Care Provider] - 1-2 days Time of Disposition: 12:36
[2024-02-23] MEDS: DIPH,PERTUS(ACELL)TETVAC-LF 0.5 ML VIAL IM ONE (11:55)
--- NOTE | 2024-02-23 12:07 | CT ---
EXAMINATION TYPE: CT brain wo con, CT facial bones wo con DATE OF EXAM: 02/23/2024 11:41 AM COMPARISON: 01/13/2023. CLINICAL INDICATION: Female, 68 years old with history of fall, fall-hit nose (accession [id number]), f all-hit nose. (accession [id number]) TECHNIQUE: Brain: Axial CT images of the brain and facial structures were obtained with coronal and sagittal ref ormats created and reviewed. Contrast used: None. Oral contrast used: None. CT DLP: 1272.4 mGycm, Automated exposure control for dose reduction was used. FINDINGS: Brain: Extra-axial spaces: No abnormal extra-axial fluid collections. Ventricular system: Dilatation in proportion to cerebral atrophy. Cerebral parenchyma: Cerebral atrophy. No acute intraparenchymal hemorrhage or mass effect. The rangel -white junction is well differentiated. Scattered hypoattenuating areas are seen within the white mat ter. Cerebellum: Unremarkable. Mass effect: No evidence of midline shift. Intracranial vasculature: Atherosclerotic calcifications of the intracranial vessels. Soft tissues: Normal. Calvarium/osseous structures: No depressed skull fracture. Paranasal sinuses and mastoid air cells: Mild scattered paranasal sinus disease. Visualized orbits: Bilateral aphakia facial structures. Slight leftward deviation of the nasal bone. Nasal septum is deviated rightward 6 mildly. Scattered mucosal thickening throughout the paranasal sinuses. IMPRESSION: 1. No acute intracranial process. 2. Nonspecific white matter changes, likely secondary to chronic small vessel ischemic disease. 3. Leftward deviation of the nasal bone correlate with tenderness for fracture [facility] Patty Domingo, , 02/23/2024 12:05 PM
== END 2024-02-23 13:00 | disposition home or self-care (01) ==
LOC: EC 11:06
DX: S00.81XA Abrasion of other part of head, initial encounter (principal); S02.2XXA Fracture of nasal bones, initial encounter for closed fracture; Z88.5 Allergy status to narcotic agent; Z91.048 Other nonmedicinal substance allergy status; Z88.0 Allergy status to penicillin; Z88.4 Allergy status to anesthetic agent; Z88.8 Allergy status to other drugs, medicaments and biological substances; Z23 Encounter for immunization; W22.8XXA Striking against or struck by other objects, initial encounter
CPT/HCPCS: 70450; 70486; 90471; 90715; 99283

== ENCOUNTER 2024-06-17 08:10 | Emergency (ER) | payer MEDICARE, OTHER ==
--- NOTE | 2024-06-17 08:25 | ED ---
General Adult HPI - General Chief complaint: Arrhythmia/Palpitations Stated complaint: SALAZAR, heart racing Time Seen by Provider: 06/17/24 08:18 Source: patient, family, RN notes reviewed, old records reviewed Mode of arrival: ambulatory Limitations: no limitations - History of Present Illness Initial comments: Patient is a 68-year-old female presents emergency department complaining of dyspnea, racing heartbeat. States she awoke this way this morning. No history of arrhythmias. Denies any chest pain but does state that it feels like her heart is beating hard. Has been not feeling the greatest for a few days she states. Less energy. No significant cough or congestion. No nausea, vomiting, diarrhea. Denies any abdominal pain. Denies any chest pain. Patient does have a past medical history remarkable for COPD, GERD, hypertension, hyperlipidemia. Presents for further evaluation at this time.Patient does have a recent travel h istory to [place] for the last few weeks and this was a car ride. Denies any lower extremity swelling or edema that is beyond baseline. States she chronically has some mild swelling of her bilateral lower feet. She is on hydrochlorothiazide. No history of blood clots. Is not on blood thinners. - Related Data Home Medications Medication Instructions Recorded Confirmed Alendronate Sodium 70 mg PO TH 03/08/21 06/17/24 Lutein 20 mg PO DAILY 01/13/23 06/17/24 hydroCHLOROthiazide 12.5 mg PO DAILY 01/13/23 06/17/24 Omeprazole 40 mg PO DAILY 07/04/23 06/17/24 Propranolol [Inderal] 20 mg PO DAILY 07/04/23 06/17/24 Aspirin EC [Ecotrin Low Dose] 81 mg PO MOWEFR 11/18/23 06/17/24 L.acidoph,Paracasei, B.lactis 1 cap PO DAILY 11/18/23 06/17/24 [Probiotic] Magnesium Oxide [Mag-Ox] 400 mg PO DAILY 11/18/23 06/17/24 Albuterol Inhaler [Ventolin Hfa 1 puff INHALATION RT-QID 01/17/24 06/17/24 Inhaler] Simvastatin [Zocor] 40 mg PO HS 06/17/24 06/17/24 Previous Rx's Medication Instructions Recorded amLODIPine [Norvasc] 5 mg PO DAILY #14 tab 08/06/22 predniSONE [Deltasone] 40 mg PO DAILY 5 Days #10 tab 06/17/24 Allergies Allergy/AdvReac Type Severity Reaction Status Date / Time KAYLEIGH Inhibitors Allergy Anaphylaxis Verified 06/17/24 09:08 adhesive Allergy Itching Verified 06/17/24 09:08 codeine Allergy Rash/Hives/ Verified 06/17/24 09:08 Migraines latanoprost [From [facility]] Allergy Swelling Verified 06/17/24 09:08 eye netarsudil [From [facility]] Allergy Swelling Verified 06/17/24 09:08 eye Penicillins Allergy Rash/Hives Verified 06/17/24 09:08 Review of Systems ROS Statement: Those systems with pertinent positive or pertinent negative responses have been documented in the HPI. Review of Systems: CONST: Denies fever EYES: Denies blurry vision ENT: Denies nasal congestion C/V: Endorses palpitations RESP: Endorses dyspnea GI: Denies abdominal pain : Denies dysuria SKIN: Denies rash. MSK: Denies joint pain. NEURO: Denies headache ROS Other: All systems not noted in ROS Statement are negative. Past Medical History Past Medical History: COPD, Eye Disorder, GERD/Reflux, Hyperlipidemia, Hypertension, Osteoarthritis (OA) Additional Past Medical History / Comment(s): Glaucoma and Macular Degeneration., lumps on her thyroid., hx of left foot fx with surgery feb 2021 & some difficulty walking at times and uses motor w/c at store., hiatal hernia, Scoliosis thoracolumbar surgery in with subsequent removal of hardware in [place], GALLBLADDER ISSUES History of Any Multi-Drug Resistant Organisms: None Reported Past Surgical History: Back Surgery, Section, Hernia Repair, Orthopedic Surgery, Tubal Ligation Additional Past Surgical History / Comment(s): Surgery for scoliosis with rods that broke and were removed. , left foot surgery with pin placed (feb 2021), EGD WITH DILATION (11/23/21)., HYSTEROSCOPY, tubal ligation with c section, INGUINAL HERNIA REPAIR, BILAT CATARACTS REMOVED WITH LENS IMPLANTS. Past Anesthesia/Blood Transfusion Reactions: Postoperative Nausea & Vomiting (PONV) Additional Past Anesthesia/Blood Transfusion Reaction / Comment(s): post-op headache Past Psychological History: No Psychological Hx Reported Smoking Status: Never smoker Past Alcohol Use History: Rare Past Drug Use History: None Reported - Past Family History Mother Family Medical History: Cancer, CVA/TIA Father Family Medical History: CVA/TIA General Exam - General Exam Comments Initial Comments: General: Appears in mild discomfort. HEAD: Normal with no signs of head trauma. EYES: EOMI ENT: Hearing grossly intact, normal oropharynx. RESPIRATORY: Bilateral end expiratory wheezing. No significant hypoxia. No increased work of breathing. C/V: S1 and S2 auscultated. Peripheral pulses 2+ intact throughout. ABD: Abd is soft, nontender, nondistended EXT: Normal range of motion, no obvious deformity SKIN: No rashes or lesions observed on exposed skin. NEURO: Alert and oriented x 4. Limitations: no limitations Course Vital Signs 06/17/24 06/17/24 06/17/24 08:14 08:32 08:51 Temperature 97.6 F Pulse Rate 118 H 109 H 110 H Respiratory 18 22 Rate Blood Pressure 161/99 154/97 O2 Sat by Pulse 99 97 Oximetry 06/17/24 06/17/24 06/17/24 09:01 09:03 10:03 Temperature Pulse Rate 97 100 97 Respiratory 16 16 Rate Blood Pressure 145/83 142/79 O2 Sat by Pulse 100 95 Oximetry 06/17/24 06/17/24 11:28 13:02 Temperature 98.3 F Pulse Rate 78 78 Respiratory 16 20 Rate Blood Pressure 144/76 152/86 O2 Sat by Pulse 96 98 Oximetry Medical Decision Making - Medical Decision Making Was pt. sent in by a medical professional or institution (, PA, [facility], urgent care, hospital, or penitentiary...) When possible be specific @ -No Did you speak to anyone other than the patient for history (EMS, parent, family, police, friend...)? What history was obtained from this source @ -No Did you review nursing and triage notes (agree or disagree)? Why? @ -I reviewed and agree with nursing and triage notes Were old charts reviewed (outside hosp., previous admission, EMS record, old EKG, old radiological studies, urgent care reports/EKG's, penitentiary records)? Report findings @ -No old charts were reviewed Differential Diagnosis (chest pain, altered mental status, abdominal pain women, abdominal pain men, vaginal bleeding, weakness, fever, dyspnea, syncope, headache, dizziness, GI bleed, back pain, seizure, CVA, palpatations, mental health, musculoskeletal)? @ -Differential Palpitations Ventricular arrhythmias, atrial arrhythmias, myocardial infarction, anemia, thyrotoxicosis, electrolyte imbalance, hypokalemia, pulmonary embolism, pulmonary disease, drugs, alcohol, anxiety, stress.... This is not meant to be an all-inclusive list. EKG interpreted by me (3pts min.). @ -As above X-rays interpreted by me (1pt min.). @ -Chest x-ray reveals no obvious acute cardiopulmonary process. CT interpreted by me (1pt min.). @ -CTPE negative for PE. CT abdomen pelvis shows diverticulosis without diverticulitis and no obvious acute process. Concern for possible cystitis in the correct clinical setting. U/S interpreted by me (1pt. min.). @ -None done What testing was considered but not performed or refused? (CT, X-rays, U/S, labs)? Why? @ -None What meds were considered but not given or refused? Why? @ -None Did you discuss the management of the patient with other professionals (professionals i.e. , PA, [facility], lab, RT, psych nurse, social work assistant, materials assistant, teacher, disability hearing officer, case planner)? Give summary @ -No Was smoking cessation discussed for >3mins.? @ -No Was critical care preformed (if so, how long)? @ -No Were there social determinants of health that impacted care today? How? (Homelessness, low income, unemployed, alcoholism, drug addiction, transportation, low edu. Level, literacy, decrease access to med. care, prison, rehab)? @ -No Was there de-escalation of care discussed even if they declined (Discuss DNR or withdrawal of care, Hospice)? DNR status @ -No What co-morbidities impacted this encounter? (DM, HTN, Smoking, COPD, CAD, Cancer, CVA, ARF, Chemo, Hep., AIDS, mental health diagnosis, sleep apnea, morbid obesity)? @ -COPD Was patient admitted / discharged? Hospital course, mention meds given and route, prescriptions, significant lab abnormalities, going to OR and other pertinent info. @ -Patient presents emergency department with palpitations and dyspnea. Will obtain cardiopulmonary workup. Vitals remarkable for mild tachycardia in triage. No significant respiratory distress. She was in agreement this plan. Patient's vital signs were within acceptable limits following administration normal propranolol as well as breathing treatments. Patient's labs returned remarkable for a lactic acidosis of 4.3 but I do suspect this is likely secondary to her tremors as the remainder of her workup completely unremarkable except for the elevated D-dimer at 5.22. Discussed with the patient we will obtain CT PE as well as CT abdomen pelvis at this time. We will also provide the patient with additional IV fluids and obtain a second 3-hour troponin. Initial troponin undetectable. Initial BNP within normal limits. She was in agreement this plan. States she still does not feel 100% but feels improved. CT imaging unremarkable for any obvious acute process. Repeat 3-hour troponin undetectable. Repeat lactic acid following approximately 1 to 1/2 L of fluid is normal at 1.0.Repeat EKG showed no signs of acute ischemia. On reevaluation, patient is resting comfortably. She states she still feels somewhat weak. Discussed workup with her. I did offer admission for monitoring however she would like to go home. I believe this is reasonable as there is no clear etiology for her heart palpitations as well as weakness at this time. 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 Return to emergency department for any worsening symptoms. She was in agreement this plan. We will continue with treatment of her COPD exacerbation that was mild at home with oral prednisone daily. She does not require refills on her inhalers. I will provide the patient with a prescription for prednisone. I instructed the patient to follow up with their PCP in the next 1-3 days.. I explained that the patient should return to the emergency department if they experience any worsening symptoms. Strict return precautions were discussed with the patient. The patient expressed understanding of these instructions. I answered all questions that the patient had. The patient was discharged home in good condition with their prescriptions and follow up information. Undiagnosed new problem with uncertain prognosis? @ -No Drug Therapy requiring intensive monitoring for toxicity (Heparin, Nitro, Insulin, Cardizem)? @ -No Were any procedures done? @ -No Diagnosis/symptom? @ -Heart palpitations, weakness, COPD exacerbation Acute, or Chronic, or Acute on Chronic? @ -Acute Uncomplicated (without systemic symptoms) or Complicated (systemic symptoms)? @ -Uncomplicated Side effects of treatment? @ -None Exacerbation, Progression, or Severe Exacerbation] @ -No Poses a threat to life or bodily function? @ -Unlikely at this time - Lab Data Result diagrams: 06/17/24 08:32 06/17/24 08:32 Lab Results 06/17/24 06/17/24 06/17/24 Range/Units 08:32 08:32 08:32 WBC 7.20 (4.50-10.00) 10*3/uL RBC 3.95 L (4.10-5.20) 10*6/uL Hgb 13.4 (12.0-15.0) g/dL Hct 38.7 (37.2-46.3) % MCV 98.0 H (80.0-97.0) fL MCH 33.9 H (27.0-32.0) pg MCHC 34.6 (32.0-37.0) g/dL Plt Count 276 (140-440) 10*3/uL MPV 8.6 L (9.5-12.2) fL Immature Gran % (Auto) 0.3 % Neutrophils % 67.3 % Lymphocytes % 20.3 % Monocytes % 10.0 % Eosinophils % 1.0 % Basophils % 1.1 % Immature Gran # 0.02 (0.00-0.04) 10*3/uL Neutrophils # 4.85 (1.80-7.70) 10*3/uL Lymphocytes # 1.46 (0.90-5.00) 10*3/uL Monocytes # 0.72 (0.20-1.00) 10*3/uL Eosinophils # 0.07 (0.04-0.35) 10*3/uL Basophils # 0.08 (0.00-0.10) 10*3/uL PT 10.1 (10.0-12.5) sec INR 0.9 (<1.2) APTT 22.1 (22.0-30.0) sec D-Dimer 5.22 H (<0.60) mg/L FEU Sodium 137 (137-145) mmol/L Potassium 4.1 (3.5-5.1) mmol/L Chloride 101 (98-107) mmol/L Carbon Dioxide 19 L (22-30) mmol/L Anion Gap 17 mmol/L BUN 16 (7-17) mg/dL Creatinine 0.83 (0.52-1.04) mg/dL Est GFR (CKD-EPI)AfAm 84 (>60 ml/min/1.73 sqM) Est GFR (CKD-EPI)NonAf 73 (>60 ml/min/1.73 sqM) Glucose 80 (74-99) mg/dL Lactic Ac Sepsis Rflx Plasma Lactic Acid Perez (0.7-2.0) mmol/L Calcium 9.4 (8.4-10.2) mg/dL Magnesium 1.6 (1.6-2.3) mg/dL Total Bilirubin 1.0 (0.2-1.3) mg/dL AST 41 H (14-36) U/L ALT 23 (4-34) U/L Alkaline Phosphatase 112 (38-126) U/L Troponin I (0.000-0.034) ng/mL NT-Pro-B Natriuret Pep 353 pg/mL Total Protein 7.6 (6.3-8.2) g/dL Albumin 4.7 (3.5-5.0) g/dL TSH (0.465-4.680) mIU/L Urine Color Urine Appearance (Clear) Urine pH (5.0-8.0) Ur Specific [place] (1.001-1.035) Urine Protein (Negative) Urine Glucose (UA) (Negative) Urine Ketones (Negative) Urine Blood (Negative) Urine Nitrite (Negative) Urine Bilirubin (Negative) Urine Urobilinogen (<2.0) mg/dL Ur Leukocyte Esterase (Negative) Influenza Type A (PCR) (Not Detectd) Influenza Type B (PCR) (Not Detectd) RSV (PCR) (Not Detectd) SARS-CoV-2 (PCR) (Not Detectd) 06/17/24 06/17/24 06/17/24 Range/Units 08:32 08:32 08:32 WBC (4.50-10.00) 10*3/uL RBC (4.10-5.20) 10*6/uL Hgb (12.0-15.0) g/dL Hct (37.2-46.3) % MCV (80.0-97.0) fL MCH (27.0-32.0) pg MCHC (32.0-37.0) g/dL Plt Count (140-440) 10*3/uL MPV (9.5-12.2) fL Immature Gran % (Auto) % Neutrophils % % Lymphocytes % % Monocytes % % Eosinophils % % Basophils % % Immature Gran # (0.00-0.04) 10*3/uL Neutrophils # (1.80-7.70) 10*3/uL Lymphocytes # (0.90-5.00) 10*3/uL Monocytes # (0.20-1.00) 10*3/uL Eosinophils # (0.04-0.35) 10*3/uL Basophils # (0.00-0.10) 10*3/uL PT (10.0-12.5) sec INR (<1.2) APTT (22.0-30.0) sec D-Dimer (<0.60) mg/L FEU Sodium (137-145) mmol/L Potassium (3.5-5.1) mmol/L Chloride (98-107) mmol/L Carbon Dioxide (22-30) mmol/L Anion Gap mmol/L BUN (7-17) mg/dL Creatinine (0.52-1.04) mg/dL Est GFR (CKD-EPI)AfAm (>60 ml/min/1.73 sqM) Est GFR (CKD-EPI)NonAf (>60 ml/min/1.73 sqM) Glucose (74-99) mg/dL Lactic Ac Sepsis Rflx Plasma Lactic Acid Perez 4.3 H* (0.7-2.0) mmol/L Calcium (8.4-10.2) mg/dL Magnesium (1.6-2.3) mg/dL Total Bilirubin (0.2-1.3) mg/dL AST (14-36) U/L ALT (4-34) U/L Alkaline Phosphatase (38-126) U/L Troponin I <0.012 (0.000-0.034) ng/mL NT-Pro-B Natriuret Pep pg/mL Total Protein (6.3-8.2) g/dL Albumin (3.5-5.0) g/dL TSH (0.465-4.680) mIU/L Urine Color Urine Appearance (Clear) Urine pH (5.0-8.0) Ur Specific [place] (1.001-1.035) Urine Protein (Negative) Urine Glucose (UA) (Negative) Urine Ketones (Negative) Urine Blood (Negative) Urine Nitrite (Negative) Urine Bilirubin (Negative) Urine Urobilinogen (<2.0) mg/dL Ur Leukocyte Esterase (Negative) Influenza Type A (PCR) Not Detected (Not Detectd) Influenza Type B (PCR) Not Detected (Not Detectd) RSV (PCR) Not Detected (Not Detectd) SARS-CoV-2 (PCR) Not Detected (Not Detectd) 06/17/24 06/17/24 06/17/24 Range/Units 08:32 09:22 09:28 WBC (4.50-10.00) 10*3/uL RBC (4.10-5.20) 10*6/uL Hgb (12.0-15.0) g/dL Hct (37.2-46.3) % MCV (80.0-97.0) fL MCH (27.0-32.0) pg MCHC (32.0-37.0) g/dL Plt Count (140-440) 10*3/uL MPV (9.5-12.2) fL Immature Gran % (Auto) % Neutrophils % % Lymphocytes % % Monocytes % % Eosinophils % % Basophils % % Immature Gran # (0.00-0.04) 10*3/uL Neutrophils # (1.80-7.70) 10*3/uL Lymphocytes # (0.90-5.00) 10*3/uL Monocytes # (0.20-1.00) 10*3/uL Eosinophils # (0.04-0.35) 10*3/uL Basophils # (0.00-0.10) 10*3/uL PT (10.0-12.5) sec INR (<1.2) APTT (22.0-30.0) sec D-Dimer (<0.60) mg/L FEU Sodium (137-145) mmol/L Potassium (3.5-5.1) mmol/L Chloride (98-107) mmol/L Carbon Dioxide (22-30) mmol/L Anion Gap mmol/L BUN (7-17) mg/dL Creatinine (0.52-1.04) mg/dL Est GFR (CKD-EPI)AfAm (>60 ml/min/1.73 sqM) Est GFR (CKD-EPI)NonAf (>60 ml/min/1.73 sqM) Glucose (74-99) mg/dL Lactic Ac Sepsis Rflx Y Plasma Lactic Acid Perez (0.7-2.0) mmol/L Calcium (8.4-10.2) mg/dL Magnesium (1.6-2.3) mg/dL Total Bilirubin (0.2-1.3) mg/dL AST (14-36) U/L ALT (4-34) U/L Alkaline Phosphatase (38-126) U/L Troponin I (0.000-0.034) ng/mL NT-Pro-B Natriuret Pep pg/mL Total Protein (6.3-8.2) g/dL Albumin (3.5-5.0) g/dL TSH 1.920 (0.465-4.680) mIU/L Urine Color Colorless Urine Appearance Clear (Clear) Urine pH 5.0 (5.0-8.0) Ur Specific [place] 1.012 (1.001-1.035) Urine Protein Negative (Negative) Urine Glucose (UA) Negative (Negative) Urine Ketones 1+ H (Negative) Urine Blood Negative (Negative) Urine Nitrite Negative (Negative) Urine Bilirubin Negative (Negative) Urine Urobilinogen <2.0 (<2.0) mg/dL Ur Leukocyte Esterase Negative (Negative) Influenza Type A (PCR) (Not Detectd) Influenza Type B (PCR) (Not Detectd) RSV (PCR) (Not Detectd) SARS-CoV-2 (PCR) (Not Detectd) 06/17/24 06/17/24 Range/Units 11:40 11:40 WBC (4.50-10.00) 10*3/uL RBC (4.10-5.20) 10*6/uL Hgb (12.0-15.0) g/dL Hct (37.2-46.3) % MCV (80.0-97.0) fL MCH (27.0-32.0) pg MCHC (32.0-37.0) g/dL Plt Count (140-440) 10*3/uL MPV (9.5-12.2) fL Immature Gran % (Auto) % Neutrophils % % Lymphocytes % % Monocytes % % Eosinophils % % Basophils % % Immature Gran # (0.00-0.04) 10*3/uL Neutrophils # (1.80-7.70) 10*3/uL Lymphocytes # (0.90-5.00) 10*3/uL Monocytes # (0.20-1.00) 10*3/uL Eosinophils # (0.04-0.35) 10*3/uL Basophils # (0.00-0.10) 10*3/uL PT (10.0-12.5) sec INR (<1.2) APTT (22.0-30.0) sec D-Dimer (<0.60) mg/L FEU Sodium (137-145) mmol/L Potassium (3.5-5.1) mmol/L Chloride (98-107) mmol/L Carbon Dioxide (22-30) mmol/L Anion Gap mmol/L BUN (7-17) mg/dL Creatinine (0.52-1.04) mg/dL Est GFR (CKD-EPI)AfAm (>60 ml/min/1.73 sqM) Est GFR (CKD-EPI)NonAf (>60 ml/min/1.73 sqM) Glucose (74-99) mg/dL Lactic Ac Sepsis Rflx Plasma Lactic Acid Perez 1.0 (0.7-2.0) mmol/L Calcium (8.4-10.2) mg/dL Magnesium (1.6-2.3) mg/dL Total Bilirubin (0.2-1.3) mg/dL AST (14-36) U/L ALT (4-34) U/L Alkaline Phosphatase (38-126) U/L Troponin I <0.012 (0.000-0.034) ng/mL NT-Pro-B Natriuret Pep pg/mL Total Protein (6.3-8.2) g/dL Albumin (3.5-5.0) g/dL TSH (0.465-4.680) mIU/L Urine Color Urine Appearance (Clear) Urine pH (5.0-8.0) Ur Specific [place] (1.001-1.035) Urine Protein (Negative) Urine Glucose (UA) (Negative) Urine Ketones (Negative) Urine Blood (Negative) Urine Nitrite (Negative) Urine Bilirubin (Negative) Urine Urobilinogen (<2.0) mg/dL Ur Leukocyte Esterase (Negative) Influenza Type A (PCR) (Not Detectd) Influenza Type B (PCR) (Not Detectd) RSV (PCR) (Not Detectd) SARS-CoV-2 (PCR) (Not Detectd) - EKG Data -: EKG Interpreted by Me EKG Comments: 12-lead Electrocardiogram Interpretation Note EKG was reviewed and interpreted by myself. 12-lead ECG performed at 0826 is interpreted by me as revealing sinus tachycardia at a rate of 112 beats per minute. [place] is normal. CT interval is 173 ms, QRS duration is 90 ms, QTc is 389 ms.. There were no ST or T wave abnormalities to suggest myocardial ischemia or injury. R wave progression across the precordium was delayed . By my interpretation this EKG is non-diagnostic for acute ischemia. 12-lead Electrocardiogram Interpretation Note EKG was reviewed and interpreted by myself. 12-lead ECG performed at 1137 is interpreted by me as revealing normal sinus rhythm at a rate of 70 beats per minute. [place] is normal. CT interval is 173 ms, QRS duration is 89 ms, QTc is 450 ms.. There were no ST or T wave abnormalities to suggest myocardial ischemia or injury. R wave progression across the precordium was satisfactory. By my interpretation this EKG is non-diagnostic for acute ischemia. Disposition Clinical Impression: COPD (chronic obstructive pulmonary disease), Heart palpitations, Weakness Disposition: HOME SELF-CARE Condition: Fair Instructions (If sedation given, give patient instructions): Heart Palpitations (ED), COPD (Chronic Obstructive Pulmonary Disease) (ED) Additional Instructions: No clear etiology for your heart palpitations and weakness. You do have a mild COPD exacerbation. Follow-up with your PCP in the next 1 to 3 days and return if any worsening symptoms. Prescriptions: predniSONE [Deltasone] 40 mg PO DAILY 5 Days #10 tab Is patient prescribed a controlled substance at d/c from ED?: No Referrals: Arvind Hughes DO [Primary Care Provider] - 1-2 days Time of Disposition: 12:40
[2024-06-17] MEDS: methylPREDNISolone SOD SUCCI 125 MG/2 ML VIAL IV STA (08:43)
[2024-06-17 08:50] LABS: Basophils # (A) 0.08 10*3/uL (0.00-0.10); Basophils % (A) 1.1 %; Eosinophils # (A) 0.07 10*3/uL (0.04-0.35); HCT 38.7 % (37.2-46.3); HGB 13.4 g/dL (12.0-15.0); Lymphocytes # (A) 1.46 10*3/uL (0.90-5.00); Lymphocytes % (A) 20.3 %; MCH 33.9 pg (27.0-32.0); MCHC 34.6 g/dL (32.0-37.0); Mean Platelet Volume 8.6 fL (9.5-12.2); Monocytes # (A) 0.72 10*3/uL (0.20-1.00); Neutrophils # (A) 4.85 10*3/uL (1.80-7.70); Neutrophils % (A) 67.3 %; Platelet Count 276 10*3/uL (140-440); RBC 3.95 10*6/uL (4.10-5.20); RDW 13.1 % (11.5-14.5)
[2024-06-17] MEDS: IPRATROPIUM-ALBUTEROL 3 ML NEB INHALATION STA (08:51)
--- NOTE | 2024-06-17 08:59 | XR ---
EXAMINATION TYPE: XR chest 2V DATE OF EXAM: 06/17/2024 8:41 AM COMPARISON: 11/18/2023 CLINICAL INDICATION: Female, 68 years old with history of difficulty breathing, shortness of breath TECHNIQUE: AP and lateral views FINDINGS: Dextroconvex scoliosis. Partially visualized lower thoracic and lumbar fusion hardware. Heart upper l imits of normal in size. Hyperinflation. Streaky atelectasis in the lower lungs. No jose angel consolidati on or pleural effusion seen. IMPRESSION: COPD and scoliosis. Some strandy atelectasis in the lower lungs. Otherwise, no acute process seen. [facility], Workstation: [facility], 06/17/2024 8:57 AM
[2024-06-17 09:06] LABS: ALT 23 U/L (4-34); AST 41 U/L (14-36); African American GFR (CKD) 84 (>60 ml/min/1.73 sqM); Albumin 4.7 g/dL (3.5-5.0); Alkaline Phosphatase 112 U/L (38-126); Anion Gap 17 mmol/L; Blood Urea Nitrogen 16 mg/dL (7-17); Calcium 9.4 mg/dL (8.4-10.2); Carbon Dioxide 19 mmol/L (22-30); Chloride 101 mmol/L (98-107); Glucose 80 mg/dL (74-99); Magnesium 1.6 mg/dL (1.6-2.3); Non-African American GFR(CKD) 73 (>60 ml/min/1.73 sqM); Potassium 4.1 mmol/L (3.5-5.1); Sodium 137 mmol/L (137-145); Total Protein 7.6 g/dL (6.3-8.2)
[2024-06-17 09:13] LABS: NT-Pro-B-Type Natriuretic Pept 353 pg/mL
[2024-06-17 09:44] LABS: INR 0.9 (<1.2); Prothrombin Time 10.1 sec (10.0-12.5)
[2024-06-17 09:45] LABS: Partial Thromboplastin Time 22.1 sec (22.0-30.0)
[2024-06-17] MEDS: ACETAMINOPHEN TAB 500 MG TAB PO STA (09:46)
[2024-06-17] MEDS: PROPRANOLOL 20 MG TAB PO STA (09:46)
[2024-06-17] MEDS: SODIUM CHLORIDE 0.9% 1,000 ML IV ONE ×2 (09:46→10:08)
[2024-06-17 09:55] LABS: Appearance,Urine Clear (Clear); Bilirubin,Urine Negative (Negative); Blood,Urine Negative (Negative); Color,Urine Colorless; Glucose,Urine (UA) Negative (Negative); Ketones,Urine 1+ (Negative); Leukocyte Esterase,Urine Negative (Negative); Nitrite,Urine Negative (Negative); Protein,Urine Negative (Negative); Specific Gravity,Urine 1.012 (1.001-1.035); Urobilinogen,Urine <2.0 mg/dL (<2.0)
[2024-06-17 10:36] LABS: Influenza A Not Detected (Not Detectd); Influenza B Not Detected (Not Detectd); RSV Not Detected (Not Detectd)
--- NOTE | 2024-06-17 11:08 | CT ---
EXAMINATION TYPE: CT abdomen pelvis w con CT DLP: 1335.9 mGycm, Automated exposure control for dose reduction was used. DATE OF EXAM: 06/17/2024 10:59 AM COMPARISON: CT abdomen pelvis 11/18/2023, 09/15/2021 CLINICAL INDICATION:Female, 68 years old with history of abd pain; TECHNIQUE: Standard CT of the abdomen and pelvis following the administration of 100 cc of Isovue 3 00 IV contrast material. Coronal and sagittal reformats were performed. FINDINGS: LOWER CHEST: Please see dedicated CTA chest for findings ABDOMEN LIVER: Focal fatty infiltration adjacent to the falciform ligament in segment IVb. Previously seen ri ght hepatic lobe peripheral lesion is not well-visualized on today's exam. GALLBLADDER AND BILE DUCTS: The gallbladder is surgically absent. No biliary ductal dilatation. PANCREAS: Unremarkable. SPLEEN: Unremarkable. ADRENAL GLANDS: Unremarkable. KIDNEYS AND URETERS: No evidence of hydronephrosis or renal calculus. The kidneys enhance symmetrical ly. Right renal upper pole 2.2 cm simple cyst. No follow-up recommended. Contrast is demonstrated wit hin both collecting systems and proximal ureters on the delayed phase. PELVIS BLADDER: Underdistended with some mild surrounding fat straining. REPRODUCTIVE: Unremarkable. ABDOMEN & PELVIS STOMACH AND BOWEL: Stomach and duodenum are unremarkable. Distal colonic diverticulosis without evide nce for acute diverticulitis. No focal bowel wall thickening or surrounding inflammatory changes. The appendix is within normal limits. No evidence of bowel obstruction. PERITONEUM: No evidence of pneumoperitoneum or free fluid. VASCULATURE: Mild atherosclerotic calcifications are present throughout the abdominal aorta and its b ranches. No evidence of aortic aneurysm. MUSCULOSKELETAL: No acute osseous abnormalities, postsurgical changes to the spine with hardware inta ct for prior fracture of the L1 vertebral body. Scoliosis changes with multilevel degeneration of the spine. Degeneration changes of the hips. LYMPH NODES: No evidence for lymphadenopathy. SOFT TISSUE/ABDOMINAL WALL: Unremarkable IMPRESSION: 1. Underdistended urinary bladder with some surrounding fat stranding. Correlate with urinalysis for cystitis. 2. Distal colonic diverticulosis without evidence for acute diverticulitis. [facility], , 06/17/2024 11:06 AM
--- NOTE | 2024-06-17 11:14 | CT ---
EXAMINATION TYPE: CT chest angio for PE CT DLP: 1375.9 mGycm, Automated exposure control for dose reduction was used. DATE OF EXAM: 06/17/2024 11:00 AM COMPARISON: Chest radiograph 06/17/2024 CLINICAL INDICATION:Female, 68 years old with history of eval for PE; shortness of breath. TECHNIQUE/CONTRAST: CTA scan of the thorax is performed with IV Contrast, patient injected with 100 mL of Isovue 370, pul monary embolism protocol. MIP images are created and reviewed. FINDINGS: Pulmonary Artery: There is no evidence for a filling defect within the pulmonary vasculature to sugge st acute pulmonary embolism. The pulmonary artery is of normal size. Lungs/Pleura: Biapical pleural-parenchymal scarring. Minimal dependent bilateral lower lobe subsegmen ally atelectasis. Fat filled left Bochdalek hernia. No focal consolidation, pneumothorax or pleural ef fusion. Small intrafissural lymph node along the right major fissure. Airway: Large airways are patent. Heart: Cardiomegaly is demonstrated.No pericardial effusion. No significant coronary artery calcifica tions. Vasculature: No evidence of aortic aneurysm. Mild atherosclerotic calcification of the aortic arch. Mediastinum: No evidence of adenopathy. Musculoskeletal: No acute osseous abnormalities. Scoliotic curvature with thoracolumbar fixation hard mejia. Multilevel degenerative disc disease of the visualized spine. Soft Tissues: Unremarkable. Lower neck: Tiny subcentimeter right thyroid lobe hypodense nodule. Upper Abdomen: Please refer to dedicated CT abdomen and pelvis of the same day for findings. IMPRESSION: No evidence of pulmonary embolism or acute thoracic process. [facility], , 06/17/2024 11:11 AM
[2024-06-17 11:37] VITALS: PULSE 78; TEMP 98.3
[2024-06-17 13:03] VITALS: BP 152/86; RESP 20
== END 2024-06-17 13:04 | disposition home or self-care (01) ==
LOC: EC 08:10
DX: J44.9 Chronic obstructive pulmonary disease, unspecified (principal); R00.2 Palpitations; R53.1 Weakness; Z88.0 Allergy status to penicillin; Z88.5 Allergy status to narcotic agent; Z91.09 Other allergy status, other than to drugs and biological substances; Z88.8 Allergy status to other drugs, medicaments and biological substances
CPT/HCPCS: 36415; 94640; 93005; 85379; 83880; 80053; 83605; 83735; 84443; 84484; 85025; 85610; 85730; 81003; 87636; 71046; 71275; 74177; 99285; 96374; 96361; Q9967; J2919

== ENCOUNTER 2024-06-26 15:47 | Emergency (ER) | payer MEDICARE, OTHER ==
[2024-06-26] MEDS: ACETAMINOPHEN TAB 500 MG TAB PO STA (16:55)
--- NOTE | 2024-06-26 17:51 | XR ---
EXAMINATION TYPE: XR Hip LT and AP Pelvis DATE OF EXAM: 06/26/2024 5:26 PM COMPARISON: 07/14/2022 CLINICAL INDICATION: Female, 68 years old with history of injury, pain TECHNIQUE: 2 view(s) obtained left hip supplemented with an AP pelvis. FINDINGS: There is narrowing of the bilateral hip joint spaces. Pubic symphysis and sacroiliac joints appear normal. Normal bowel gas is present. There is an extremely subtle irregular lucency through the subcapital region of the left hip. An occu lt fracture is suspected. Confirmation with CT is recommended. IMPRESSION: 1. Suspected occult subcapital fracture left hip. CT recommended for additional evaluation. [facility], , 06/26/2024 5:49 PM
--- NOTE | 2024-06-26 17:54 | XR ---
EXAMINATION TYPE: XR knee complete LT DATE OF EXAM: 06/26/2024 5:26 PM COMPARISON: None. CLINICAL INDICATION: Female, 68 years old with history of injury, pain TECHNIQUE: 3 view(s) obtained. FINDINGS: Some minimal calcification may be within the left lateral meniscus. Joint spaces mild diffuse narrowi ng. No acute osseous abnormality is evident. No joint effusion is evident. Follow up exams can be performed 7-10 days from acute trauma for continued pain IMPRESSION: 1. No acute osseous abnormality left knee [facility], , 06/26/2024 5:51 PM
--- NOTE | 2024-06-26 19:18 | CT ---
EXAMINATION TYPE: CT hip LT wo con DATE OF EXAM: 06/26/2024 6:48 PM COMPARISON: 06/26/2024 plain film CLINICAL INDICATION: Female, 68 years old with history of occult fracture, Suspected occult fx seen o n prior XR. TECHNIQUE: Contrast used: mL of , (none if empty) Oral contrast used: (none if empty) Axial images at 3 mm thick sections. Reconstructed images in the coronal and sagittal planes. 3-D re constructed images performed on separate computer by the technologist are presented. FINDINGS: Acetabular spurring and some femoral head spurring is noted. Suspected occult fracture in the subcapi ally region may reflect artifact from these degenerative changes. No definite fracture lines identifie d on these images. There is narrowing of the joint space. No suspicious fractures identified. IMPRESSION: 1. CT APPEARS NEGATIVE FOR OCCULT FRACTURE IN THE SUBCAPITAL LEFT HIP. FINDINGS MAY REFLECT THE MODER ATE DEGENERATIVE SPURRING PRESENT. FOLLOW-UP CAN BE PERFORMED CLINICALLY INDICATED [facility], , 06/26/2024 7:16 PM
[2024-06-26 19:34] VITALS: RESP 18
--- NOTE | 2024-06-26 19:44 | ED ---
Extremity Problem HPI - General Chief complaint: Extremity Problem,Nontraumatic Stated complaint: Fall- L Knee and Hip Injury Source: patient Mode of arrival: ambulatory Limitations: no limitations - History of Present Illness Initial comments: 68-year-old female presenting with chief complaint of left knee and hip pain. Patient had a trip and fall from standing last night and fell onto her knee. Pain is mainly on the sides of the knee. There is a small bruise on the knee. There is less pain in the hip. No numbness or tingling. No other injuries. No back pain. No head injury loss of consciousness or use of blood thinners. - Related Data Home Medications Medication Instructions Recorded Confirmed Alendronate Sodium 70 mg PO TH 03/08/21 06/17/24 Lutein 20 mg PO DAILY 01/13/23 06/17/24 hydroCHLOROthiazide 12.5 mg PO DAILY 01/13/23 06/17/24 Omeprazole 40 mg PO DAILY 07/04/23 06/17/24 Propranolol [Inderal] 20 mg PO DAILY 07/04/23 06/17/24 Aspirin EC [Ecotrin Low Dose] 81 mg PO MOWEFR 11/18/23 06/17/24 L.acidoph,Paracasei, B.lactis 1 cap PO DAILY 11/18/23 06/17/24 [Probiotic] Magnesium Oxide [Mag-Ox] 400 mg PO DAILY 11/18/23 06/17/24 Albuterol Inhaler [Ventolin Hfa 1 puff INHALATION RT-QID 01/17/24 06/17/24 Inhaler] Simvastatin [Zocor] 40 mg PO HS 06/17/24 06/17/24 Previous Rx's Medication Instructions Recorded amLODIPine [Norvasc] 5 mg PO DAILY #14 tab 08/06/22 predniSONE [Deltasone] 40 mg PO DAILY 5 Days #10 tab 06/17/24 Allergies Allergy/AdvReac Type Severity Reaction Status Date / Time KAYLEIGH Inhibitors Allergy Anaphylaxis Verified 06/26/24 15:52 adhesive Allergy Itching Verified 06/26/24 15:52 codeine Allergy Rash/Hives/ Verified 06/26/24 15:52 Migraines latanoprost [From Sipseylatan] Allergy Swelling Verified 06/26/24 15:52 [facility] Allergy Swelling Verified 06/26/24 15:52 eye Penicillins Allergy Rash/Hives Verified 06/26/24 15:52 Review of Systems ROS Statement: Those systems with pertinent positive or pertinent negative responses have been documented in the HPI. ROS Other: All systems not noted in ROS Statement are negative. Past Medical History Past Medical History: COPD, Eye Disorder, GERD/Reflux, Hyperlipidemia, Hypertension, Osteoarthritis (OA) Additional Past Medical History / Comment(s): Glaucoma and Macular Degeneration., lumps on her thyroid., hx of left foot fx with surgery feb 2021 & some difficulty walking at times and uses motor w/c at store., hiatal hernia, Scoliosis thoracolumbar surgery in with subsequent removal of hardware in [place], GALLBLADDER ISSUES History of Any Multi-Drug Resistant Organisms: None Reported Past Surgical History: Back Surgery, Section, Hernia Repair, Orthopedic Surgery, Tubal Ligation Additional Past Surgical History / Comment(s): Surgery for scoliosis with rods that broke and were removed. , left foot surgery with pin placed (feb 2021), EGD WITH DILATION (11/23/21)., HYSTEROSCOPY, tubal ligation with c section, INGUINAL HERNIA REPAIR, BILAT CATARACTS REMOVED WITH LENS IMPLANTS. Past Anesthesia/Blood Transfusion Reactions: Postoperative Nausea & Vomiting (PONV) Additional Past Anesthesia/Blood Transfusion Reaction / Comment(s): post-op headache Past Psychological History: No Psychological Hx Reported Smoking Status: Never smoker Past Alcohol Use History: Rare Past Drug Use History: None Reported - Past Family History Mother Family Medical History: Cancer, CVA/TIA Father Family Medical History: CVA/TIA General Exam Limitations: no limitations General appearance: alert, in no apparent distress Head exam: Present: atraumatic, normocephalic, normal inspection Eye exam: Present: normal appearance, EOMI Neck exam: Present: normal inspection. Absent: meningismus Respiratory exam: Absent: respiratory distress Cardiovascular Exam: Present: regular rate Left Hip exam: Present: normal inspection, full ROM. Absent: tenderness, swelling, deformity Knee exam: Present: full ROM, tenderness, swelling (mild), ecchymosis. Absent: deformity Neurological exam: Present: alert, oriented X3 Psychiatric exam: Present: normal affect, normal mood Skin exam: Present: warm, dry Course Vital Signs 06/26/24 06/26/24 15:50 17:15 Temperature 98.1 F Pulse Rate 72 68 Respiratory 18 16 Rate Blood Pressure 126/71 O2 Sat by Pulse 98 99 Oximetry Medical Decision Making - Medical Decision Making Was pt. sent in by a medical professional or institution (JULIA Tamayo, RESEARCH SPECIALIST, urgent care, hospital, or fci...) When possible be specific @ -No Did you speak to anyone other than the patient for history (EMS, parent, family, police, friend...)? What history was obtained from this source @ -No Did you review nursing and triage notes (agree or disagree)? Why? @ -I reviewed and agree with nursing and triage notes Were old charts reviewed (outside hosp., previous admission, EMS record, old EKG, old radiological studies, urgent care reports/EKG's, fci records)? Report findings @ -No old charts were reviewed Differential Diagnosis (chest pain, altered mental status, abdominal pain women, abdominal pain men, vaginal bleeding, weakness, fever, dyspnea, syncope, hea dache, dizziness, GI bleed, back pain, seizure, CVA, palpatations, mental health, musculoskeletal)? @ -Differential Musculoskeletal Muscular strain, contusion, ligament sprain, fracture, arthritis, septic arthritis, bursitis, cellulitis, muscle spasm, nerve compression, DVT, arterial occlusion, herpes zoster, electrolyte abnormality, tumor.... This is not meant to be in all inclusive list EKG interpreted by me (3pts min.). @ -As above X-rays interpreted by me (1pt min.). @ -X-ray shows no acute osseous abnormality of the right knee. Suspected occult subcapital fracture of the left hip. CT recommended for additional evaluation CT interpreted by me (1pt min.). @ -CT appears negative for occult fracture in the subcapital left hip. Findings may reflect the moderate degenerative spurring present. Follow-up can be performed as clinically indicated U/S interpreted by me (1pt. min.). @ -None done What testing was considered but not performed or refused? (CT, X-rays, U/S, labs)? Why? @ -None What meds were considered but not given or refused? Why? @ -None Did you discuss the management of the patient with other professionals (professionals i.e. JULIA Tamayo, RESEARCH SPECIALIST, lab, RT, psych nurse, social studies department chair, wage and salary specialist, teacher, landing signal officer, family caseworker)? Give summary @ -No Was smoking cessation discussed for >3mins.? @ -No Was critical care preformed (if so, how long)? @ -No Were there social determinants of health that impacted care today? How? (Homelessness, low income, unemployed, alcoholism, drug addiction, transportation, low edu. Level, literacy, decrease access to med. care, fdc, rehab)? @ -No Was there de-escalation of care discussed even if they declined (Discuss DNR or withdrawal of care, Hospice)? DNR status @ -No What co-morbidities impacted this encounter? (DM, HTN, Smoking, COPD, CAD, Cancer, CVA, ARF, Chemo, Hep., AIDS, mental health diagnosis, sleep apnea, morbid obesity)? @ -None Was patient admitted / discharged? Hospital course, mention meds given and route, prescriptions, significant lab abnormalities, going to OR and other pertinent info. @ -68-year-old female presenting with chief complaint of left knee and hip pain after a fall last night. History and physical examination are conducted. X-ray showed possible occult fracture of the hip, CT shows no fracture. Patient educated on today's findings and supportive management at home. Follow-up with PCP. Follow-up with orthopedics, patient has seen Dr. Macdonald in the past. Report back to ER with any new or worsening symptoms. Discussed return parameters and answered all questions. Patient conveyed verbal understanding and agreed to the plan. I discussed this case in detail with my attending Dr. Flores Undiagnosed new problem with uncertain prognosis? @ -No Drug Therapy requiring intensive monitoring for toxicity (Heparin, Nitro, Insulin, Cardizem)? @ -No Were any procedures done? @ -No Diagnosis/symptom? @ -Left leg injury Acute, or Chronic, or Acute on Chronic? @ -Acute Uncomplicated (without systemic symptoms) or Complicated (systemic symptoms)? @ -Uncomplicated Side effects of treatment? @ -No Exacerbation, Progression, or Severe Exacerbation? @ -No Poses a threat to life or bodily function? How? (Chest pain, [place], AR, pneumonia, PE, COPD, DKA, ARF, appy, cholecystitis, CVA, Diverticulitis, Homicidal, Suicidal, threat to staff... and all critical care pts) @ -Unlikely Disposition Clinical Impression: Left leg injury Disposition: HOME SELF-CARE Condition: Good Instructions (If sedation given, give patient instructions): Hip Pain (ED), Knee Pain (ED) Additional Instructions: Follow-up with PCP and orthopedics. Report back to ER with any new or worsening symptoms. Is patient prescribed a controlled substance at d/c from ED?: No Referrals: Arvind Hughes DO [Primary Care Provider] - 1-2 days Iam Maxwell DO [Doctor of Osteopathic Medicine] - 1-2 days Time of Disposition: 19:47
[2024-06-26 19:56] VITALS: BP 99/56; PULSE 61; TEMP 98
== END 2024-06-26 19:56 | disposition home or self-care (01) ==
LOC: EC 15:47
DX: S89.92XA Unspecified injury of left lower leg, initial encounter (principal); Z88.0 Allergy status to penicillin; Z88.5 Allergy status to narcotic agent; Z91.048 Other nonmedicinal substance allergy status; Z88.8 Allergy status to other drugs, medicaments and biological substances; W01.0XXA Fall on same level from slipping, tripping and stumbling without subsequent striking against object, initial encounter
CPT/HCPCS: 73502; 99284

== ENCOUNTER 2024-07-01 17:23 | Emergency (ER) | payer MEDICARE, OTHER ==
[2024-07-01 17:36] VITALS: RESP 18
--- NOTE | 2024-07-01 18:32 | ED ---
SOB HPI - General Chief Complaint: Shortness of Breath Stated Complaint: Weakness,SOB Time Seen by Provider: 07/01/24 17:35 Source: patient, RN notes reviewed, old records reviewed Mode of arrival: ambulatory Limitations: no limitations - History of Present Illness Initial Comments: This is a 68-year-old female to the ER for evaluation this patient today for evaluation of cough congestion shortness of breath headache symptoms greater than a week. Patient has no travel history no sick contacts no other complaints. No fevers cough or congestion. Symptoms have been getting progressively worse since symptoms here in the ER patient presents with the symptoms worsening patient feels worse than prior ER visit MD Complaint: shortness of breath, cough, chest pain -: week(s) Severity: moderate Severity scale (1-10): 4 Quality: aching Consistency: intermittent Improves With: nothing Worsens With: nothing Known History Of: COPD Context: recent URI, anxiety, recent illness Associated Symptoms: chest pain, pain with inspiration, cough, sputum production Treatments Prior to Arrival: none - Related Data Home Medications Medication Instructions Recorded Confirmed Alendronate Sodium 70 mg PO TH 03/08/21 07/01/24 hydroCHLOROthiazide 12.5 mg PO DAILY 01/13/23 07/01/24 Omeprazole 40 mg PO DAILY 07/04/23 07/01/24 Propranolol [Inderal] 20 mg PO DAILY 07/04/23 07/01/24 Albuterol Inhaler [Ventolin Hfa 1 puff INHALATION RT-QID 01/17/24 07/01/24 Inhaler] Simvastatin [Zocor] 40 mg PO HS 06/17/24 07/01/24 Ondansetron Odt [Zofran Odt] 4 mg PO Q8HR PRN 07/01/24 07/01/24 Previous Rx's Medication Instructions Recorded amLODIPine [Norvasc] 5 mg PO DAILY #14 tab 08/06/22 Allergies Allergy/AdvReac Type Severity Reaction Status Date / Time KAYLEIGH Inhibitors Allergy Anaphylaxis Verified 07/01/24 20:38 adhesive Allergy Itching Verified 07/01/24 20:38 codeine Allergy Rash/Hives/ Verified 07/01/24 20:38 Migraines latanoprost [From [facility]] Allergy Swelling Verified 07/01/24 20:38 eye netarsudil [From [facility]] Allergy Swelling Verified 07/01/24 20:38 eye Penicillins Allergy Rash/Hives Verified 07/01/24 20:38 Review of Systems ROS Statement: Those systems with pertinent positive or pertinent negative responses have been documented in the HPI. ROS Other: All systems not noted in ROS Statement are negative. Past Medical History Past Medical History: COPD, Eye Disorder, GERD/Reflux, Hyperlipidemia, Hypertension, Osteoarthritis (OA) Additional Past Medical History / Comment(s): Glaucoma and Macular Degeneration., lumps on her thyroid., hx of left foot fx with surgery feb 2021 & some difficulty walking at times and uses motor w/c at store., hiatal hernia, Scoliosis thoracolumbar surgery in with subsequent removal of hardware in [place], GALLBLADDER ISSUES History of Any Multi-Drug Resistant Organisms: None Reported Past Surgical History: Back Surgery, Section, Hernia Repair, Orthopedic Surgery, Tubal Ligation Additional Past Surgical History / Comment(s): Surgery for scoliosis with rods that broke and were removed. , left foot surgery with pin placed (feb 2021), EGD WITH DILATION (11/23/21)., HYSTEROSCOPY, tubal ligation with c section, INGUINAL HERNIA REPAIR, BILAT CATARACTS REMOVED WITH LENS IMPLANTS. Past Anesthesia/Blood Transfusion Reactions: Postoperative Nausea & Vomiting (PONV) Additional Past Anesthesia/Blood Transfusion Reaction / Comment(s): post-op headache Past Psychological History: No Psychological Hx Reported Smoking Status: Never smoker Past Alcohol Use History: Rare Past Drug Use History: None Reported - Past Family History Mother Family Medical History: Cancer, CVA/TIA Father Family Medical History: CVA/TIA General Exam Limitations: no limitations General appearance: alert, in no apparent distress Head exam: Present: atraumatic, normocephalic, normal inspection Eye exam: Present: normal appearance, PERRL, EOMI. Absent: scleral icterus, conjunctival injection, periorbital swelling ENT exam: Present: normal exam, mucous membranes moist Neck exam: Present: normal inspection. Absent: tenderness, meningismus, lymphadenopathy Respiratory exam: Present: normal lung sounds bilaterally. Absent: respiratory distress, wheezes, rales, rhonchi, stridor Cardiovascular Exam: Present: regular rate, normal rhythm, normal heart sounds. Absent: systolic murmur, diastolic murmur, rubs, gallop, clicks GI/Abdominal exam: Present: soft, normal bowel sounds. Absent: distended, tenderness, guarding, rebound, rigid Extremities exam: Present: normal inspection, full ROM, normal capillary refill. Absent: tenderness, pedal edema, joint swelling, calf tenderness Back exam: Present: normal inspection Neurological exam: Present: alert, oriented X3, CN II-XII intact Psychiatric exam: Present: normal affect, normal mood Skin exam: Present: warm, dry, intact, normal color. Absent: rash Course Vital Signs 07/01/24 07/01/24 07/01/24 17:34 20:26 20:34 Temperature 98.3 F Pulse Rate 102 H 78 80 Respiratory 18 Rate Blood Pressure 177/85 O2 Sat by Pulse 99 Oximetry 07/01/24 21:07 Temperature 98.0 F Pulse Rate 98 Respiratory 18 Rate Blood Pressure 159/90 O2 Sat by Pulse 99 Oximetry - Reevaluation(s) Reevaluation #1: Medical records reviewed Reevaluation #2: Patient's symptoms improved here in the ER Reevaluation #3: Patient informed of results and questions answered Reevaluation #4: Was pt. sent in by a medical professional or institution (, PA, POSTMASTER RELIEF, urgent care, hospital, or correction...) When possible be specific @ -no Did you speak to anyone other than the patient for history (EMS, parent, family, police, friend...)? What history was obtained from this source @ -no Did you review nursing and triage notes (agree or disagree)? Why? @ -agree Are old charts reviewed (outside hosp., previous admission, EMS record, old EKG, old radiological studies, urgent care reports/EKG's, correction records)? Report findings @ -yes Differential Diagnosis (chest pain, altered mental status, abdominal pain women, abdominal pain men, vaginal bleeding, weakness, fever, dyspnea, syncope, headache, dizziness, GI bleed, back pain, seizure, CVA, palpatations, mental health, musculoskeletal)? @ -prior EKG interpreted by me (3pts min.). @ -yes X-rays interpreted by me (1pt min.). @ -yes negative for acute disease CT interpreted by me (1pt min.). @ -no U/S interpreted by me (1pt. min.). @ -no What testing was considered but not performed or refused? (CT, X-rays, U/S, labs)? Why? @ -none What meds were considered but not given or refused? Why? @ -none Did you discuss the management of the patient with other professionals (professionals i.e. , PA, POSTMASTER [employer]IEF, lab, RT, psych nurse, social media strategist, rubber tire curer, teacher, security police officer, residential case manager)? Give summary @ -no Was smoking cessation discussed for >3mins.? @ -no Was critical care preformed (if so, how long)? @ -no Were there social determinants of health that impacted care today? How? (Homelessness, low income, unemployed, alcoholism, drug addiction, transportation, low edu. Level, literacy, decrease access to med. care, [place] [facility], rehab)? @ -none Was there de-escalation of care discussed even if they declined (Discuss DNR or withdrawal of care, Hospice)? DNR status @ -no What co-morbidities impacted this encounter? (DM, HTN, Smoking, COPD, CAD, Cancer, CVA, ARF, Chemo, Hep., AIDS, mental health diagnosis, sleep apnea, morbid obesity)? @ -none Was patient admitted / discharged? Hospital course, mention meds given and route, prescriptions, significant lab abnormalities, going to OR and other pertinent info. @ - 68 female for abdominal pain chest pain shortness of breath, COPD exacerbation. Patient throughout ER stay is much improved. Patient feels better and can be discharged home Discharge Undiagnosed new problem with uncertain prognosis? @ -no Drug Therapy requiring intensive monitoring for toxicity (Heparin, Nitro, Insulin, Cardizem)? @ -no Were any procedures done? @ -no Diagnosis/symptom? @ -COPD exacerbation abdominal pain nausea vomiting headache Acute, or Chronic, or Acute on Chronic? @ -Acute Uncomplicated (without systemic symptoms) or Complicated (systemic symptoms)? @ -Complicated Side effects of treatment? @ -no Exacerbation, Progression, or Severe Exacerbation? @ -exacerbation Poses a threat to life or bodily function? How? (Chest pain, USA, CT, pneumonia, PE, COPD, DKA, ARF, appy, cholecystitis, CVA, Diverticulitis, Homicidal, Suicidal, threat to staff... and all critical care pts) @ -yes 07/09/24 02:37 Reevaluation #5: Differential Dyspnea: Coronary syndrome, arrhythmia, tamponade, asthma, COPD, pulmonary embolism, pneumonia, pneumothorax, pulmonary effusion, anaphylaxis, diabetic ketoacidosis, flailed chest, pulmonary contusion, diaphragmatic rupture, anemia, neuromuscular, this is not meant to be an all-inclusive list. Medical Decision Making - Medical Decision Making 68 female for abdominal pain chest pain shortness of breath, COPD exacerbation. Patient throughout ER stay is much improved. Patient feels better and can be discharged home - Lab Data Result diagrams: 07/01/24 19:13 07/01/24 19:13 Lab Results 07/01/24 07/01/24 07/01/24 Range/Units 19:13 19:13 19:13 WBC 5.97 (4.50-10.00) 10*3/uL RBC 3.39 L (4.10-5.20) 10*6/uL Hgb 11.6 L (12.0-15.0) g/dL Hct 33.5 L (37.2-46.3) % MCV 98.8 H (80.0-97.0) fL MCH 34.2 H (27.0-32.0) pg MCHC 34.6 (32.0-37.0) g/dL Plt Count 170 (140-440) 10*3/uL MPV 9.1 L (9.5-12.2) fL Immature Gran % (Auto) 0.3 % Neutrophils % 77.7 % Lymphocytes % 10.1 % Monocytes % 10.9 % Eosinophils % 0.3 % Basophils % 0.7 % Immature Gran # 0.02 (0.00-0.04) 10*3/uL Neutrophils # 4.64 (1.80-7.70) 10*3/uL Lymphocytes # 0.60 L (0.90-5.00) 10*3/uL Monocytes # 0.65 (0.20-1.00) 10*3/uL Eosinophils # 0.02 L (0.04-0.35) 10*3/uL Basophils # 0.04 (0.00-0.10) 10*3/uL PT 10.1 (10.0-12.5) sec INR 0.9 (<1.2) APTT 21.9 L (22.0-30.0) sec Sodium 138 (137-145) mmol/L Potassium 3.8 (3.5-5.1) mmol/L Chloride 104 (98-107) mmol/L Carbon Dioxide 26 (22-30) mmol/L Anion Gap 8 mmol/L BUN 11 (7-17) mg/dL Creatinine 0.75 (0.52-1.04) mg/dL Est GFR (CKD-EPI)AfAm >90 (>60 ml/min/1.73 sqM) Est GFR (CKD-EPI)NonAf 82 (>60 ml/min/1.73 sqM) Glucose 115 H (74-99) mg/dL Plasma Lactic Acid Perez (0.7-2.0) mmol/L Calcium 9.0 (8.4-10.2) mg/dL Magnesium 1.6 (1.6-2.3) mg/dL Total Bilirubin 1.0 (0.2-1.3) mg/dL AST 36 (14-36) U/L ALT 24 (4-34) U/L Alkaline Phosphatase 108 (38-126) U/L Troponin I (0.000-0.034) ng/mL NT-Pro-B Natriuret Pep 393 pg/mL Total Protein 6.6 (6.3-8.2) g/dL Albumin 3.9 (3.5-5.0) g/dL 07/01/24 07/01/24 Range/Units 19:13 19:13 WBC (4.50-10.00) 10*3/uL RBC (4.10-5.20) 10*6/uL Hgb (12.0-15.0) g/dL Hct (37.2-46.3) % MCV (80.0-97.0) fL MCH (27.0-32.0) pg MCHC (32.0-37.0) g/dL Plt Count (140-440) 10*3/uL MPV (9.5-12.2) fL Immature Gran % (Auto) % Neutrophils % % Lymphocytes % % Monocytes % % Eosinophils % % Basophils % % Immature Gran # (0.00-0.04) 10*3/uL Neutrophils # (1.80-7.70) 10*3/uL Lymphocytes # (0.90-5.00) 10*3/uL Monocytes # (0.20-1.00) 10*3/uL Eosinophils # (0.04-0.35) 10*3/uL Basophils # (0.00-0.10) 10*3/uL PT (10.0-12.5) sec INR (<1.2) APTT (22.0-30.0) sec Sodium (137-145) mmol/L Potassium (3.5-5.1) mmol/L Chloride (98-107) mmol/L Carbon Dioxide (22-30) mmol/L Anion Gap mmol/L BUN (7-17) mg/dL Creatinine (0.52-1.04) mg/dL Est GFR (CKD-EPI)AfAm (>60 ml/min/1.73 sqM) Est GFR (CKD-EPI)NonAf (>60 ml/min/1.73 sqM) Glucose (74-99) mg/dL Plasma Lactic Acid Perez 1.0 (0.7-2.0) mmol/L Calcium (8.4-10.2) mg/dL Magnesium (1.6-2.3) mg/dL Total Bilirubin (0.2-1.3) mg/dL AST (14-36) U/L ALT (4-34) U/L Alkaline Phosphatase (38-126) U/L Troponin I <0.012 (0.000-0.034) ng/mL NT-Pro-B Natriuret Pep pg/mL Total Protein (6.3-8.2) g/dL Albumin (3.5-5.0) g/dL - EKG Data -: EKG Interpreted by Me (EKG is sinus 70 HI 166 QRS 90 QTc 427) - Radiology Data Radiology results: report reviewed (Chest x-ray is negative for acute disease), image reviewed Disposition Clinical Impression: COPD (chronic obstructive pulmonary disease), Weakness, Abdominal pain Disposition: HOME SELF-CARE Condition: Fair Instructions (If sedation given, give patient instructions): Abdominal Pain (ED) Is patient prescribed a controlled substance at d/c from ED?: No Referrals: Arvind Hughes DO [Primary Care Provider] - 1-2 days Time of Disposition: 20:20
[2024-07-01 19:21] LABS: Basophils # (A) 0.04 10*3/uL (0.00-0.10); Basophils % (A) 0.7 %; Eosinophils # (A) 0.02 10*3/uL (0.04-0.35); Eosinophils % (A) 0.3 %; HCT 33.5 % (37.2-46.3); HGB 11.6 g/dL (12.0-15.0); Lymphocytes % (A) 10.1 %; MCH 34.2 pg (27.0-32.0); MCHC 34.6 g/dL (32.0-37.0); MCV 98.8 fL (80.0-97.0); Mean Platelet Volume 9.1 fL (9.5-12.2); Monocytes # (A) 0.65 10*3/uL (0.20-1.00); Monocytes % (A) 10.9 %; Neutrophils # (A) 4.64 10*3/uL (1.80-7.70); Neutrophils % (A) 77.7 %; Platelet Count 170 10*3/uL (140-440); RBC 3.39 10*6/uL (4.10-5.20); RDW 14.6 % (11.5-14.5); WBC 5.97 10*3/uL (4.50-10.00)
[2024-07-01 19:33] LABS: ALT 24 U/L (4-34); AST 36 U/L (14-36); African American GFR (CKD) >90 (>60 ml/min/1.73 sqM); Albumin 3.9 g/dL (3.5-5.0); Alkaline Phosphatase 108 U/L (38-126); Anion Gap 8 mmol/L; Blood Urea Nitrogen 11 mg/dL (7-17); Carbon Dioxide 26 mmol/L (22-30); Chloride 104 mmol/L (98-107); Glucose 115 mg/dL (74-99); Magnesium 1.6 mg/dL (1.6-2.3); Non-African American GFR(CKD) 82 (>60 ml/min/1.73 sqM); Potassium 3.8 mmol/L (3.5-5.1); Sodium 138 mmol/L (137-145); Total Protein 6.6 g/dL (6.3-8.2)
[2024-07-01 19:38] LABS: INR 0.9 (<1.2); Partial Thromboplastin Time 21.9 sec (22.0-30.0); Prothrombin Time 10.1 sec (10.0-12.5)
[2024-07-01] MEDS: SODIUM CHLORIDE 0.9% 1,000 ML IV ONE (19:39)
[2024-07-01 19:42] LABS: NT-Pro-B-Type Natriuretic Pept 393 pg/mL
--- NOTE | 2024-07-01 19:47 | XR ---
EXAMINATION TYPE: XR chest 1V portable DATE OF EXAM: 07/01/2024 7:42 PM COMPARISON: Chest radiographs from 06/17/2024, CTA chest 06/17/2024 TECHNIQUE: XR chest 1V portable Portable AP radiograph of the chest. CLINICAL INDICATION:Female, 68 years old with history of sob; FINDINGS: Lungs/Pleura: There is no evidence of pleural effusion, focal consolidation, or pneumothorax. Biapica l pleural thickening. Pulmonary vascularity: Unremarkable. Heart/mediastinum: Cardiomediastinal silhouette is unremarkable. Atherosclerotic calcifications are seen in the aorta. Musculoskeletal: No acute osseous pathology. Dextrocurvature of the thoracolumbar spine. Fixation flynn dware involving the thoracolumbar spine. IMPRESSION: No acute cardiopulmonary disease/process. [facility], , 07/01/2024 7:45 PM
[2024-07-01] MEDS: IPRATROPIUM-ALBUTEROL 3 ML NEB INHALATION STA (20:24)
[2024-07-01] MEDS: KETOROLAC 15 MG/ML 1 ML VIAL IVP STA (20:54)
[2024-07-01] MEDS: DEXAMETHASONE SOD PHOSPHATE 10 MG/ML 1 ML VIAL IVP STA (20:55)
[2024-07-01] MEDS: MORPHINE SULFATE 4 MG/ML SYRINGE IVP STA (20:57)
[2024-07-01] MEDS: SODIUM CHLORIDE 0.9% 1,000 ML IV SCH (21:03)
[2024-07-01 21:08] VITALS: BP 159/90; PULSE 98; TEMP 98
== END 2024-07-01 21:09 | disposition home or self-care (01) ==
LOC: EC 17:23
DX: J44.1 Chronic obstructive pulmonary disease with (acute) exacerbation (principal); R10.9 Unspecified abdominal pain; Z88.0 Allergy status to penicillin; Z88.5 Allergy status to narcotic agent; Z88.8 Allergy status to other drugs, medicaments and biological substances; Z91.048 Other nonmedicinal substance allergy status
CPT/HCPCS: 36415; 94640; 93005; 83880; 80053; 83605; 83735; 84484; 85025; 85610; 85730; 71045; 99285; 96374; 96375 ×2; 96361; J2270; J1100; J1885

== ENCOUNTER → 2024-07-21 | Outpatient (CLI) | payer MEDICARE, OTHER ==
--- NOTE | 2024-07-21 12:11 | P.PROGSL ---
Subjective DATE: 07/21/2024 FOLLOW UP VISIT. Patient with obstructive sleep apnea hypopnea syndrome return to sleep center for follow-up visit. Information from previous visit have been reviewed. Patient is using PAP equipment every night for the whole night, getting PAP supplies in time. The patient does not have significant problems with the mask, PAP unit and humidification. Patient has dryness in the mouth after using CPAP. Premont sleepiness scale is 3, which is normal. I checked information from PAP unit. PAP unit pressure 5-13, average 9.4 cm H2O. Usage is 93% and 87% for more then 4 hours, average 7 hours per night. Leak is 22.2 l/m, which is in acceptable range. Apnea Hypopnea Index is 2, which is normal. MEDICATIONS have been reviewed, please see below. During physical exam: GENERAL: A pleasant patient without any distress. VITAL SIGNS: Please see below, weight is 166 lbs. HEENT: PERRLA, EOMI.low position of soft palate, Mallapati 4 . NECK: Supple. No JVD. LUNGS: Clear to percussion and to auscultation. Good air exchange. No wheezing or rhonchi. HEART: S1, S2 regular. ABDOMEN: Soft and nontender.[] EXTREMITIES: No clubbing or cyanosis. SHIRT MAKER: Awake, alert, and oriented x3. No focal deficit. Impressions: 1. Obstructive sleep apnea-hypopnea syndrome. Patient demonstrated great compliance with treatment, benefiting from treatment. 2. Hypertension. 3. Hyperlipidemia. 4. Acid reflux. 5. History of possible coronary artery disease. 6. Status post back fracture and back surgery in 2022. I explained to the patient and family how to adjust temperature in humidifier and tube. Patient will try using of chinstrap, possibly to opens her mouth during sleep. Plan: 1. Continue using PAP equipment every night for the whole night. 2. Sleep hygiene with regular time in bed for at least 7.5-8 hours 3. PAP unit should stay lower then position of the head. 4. Advised patient to remove all remaining water from humidifier canister daily and make it dry after each usage. Refill canister with fresh distilled water before each usage. 5. Watching weight. 6. Precautions related to driving. No driving if feel any sleepiness. 7. I will maintain prescription for PAP supplies including mask, tube, filters. 8. Follow up visit in 8 months or earlier if patient has any problems. Thank you very much for allowing me to participate in the management of your patient. Wellington Shetty MD, PhD, FAASM. Diplomat of [place] [employer], Sleep Medicine Board by [place] [employer] Manager [employer] [facility] [place] Objective - Vital Signs Vital Signs: Intake & Output 07/20/24 07/21/24 07/21/24 18:59 06:59 18:59 Weight 75.296 kg Home Medications: Home Medications Medication Instructions Recorded Confirmed Type Alendronate Sodium 70 mg PO TH 03/08/21 07/21/24 History amLODIPine [Norvasc] 5 mg PO DAILY #14 tab 08/06/22 07/21/24 Rx hydroCHLOROthiazide 12.5 mg PO DAILY 01/13/23 07/21/24 History Omeprazole 40 mg PO DAILY 07/04/23 07/21/24 History Propranolol [Inderal] 20 mg PO DAILY 07/04/23 07/21/24 History Albuterol Inhaler [Ventolin Hfa 1 puff INHALATION RT-QID 01/17/24 07/21/24 History Inhaler] Simvastatin [Zocor] 40 mg PO HS 06/17/24 07/21/24 History Ondansetron Odt [Zofran Odt] 4 mg PO Q8HR PRN 07/01/24 07/01/24 History
[2024-07-21 12:16] VITALS: BP 103/62; PULSE 65; RESP 12; TEMP 97.8
== END ==
LOC: 3 N SLEEP 11:00
PROVIDERS: ATTEND Internal Medicine
DX: G47.33 Obstructive sleep apnea (adult) (pediatric) (principal); I10 Essential (primary) hypertension; E78.5 Hyperlipidemia, unspecified; K21.9 Gastro-esophageal reflux disease without esophagitis; Z98.890 Other specified postprocedural states; Z99.89 Dependence on other enabling machines and devices; Z91.048 Other nonmedicinal substance allergy status; Z88.0 Allergy status to penicillin; Z88.5 Allergy status to narcotic agent
CPT/HCPCS: 99212

== ENCOUNTER 2024-08-13 07:35 | Day surgery (SDC) | payer MEDICARE, OTHER ==
--- NOTE | 2024-08-13 07:44 | P.GSHP ---
History of Present Illness H&P Date: 08/13/24 CHIEF COMPLAINT: GERD and dysphagia HISTORY OF PRESENT ILLNESS: The patient is a 68-year-old female who presents reports gastroesophageal reflux disease and dysphagia. Upper endoscopy was offered for further evaluation and management. PAST MEDICAL HISTORY: Please see list. PAST SURGICAL HISTORY: Please see list. MEDICATIONS: Please see list. ALLERGIES: Please see list. SOCIAL HISTORY: No illicit drug use FAMILY HISTORY: No reports of Crohn disease or ulcerative colitis. REVIEW OF ORGAN SYSTEMS: CONSTITUTIONAL: No reports of fevers or chills. GI: Denies any blood in stools or constipation. PHYSICAL EXAM: VITAL SIGNS: Stable GENERAL: Well-developed and pleasant in no acute distress. HEENT: No scleral icterus. Extraocular movements grossly intact. Moist buccal mucosa. NECK: Supple without lymphadenopathy. CHEST: Unlabored respirations. Equal bilateral excursions. CARDIOVASCULAR: Regular rate and rhythm. Distal 2+ pulses. ABDOMEN: Soft, nondistended. MUSCULOSKELETAL: No clubbing, cyanosis, or edema. ASSESSMENT: 1. Gastroesophageal reflux disease 2. Dysphagia PLAN: 1. Recommend proceeding with an upper endoscopy Past Medical History Past Medical History: COPD, Eye Disorder, GERD/Reflux, Hyperlipidemia, Hype rtension, Osteoarthritis (OA) Additional Past Medical History / Comment(s): Glaucoma and Macular Degeneration., lumps on her thyroid., hx of left foot fx with surgery feb 2021 & some difficulty walking at times and uses motor w/c at store., hiatal hernia, Scoliosis thoracolumbar surgery in with subsequent removal of hardware in [place], GALLBLADDER ISSUES fell and fx back had new rods placed 2022, History of Any Multi-Drug Resistant Organisms: None Reported Past Surgical History: Back Surgery, Breast Surgery, Section, Hernia Repair, Orthopedic Surgery, Tubal Ligation Additional Past Surgical History / Comment(s): Surgery for scoliosis with rods that broke and were removed. , left foot surgery with pin placed (feb 2021), EGD WITH DILATION (11/23/21)., HYSTEROSCOPY, tubal ligation with c section, INGUINAL HERNIA REPAIR, BILAT CATARACTS REMOVED WITH LENS IMPLANTS. lumpecotmy rt breast rods placed after fx of spine from fall Past Anesthesia/Blood Transfusion Reactions: Postoperative Nausea & Vomiting (PONV) Additional Past Anesthesia/Blood Transfusion Reaction / Comment(s): post-op headache Smoking Status: Never smoker - Past Family History Mother Family Medical History: Cancer, CVA/TIA Father Family Medical History: CVA/TIA Medications and Allergies Home Medications Medication Instructions Recorded Confirmed Type Alendronate Sodium 70 mg PO SA 03/08/21 08/12/24 History amLODIPine [Norvasc] 5 mg PO DAILY #14 tab 08/06/22 08/12/24 Rx hydroCHLOROthiazide 12.5 mg PO DAILY 01/13/23 08/12/24 History Omeprazole 40 mg PO DAILY 07/04/23 08/12/24 History Propranolol [Inderal] 20 mg PO DAILY 07/04/23 08/12/24 History Albuterol Inhaler [Ventolin Hfa 1 puff INHALATION RT-QID 01/17/24 08/12/24 History Inhaler] Simvastatin [Zocor] 40 mg PO HS 06/17/24 08/12/24 History Aspirin [Adult Low Dose Aspirin EC] 81 mg PO MOWEFR 08/12/24 08/12/24 History Trelegy Laurencealer (Unk) 1 inh INHALATION DIRECTED 08/12/24 08/12/24 History Allergies Allergy/AdvReac Type Severity Reaction Status Date / Time KAYLEIGH Inhibitors Allergy Anaphylaxis Verified 08/12/24 11:55 adhesive Allergy Itching Verified 08/12/24 11:55 codeine Allergy Rash/Hives/ Verified 08/12/24 11:55 Migraines latanoprost [From [facility]] Allergy Swelling Verified 08/12/24 11:55 eye netarsudil [From [facility]] Allergy Swelling Verified 08/12/24 11:55 eye Penicillins Allergy Rash/Hives Verified 08/12/24 11:55
[2024-08-13 08:20] VITALS: RESP 16; TEMP 97
[2024-08-13] MEDS ORDERED: LACTATED RINGERS 1,000 ML IV SCH (08:30)
[2024-08-13] MEDS: IV FLUID CONTINUATION 1,000 ML IV ONE (08:32)
[2024-08-13] MEDS ORDERED: LIDOCAINE 1% INJ 10MG/ML (20 ML MDV) ONE (09:43)
[2024-08-13] MEDS ORDERED: PROPOFOL 10 MG/ML 20 ML VIAL IV ONE (09:43)
--- NOTE | 2024-08-13 10:27 | P.PCN ---
Date of Procedure: 08/13/24 Description of Procedure: PREOPERATIVE DIAGNOSIS: Dysphagia. POSTOPERATIVE DIAGNOSIS: Dysphagia. History of hypertensive upper esophageal sphincter.' Diaphragmatic hiatal hernia OPERATION: Esophagogastroduodenoscopy rigid Thai dilator 57 Fr, upper esophageal sphincter. SURGEON: Yarely Bernal MD ANESTHESIA: MAC. INDICATIONS: The patient is a 68-year-old female who presents with dysphagia. She reports troubles with swallowing pills along her upper throat. Upper endoscopy was offered for further diagnostic evaluation and treatment. DESCRIPTION: The patient was brought into the endoscopy suite and laid in the left lateral decubitus position. An Olympus gastroscope was carefully passed along the posterior oropharynx. Upon entry into the proximal esophagus, a mild stricture was identified consistent with hypertensive upper esophageal sphincter. No erosion were found along the distal esophagus or ulcerations. The stomach was entered. The scope was passed to the second portion and third portion of the duodenum was unremarkable. Retroflexion of the scope confirmed Hill grade 3 lower esophageal valve without recurrent diaphragmatic hiatal hernia. A guidewire was placed through the scope into the stomach. The scope was removed. A 57-Bulgarian rigid dilator was placed to 45 cm from the incisors. The dilator was left in place between 2-3 minutes. The dilator and guidewire were removed. The scope was reentered along the proximal esophagus whereby the stricture had resolved of the upper esophagus. No full-thickness injury was found along the mucosa. The stomach was desufflated. The patient tolerated the procedure well. FINDINGS: Squamocolumnar junction 37 cm from the incisors. Diaphragmatic hiatus at 40 cm. Diaphragmatic hiatal hernia 3 cm Hill grade 3 lower esophageal valve. LA grade B erosive esophagitis. Hypertensive upper esophageal sphincter dilated to 57 Bulgarian RECOMMENDATIONS: Upper endoscopy as needed. Plan - Discharge Summary Discharge Rx Participant: No New Discharge Prescriptions: Continue Alendronate Sodium 70 mg PO SA amLODIPine [Norvasc] 5 mg PO DAILY #14 tab Albuterol Inhaler [Ventolin Hfa Inhaler] 1 puff INHALATION RT-QID Simvastatin [Zocor] 40 mg PO HS Aspirin [Adult Low Dose Aspirin EC] 81 mg PO MOWEFR hydroCHLOROthiazide 12.5 mg PO DAILY Propranolol [Inderal] 20 mg PO DAILY Omeprazole 40 mg PO DAILY Trelegy Daisyr (Unk) 1 inh INHALATION DIRECTED Discharge Medication List Alendronate Sodium 70 mg PO SA 03/08/21 [History] amLODIPine [Norvasc] 5 mg PO DAILY #14 tab 08/06/22 [Rx] hydroCHLOROthiazide 12.5 mg PO DAILY 01/13/23 [History] Omeprazole 40 mg PO DAILY 07/04/23 [History] Propranolol [Inderal] 20 mg PO DAILY 07/04/23 [History] Albuterol Inhaler [Ventolin Hfa Inhaler] 1 puff INHALATION RT-QID 01/17/24 [History] Simvastatin [Zocor] 40 mg PO HS 06/17/24 [History] Aspirin [Adult Low Dose Aspirin EC] 81 mg PO MOWEFR 08/12/24 [History] Trelegy Ihaler (Unk) 1 inh INHALATION DIRECTED 08/12/24 [History] Follow up Appointment(s)/Referral(s): Yarely Bernal MD [STAFF PHYSICIAN] - 08/26/24 3:45 pm Patient Instructions/Handouts: Esophageal Dilation (GEN) Activity/Diet/Wound Care/Special Instructions: Recommend warm beverages prior to eating. Salt water gargle twice a day for 2 days. Recommend soft food diet for 2 days Discharge Disposition: HOME SELF-CARE
[2024-08-13 10:31] VITALS: BP 107/66; PULSE 68
== END 2024-08-13 10:55 | disposition home or self-care (01) ==
LOC: ORWHC2ENDO 07:35
PROVIDERS: ATTEND Surgery Plastic and Reconstructive Surgery
DX: K22.2 Esophageal obstruction (principal); K22.10 Ulcer of esophagus without bleeding; K44.9 Diaphragmatic hernia without obstruction or gangrene; I10 Essential (primary) hypertension; E78.5 Hyperlipidemia, unspecified; J44.9 Chronic obstructive pulmonary disease, unspecified; Z79.83 Long term (current) use of bisphosphonates; Z79.899 Other long term (current) drug therapy; Z88.5 Allergy status to narcotic agent; Z88.0 Allergy status to penicillin; Z88.8 Allergy status to other drugs, medicaments and biological substances
CPT/HCPCS: 43248; J2003; J2704

== ENCOUNTER 2024-09-05 13:46 | Emergency (ER) | payer MEDICARE, OTHER ==
[2024-09-05 13:58] VITALS: RESP 18; TEMP 97.7
--- NOTE | 2024-09-05 14:27 | ED ---
Fall HPI - General Chief Complaint: Fall Stated Complaint: Fall-R sided rib pain Time Seen by Provider: 09/05/24 14:02 Source: patient Mode of arrival: ambulatory - History of Present Illness Initial Comments: 68-year-old female presenting for evaluation after a fall at home. Patient states that she lost her balance and fell on her right side. She is now having right-sided rib pain which is worse when she takes deep breath. She denies any head injury, loss of consciousness, or use of blood thinners. Her states that about 5 minutes later she fell again. She has been having ongoing issues with loss of balance and is currently seeing Dr. Gilmore. She denies any shortness of breath. No nausea, vomiting, headache, neck pain, numbness, tingling, weakness. - Related Data Home Medications Medication Instructions Recorded Confirmed Alendronate Sodium 70 mg PO SA 03/08/21 08/13/24 hydroCHLOROthiazide 12.5 mg PO DAILY 01/13/23 08/13/24 Omeprazole 40 mg PO DAILY 07/04/23 08/13/24 Propranolol [Inderal] 20 mg PO DAILY 07/04/23 08/13/24 Albuterol Inhaler [Ventolin Hfa 1 puff INHALATION RT-QID 01/17/24 08/12/24 Inhaler] Simvastatin [Zocor] 40 mg PO HS 06/17/24 08/13/24 Aspirin [Adult Low Dose Aspirin EC] 81 mg PO MOWEFR 08/12/24 08/13/24 Trelegy Ihaler (Unk) 1 inh INHALATION DIRECTED 08/12/24 08/13/24 Previous Rx's Medication Instructions Recorded amLODIPine [Norvasc] 5 mg PO DAILY #14 tab 08/06/22 Allergies Allergy/AdvReac Type Severity Reaction Status Date / Time KAYLEIGH Inhibitors Allergy Anaphylaxis Verified 09/05/24 13:58 adhesive Allergy Itching Verified 09/05/24 13:58 codeine Allergy Rash/Hives/ Verified 09/05/24 13:58 Migraines latanoprost [From Rocklatan] Allergy Swelling Verified 09/05/24 13:58 eye netarsudil [From Rocklatan] Allergy Swelling Verified 09/05/24 13:58 eye Penicillins Allergy Rash/Hives Verified 09/05/24 13:58 Review of Systems ROS Statement: Those systems with pertinent positive or pertinent negative responses have been documented in the HPI. ROS Other: All systems not noted in ROS Statement are negative. Past Medical History Past Medical History: COPD, Eye Disorder, GERD/Reflux, Hyperlipidemia, Hypertension, Osteoarthritis (OA) Additional Past Medical History / Comment(s): Glaucoma and Macular Degeneration., lumps on her thyroid., hx of left foot fx with surgery feb 2021 & some difficulty walking at times and uses motor w/c at store., hiatal hernia, Scoliosis thoracolumbar surgery in with subsequent removal of hardware in [employer], GALLBLADDER ISSUES fell and fx back had new rods placed 2022, History of Any Multi-Drug Resistant Organisms: None Reported Past Surgical History: Back Surgery, Breast Surgery, Section, Hernia Repair, Orthopedic Surgery, Tubal Ligation Additional Past Surgical History / Comment(s): Surgery for scoliosis with rods that broke and were removed. , left foot surgery with pin placed (feb 2021), EGD WITH DILATION (11/23/21)., HYSTEROSCOPY, tubal ligation with c section, INGUINAL HERNIA REPAIR, BILAT CATARACTS REMOVED WITH LENS IMPLANTS. lumpecotmy rt breast rods placed after fx of spine from fall Past Anesthesia/Blood Transfusion Reactions: Postoperative Nausea & Vomiting ( PONV) Additional Past Anesthesia/Blood Transfusion Reaction / Comment(s): post-op headache Past Psychological History: No Psychological Hx Reported Smoking Status: Never smoker Past Alcohol Use History: Occasional Past Drug Use History: None Reported - Past Family History Mother Family Medical History: Cancer, CVA/TIA Father Family Medical History: CVA/TIA General Exam Limitations: no limitations General appearance: alert, in no apparent distress Head exam: Present: atraumatic, normocephalic, normal inspection Eye exam: Present: normal appearance, EOMI Neck exam: Present: normal inspection. Absent: meningismus Respiratory exam: Present: normal lung sounds bilaterally, chest wall tenderness, other (Bruising to the right sided posterior ribs). Absent: respiratory distress, wheezes, rales, rhonchi, stridor Cardiovascular Exam: Present: regular rate, normal rhythm, normal heart sounds. Absent: systolic murmur, diastolic murmur, rubs, gallop, clicks Neurological exam: Present: alert, oriented X3 Expanded Eye Response: (4) open spontaneously Motor Response: (6) obeys commands Verbal Response: (5) oriented [place] Total: 15 Psychiatric exam: Present: normal affect, normal mood Skin exam: Present: warm, dry Course Vital Signs 09/05/24 09/05/24 13:52 15:43 Temperature 97.7 F Pulse Rate 81 68 Respiratory 18 18 Rate Blood Pressure 106/61 131/76 O2 Sat by Pulse 96 98 Oximetry Medical Decision Making - Medical Decision Making Was pt. sent in by a medical professional or institution (JULIA Tamayo, QUITLINE COUNSELOR, urgent care, hospital, or half-way...) When possible be specific @ -No Did you speak to anyone other than the patient for history (EMS, parent, family, police, friend...)? What history was obtained from this source @ -No Did you review nursing and triage notes (agree or disagree)? Why? @ -I reviewed and agree with nursing and triage notes Were old charts reviewed (outside hosp., previous admission, EMS record, old EKG, old radiological studies, urgent care reports/EKG's, half-way records)? Report findings @ -No old charts were reviewed Differential Diagnosis (chest pain, altered mental status, abdominal pain women, abdominal pain men, vaginal bleeding, weakness, fever, dyspnea, syncope, headache, dizziness, GI bleed, back pain, seizure, CVA, palpatations, mental health, musculoskeletal)? @ -Differential includes rib fracture, rib contusion, pneumothorax, hemothorax, noninclusive list EKG interpreted by me (3pts min.). @ -As above X-rays interpreted by me (1pt min.). @ -Chest x-ray shows acute fracture of the right ribs 6 posterior fracture with minimal displacement CT interpreted by me (1pt min.). @ -None done U/S interpreted by me (1pt. min.). @ -None done What testing was considered but not performed or refused? (CT, X-rays, U/S, labs)? Why? @ -None What meds were considered but not given or refused? Why? @ -None Did you discuss the management of the patient with other professionals (professionals i.e. JULIA Tamayo, QUITLINE COUNSELOR, lab, RT, psych nurse, social sciences research scientist, personnel clerk, teacher, promotion officer, case maker)? Give summary @ -No Was smoking cessation discussed for >3mins.? @ -No Was critical care preformed (if so, how long)? @ -No Were there social determinants of health that impacted care today? How? (Homelessness, low income, unemployed, alcoholism, drug addiction, transportation, low edu. Level, literacy, decrease access to med. care, senior living, rehab)? @ -No Was there de-escalation of care discussed even if they declined (Discuss DNR or withdrawal of care, Hospice)? DNR status @ -No What co-morbidities impacted this encounter? (DM, HTN, Smoking, COPD, CAD, Cancer, CVA, ARF, Chemo, Hep., AIDS, mental health diagnosis, sleep apnea, m orbid obesity)? @ -None Was patient admitted / discharged? Hospital course, mention meds given and route, prescriptions, significant lab abnormalities, going to OR and other pertinent info. @ -68-year-old female presenting with chief complaint of right-sided rib pain. She had a fall at home. No head injury loss of consciousness or blood thinners. She does have some bruising over the area of tenderness. X-ray confirms right- sided rib 6 posterior fracture with minimal displacement. Patient is having no shortness of breath. She is educated on today's findings. Provided with incentive spirometer for home. Follow-up with PCP. Report back to ER with any new or worsening symptoms. Discussed return parameters and answered all questions. Patient conveyed verbal understanding and agreed to the plan. I discussed this case in detail with my attending Dr. Solomon Undiagnosed new problem with uncertain prognosis? @ -No Drug Therapy requiring intensive monitoring for toxicity (Heparin, Nitro, Insulin, Cardizem)? @ -No Were any procedures done? @ -No Diagnosis/symptom? @ -Rib fracture Acute, or Chronic, or Acute on Chronic? @ -Acute Uncomplicated (without systemic symptoms) or Complicated (systemic symptoms)? @ -Uncomplicated Side effects of treatment? @ -No Exacerbation, Progression, or Severe Exacerbation? @ -No Poses a threat to life or bodily function? How? (Chest pain, [place], NH, pneumonia, PE, COPD, DKA, ARF, appy, cholecystitis, CVA, Diverticulitis, Homicidal, Suicidal, threat to staff... and all critical care pts) @ -Low likelihood Disposition Clinical Impression: Rib fracture Disposition: HOME SELF-CARE Condition: Good Instructions (If sedation given, give patient instructions): Rib Fracture (ED) Additional Instructions: Follow-up with PCP. Report back to ER with any new or worsening symptoms. Use the incentive spirometer 10 times an hour while awake. Take Tylenol as needed. Is patient prescribed a controlled substance at d/c from ED?: No Referrals: Arvind Hughes DO [Primary Care Provider] - 1-2 days Time of Disposition: 15:23
[2024-09-05] MEDS: ACETAMINOPHEN TAB 325 MG TAB PO STA (14:29)
[2024-09-05] MEDS: LIDOCAINE 4% PATCH TOPICAL ONE (14:30)
--- NOTE | 2024-09-05 14:52 | XR ---
EXAMINATION TYPE: XR ribs RT w pa chest xray DATE OF EXAM: 09/05/2024 2:25 PM COMPARISON: 07/01/2024. CLINICAL INDICATION: Female, 68 years old with history of fall, pain TECHNIQUE: XR ribs RT w pa chest xray; Frontal and oblique views of the ribs with frontal chest radio graph. FINDINGS: Acute right rib 6 posteriorly is fractured with minimal displacement.. The remainder of the ribs have a normal appearance. No evidence additional of fracture. Overall, the lungs are clear. The cardiac silhouette is normal in size. The remaining osseous structures are intact. Fixation entering the sp ine appears intact. IMPRESSION: Acute fracture of right rib 6 posterior fracture with minimal displacement. [facility], , 09/05/2024 2:50 PM
[2024-09-05 15:44] VITALS: BP 131/76; PULSE 68
== END 2024-09-05 15:44 | disposition home or self-care (01) ==
LOC: EC 13:46
DX: S22.31XA Fracture of one rib, right side, initial encounter for closed fracture (principal); Z88.5 Allergy status to narcotic agent; Z91.048 Other nonmedicinal substance allergy status; Z88.0 Allergy status to penicillin; Z88.8 Allergy status to other drugs, medicaments and biological substances; W19.XXXA Unspecified fall, initial encounter; Y92.009 Unspecified place in unspecified non-institutional (private) residence as the place of occurrence of the external cause
CPT/HCPCS: 99284

== ENCOUNTER → 2024-09-18 | Outpatient (CLI) | payer MEDICARE, OTHER ==
--- NOTE | 2024-09-18 09:00 | MR ---
EXAMINATION TYPE: MR brain/cspine wo DATE OF EXAM: 09/18/2024 8:27 AM COMPARISON: CT brain 02/23/2024 CLINICAL INDICATION: Female, 68 years old with history of CVA, Myelopathy, memory loss, imbalance. TECHNIQUE: Multiplanar, multisequence images of the brain and brainstem were acquired without IV con trast. Diffusion weighted imaging is performed. Additional multiplanar, multisequence images of the cervical spine without IV contrast. FINDINGS: BRAIN: No evidence for acute infarction, hemorrhage, mass, mass effect, midline shift, herniation, effacemen t of basal cisterns, or extra-axial fluid collection. Mild to moderate generalized supratentorial volume loss. Very mild prominence to the ventricular syst em. Major intracranial flow voids are intact. T2/FLAIR weighted sequences show only minimal right white matter signal change in the cerebral hemisp heres Midline structures demonstrate normal morphology. The craniocervical junction is normal. Moderate mucosal thickening ethmoid air cells and right maxillary sinus. Trace along the floor of the left maxillary sinus rightward nasal septal deviation. Globes appear intact. Incidentally, there appears to be an effusion at the right TMJ and likely asymmetric prominent degene rative change here. CERVICAL SPINE: No craniocervical junction abnormality, predental space widening, or prevertebral soft tissue swellin g. There is moderate degenerative disc disease throughout with desiccated disks and discussed by complex formation. Advanced hypertrophic facet and uncovertebral joint arthropathy is present throughout. Degenerative grade 1 retrolisthesis C4-C5 and grade 1 anterolisthesis C6-C7. Largest disc ossified complexes at C3-C4 and C4-C5 with concurrent ligamentum flavum thickening mid c ervical spine. At C3-C4, changes result in moderate spinal canal stenosis with AP canal dimension narrowed to 6 mm w ith abutment and slight flattening of both the dorsal and ventral cord. Mild to moderate bilateral ne ural foraminal stenosis. At C4-C5, the grade 1 retrolisthesis along with disc osteophyte complex and ligamentum flavum thicken ing injury yesterday moderate to severe focal spinal canal stenosis with AP canal dimension narrowed to 4.5 mm. Abutment and flattening of both the dorsal and ventral cord. Severe left and moderate to s evere right neural foraminal stenosis. At C5-C6, hypertrophic facet and uncovertebral joint arthropathy contributes to moderate to severe bi lateral neuroforaminal stenosis. At C6/C7, changes result in moderate left neural foraminal stenosis. Hypertrophic facet changes are particularly severe on the left at C6/C7. No convincing T2-weighted cord signal abnormality at this time when correlating with axial images. Th ough some scattered mild artifacts are present. COMBINED IMPRESSION: BRAIN: 1. Mild to moderate generalized cervical atrophy. 2. No acute intracranial abnormality seen. 3. Right TMJ effusion and asymmetric TMJ OA. Correlate for any localizing pain. CERVICAL SPINE: 4. Moderate multilevel degenerative disc disease. Advanced multilevel hypertrophic facet and uncovert ebral joint arthropathy. Additional ligamentum flavum thickening mid cervical spine. 5. Degenerative grade 1 spondylolisthesis C4-C5 and C6-C7. 6. Overall moderate spinal canal stenosis at C3-C4 (6 mm AP canal dimension) and moderate to severe s gold canal stenosis at C4-C5 (AP canal narrowed to 4.5 mm). Possible mild impingement onto the cord particularly at C4-C5. No jose angel myelopathic cord signal change at this time. Correlate with patient's symptoms. 7. Variable neuroforaminal stenoses C3-C7 levels as outlined above. [facility], , 09/18/2024 8:58 AM
== END | disposition home or self-care (01) ==
LOC: RADMRIMAIN 07:36
PROVIDERS: ATTEND Psychiatry & Neurology Neurology
DX: I67.9 Cerebrovascular disease, unspecified (principal); M50.00 Cervical disc disorder with myelopathy, unspecified cervical region; M25.78 Osteophyte, vertebrae; M43.12 Spondylolisthesis, cervical region; M47.812 Spondylosis without myelopathy or radiculopathy, cervical region; M48.02 Spinal stenosis, cervical region; G31.1 Senile degeneration of brain, not elsewhere classified; M26.641 Arthritis of right temporomandibular joint; Z86.73 Personal history of transient ischemic attack (TIA), and cerebral infarction without residual deficits
CPT/HCPCS: 70551; 72141